=== PATIENT | male | born 1965 | race Caucasian/White ===

== ENCOUNTER → 2018-05-11 00:34 | Outpatient (CLI) | payer OTHER, SELFPAY ==
--- NOTE | 2018-05-11 10:16 | DI.REPORT_ITS ---
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 The patient has reportedly had repair of a colovesical fistula. There is apparent anastomotic narrowing in the sigmoid region. No recurrent fistula identified. No extravasation of contrast material. Mild mucosal irregularity noted at the anastomotic site and to a lesser degree in a few focal areas more distally. No evidence of obstruction although I would note that there was contrast material residual in the right colon from apparent previous barium enema of 03/08/18. CONCLUSION: No anastomotic leakage. Significant narrowing of colonic lumen at the sigmoid anastomotic site. Note is also made of apparent retained contrast material in ascending colon from February barium enema.
== END ==
PROVIDERS: PCP Nurse Practitioner Family; Visit Provider Surgery
DX: N32.1 Vesicointestinal fistula (principal); K63.2 Fistula of intestine; Z98.0 Intestinal bypass and anastomosis status
CPT/HCPCS: 74270

== ENCOUNTER 2018-05-23 05:56 | Inpatient (IN) | payer OTHER, SELFPAY ==
[2018-05-23] VITALS (13 sets, daily range): BP systolic 103–127; BP diastolic 55–79; PULSE 54–91; RESP 14–27; TEMP 35.8–36.7; O2SAT 95–99
[2018-05-23] MEDS: Lactated Ringers 1,000 ML 30 ML IV ×2 (06:48→15:00)
[2018-05-23] MEDS: Lactated Ringers 1,000 ML 750 ML IV (09:39)
[2018-05-23] MEDS: Normal Saline-STERILE FIELD 0.9% 10 ML SYR 20 ML (10:20)
--- NOTE | 2018-05-23 11:40 | BOWEL_PTH ---
PATIENT: Koko Ace JR LOC: U#:[id number] AGE/SX: 52/M ROOM: 215 RE05/23/[address]: Dayron Diaz DO : 1965 BED: A DIS: 05/26/2018 SPEC #: [id number] RECD: 05/23/18 18:02 STATUS: PREMA REQ #: [id number] REED: 05/23/18 11:[address]: Dayron Diaz DEPT: Surgical Specimen RECD BY: Pearl Esparza ENTERED: 05/23/18 18:03 SP TYPE: Bowel OTHR DR: Krya Mcdaniel APRN Tissues: 1 - BOWEL/OSTOMY STOMA Procedures: GROSS AND MICRO LEVEL 3 Comments: [id number]
[2018-05-23] MEDS: Lidocaine 1% Pres-Free 5 ML VIAL 20 ML (12:31)
[2018-05-23] MEDS: Bupivacaine 0.25% Pres-Free 30 ML VIAL (12:31)
[2018-05-23] MEDS: Normal Saline Flush 10 ML SYR IVP ×3 (14:21→17:03)
[2018-05-23] MEDS: Enoxaparin 40 MG/0.4 ML SYR SC (14:21)
[2018-05-23] MEDS: Gabapentin 100 MG CAP PO ×2 (14:21→19:30)
[2018-05-23] MEDS: clonazePAM 1 MG TAB PO ×2 (14:21→19:30)
[2018-05-23] MEDS: Nicotine 21 MG/24 HR PATCH TD (14:32)
[2018-05-23] MEDS: ACETAMINOPHEN 1,000 MG/100 ML BTL 400 MG IVPB ×2 (15:27→23:39)
[2018-05-23] MEDS: Ketorolac 15 MG/ML VIAL IVP ×2 (17:03→23:40)
--- NOTE | 2018-05-23 17:12 | ROE_ITS ---
DATE OF PROCEDURE: May 23, 2018 PREOPERATIVE DIAGNOSIS: Colovesical fistula. POSTOPERATIVE DIAGNOSIS: Colovesical fistula. PROCEDURE: Ileostomy reversal. SURGEON: Dayron Diaz D.O. VINYL INSTALLER: Mady Roberson PA-C ANESTHESIA: General Anesthesia via endotracheal tube by Amador Mejia CRNA ASA 3, Mallampati Class II Bilateral TAP blocks performed by Anesthesia. LOCAL: 1.3% Exparel with 0.5% Marcaine. ESTIMATED BLOOD LOSS: 100 mL's SPECIMEN: Cutaneous portion of loop ileostomy. INDICATIONS: This is a 52-year-old gentleman who had undergone repair of a colovesical fistula and was anastomosed at that time but had an ileostomy placed to allow the anastomosis to heal. He now presents for reversal after recent barium enema demonstrated no evidence of leak at the colonic anastomosis. The risks and benefits of this were discussed with Ro Db. All his questions were answered to his satisfaction. Consent was obtained to proceed. FINDINGS: The loop ileostomy was freed up from the surrounding skin and fascia and anastomosed in a standard [id number] function end-to-end fashion and then placed back in the abdomen. A wound VAC was placed in the wound. The wound was then covered with a negative pressure wound VAC. PROCEDURE: The patient was brought to the preanesthesia staging area, identification confirmed, consent signed. He was then brought to the operating room. Bilateral TAP blocks were placed by Anesthesia - please see separate operative report. He was positioned supine. All bony prominences were padded. An endotracheal tube was inserted and sedation was titrated for effect. Once adequate sedation was reached, his ileostomy was closed using #0 silk sutures. The ileostomy was then prepped with iodine and then the surrounding area prepped with ChloraPrep. He was draped in a standard sterile fashion. Ioban was placed over the wound. He had sequential compression devices placed prior to induction of anesthesia. He received 3 grams of Cefotetan preoperatively. A Oseguera catheter was inserted after induction of anesthesia. I began the case by making an elliptical incision around the loop ileostomy site , carrying this down to the subcutaneous tissue. I then used cautery to divide the subcutaneous tissue, avoiding the bowel and dividing and freeing up the ileostomy circumferentially down to the fascia. Once I had reached the fascia, using blunt dissection I was able to advance my finger into the abdomen and then circumferentially the fascia from the loop ileostomy. Once the loop ileostomy was freed up circumferentially from any attachments, I then cleaned up the loop portion up to the cutaneous opening so I would have the maximum amount of bowel available for re-anastomosis. Once I had cleaned up the loop, I then sharply divided the bowel on the efferent and afferent limbs and then used a LigaSure to divide the mesentery in a V formation between. Hemostasis was obtained with cautery. With the two loops exposed, both distal and proximal, I then used an Endo CONCHITA by Stackpop 80 mm long and 3.8 mm staple height, passing an anvil, one down the afferent and one down the efferent, or proximal and distal limbs, approximating the antimesenteric borders. I then fired the staple, creating a common channel. I inspected this - there was good apposition of the stitches and an anti-tension stitch was placed at the end of the staple line. I then used Allis clamps to close the end of the opening in the common channel. I then used a second staple load of the Endo CONCHITA stapler 80 mm long, 3.8 mm staple height to close the common channel opening. With this closed, I over-sewed this using #3-0 silk pop-off sutures in Lembert fashion. The small mesenteric defect I had, which measured 2 to 3 cm, was approximated using #3-0 silk sutures. I tested the anastomosis - there was no leak. I inspected the small bowel. Going back into the abdomen I found a couple of small adhesions, which were released. I saw no serosal tears or other injuries. I then placed the bowel back into the abdomen. My cutaneous portion of the loop ileostomy was passed off for pathology, along with the staple ends. I then used Aryan clamps to clamp the peritoneum medial and lateral, and closed the peritoneal layer with a running #0 Vicryl suture. The anterior rectus fascia was closed using #1 Vicryl sutures in a difjhf-yi-qftni fashion. The wound was then irrigated copiously. With the fascia closed, I then injected the Exparel and Marcaine mix circumferentially around the fascia, paying attention to the medial and lateral edges. I then placed a wound VAC using the white sponge to cover the suture line and black sponge on top of this. Once the sponges were in place and the dressings in place, negative vacuum pressure was activated and there was good closure and no signs of leak from the negative pressure wound. All counts were reported as correct. There were no apparent complications during the case. The patient was extubated in the operating room and brought to the Post Anesthesia Care Unit in good condition.
--- NOTE | 2018-05-23 19:18 | NUR.NOTE ---
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 CC aware.
[2018-05-23] MEDS: metFORMIN 500 MG TAB 1000 MG PO (19:30)
[2018-05-24 03:59] VITALS: BP 111/69; PULSE 88; RESP 18; TEMP 35.7; O2SAT 97
[2018-05-24] MEDS: Ketorolac 15 MG/ML VIAL IVP ×3 (05:36→18:04)
[2018-05-24] MEDS: Normal Saline Flush 10 ML SYR IVP ×3 (05:36→18:11)
[2018-05-24 06:53] LABS: Abs Immature Grans 0.07 k/cumm (0.0-0.09); Absolute Basophil Count 0.02 k/cumm (0.0-0.2); Basophils % 0.1; Eosinophils % 0.3; HCT 38.1 % (40.0-50.0); HGB 12.1 g/dL (13.5-17.5); Immature Grans % 0.4; Lymphocytes % 13.9; Mean Corp. HGB Concentration 31.8 g/dL (32.0-36.0); Mean Corpuscular Hemoglobin 26.8 pg (27.0-33.0); Mean Corpuscular Volume 84.3 fL (80-95); Mean Platelet Volume 9.9 fL (8.0-11.0); Monocytes % 6.7; Neutrophils % 78.6; Platelet Count 307 x1000/uL (130-400); RBC 4.52 m/cumm (4.50-6.00); RBC Distribution Width 16.9 % (11.8-14.1); White Blood Cell Count 18.43 k/cumm (4.4-10.8)
[2018-05-24 06:57] LABS: Absolute Eosinophil Count 0.06 k/cumm (0.0-0.7); Absolute Lymphocyte Count 2.56 k/cumm (1.2-3.4); Absolute Monocyte Count 1.23 k/cumm (0.11-0.7); Absolute Neutrophil Count 14.49 k/cumm (1.2-6.7)
[2018-05-24 07:02] LABS: ALT 33 U/L (12-78); AST 16 U/L (15-37); Albumin 3.3 g/dL (3.4-5.0); Alkaline Phosphatase 53 U/L (46-116); BUN 24 mg/dL (7-18); Bilirubin, Total 0.3 mg/dL (0.2-1.0); CREATININE 1.15 mg/dL (0.70-1.30); Calcium 8.2 mg/dL (8.5-10.1); Chloride 100 mmol/L (98-107); Glucose 107 mg/dL (70-100); Magnesium 1.9 mg/dL (1.8-2.4); Potassium 5.1 mmol/L (3.5-5.1); Sodium 135 mmol/L (136-145); Total Protein 7.2 g/dL (6.4-8.2)
[2018-05-24 07:15] VITALS: BP 100/63; PULSE 82; RESP 20; TEMP 36.5; O2SAT 96
[2018-05-24] MEDS: clonazePAM 1 MG TAB PO ×4 (08:11→19:01)
[2018-05-24] MEDS: ACETAMINOPHEN 1,000 MG/100 ML BTL 400 MG IVPB ×2 (08:11→16:29)
[2018-05-24] MEDS: metFORMIN 500 MG TAB 1000 MG PO ×2 (08:11→19:01)
[2018-05-24] MEDS: Nicotine 21 MG/24 HR PATCH TD (08:11)
[2018-05-24] MEDS: Gabapentin 100 MG CAP PO ×3 (08:11→19:01)
--- NOTE | 2018-05-24 11:11 | PGE_ITS ---
PROGRESS NOTE DATE OF SERVICE May 24, 2018 at 9:59 a.m. DIAGNOSES Colovesical fistula status post ileostomy reversal. ASSESSMENT A 52-year-old male doing well after reverse of loop ileostomy. PLAN 1. Loop ileostomy. Continue pulmonary toilet. DVT prophylaxes, ambulation. Diet will keep him on full liquids. He denies any flatus or bowel movements. 2. Diabetes. Continue on his metformin with a sliding scale to back that up. 3. Anxiety. We have him on Xanax and his other medications. 4. Pain management. He is on a ENVIRONMENTAL HEALTH TECHNOLOGIST, along with gabapentin, Tylenol and Toradol. Will start oral acet aminophen today. SUBJECTIVE The patient is stable overnight. Minimal pain. No nausea or vomiting. Afebrile. He appears to be tole rating full liquids. OBJECTIVE T-max 36.7. T-current: 36.5. Remainder of vital signs are stable. His most recent set of vital signs show a blood pressure 100/63. Pulse 82. Respirations 20. O2 sat 96% on room air. Total i's and O's f rom post surgery yesterday show 1.4 liters in, 1.5 liters out. He took in 580 of oral. He had a blood loss of 100 ml yesterday. PHYSICAL EXAMINATION GENERAL - He is awake, alert, appropriate. He appears calm. Anxiety seems to be under good control. CHEST - Normal air movement. No wheezing or stridor. HEART - Heart is regular. ABDOMEN - Abdomen is soft, obese. It feels mildly distended. Minimal tenderness around his wound. WOUND - Removed the wound VAC today, it will be on a Tuesday, Tuesday, Tuesday regimen. Wound base is clean. Fascial sutures intact. No granulation seen, but it is less than 24 hours. Serosanguineous d rainage in the wound VAC. EXTREMITIES - No clubbing, cyanosis or edema. INTEGUMENT - Warm and dry. LABS Chemistry - Potassium 5.1, CO2 29, BUN 24, creatinine 1.15, glucose 107, calcium 8.2, liver enzymes n ormal. Total protein 7.2, albumin 3.3. White count this morning 18.4, hemoglobin 12.1, hematocrit 38, platelet count 307.
[2018-05-24 11:35] VITALS: BP 176/71; PULSE 89; RESP 20; TEMP 36.2; O2SAT 94
--- NOTE | 2018-05-24 12:03 | PDOC.CMIN ---
Care Management Initial Assess REASON FOR HOSPITALIZATION:: Colorectal Fistula PAST MEDICAL HISTORY/PAST SURGICAL HISTORY:: Anxiety, depression, diverticulitis, diabetes-non insulin dependent, hypertension, high cholesterol, adult anti-social behavior, cysto/bladder bx, mental illness, PKU, migrated uteral stent, colorectal fistual. PREVIOUS FUNCTIONAL STATUS/SOCIAL/FAMILY SUPPORTS:: Koko resides in [place] with his friend, Kristyn Patterson. 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 He is independent with all ADLs in the community. Koko is well known to [facility] and often struggles to regulate when inpatient. He is re-directable with support. CURRENT FUNCTIONAL STATUS:: Koko ambulates independently through the hallways. He is appropriate in interaction at this time. ADVANCE DIRECTIVES:: None on file at [facility]; document provided previously. Has patient been provided with information about the portal?: Yes Did the patient sign up for the portal?: No CODE STATUS:: Full Code INSURANCE COVERAGE / FINANCIAL ISSUES:: MVP, Finacial Asst 85. CURRENT HOME/COMMUNITY SERVICES/EQUIPMENT:: No current services or equipment utilized at this time. PRIMARY CARE PHYSICIAN:: Kyra Mcdaniel NP. POTENTIAL DISCHARGE NEEDS:: Follow up appointment with surgical services, PCP, wound vac ordering and placement, coordination of new [facility] services. PATIENT/FAMILY EDUCATION NEEDS:: Review discharge instructions, discuss Ask Me Three. ANTICIPATED BARRIERS TO DISCHARGE:: None identified. TRANSPORTATION:: Koko will transport home via private vehicle with his friend, Kristyn or his father. PLAN:: When the new wound vac arrives, it will be placed and Koko will discharge to home with new order for [facility]/RN. He will follow up with surgical services and his PCP. Koko will transport via private vehicle with his friend, Kristyn.
--- NOTE | 2018-05-24 12:09 | INITIAL_ITS ---
Care Management Initial Assess REASON FOR HOSPITALIZATION:: Colorectal Fistula PAST MEDICAL HISTORY/PAST SURGICAL HISTORY:: Anxiety, depression, diverticulitis , diabetes-non insulin dependent, hypertension, high cholesterol, adult anti- social behavior, cysto/bladder bx, mental illness, PKU, migrated uteral stent, colorectal fistual. PREVIOUS FUNCTIONAL STATUS/SOCIAL/FAMILY SUPPORTS:: Koko resides in [place] with his friend, Kristyn Patterson. 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 He is independent with all ADLs in the community. Koko is well known to [facility] and often struggles to regulate when inpatient. He is re-directable with support. CURRENT FUNCTIONAL STATUS:: Koko ambulates independently through the hallways. He is appropriate in interaction at this time. ADVANCE DIRECTIVES:: None on file at [facility]; document provided previously. Has patient been provided with information about the portal?: Yes Did the patient sign up for the portal?: No CODE STATUS:: Full Code INSURANCE COVERAGE / FINANCIAL ISSUES:: MVP, Finacial Asst 85. CURRENT HOME/COMMUNITY SERVICES/EQUIPMENT:: No current services or equipment utilized at this time. PRIMARY CARE PHYSICIAN:: Kyra Mcdaniel NP. POTENTIAL DISCHARGE NEEDS:: Follow up appointment with surgical services, PCP, wound vac ordering and placement, coordination of new [facility] services. PATIENT/FAMILY EDUCATION NEEDS:: Review discharge instructions, discuss Ask Me Three. ANTICIPATED BARRIERS TO DISCHARGE:: None identified. TRANSPORTATION:: Koko will transport home via private vehicle with his friend, Kristyn or his father. PLAN:: When the new wound vac arrives, it will be placed and Koko will discharge to home with new order for [facility]. He will follow up with surgical services and his PCP. Koko will transport via private vehicle with his friend, Kristyn.
[2018-05-24] MEDS: Enoxaparin 40 MG/0.4 ML SYR SC (13:46)
--- NOTE | 2018-05-24 15:30 | PHARADMIT ---
Addendum entered by Santy Reyna III 05/25/18 16:56: Pharmacy Note Subjective MD advancing to full liquid diet. BP has improved. Has a wound VAC Objective VS-OK pain: 07/05 SCr-0.98 Lytes,Plts-OK WBC- 1.25 (down) H&H-down (10.2/32.3) Large BM today. Assessment Clonzepam to prn for anxiety. Plan Plan for home tomorow Original Note: Admission Pharmacy Clinical Review colorectal fistula Code Status Full Code Current Weight 130.6 kg Renally Cleared and Narrow Therapeutic Index Meds Crcl ~85.00 mL/min QTc Value / Action Taken n/a BP Control, Fever BP 176/71 afebrile Electrolytes reviewed Na 135 DVT Prophylaxis enoxaparin Opiate Usage / Scheduled Bowel Regimen Ordered lizeth/no Plt/SCr for Heparin / Enoxaparin plt 307 SCr 1.15 INR for Warfarin n/a H/H stable, WBC/Bands h/h 12.1/38.1 wbc 18.43 Antibiotic appropriateness none Cultures and Sensitivities n/a Surgical ABX d/c within 24 hr yes DM control / Insulin Dosing BG 107 metformin and sliding scale aspart Heart Failure (Check EF%) (CHANG's, B-Block, Diuretics) lisinopril (home med) IV to PO Switch n/a Home Meds Reviewed -multiple MANUSCRIPTS CURATOR depressants:hydromorphone, lorazepam -ketorolac may enhance the adverse effects of aspirin (bleed risk) Home Meds Not Ordered aspirin, cyanocobalamin, fenofibrate,lisinopril, lorazepam, mirabegron, oxybutynin, rizatriptan, venlafaxine Comments has hydromorphone HEALTH CLUB ATTENDANT currently
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
[2018-05-24] MEDS: Lactated Ringers 1,000 ML 125 ML IV (15:41)
[2018-05-24 16:09] VITALS: BP 100/62; PULSE 75; RESP 18; TEMP 36.5; O2SAT 98
[2018-05-24 19:17] VITALS: BP 112/51; PULSE 95; RESP 17; TEMP 37; O2SAT 93
[2018-05-24] MEDS: Normal Saline 1,000 ML 1000 ML IV (21:04)
[2018-05-24] MEDS: Lidocaine 2% Jelly 11 ML SYR UR (22:56)
[2018-05-24] MEDS: Lactated Ringers 1,000 ML 150 ML IV (23:18)
--- NOTE | 2018-05-24 23:47 | NUR.NOTE ---
Nursing Note: 2220 Per MD order pt received a 1000ml NS bolus after low bladder scan readings and failure to void since rodriguez was discontinued this am. At this time the pt is complaining of bladder pressure and abdomen is noted to be more firm. Pt still has been unable to void in spite of multiple attempts. Order was obtain to insert rodriguez catheter and this was explained to the patient. Pt expressed frustration and refused the rodriguez insertion at this time. 2239 the patient stated that he was leaving the floor to go out and smoke and the he would disconnect himself from the tubes and go. He refused offer of nicotine replacement. As he approached the desk pushing his iv pole, Clinical Coordinator Merle explained that we would need to take out his IV and he would need to sign an AMA form to leave and that he would not be able to come back in to resume treatment. Pt decided to return to his room to have the rodriguez catheter placed.
[2018-05-25 03:00] VITALS: BP 86/41; PULSE 114; RESP 18; TEMP 38.9; O2SAT 92
[2018-05-25 03:36] VITALS: TEMP 38.9
[2018-05-25] MEDS: ACETAMINOPHEN 1,000 MG/100 ML BTL 400 MG IVPB (03:36)
[2018-05-25 04:25] VITALS: BP 100/58; PULSE 110; RESP 20; TEMP 38.2; O2SAT 93
[2018-05-25] MEDS: Lactated Ringers 1,000 ML 150 ML IV (06:11)
[2018-05-25] MEDS: Ketorolac 15 MG/ML VIAL IVP ×2 (06:11→11:24)
[2018-05-25] MEDS: Normal Saline Flush 10 ML SYR IVP ×2 (06:11→11:24)
--- NOTE | 2018-05-25 07:00 | DI.REPORT_ITS ---
SYMPTOM/DIAGNOSIS: FEVER,H/O COLOSTOMY REVERSAL PA AND LATERAL CHEST: The lungs are free of infiltrate. A faint density projected over the lateral portion of the right lower lobe is demonstrated, not seen on a previous study of 02/14. While this density could represent a small region of atelectasis or infiltration, the possibility of a pulmonary nodule could not be entirely excluded. The heart is not enlarged. The hilar structures, mediastinum and tracheal air column are intact. No definite acute abnormality is recognized. SUMMARY: A small right lower lobe density is noted as described above and further evaluation with CT is suggested.
[2018-05-25 07:04] LABS: Abs Immature Grans 0.03 k/cumm (0.0-0.09); Absolute Basophil Count 0.02 k/cumm (0.0-0.2); Absolute Eosinophil Count 0.07 k/cumm (0.0-0.7); Absolute Lymphocyte Count 1.69 k/cumm (1.2-3.4); Absolute Monocyte Count 1.01 k/cumm (0.11-0.7); Absolute Neutrophil Count 8.43 k/cumm (1.2-6.7); Basophils % 0.2; Eosinophils % 0.6; HCT 32.3 % (40.0-50.0); HGB 10.2 g/dL (13.5-17.5); Immature Grans % 0.3; Mean Corp. HGB Concentration 31.6 g/dL (32.0-36.0); Mean Corpuscular Hemoglobin 26.7 pg (27.0-33.0); Mean Corpuscular Volume 84.6 fL (80-95); Neutrophils % 74.9; Platelet Count 244 x1000/uL (130-400); RBC 3.82 m/cumm (4.50-6.00); RBC Distribution Width 17.3 % (11.8-14.1); White Blood Cell Count 11.25 k/cumm (4.4-10.8)
[2018-05-25 07:20] LABS: Anion Gap 4.9 mmol/L (3-11); BUN 18 mg/dL (7-18); CO2 26.1 mmol/L (21.0-32.0); CREATININE 0.98 mg/dL (0.70-1.30); Calcium 8.1 mg/dL (8.5-10.1); Chloride 103 mmol/L (98-107); Glucose 104 mg/dL (70-100); Potassium 4.1 mmol/L (3.5-5.1); Sodium 134 mmol/L (136-145)
[2018-05-25 09:16] VITALS: BP 126/74; PULSE 97; RESP 20; TEMP 37.2; O2SAT 96
[2018-05-25] MEDS: Acetaminophen 325 MG TAB 650 MG PO ×2 (10:32→17:24)
--- NOTE | 2018-05-25 10:56 | PDOC.CMPRO ---
Care Management Progress Note S/O: Koko was lying in bed when CM entered the room, his friend, Kristyn at his bedside. CM greeted Koko who immediately asked what do you want? in a harsh tone. CM reported the purpose of visit was for a general check in to see how Koko was doing. Koko than reported multiple concerns including not seeing the MD, wanting better pain management, wanting to know when wound vac was arriving, wanting it to be known he needed to discharge today, wanting to go to the ED to be able to have an MD see him, concerns around pain medications causing urinary block-requiring a catheter. CM reported concerns to RN: Monica who reported being aware of Koko's concerns at this time. Monica reported she had shared these same concerns with Carlos FABIAN who had left messages for Dr. Go. CM followed up with Ailyn who reported no new updates on the wound vac, though she shared Dr. Go would be over around 1300. A: 52 year old male admitted to [facility] 05/23/18 for Colorectal Fistual P: CM will continue to follow and support discharge planning considerations. Koko will return home with wound vac and anticipated new orders for VNA supports through [facility] for nursing. He will transport via private vehicle with his friend, Kristyn.
--- NOTE | 2018-05-25 11:05 | CMPROGNOTE_ITS ---
Care Management Progress Note S/O: Koko was lying in bed when CM entered the room, his friend, Kristyn at his bedside. CM greeted Koko who immediately asked what do you want? in a harsh tone. CM reported the purpose of visit was for a general check in to see how Koko was doing. Koko than reported multiple concerns including not seeing the MD, wanting better pain management, wanting to know when wound vac was arriving , wanting it to be known he needed to discharge today, wanting to go to the ED to be able to have an MD see him, concerns around pain medications causing urinary block-requiring a catheter. CM reported concerns to RN: Monica who reported being aware of Koko's concerns at this time. Monica reported she had shared these same concerns with Carlos FABIAN who had left messages for Dr. Go. CM followed up with Ailyn who reported no new updates on the wound vac, though she shared Dr. Go would be over around 1300. A: 52 year old male admitted to [facility] 05/23/18 for Colorectal Fistual P: CM will continue to follow and support discharge planning considerations. Koko will return home with wound vac and anticipated new orders for VNA supports through [facility] for nursing. He will transport via private vehicle with his friend, Kristyn.
[2018-05-25] MEDS: oxyCODONE 10 MG TAB PO (12:42)
--- NOTE | 2018-05-25 13:16 | PDOC.PROG ---
Assessment/Plan - Assessment/Plan (1) S/P closure of ileostomy Assessment: High Fevers last night. CXR with possible small area of atelectasis vs a pulmonary nodule. Should have CT scan as outpatient. WBC improved. Had urinary retention last night and a rodriguez was placed HAs a wound vac Plan: 1. Diet: Has tolerated a full liquid diet. Had a BM. Will advance to regular soft diet for dinner 2. Fevers: Leukocytosis improved. CXR maybe with some atelectasis. No fevers since this am. Continue with deep breathing and ISP. Will watch for fevers tonight 3. Wound Care: wound vac in place. Home vac ordered. Hopefully will have a wound vac by tomorrow 4. Urinary retention last night: patient wants rodriguez removed. Discussed potential for need to get straight cathed tonight or having rodriguez replaced. Patient understands and wants rodriguez removed. Will remove and bladder scan 5. IV fuids: discussed with patient the need for drinking enough to keep hydrated so we can shut down the IV fluids. 6. Activity: encouraged him to get up and walk to help his lungs and GI system. Patient upset I can't walk with all these cords 7. ANxiety: severe anxiety. Has Clonazepam ordered but has not asked for it. I explained that he has it ordered for 3 times a day as needed. he just needs to ask for it. 8. Insomnia- will order some Melatonin as needed 9. Disposition: Hopefully home tomorrow if his WBC count is normal and he has no fevers overnight. Will need Home Health for wound vac changes. Patient continues to state that he needs to leave. Again I tried to explain the reasoning behind not discharging him today. He needs to be fever free for 24 hours, we need his home wound vac. I again told him that if he leaves it will be against medical advice and he will not get a Rx for pain medications either. Patient continues to be unhappy, angry and rude to me and the nursing/ [employer] staff. (2) Anxiety Assessment: Severe anxiety Plan: Has Clonazepam ordered TID History of Present Illness - History of Present Illness Chief Complaint: POD #2 s/p ileostomy takedown History of Present Illness: Mr. Ace is very upset again. he states he is getting bad care. He wants to be discharged. I spend 30 minutes in his room talking to him. I explained that we would not discharge him until he was without a fever for 24 hours. I reviewed his XRAY findings and lab findings. He has had a BM and he is passing flatus. He is tolerating a full liquid diet. He has a rodriguez due to issues with retention last night. He is upset about having the rodriguez. He is upset about not being able to go home. Review of Systems - Review of Systems Constitutional: denies: Fever, Chills, Sweats, Weakness, Malaise, Other Gastrointestinal: denies: Nausea, Vomiting, Abdominal Pain, Diarrhea, Constipation, Melena, Hematochezia, Other - Medications/Allergies Allergies/Adverse Reactions: Allergies Allergy/AdvReac Type Severity Reaction Status Date / Time simvastatin AdvReac Mild foot Unverified 05/23/18 06:24 swelling Medications: Current Medications Acetaminophen (Tylenol) 650 mg PO Q6H PRN PRN Last Admin: 05/25/18 10:32 Dose: 650 mg Albuterol Sulfate (Proventil Updraft) 2.5 mg UPD Q4H PRN PRN Bacteriostatic Water () 0 ml IJ DIRECTED PRN Stop: 06/21/18 23:59 Clonazepam (Klonopin) 1 mg PO BID PRN PRN Last Admin: 05/24/18 12:24 Dose: 1 mg Dextrose (Insta-Glucose) 0 gm PO DIRECTED PRN Dextrose/Water () 0 gm IVP DIRECTED PRN Enoxaparin Sodium (Lovenox) 40 mg SC Q24H [facility] Last Admin: 05/24/18 13:46 Dose: 40 mg Gabapentin (Neurontin) 100 mg PO TID [facility] Last Admin: 05/25/18 10:38 Dose: Not Given Hydromorphone HCl (Dilaudid Injection) 1 mg IVP Q4H PRN PRN Ringer's Solution () 1,000 mls @ 150 mls/hr IV INFUSION [facility] Stop: 06/21/18 23:59 Last Admin: 05/25/18 06:11 Dose: 150 mls/hr IV Miscellaneous Supplies () 1 each IV DIRECTED [facility] Insulin Aspart (Novolog Flexpen) 0 units SC 0800,1200,1700 [facility] PRN Reason: Protocol Last Admin: 05/25/18 12:31 Dose: Not Given Ketorolac Tromethamine (Toradol Injection) 15 mg IVP Q6H [facility] Stop: 05/28/18 17:59 Last Admin: 05/25/18 11:24 Dose: 15 mg Metformin HCl (Glucophage) 1,000 mg PO BID [facility] Last Admin: 05/25/18 10:38 Dose: Not Given Miscellaneous (Remove Patch) 1 each TP DAILY [facility] Last Admin: 05/25/18 10:38 Dose: Not Given Naloxone HCl (Narcan) 0 mg IVP PRN PRN Nicotine (Nicoderm Cq) 21 mg TD DAILY [facility] Last Admin: 05/25/18 10:38 Dose: Not Given Nicotine (Nicotrol) 10 mg IH Q3H PRN PRN Last Admin: 05/24/18 11:46 Dose: 10 mg Oxycodone HCl (Roxicodone) 10 mg PO Q6H PRN PRN Last Admin: 05/25/18 12:42 Dose: 10 mg Sodium Chloride (Saline 10 Ml Vial) 0 ml IJ DIRECTED PRN Stop: 06/21/18 23:59 Sodium Chloride (Saline Flush 10 Ml Syringe) 0 ml IVP PRN PRN Last Admin: 05/25/18 11:24 Dose: 30 ml Objective - Exam Vitals and I&O: Vital Signs Temp 37.2 C 05/25/18 09:16 Pulse 97 H 05/25/18 09:16 Resp 20 05/25/18 09:16 BP 126/74 05/25/18 09:16 Pulse Ox 96 05/25/18 09:16 Intake & Output 05/24/18 05/25/18 05/25/18 23:59 11:59 23:59 Intake Total 4289 1217 Output Total 700 2100 1075 Balance 9289 -883 -5465 Intake: IV 3259 1117 Oral 1030 100 Output: Output, Wound Vac (mls) 175 Urine 700 2100 900 Other: Urine Color Yellow Yellow Yellow Urine Appearance Clear Clear Clear Comment Pt denies bladder pressure/pain. Stool Size Large Stool Characteristics Liquid General: Alert, Oriented x3, Other (he is agitated and upset) HEENT: Atraumatic Neck: Supple Lungs: Clear to auscultation Cardiovascular: Regular rate Abdomen: Normal bowel sounds, Soft, Tenderness (mid around the wound vac. Complains of lower abdominal pain with coughing) - Results Results: Laboratory Results WBC 11.25 k/cumm (4.4-10.8) H D 05/25/18 06:40 RBC 3.82 m/cumm (4.50-6.00) L 05/25/18 06:40 Hgb 10.2 g/dL (13.5-17.5) L 05/25/18 06:40 Hct 32.3 % (40.0-50.0) L 05/25/18 06:40 MCV 84.6 fL (80-95) 05/25/18 06:40 MCH 26.7 pg (27.0-33.0) L 05/25/18 06:40 MCHC 31.6 g/dL (32.0-36.0) L 05/25/18 06:40 RDW 17.3 % (11.8-14.1) H 05/25/18 06:40 Plt Count 244 x1000/uL (130-400) 05/25/18 06:40 MPV 10.0 fL (8.0-11.0) 05/25/18 06:40 Immature Gran % 0.3 05/25/18 06:40 Neutrophils % 74.9 05/25/18 06:40 Lymphocytes % 15.0 05/25/18 06:40 Monocytes % 9.0 05/25/18 06:40 Eosinophils % 0.6 05/25/18 06:40 Basophils % 0.2 05/25/18 06:40 Absolute Neutrophils 8.43 k/cumm (1.2-6.7) H 05/25/18 06:40 Absolute Lymphocytes 1.69 k/cumm (1.2-3.4) 05/25/18 06:40 Absolute Monocytes 1.01 k/cumm (0.11-0.7) H 05/25/18 06:40 Absolute Eosinophils 0.07 k/cumm (0.0-0.7) 05/25/18 06:40 Absolute Basophils 0.02 k/cumm (0.0-0.2) 05/25/18 06:40 Sodium 134 mmol/L (136-145) L 05/25/18 06:40 Potassium 4.1 mmol/L (3.5-5.1) 05/25/18 06:40 Chloride 103 mmol/L (98-107) 05/25/18 06:40 Carbon Dioxide 26.1 mmol/L (21.0-32.0) 05/25/18 06:40 Anion Gap 4.9 mmol/L (3-11) 05/25/18 06:40 BUN 18 mg/dL (7-18) D 05/25/18 06:40 Creatinine 0.98 mg/dL (0.70-1.30) 05/25/18 06:40 Estimated GFR/1.73 m2 >= 60.00 (mL/min/1.73m2) 05/25/18 06:40 Glucose 104 mg/dL (70-100) H 05/25/18 06:40 Calcium 8.1 mg/dL (8.5-10.1) L 05/25/18 06:40 Magnesium 1.9 mg/dL (1.8-2.4) 05/24/18 06:25 Total Bilirubin 0.3 mg/dL (0.2-1.0) 05/24/18 06:25 AST 16 U/L (15-37) 05/24/18 06:25 ALT 33 U/L (12-78) 05/24/18 06:25 Alkaline Phosphatase 53 U/L (46-116) 05/24/18 06:25 Total Protein 7.2 g/dL (6.4-8.2) 05/24/18 06:25 Albumin 3.3 g/dL (3.4-5.0) L 05/24/18 06:25
--- NOTE | 2018-05-25 13:40 | PDOC.PROG_ITS ---
Assessment/Plan - Assessment/Plan (1) S/P closure of ileostomy Assessment: High Fevers last night. CXR with possible small area of atelectasis vs a pulmonary nodule. Should have CT scan as outpatient. WBC improved. Had urinary retention last night and a rodriguez was placed HAs a wound vac Plan: 1. Diet: Has tolerated a full liquid diet. Had a BM. Will advance to regular soft diet for dinner 2. Fevers: Leukocytosis improved. CXR maybe with some atelectasis. No fevers since this am. Continue with deep breathing and ISP. Will watch for fevers tonight 3. Wound Care: wound vac in place. Home vac ordered. Hopefully will have a wound vac by tomorrow 4. Urinary retention last night: patient wants rodriguez removed. Discussed potential for need to get straight cathed tonight or having rodriguez replaced. Patient understands and wants rodriguez removed. Will remove and bladder scan 5. IV fuids: discussed with patient the need for drinking enough to keep hydrated so we can shut down the IV fluids. 6. Activity: encouraged him to get up and walk to help his lungs and GI system. Patient upset I can't walk with all these cords 7. ANxiety: severe anxiety. Has Clonazepam ordered but has not asked for it. I explained that he has it ordered for 3 times a day as needed. he just needs to ask for it. 8. Insomnia- will order some Melatonin as needed 9. Disposition: Hopefully home tomorrow if his WBC count is normal and he has no fevers overnight. Will need Home Health for wound vac changes. Patient continues to state that he needs to leave. Again I tried to explain the reasoning behind not discharging him today. He needs to be fever free for 24 hours, we need his home wound vac. I again told him that if he leaves it will be against medical advice and he will not get a Rx for pain medications either. 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 (2) Anxiety Assessment: Severe anxiety Plan: Has Clonazepam ordered TID History of Present Illness - History of Present Illness Chief Complaint: POD #2 s/p ileostomy takedown History of Present Illness: Mr. Ace is very upset again. he states he is getting bad care. He wants to be discharged. I spend 30 minutes in his room talking to him. I explained that we would not discharge him until he was without a fever for 24 hours. I reviewed his XRAY findings and lab findings. He has had a BM and he is passing flatus. He is tolerating a full liquid diet. He has a rodriguez due to issues with retention last night. He is upset about having the rodriguez. He is upset about not being able to go home. Review of Systems - Review of Systems Constitutional: denies: Fever, Chills, Sweats, Weakness, Malaise, Other Gastrointestinal: denies: Nausea, Vomiting, Abdominal Pain, Diarrhea, Constipation, Melena, Hematochezia, Other - Medications/Allergies Allergies/Adverse Reactions: Allergies Allergy/AdvReac Type Severity Reaction Status Date / Time simvastatin AdvReac Mild foot Unverified 05/23/18 06:24 swelling Medications: Current Medications Acetaminophen (Tylenol) 650 mg PO Q6H PRN PRN Last Admin: 05/25/18 10:32 Dose: 650 mg Albuterol Sulfate (Proventil Updraft) 2.5 mg UPD Q4H PRN PRN Bacteriostatic Water () 0 ml IJ DIRECTED PRN Stop: 06/21/18 23:59 Clonazepam (Klonopin) 1 mg PO BID PRN PRN Last Admin: 05/24/18 12:24 Dose: 1 mg Dextrose (Insta-Glucose) 0 gm PO DIRECTED PRN Dextrose/Water () 0 gm IVP DIRECTED PRN Enoxaparin Sodium (Lovenox) 40 mg SC Q24H [facility] Last Admin: 05/24/18 13:46 Dose: 40 mg Gabapentin (Neurontin) 100 mg PO TID [facility] Last Admin: 05/25/18 10:38 Dose: Not Given Hydromorphone HCl (Dilaudid Injection) 1 mg IVP Q4H PRN PRN Ringer's Solution () 1,000 mls @ 150 mls/hr IV INFUSION [facility] Stop: 06/21/18 23:59 Last Admin: 05/25/18 06:11 Dose: 150 mls/hr IV Miscellaneous Supplies () 1 each IV DIRECTED [facility] Insulin Aspart (Novolog Flexpen) 0 units SC 0800,1200,1700 [facility] PRN Reason: Protocol Last Admin: 05/25/18 12:31 Dose: Not Given Ketorolac Tromethamine (Toradol Injection) 15 mg IVP Q6H [facility] Stop: 05/28/18 17:59 Last Admin: 05/25/18 11:24 Dose: 15 mg Metformin HCl (Glucophage) 1,000 mg PO BID [facility] Last Admin: 05/25/18 10:38 Dose: Not Given Miscellaneous (Remove Patch) 1 each TP DAILY [facility] Last Admin: 05/25/18 10:38 Dose: Not Given Naloxone HCl (Narcan) 0 mg IVP PRN PRN Nicotine (Nicoderm Cq) 21 mg TD DAILY [facility] Last Admin: 05/25/18 10:38 Dose: Not Given Nicotine (Nicotrol) 10 mg IH Q3H PRN PRN Last Admin: 05/24/18 11:46 Dose: 10 mg Oxycodone HCl (Roxicodone) 10 mg PO Q6H PRN PRN Last Admin: 05/25/18 12:42 Dose: 10 mg Sodium Chloride (Saline 10 Ml Vial) 0 ml IJ DIRECTED PRN Stop: 06/21/18 23:59 Sodium Chloride (Saline Flush 10 Ml Syringe) 0 ml IVP PRN PRN Last Admin: 05/25/18 11:24 Dose: 30 ml Objective - Exam Vitals and I&O: Vital Signs Temp 37.2 C 05/25/18 09:16 Pulse 97 H 05/25/18 09:16 Resp 20 05/25/18 09:16 BP 126/74 05/25/18 09:16 Pulse Ox 96 05/25/18 09:16 Intake & Output 05/24/18 05/25/18 05/25/18 23:59 11:59 23:59 Intake Total 4289 1217 Output Total 700 2100 1075 Balance 8069 -883 -6642 Intake: IV 3259 1117 Oral 1030 100 Output: Output, Wound Vac (mls) 175 Urine 700 2100 900 Other: Urine Color Yellow Yellow Yellow Urine Appearance Clear Clear Clear Comment Pt denies bladder pressure/pain. Stool Size Large Stool Characteristics Liquid General: Alert, Oriented x3, Other (he is agitated and upset) HEENT: Atraumatic Neck: Supple Lungs: Clear to auscultation Cardiovascular: Regular rate Abdomen: Normal bowel sounds, Soft, Tenderness (mid around the wound vac. Complains of lower abdominal pain with coughing) - Results Results: Laboratory Results WBC 11.25 k/cumm (4.4-10.8) H D 05/25/18 06:40 RBC 3.82 m/cumm (4.50-6.00) L 05/25/18 06:40 Hgb 10.2 g/dL (13.5-17.5) L 05/25/18 06:40 Hct 32.3 % (40.0-50.0) L 05/25/18 06:40 MCV 84.6 fL (80-95) 05/25/18 06:40 MCH 26.7 pg (27.0-33.0) L 05/25/18 06:40 MCHC 31.6 g/dL (32.0-36.0) L 05/25/18 06:40 RDW 17.3 % (11.8-14.1) H 05/25/18 06:40 Plt Count 244 x1000/uL (130-400) 05/25/18 06:40 MPV 10.0 fL (8.0-11.0) 05/25/18 06:40 Immature Gran % 0.3 05/25/18 06:40 Neutrophils % 74.9 05/25/18 06:40 Lymphocytes % 15.0 05/25/18 06:40 Monocytes % 9.0 05/25/18 06:40 Eosinophils % 0.6 05/25/18 06:40 Basophils % 0.2 05/25/18 06:40 Absolute Neutrophils 8.43 k/cumm (1.2-6.7) H 05/25/18 06:40 Absolute Lymphocytes 1.69 k/cumm (1.2-3.4) 05/25/18 06:40 Absolute Monocytes 1.01 k/cumm (0.11-0.7) H 05/25/18 06:40 Absolute Eosinophils 0.07 k/cumm (0.0-0.7) 05/25/18 06:40 Absolute Basophils 0.02 k/cumm (0.0-0.2) 05/25/18 06:40 Sodium 134 mmol/L (136-145) L 05/25/18 06:40 Potassium 4.1 mmol/L (3.5-5.1) 05/25/18 06:40 Chloride 103 mmol/L (98-107) 05/25/18 06:40 Carbon Dioxide 26.1 mmol/L (21.0-32.0) 05/25/18 06:40 Anion Gap 4.9 mmol/L (3-11) 05/25/18 06:40 BUN 18 mg/dL (7-18) D 05/25/18 06:40 Creatinine 0.98 mg/dL (0.70-1.30) 05/25/18 06:40 Estimated GFR/1.73 m2 >= 60.00 (mL/min/1.73m2) 05/25/18 06:40 Glucose 104 mg/dL (70-100) H 05/25/18 06:40 Calcium 8.1 mg/dL (8.5-10.1) L 05/25/18 06:40 Magnesium 1.9 mg/dL (1.8-2.4) 05/24/18 06:25 Total Bilirubin 0.3 mg/dL (0.2-1.0) 05/24/18 06:25 AST 16 U/L (15-37) 05/24/18 06:25 ALT 33 U/L (12-78) 05/24/18 06:25 Alkaline Phosphatase 53 U/L (46-116) 05/24/18 06:25 Total Protein 7.2 g/dL (6.4-8.2) 05/24/18 06:25 Albumin 3.3 g/dL (3.4-5.0) L 05/24/18 06:25
[2018-05-25] MEDS: Lactated Ringers 1,000 ML 80 ML IV (13:58)
[2018-05-25] MEDS: Gabapentin 100 MG CAP PO ×2 (14:21→20:30)
[2018-05-25] MEDS: Enoxaparin 40 MG/0.4 ML SYR SC (14:23)
[2018-05-25] MEDS: clonazePAM 1 MG TAB PO (14:23)
[2018-05-25] MEDS: HYDROmorphone 4 MG TAB PO ×2 (14:43→20:30)
--- NOTE | 2018-05-25 15:00 | CHAPLAIN ---
Koko warned me when I entered the room that he was not in a good mood and unhappy about his stay here. He wasn't specific, but said he was not being treated well. He didn't like the yogurt and pudding he had been given for lunch. Yesterday he complained about not being allowed to go out to the parking lot a visit a friend. I listened to his complaints and offered to get him something to read. He said he hasn't been about to focus on the books he has, but he didn't want a newspaper. His friend Kristyn has been here with him today.
[2018-05-25 17:15] VITALS: BP 121/74; PULSE 92; RESP 18; TEMP 37.6; O2SAT 95
[2018-05-25] MEDS: Ketorolac 10 MG TAB PO (17:23)
--- NOTE | 2018-05-25 19:05 | NUR.NOTE ---
Nursing Note: Discussed ambulating in [place] with Pt, he states I don't like the nurses out there, I'm not going to walk in the hallways. Educated pt on the importance of ambulating post abdominal surgery. Pt requesting to go outside and walk, Charge nurse Anna Mendez notified of Pt's desire to do so. Pt encourged to use IS, declined at this time.
[2018-05-25] MEDS: metFORMIN 500 MG TAB 1000 MG PO (20:31)
[2018-05-26 00:22] VITALS: BP 106/62; PULSE 92; RESP 20; TEMP 37; O2SAT 96
[2018-05-26] MEDS: clonazePAM 1 MG TAB PO ×2 (04:15→12:13)
[2018-05-26] MEDS: HYDROmorphone 4 MG TAB PO ×2 (04:15→10:40)
[2018-05-26 06:46] LABS: HCT 33.8 % (40.0-50.0); HGB 10.8 g/dL (13.5-17.5); Mean Corpuscular Hemoglobin 26.7 pg (27.0-33.0); Mean Corpuscular Volume 83.5 fL (80-95); Mean Platelet Volume 10.1 fL (8.0-11.0); Platelet Count 260 x1000/uL (130-400); RBC 4.05 m/cumm (4.50-6.00); RBC Distribution Width 17.2 % (11.8-14.1); White Blood Cell Count 11.55 k/cumm (4.4-10.8)
[2018-05-26 07:30] VITALS: BP 129/74; PULSE 99; RESP 24; TEMP 37.7; O2SAT 97
--- NOTE | 2018-05-26 07:55 | DISCHARGE ---
Discharge - Discharge Orders Referrals: Dayron Diaz DO [ [facility] STAFF PHYSICIAN] - 06/05/18 2:45 pm (Follow after ileostomy reversal with wound) - Discharge Plan Disposition: HOME Condition: Improving Diet:: soft diet Equipment/Supplies:: wound vac Activity:: see instructions - Instructions Micromedex Instructions: Ileostomy Closure (DC) Additional Instructions: General Surgery Discharge Information Discharge Activities: 1. Continue incentive spirometry 10-15 times~every hour while awake and as tolerated 2. Ambulate at least 3 times a day for 15 minutes and as tolerated 3. Out of bed at least 3 times a day for 2 hours at a time, and as tolerated 4. You can shower, pat wounds dry, do not rub Restrictions: 1. No heavy lifting, pushing, or pulling over 20 pounds for until wound vac removed, no strenuous bending or twisting. 2. No swimming, baths, or immersion of wounds in water until wound vac removed. If you are having fever, chills, nausea, vomiting, pain not controlled with pain medications, bleeding or drainage from your wounds. Call [phone] or [phone] (after hours). I understand the above instructions and have no questions. Signature of Patient or Responsible Adult Escort Date/Time Name of Responsible Adult Escort [facility] of Nurse Date/Time
--- NOTE | 2018-05-26 07:58 | PDOC.DISCH_ITS ---
Discharge - Discharge Orders Referrals: Dayron Diaz DO [ [facility] STAFF PHYSICIAN] - 06/05/18 2:45 pm (Follow after ileostomy reversal with wound) - Discharge Plan Disposition: HOME Condition: Improving Diet:: soft diet Equipment/Supplies:: wound vac Activity:: see instructions - Instructions Micromedex Instructions: Ileostomy Closure (DC) Additional Instructions: General Surgery Discharge Information Discharge Activities: 1. Continue incentive spirometry 10-15 times~every hour while awake and as tolerated 2. Ambulate at least 3 times a day for 15 minutes and as tolerated 3. Out of bed at least 3 times a day for 2 hours at a time, and as tolerated 4. You can shower, pat wounds dry, do not rub Restrictions: 1. No heavy lifting, pushing, or pulling over 20 pounds for until wound vac removed, no strenuous bending or twisting. 2. No swimming, baths, or immersion of wounds in water until wound vac removed. If you are having fever, chills, nausea, vomiting, pain not controlled with pain medications, bleeding or drainage from your wounds. Call [phone] or [phone] (after hours). I understand the above instructions and have no questions. _ Signature of Patient or Responsible Adult Escort Date/Time _ Name of Responsible Adult Escort _ [facility] of Nurse Date/Time
--- NOTE | 2018-05-26 08:18 | PDOC.HHF2F ---
Date of Service: 05/26/18 Time of Service: 08:18 1. Encounter Date and Reason I certify that SHELL ENGLAND JR was seen by Dayron Diaz on 05/26/18 and that I had a [id number] encounter with this patient that meets the physician face to face encounter requirements. 2. Clinical Findings Supporting Skilled Need and Homebound Status I certify that home health services are medically necessary, include either intermittent halfway and/or physical/speech therapy, and that this patient is homebound in that absences from the home require considerable and taxing effort and are infrequent or of short duration, or are attributable to the need to receive medical care. [X] (a) Attached documentation from encounter provides clinical findings supporting skilled need and homebound status (including what assistance patient requires to leave the home). The encounter with the patient was in whole, or in part, for the following medical condition, which is the primary reason for home health care: [employer] Jail:Wound care with NPWT changes twice a week Physical Therapy: Speech Therapy: Homebound:Patient is limited in mobility due to wound vac equipment, to appointments and limited trips to store for medications, and food. 3. Certification and Authentication I certify that I composed the above information based on my clinical judgement relating to this patient's medical condition and, if applicable, clinical findings communicated to me by the NPP or inpatient physician who performed the Home Health Referral. All further orders will be obtained through Dayron Diaz DO (Community Based Physician - PCP)
--- NOTE | 2018-05-26 08:22 | PDOC.HHF2F_ITS ---
Date of Service: 05/26/18 Time of Service: 08:18 1. Encounter Date and Reason I certify that SHELL ENGLAND JR was seen by Dayron Diaz on 05/26/18 and that I had a [id number] encounter with this patient that meets the physician face to face encounter requirements. 2. Clinical Findings Supporting Skilled Need and Homebound Status I certify that home health services are medically necessary, include either intermittent fdc and/or physical/speech therapy, and that this patient is homebound in that absences from the home require considerable and taxing effort and are infrequent or of short duration, or are attributable to the need to receive medical care. [X] (a) Attached documentation from encounter provides clinical findings supporting skilled need and homebound status (including what assistance patient requires to leave the home). The encounter with the patient was in whole, or in part, for the following medical condition, which is the primary reason for home health care: [employer] FISTUL[place] Retirement:Wound care with NPWT changes twice a week Physical Therapy: Speech Therapy: Homebound:Patient is limited in mobility due to wound vac equipment, to appointments and limited trips to store for medications, and food. 3. Certification and Authentication I certify that I composed the above information based on my clinical judgement relating to this patient's medical condition and, if applicable, clinical findings communicated to me by the NPP or inpatient physician who performed the Home Health Referral. All further orders will be obtained through Dayron Diaz DO (Community Based Physician - PCP)
[2018-05-26] MEDS: Nicotine 21 MG/24 HR PATCH TD (09:13)
[2018-05-26] MEDS: Venlafaxine 37.5 MG CAPCR 75 MG PO (09:15)
[2018-05-26] MEDS: Gabapentin 100 MG CAP PO (09:15)
[2018-05-26] MEDS: Mirabegron 50 MG TABCR PO (09:16)
[2018-05-26] MEDS: Acetaminophen 325 MG TAB 650 MG PO (09:16)
[2018-05-26] MEDS: Ketorolac 10 MG TAB PO (09:16)
[2018-05-26] MEDS: Fenofibrate, Micronized 145 MG TAB PO (09:17)
[2018-05-26] MEDS: metFORMIN 500 MG TAB 1000 MG PO (09:17)
[2018-05-26] MEDS: Lisinopril 5 MG TAB 2.5 MG PO (09:17)
--- NOTE | 2018-05-26 10:21 | PGE_ITS ---
PROGRESS NOTE DATE OF SERVICE May 26, 2018 at 9:25 a.m. 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 ASSESSMENT A 52-year-old male doing well after ileostomy reversal. PLAN 1. Loop ileostomy. Continue pulmonary toilet. DVT prophylaxes, ambulation. 2. Pain management. He is doing well on oral pain medication. 3. Diet. He is on a regular soft diet. 4. Disposition. Anticipate discharge today. SUBJECTIVE The patient is stable overnight. No fevers since yesterday. No nausea, vomiting. Tolerating full liq uids, and a regular breakfast this morning. The pain seems to be controlled with oral pain medication s. OBJECTIVE T-max 37.7. T-current: 37.7. Remainder of vital signs have stable the last 24 hours. The most recent set of vital signs show a blood pressure 129/74. Pulse 99. Respirations 24. O2 sat 97% on room air. Labs this morning, white count 11.5, hemoglobin 10.8, hematocrit 34, platelets 260. PHYSICAL EXAMINATION GENERAL - He is awake, alert, appropriate. CHEST - Normal air movement. No wheezing or stridor. HEART - Heart is regular. ABDOMEN - Abdomen is soft, tender to palpation over incisions. WOUND - Wound is clean. No signs of i nfection. On removal of the wound VAC there was a little bleeding after removing the sponge to see if it stops, we will watch this to make sure this decreases.
--- NOTE | 2018-05-26 11:24 | PDOC.CMDIS ---
LACE Index Scoring Tool - Questions: Length of Stay (in days): 4 - 6 Acuity (Admit via E.D.?): No Comorbidities: Diabetes w/o Complication E.D. Visits: 2 - Answers: Total Score: 7 Risk of Readmission: Low Risk Care Management Discharge Reason for Hospitalization: Colorectal Fistula Discharge Plan: Koko will return home when ready per MD. He will have new wound vac placed and will have dressing orders 3x/weekly; Tuesday at Surgical Services and Tuesday and Tuesday by [facility]/RN which Koko will have new orders for. [facility] requested wet to dry dressing orders in the event the wound vac fails. relayed this information to Cece; [facility] who reported Dr. Diaz would be editing his orders to add this information. Current dressing changes are central to wound vac foam only. CM faxed information to [facility], Doris reported the VNA was willing to see Koko on 05/29/18 as it is Labor Day and the Surgical Services office will be closed. Koko will transport home via private vehicle with his friend, Kristyn. Koko was able to regulate with this check writer and express his frustrations. CM notified Elba More that Koko was unhappy with his stay and would like to follow up with her after he returns home. MANDY also spoke with Loree at [facility] to confirm insurance coverage. Loree reported Koko had met all of his deductible for the year and would have no patient cost; would be covered 100%. Patient/Family Education Needs: Review of discharge instructions[facility], self pay status for wound vac at patient request. Services Needed at Discharge: DME Agency (Wound Vac: [facility] coordinated by [facility] ), Home Health Care Services (New orders for RN: wound vac management)
--- NOTE | 2018-05-26 11:55 | CMDISCH_ITS ---
LACE Index Scoring Tool - Questions: Length of Stay (in days): 4 - 6 Acuity (Admit via E.D.?): No Comorbidities: Diabetes w/o Complication E.D. Visits: 2 - Answers: Total Score: 7 Risk of Readmission: Low Risk Care Management Discharge Reason for Hospitalization: Colorectal Fistula Discharge Plan: Koko will return home when ready per MD. He will have new wound vac placed and will have dressing orders 3x/weekly; Tuesday at [facility] and Tuesday and Tuesday by [facility]/RN which Koko will have new orders for. [facility] requested wet to dry dressing orders in the event the wound vac fails. relayed this information to Cece; GREGGCC who reported Dr. Diaz would be editing his orders to add this information. Current dressing changes are central to wound vac foam only. CM faxed information to [facility], Doris reported the VNA was willing to see Koko on 05/29/18 as it is Labor Day and the Surgical [facility] office will be closed. Koko will transport home via private vehicle with his friend, Kristyn. Koko was able to regulate with this sports book writer and express his frustrations. CM notified Elba More that Koko was unhappy with his stay and would like to follow up with her after he returns home. MANDY also spoke with Loree at [facility] to confirm insurance coverage. Loree reported Koko had met all of his deductible for the year and would have no patient cost; would be covered 100%. Patient/Family Education Needs: Review of discharge instructions, [facility], self pay status for wound vac at patient request. Services Needed at Discharge: DME Agency (Wound Vac: [facility] coordinated by [facility] ), Home Health Care Services (New orders for RN: wound vac management)
--- NOTE | 2018-05-26 12:47 | NUR.NOTE ---
Nursing Note: Patient got onto the elevator without staff. This nurse found patient outside the hospital and smoking a cigarette. This nurse informed patient that this was a non-smoking zone. Patient put out cigarette and went back to the second floor with this nurse.
--- NOTE | 2018-05-26 16:50 | DSE_ITS ---
ADMITTED: MAY 23, 2018 DISCHARGED: MAY 26, 2018 ADMITTING DIAGNOSIS: Colovesical fistula DISCHARGE DIAGNOSIS: Colovesical fistula with reversal colostomy SECONDARY DIAGNOSES: 1. Diabetes 2. Hypertension 3. Morbid obesity 4. Tobacco abuse PROCEDURE: Ileostomy reversal HISTORY: Mr. Ace is a 52 year-old gentleman who developed a colovesical fistula. He had undergone repair of this some months ago at which time he had a ureteral injury that had been repaired. He had had a d iverting ileostomy at the time of his takedown of his colovesical fistula .The colon anastomosis had healed. He now presents for ileostomy reversal after adequate time to allow this to heal and healing of his ureteral injury and after recent barium enema showing no anastomotic leak. The risks and jeffy efits of the procedure have been discussed with him and all his questions have been answered to his s atisfaction. Consent was obtained to proceed with ileostomy reversal. HOSPITAL COURSE: The patient underwent open ileostomy reversal without apparent complications. Please see separate o perative report for this. His postoperative course was fairly unremarkable. His diet was advanced as tolerated. His pain control was transitioned from IV to p.o. He had bilateral TAP blocks and he d id very well with his pain and then he was transitioned to oral pain medication from a FRONT OFFICE CLERK along with multiple adjunct pain management with Gabapentin, Tylenol and Toradol. He did have a short period of fevers over 38 on postop day #1. Work up for this was unremarkable. His white count did not inc rease. His pain level really did not change. His chest x-ray was unremarkable. He did have some urinary re tention but his urinalysis was unremarkable. Working with pulmonary toilet his fever curve did imp rove. He tried multiple times during his hospitalization to use tobacco in the hospital and outside even though Nicotine patches, lozenges and inhalers were prescribed for him. By postop day #2 he was having bowel movements, passing flatus, tolerating a diet. His pain was con trolled with oral pain medication. He remained for a final 24 hours to confirm adequate pain control and that his fevers were resolved. He remained afebrile through the last 24 hours. On postop day #3 he was discharged home as he was afebrile, tolerating a p.o. diet, pain control was with oral pain medication and ambulating on his home. He will have Home Health care follow-up with him for wound care assistance with his negative pressure wound VAC with changes on Tuesday/. Starting on the he will have his changes in the surgical office and then Home Health will do the remaining changes in the week. DISPOSITION: Discharged home with Home Health DISCHARGE DIET: Regular diet as tolerated DISCHARGE MEDICATIONS: Dilaudid 2 mg. p.o. q 6 hours TriCor 145 mg. p.o. daily Aspirin 81 mg. p.o. daily Tylenol 500 mg. p.o. q. 6 hours p.r.n. Myrbetriq 50 mg. p.o. daily Metformin 1000 mg. p.o. b.i.d. Lorazepam 2 mg. p.o. b.i.d. Lisinopril 2.5 mg. p.o. daily Toradol 10 mg. p.o. q. 6 hours Vitamin B-12 1000 micrograms p.o. daily Effexor ER 75 mg. p.o. daily Rizatriptan 10 mg. p.o. p.r.n. Oxybutynin Chloride 5 mg. p.o. t.i.d. FOLLOW-UP: He will follow-up June 05 at 2:[address] Diaz. If he experiences any nausea, vomiting, pain not controlled with p.o. pain mediation, fever, chills, excessive bloody output to the wound VAC he is to call the surgeon on-call or the surgical office for immediate instructions. The numbers are [phone] for the office or [phone] after-hours. Activities: He is not to lift, push or pull more than 20 pounds until the wound VAC is removed and h is wound is closed. No baths, hot tubs or swimming until the wound VAC has been removed. He is to ambulate as much as possible, avoid tobacco use. Therapies - negative pressure wound VAC with p.r.n. wet to dries as needed. Home Health to change Tuesday/Tuesday/Tuesday. He will be changed in the office starting June 05.
== END 2018-05-26 13:41 | disposition home health service (06) | DRG 330 ==
LOC: MS 06-22 12:09
PROVIDERS: Surgery; Admitting Provider Surgery; PCP Nurse Practitioner Family; Visit Provider Surgery
DX: K63.2 Fistula of intestine (principal); N32.1 Vesicointestinal fistula; Z43.2 Encounter for attention to ileostomy; N99.89 Other postprocedural complications and disorders of genitourinary system; R33.9 Retention of urine, unspecified; R50.82 Postprocedural fever; R91.8 Other nonspecific abnormal finding of lung field; G47.00 Insomnia, unspecified; G89.18 Other acute postprocedural pain; E11.9 Type 2 diabetes mellitus without complications; I10 Essential (primary) hypertension; E66.9 Obesity, unspecified; F17.210 Nicotine dependence, cigarettes, uncomplicated; K63.89 Other specified diseases of intestine; F41.9 Anxiety disorder, unspecified
CPT/HCPCS: 44620; 36410; 36415; 76942; 80048; 80053; 85027; 87040; J1650; 71046; 83735; 85025; 88304; 88307; J0131; J1100; J1885; J2250; J2405; J3475; J3490

== ENCOUNTER 2018-06-02 09:18 | Emergency (ER) | payer OTHER, SELFPAY ==
[2018-06-02 09:25] VITALS: BP 131/78; PULSE 97; RESP 19; TEMP 36.4; O2SAT 98
--- NOTE | 2018-06-02 09:59 | DI.CT_ITS ---
SYMPTOMS/DIAGNOSIS: RECENT ILEOSTOMY REVERSAL, LOWER ABD PAIN CT OF THE ABDOMEN AND PELVIS: Comparison is made with [id number]. Images were performed after IV and oral contrast. Oral contrast is seen in the distal small bowel and proximal colon. The patient is status post recent right lower quadrant ileostomy reversal. In the region of the ileostomy, in the right lateral abdomen, there is a soft tissue wound and some air in the soft tissues as well as a drain. No abscess formation is seen. There is mild stranding in the surrounding fat and mild enlargement of the right lateral rectus muscle. Right lower quadrant suture material is seen in the vicinity. There is no evidence of bowel obstruction. Rectus diastasis is again noted. A sigmoid anastomosis is noted. There is some area of narrowing in this location but no evidence of active inflammation. A large quantity of stool is present proximal to the anastamois. The bladder is unremarkable. The liver again shows fatty infiltration. The gallbladder, spleen and pancreas. There is mild dilatation of the left renal pelvis compared with the previous exam. No obstructing stones are seen. The left ureter courses adjacent to the scarring related to the anastomosis. IMPRESSION: 1. Post surgical changes are seen at the ileostomy site. There is no evidence of abscess or bowel obstruction. 2. Narrowing of the sigmoid anastomosis. There is increased stool proximal to this area. There is no evidence of a colovesical fistula. 3. There is a question of mild left hydronephrosis which could be related to post-srugical scarring in the pelvis.
--- NOTE | 2018-06-02 10:08 | ED.GENADUL_ITS ---
Discharge Plan Disposition Patient Disposition: HOME Condition: Stable Discharge Details Chief Complaint: Abd Prob Clinical Impression: Abdominal pain Primary Care Provider: Kyra Mcdaniel ED Provider: Roney Bunch Home Meds and New Rx's Prescriptions: Continue metformin 1,000 MG tablet 1,000 mg PO BID Qty: 180 RF: 3 fenofibrate nanocrystallized [Tricor] 145 MG tablet 145 mg PO DAILY Qty: 90 RF: 3 aspirin [Aspir-81] 81 MG tablet,delayed release (DR/EC) 81 mg PO DAILY RF: 0 lisinopril 2.5 MG tablet 2.5 mg PO DAILY Qty: 90 RF: 3 venlafaxine 75 MG capsule,extended release 24hr 75 mg PO DAILY Qty: 90 RF: 1 rizatriptan 10 MG tablet 10 mg PO PRN Qty: 20 RF: 0 ketorolac 10 MG tablet 10 mg PO Q6H PRN Qty: 15 RF: 0 oxybutynin chloride 5 MG tablet 5 mg PO TID prn Qty: 60 RF: 2 mirabegron [Myrbetriq] 50 MG tablet extended release 24 hr 50 mg PO DAILY Qty: 30 RF: 2 lorazepam [Ativan] 1 MG tablet 2 mg PO BID Qty: 5 RF: 0 cyanocobalamin (vitamin B-12) [Vitamin B-12] 500 MCG tablet 1,000 mcg PO DAILY Qty: 30 RF: 3 acetaminophen 500 MG tablet 500 mg PO Q6H PRN PRNQty: 0 RF: 0 hydromorphone 4 MG tablet 4 mg PO Q6H PRNQty: 30 RF: 0 Discharge Instructions Additional Instructions: Your cat scan and lab work did not show any significant abnormalities Follow up with Dr. Diaz on Tuesday as scheduled if you have significantly worsening pain, persistent vomit or high fevers return to the emergency department Discharge Data Discharge Physician: Roney Bunch Medical Decision Making MDM Narrative Medical decision making narrative: 52 yo male who states he has a colectomy in the past from prior diverticulitis who had ileostomy reversal at the end of April, comes in with 1 week if intermittent lower abdominal cramping and aching and constipation with nausea, no vomit. He denies urinary symptoms. Based on his hx and recent surgery will obtain lab work and imaging to eval for sbo vs abscess. No pain out of proportion to exam to suggest mesenteric ischemia pt's labs show no acute findings, mild wbc of 14 but has had leukocytosis similar to this in the past. Pain has improved awiaitng imaging Per Dr. Bates no acute findings on the CT. Pt is now pain free and ambulating. He has oral dialudid at home and f/u with Dr. Diaz on Tuesday per the pt. He will f/u with him and return precautions given Differential Diagnosis constipation, sbo, abscess Imaging Data Radiologic Study: Attestation: I personally reviewed and interpreted this imaging study as follows: Imaging: CT Scan (ct abd/pelvis) Radiologist's impression: per dr. bates no acute findings Lab Data Lab results reviewed: Yes I reviewed the patient's lab results. HPI - General Adult General Date/Time Provider Initiated Documentation: 06/02/18 09:58 . Limitations to Documentation: no limitations . Information obtained by: patient . History of Present Illness 52 year old M presents to the emergency department with the chief complaint of abdominal pain, described as moderate, with intensity rated at 5. Quality is described as aching and other (cramping), and is localized to the abdomen. Patient reports no radiation. Patient started experiencing this week(s) (1 ) and it has been intermittent. No relieving factors improve symptom(s), Eating worsens symptoms . Patient notes other (constipation). Patient did receive the following treatments prior to arrival, none Related Data Home Medications Medication Instructions Recorded Confirmed aspirin [Aspir-81] 81 mg PO DAILY tab-cap 12/01/17 05/23/18 Previous Rx's Medication Instructions Recorded cyanocobalamin (vitamin B-12) 1,000 mcg PO DAILY #30 tab 01/21/18 [Vitamin B-12] acetaminophen 500 mg PO Q6H PRN PRN #0 tab 05/26/18 hydromorphone 4 mg PO Q6H PRN #30 tab 05/26/18 Allergies Allergy/AdvReac Type Severity Reaction Status Date / Time simvastatin AdvReac Mild foot Unverified 05/23/18 06:24 swelling General Stated Complaint: Abd Prob TOO: 3 Review of Systems Review of Systems All systems reviewed & are unremarkable except as noted in HPI and below Constitutional Denies chills, Denies fever(s) and Denies weakness Eyes Patient Denies loss of vision ENT Denies change in voice Cardiovascular Denies chest pain and Denies dyspnea Respiratory Denies dyspnea Gastrointestinal Reports abdominal pain, Reports constipation, Reports nausea and Denies vomiting Genitourinary Denies dysuria Musculoskeletal Denies joint swelling Integumentary/Breasts Denies rash Neurologic Denies loss of vision and Denies weakness Psychiatric Denies depression Endocrine Denies cold intolerance and Denies heat intolerance Allergic/Immunologic Reports urticaria PFSH Family History Mother No problems noted. Father No problems noted. Sister No problems noted. Sister PKU (phenylketonuria) Medical History H/O resection of large bowel (Acute) Adult antisocial behavior Colovesical fistula Diverticulitis FRANCIS (generalized anxiety disorder) HLD (hyperlipidemia) HTN (hypertension) Major depressive disorder T2DM (type 2 diabetes mellitus) Social History Smoking/Tobacco Use Status: Current every day Surgical History Appendectomy (03/16/18) Colectomy (01/17/18) Cystoscopy (04/20/18) Exam Const General: no acute distress Orientation: alert HENMT Head: normal to inspection Ears: external ears normal General nose exam: external nose normal Mouth: moist mucous membranes Eyes General: appearance normal, both eyes and all related structures Neck Neck: normal visual inspection Resp Effort & Inspection: normal respiratory effort and able to speak in complete sentences Cardio Rate: regular rate GI Inspection: other (lower abdominal incision without evidence of infection or dehiscence, has mild lower abdominal pain bilaterally without guarding or rebound, no testicle pain or swelling, wound vac in place as well in lower abdomen with no significant surrounding erythema or drainage) Palpation: soft Skin General skin exam: no rashes or lesions noted Neuro General: alert and oriented x3 Extrem General: normal to inspection Psych Mental Status: mental status grossly normal Course Vital Signs Temperature 36.4 C L 06/02/18 09:25 Pulse 97 H 06/02/18 09:25 Respiratory Rate 19 06/02/18 09:25 Blood Pressure 131/78 06/02/18 09:25 Pulse Oximetry 98 09/07/18 09:25 Temperature 36.4 C L 06/02/18 09:25 Pulse 97 H 06/02/18 09:25 Respiratory Rate 19 06/02/18 09:25 Blood Pressure 131/78 06/02/18 09:25 Pulse Oximetry 98 06/02/18 09:25
[2018-06-02] MEDS: Ondansetron 4 MG/2 ML VIAL IVP (10:29)
[2018-06-02] MEDS: Normal Saline 1,000 ML 1000 ML IV (10:29)
[2018-06-02 10:31] LABS: Abs Immature Grans 0.12 k/cumm (0.0-0.09); Absolute Basophil Count 0.04 k/cumm (0.0-0.2); Absolute Eosinophil Count 0.27 k/cumm (0.0-0.7); Absolute Monocyte Count 1.16 k/cumm (0.11-0.7); Absolute Neutrophil Count 9.54 k/cumm (1.2-6.7); Basophils % 0.3; Eosinophils % 1.9; HCT 36.4 % (40.0-50.0); HGB 11.8 g/dL (13.5-17.5); Immature Grans % 0.8; Lymphocytes % 22.3; Mean Corp. HGB Concentration 32.4 g/dL (32.0-36.0); Mean Corpuscular Hemoglobin 26.8 pg (27.0-33.0); Mean Corpuscular Volume 82.7 fL (80-95); Mean Platelet Volume 9.1 fL (8.0-11.0); Monocytes % 8.1; Neutrophils % 66.6; Platelet Count 535 x1000/uL (130-400); RBC Distribution Width 16.6 % (11.8-14.1); White Blood Cell Count 14.33 k/cumm (4.4-10.8)
[2018-06-02] MEDS: HYDROmorphone 2 MG/ML VIAL 1 MG IVP ×2 (10:33→11:44)
[2018-06-02 10:50] LABS: ALT 19 U/L (12-78); AST 13 U/L (15-37); Albumin 3.3 g/dL (3.4-5.0); Alkaline Phosphatase 66 U/L (46-116); Anion Gap 8.3 mmol/L (3-11); BUN 15 mg/dL (7-18); Bilirubin, Total 0.2 mg/dL (0.2-1.0); CO2 25.7 mmol/L (21.0-32.0); CREATININE 0.92 mg/dL (0.70-1.30); Chloride 102 mmol/L (98-107); Glucose 110 mg/dL (70-100); Lipase 77 U/L (73-393); Potassium 4.5 mmol/L (3.5-5.1); Sodium 136 mmol/L (136-145)
[2018-06-02 11:10] LABS: INR 1.2 (1.0-3.5); Prothrombin Time 11.9 sec (9.3-10.8)
[2018-06-02] MEDS: Omnipaque 350 MG/ML 100 ML BTL IV (12:20)
[2018-06-02 12:34] VITALS: BP 111/74; PULSE 81; RESP 97; TEMP 37.1; O2SAT 97
== END 2018-06-02 12:59 | disposition home or self-care (01) ==
PROVIDERS: Emergency Provider Emergency Medicine; PCP Nurse Practitioner Family
DX: R10.30 Lower abdominal pain, unspecified (principal); K59.00 Constipation, unspecified; Z90.49 Acquired absence of other specified parts of digestive tract; I10 Essential (primary) hypertension; E11.9 Type 2 diabetes mellitus without complications; Z79.84 Long term (current) use of oral hypoglycemic drugs
CPT/HCPCS: 36415; 80053; 83690; 96361; 96374; 96375; 96376; 99285; 74177; 85025; 85610; J2405; J3490

== ENCOUNTER 2018-06-06 00:47 | Outpatient (CLI) | payer OTHER, SELFPAY ==
--- NOTE | 2018-06-06 10:03 | DI.US_ITS ---
SYMPTOM/DIAGNOSIS: INTRAOPERATIVE URETERAL INJURY N99.81 RENAL ULTRASOUND: Comparison is made with CT of the abdomen and pelvis dated 02 Jun 2018. Fatty infiltration of the liver is noted. The right kidney measures 12.5 cm in length. The left kidney measures 13.5 cm in length. There is normal parenchymal thickness and echogenicity No stones or hydronephrosis is seen The left ureteral jet was not visualized. No perinephric collections seen. A pre-void bladder volume measured 53 cc. There was no post void residual. IMPRESSION: No evidence of hydronephrosis. The left ureteral jet was not visualized however, the urinary bladder was not well distended.
== END 2018-06-06 01:07 ==
PROVIDERS: PCP Nurse Practitioner Family; Visit Provider Urology
DX: N99.81 Other intraoperative complications of genitourinary system (principal); K76.0 Fatty (change of) liver, not elsewhere classified
CPT/HCPCS: 76770

== ENCOUNTER 2018-06-09 13:52 | Emergency (ER) | payer OTHER, SELFPAY ==
[2018-06-09 14:00] VITALS: BP 131/69; PULSE 88; RESP 16; TEMP 36.9; O2SAT 99
--- NOTE | 2018-06-09 14:59 | ED.GENADUL_ITS ---
Discharge Plan Discharge Details Chief Complaint: GenMedical Primary Care Provider: Kyra Mcdaniel ED Provider: Bird Gutierrez Home Meds and New Rx's Prescriptions: No Action metformin 1,000 MG tablet 1,000 mg PO BID Qty: 180 RF: 3 fenofibrate nanocrystallized [Tricor] 145 MG tablet 145 mg PO DAILY Qty: 90 RF: 3 aspirin [Aspir-81] 81 MG tablet,delayed release (DR/EC) 81 mg PO DAILY RF: 0 lisinopril 2.5 MG tablet 2.5 mg PO DAILY Qty: 90 RF: 3 venlafaxine 75 MG capsule,extended release 24hr 75 mg PO DAILY Qty: 90 RF: 1 rizatriptan 10 MG tablet 10 mg PO PRN Qty: 20 RF: 0 Medical Decision Making MDM Narrative Medical decision making narrative: This is a 52-year-old male who is recovering from ileostomy takedown and has been seen at home for wound healing by secondary intention wound VAC and 3 times weekly home health visits. He is referred for question of wound infection today. The question of suture material present in purulent discharge from the wound He arrives to the emergency department afebrile and well-appearing. His exam reveals granulation tissue present in the ileostomy site, with minimal surrounding tenderness. Diagnosis would include abscess, inflammatory changes, anastomotic leak. Patient had IV access established, given parenteral analgesia, peripheral laboratory testing and CT scan. Patient's diagnostic studies are notable for a white blood cell count of 13, reassuring chemistries, and CT which reveals gas containing tract in the right lower quadrant containing a small amount of fluid. There is soft tissue thickening and stranding adjacent to anastomotic sutures in the distal colon. There is associated large locule of gas measuring 2.5 cm that may represent a small contained leak. I discussed the case and reviewed the CT images with on- call surgery, Dr. Kearns. Patient was offered admission for IV antibiotics and observation. He declined this. Given the patient's history this was anticipated by Dr. Go and she is recommended patient was started on a regimen of oral ciprofloxacin and Flagyl with 3 planned follow-up with Dr. Gimenez in clinic on Tuesday. Patient understands that he is declining admission. I feel he has capacity to make this decision. He will return if develops a fever, worsening pain, or any other acute concern ECG Data Attestation: I personally reviewed and interpreted this ECG (s) as follows: Interpretation: Normal sinus rhythm, rate of 82, right bundle branch block pattern, no ST segment elevation HPI - General Adult General Mode of arrival: ambulatory . Date/Time Provider Initiated Documentation: 06/09/18 14:10 . Limitations to Documentation: no limitations . Information obtained by: patient and family . History of Present Illness 52 year old M presents to the emergency department with the chief complaint of Abdominal wound, described as moderate, Quality is described as aching, and is localized to the abdomen and right. Patient reports no radiation. Patient started experiencing this hour(s) and it has been constant. No relieving factors improve symptom(s), No exacerbating factors reported . HPI Narrative: 52-year-old man who is approximately 3 weeks following reversal of ileostomy with Dr. Gimenez. He has had home wound VAC and wound care visits on a 3 times a week basis. Referred in by home health today after concern for purulent discharge with question of suture material present in the wound as well as lateral firmness and tenderness. Patient states he has mild, achy, right lower quadrant pain. He has not had a fever. No other exacerbating or ameliorating factors Related Data Home Medications Medication Instructions Recorded Confirmed aspirin [Aspir-81] 81 mg PO DAILY tab-cap 12/01/17 06/06/18 Previous Rx's Medication Instructions Recorded fenofibrate nanocrystallized 145 mg PO DAILY #90 tab-cap 07/15/17 [Tricor] metformin 1,000 mg PO BID #180 tab-cap 07/15/17 lisinopril 2.5 mg PO DAILY #90 tab-cap 12/01/17 venlafaxine 75 mg PO DAILY #90 tab-cap 01/09/18 cyanocobalamin (vitamin B-12) 1,000 mcg PO DAILY #30 tab 01/21/18 [Vitamin B-12] rizatriptan 10 mg PO PRN #20 tab-cap 02/16/18 acetaminophen 500 mg PO Q6H PRN PRN #0 tab 05/26/18 hydromorphone 4 mg tablet 4 mg PO Q6H PRN #20 tab 06/06/18 hydromorphone 4 mg tablet 4 mg PO Q6H PRN #20 tab 06/06/18 Allergies Allergy/AdvReac Type Severity Reaction Status Date / Time simvastatin AdvReac Mild foot Unverified 06/09/18 17:29 swelling General Stated Complaint: GenMedical TOO: 3 Review of Systems Review of Systems 8 systems reviewed and otherwise neg PFSH Family History Mother No problems noted. Father No problems noted. Sister No problems noted. Sister PKU (phenylketonuria) Medical History Delayed surgical wound healing (Acute) Adult antisocial behavior (Chronic) FRANCIS (generalized anxiety disorder) (Chronic) HLD (hyperlipidemia) (Chronic) HTN (hypertension) (Chronic) Major depressive disorder (Chronic) T2DM (type 2 diabetes mellitus) (Chronic) Colovesical fistula (Resolved) Diverticulitis (Resolved) Left ureteral injury (Resolved) Social History Smoking/Tobacco Use Status: Current every day Surgical History Appendectomy (Resolved 03/16/18) Colectomy (Resolved 01/17/18) Cystoscopy (Resolved 04/20/18) H/O resection of large bowel (Resolved) H/O ureter repair (Resolved) Exam Narrative Exam Narrative: GEN: awake, alert, oriented 3. Pleasant, well groomed, interactive. HEAD: Normocephalic, atraumatic ENT: Mucous membranes moist, oropharynx unremarkable, External ear exam unremarkable EYES: PERRL, EOMI NECK: Full ROM, no CRISTO, no menigismus CHEST/RESP: Nontender, clear to auscultation bilateral, no wheeze/rhonchi/rales CARDIOVASCULAR: RRR, no murmur, rub angelito. 2+ Rad pulse bilateral ABDOMEN: Soft,RLQ healing wound with granulation tissue present. Minimal tenderness without rebound or guarding. EXT: Full ROM, no edema, no rash Neuro: Grossly normal neurologic exam, conversant, interactive. Psych: Speech fluent, thoughts congruent, affect normal Course Vital Signs Temperature 36.9 C 06/09/18 14:00 Pulse 88 06/09/18 14:00 Respiratory Rate 16 06/09/18 14:00 Blood Pressure 131/69 06/09/18 14:00 Pulse Oximetry 99 06/09/18 14:00 Temperature 36.9 C 06/09/18 14:00 Pulse 88 06/09/18 14:00 Respiratory Rate 16 06/09/18 14:00 Blood Pressure 131/69 06/09/18 14:00 Pulse Oximetry 99 06/09/18 14:00
--- NOTE | 2018-06-09 15:24 | DI.CT_ITS ---
SYMPTOM/DIAGNOSIS: RT LOWER HEALING WOUND, FOUL DISCHARGE ABDOMEN AND PELVIC CT: CT scan of the abdomen and pelvis was performed following the uneventful administration of intravenous contrast material. Mild dependent atelectatic changes are seen in the lung bases. There is a 0.9 cm., non calcified pulmonary nodule in the left lower lobe. This is present on the CT scan from and is unchanged in size. There is diffuse decreased attenuation of the liver suggestive of fatty infiltration. No hepatic mass is seen. The liver does appear to be enlarged. The gallbladder is distended measuring 5.7 cm. in diameter. No biliary ductal dilatation is seen. The portal and superior mesenteric veins are patent. The pancreas, spleen and adrenal glands are unremarkable. The right kidney is unremarkable without evidence of a mass or obstruction. The left kidney shows normal enhancement. No evidence of a solid mass is seen. There is mild to moderate dilatation of the renal collecting system. No obstructing stone is appreciated. A recently passed stone cannot be excluded. There is stranding around the distal ureter at the level of the anastomosis and the abnormalities of the collecting system may be due to infection, possibly secondary to the inflammatory process in the adjacent sigmoid colon. There is atherosclerosis of the abdominal aorta but no aneurysmal dilatation. No significant abdominal or pelvic adenopathy or ascites is present. There is an anastomosis seen in the mid sigmoid colon. There is bowel wall thickening seen at the anastomotic site and pericolonic inflammatory changes involving the distal descending colon and the sigmoid colon at the anastomosis. There is a collection of air seen at the inferior and left lateral aspect of the anastomosis which may represent extraluminal air and a leak. A diverticulum in this region cannot be excluded. There is an anastomosis seen in the right abdomen just deep to the anterior abdominal wall. It appears to be an anastomosis in a loop of small bowel. It is just deep to the abdominal wall. There is thickening and inflammatory stranding seen about the abdominal wall musculature in this region. There are post surgical changes of a prior ostomy in the right abdominal wall in this region. A tract of air is seen extending from the skin surface to the superficial aspect of the abdominal wall with thickening of the borders of the tract and stranding in the soft tissues. There may also be a small fluid collection in the soft tissues at the base of the tract and an abscess cannot be excluded. Fistulous tract should also be considered which may communicate with the adjacent underlying inflamed small bowel. The urinary bladder is intact. The reproductive organs are unremarkable. There is diastasis of the anterior midline and anterior abdominal wall. Note is made of small bilateral fat containing inguinal hernias. There are degenerative changes seen in the spine, most marked at the L 4-5 and L 5-S 1 disc spaces. IMPRESSION: 1. Status post right lower quadrant ostomy reversal. There is a gas containing tract extending from the skin surface to the anterior abdominal wall in this region. There appears to be a small fluid collection at the base of the tract measuring approximately 5.3 by 0.8 cm. This may represent an abscess. A fistula cannot be excluded. 2. Inflammatory change seen at the anastomotic site in the sigmoid colon with bowel wall thickening and pericolonic inflammation. This may represent an infection or inflammatory process. Neoplasm cannot be excluded. There is a collection of what appears to be extraluminal air to the left and inferior to the anastomosis. This may represent an abscess or leak. This may alternatively represent a diverticulum. 3. Dilatation of the left renal collecting system not present on the examination from 06/02/18. No radiopaque stone is seen. This may reflect infection, inflammation or recent passage of a stone. This may be secondary to the inflammatory process involving the adjacent sigmoid colon. 4. 9 mm. left pulmonary nodule. Follow up as clinically appropriate.
[2018-06-09] MEDS: Normal Saline 1,000 ML 125 ML IV (15:40)
[2018-06-09] MEDS: Normal Saline Flush 10 ML SYR IVP (15:40)
[2018-06-09] MEDS: HYDROmorphone 2 MG/ML VIAL 1 MG IVP ×2 (15:49→16:44)
[2018-06-09 15:50] LABS: Abs Immature Grans 0.09 k/cumm (0.0-0.09); Absolute Monocyte Count 0.89 k/cumm (0.11-0.7); Basophils % 0.5; Eosinophils % 2.1; HCT 35.5 % (40.0-50.0); HGB 11.5 g/dL (13.5-17.5); Immature Grans % 0.7; Lymphocytes % 33.5; Mean Corp. HGB Concentration 32.4 g/dL (32.0-36.0); Mean Corpuscular Hemoglobin 26.6 pg (27.0-33.0); Mean Platelet Volume 9.3 fL (8.0-11.0); Monocytes % 6.8; Neutrophils % 56.4; Platelet Count 519 x1000/uL (130-400); RBC 4.33 m/cumm (4.50-6.00); RBC Distribution Width 16.4 % (11.8-14.1); White Blood Cell Count 13.12 k/cumm (4.4-10.8)
[2018-06-09 15:52] LABS: Absolute Basophil Count 0.07 k/cumm (0.0-0.2); Absolute Eosinophil Count 0.28 k/cumm (0.0-0.7)
[2018-06-09 16:20] LABS: ALT 20 U/L (12-78); AST 14 U/L (15-37); Albumin 3.4 g/dL (3.4-5.0); Alkaline Phosphatase 68 U/L (46-116); Anion Gap 11.2 mmol/L (3-11); BUN 14 mg/dL (7-18); Bilirubin, Total 0.1 mg/dL (0.2-1.0); CO2 24.8 mmol/L (21.0-32.0); CREATININE 0.98 mg/dL (0.70-1.30); Calcium 9.2 mg/dL (8.5-10.1); Chloride 103 mmol/L (98-107); Glucose 78 mg/dL (70-100); Potassium 4.3 mmol/L (3.5-5.1); Sodium 139 mmol/L (136-145); Total Protein 7.4 g/dL (6.4-8.2)
--- NOTE | 2018-06-09 17:11 | DI.VRAD_ITS ---
EXAM: CT Abdomen and Pelvis With Intravenous Contrast CLINICAL HISTORY: 52 years old, male; Condition or disease; Other: Right lower healing wound, foul discharge TECHNIQUE: Axial computed tomography images of the abdomen and pelvis with intravenous contrast. Coronal and sagittal reformatted images were created and reviewed. CONTRAST: 100 mL of omnipaque 350 administered intravenously. COMPARISON: CT - Abdomen^ROUTINE ABDOMEN PELVIS WITH CONTRAST (Adult) 06/02/2018 11:57 AM FINDINGS: Limitations: Evaluation of the bowel is limited secondary to lack of oral contrast. Lung bases: Linear atelectasis or scarring at the lung bases. Series 5 image 5 demonstrates any 9 mm left pulmonary nodule, unchanged. Mediastinum: Gas in the distal esophagus which can be seen with reflux. ABDOMEN: Liver: Hepatic steatosis. There is hepatomegaly with the liver measuring 9.2 cm craniocaudally, unchanged. Gallbladder and bile ducts: No gallstones. Prominent appearance the gallbladder, 9.3 cm. The finding should be correlated with any concern for cholecystitis or gallbladder ejection fraction dysfunction. Pancreas: Unremarkable. No mass. No ductal dilation. Spleen: Unremarkable. No splenomegaly. Adrenals: Unremarkable. No mass. Kidneys and ureters: Mild prominence to the intrarenal collecting system and left ureter which extends into left lower quadrant stranding. This appears increased from prior examination. There is also some mild stranding surrounding the left ureter which should be correlated with any concern for infection.. Stomach and bowel: Rounded density within the dependent aspect of the stomach which may represent an ingested pill. No evidence of bowel obstruction. Scattered diverticula are seen. There is a moderate amount of stool in the colon which can be seen with constipation. Anastomotic sutures are seen in the distal colon on series 5 image 72. There is adjacent soft tissue thickening and stranding, more prominent than on prior examination. Findings could represent an infectious, inflammatory, or malignant process. Image 74 demonstrates an associated large locule of gas measuring 2.5 cm. This could represent gas within a diverticulum or a small contained leak. An additional locule of indeterminate gas is seen on image 72 for which extraluminal gas is not excluded. There is wall prominence to be descending colon (series 7 image 64) which should be correlated with any concern for colitis/diverticulitis. Some stranding of the surrounding fat is seen involving the distal descending colon. This process extends into the region of anastomotic sutures. PELVIS: Appendix: Normal appendix. Bladder: Urinary bladder within normal limits. Reproductive: Unremarkable as visualized. ABDOMEN and PELVIS: Intraperitoneal space: No large scarring or fluid. Bones/joints: Skeletal degenerative changes. Disc space narrowing at L4-5 and L5-S1. Multilevel vacuum disc phenomenon in the lumbar spine. No acute fracture. No dislocation. Soft tissues: Rectus diastases. Bilateral fat containing inguinal hernias. The patient is status post right lower quadrant ostomy reversal. There is a gas containing tract extending to the skin surface. This tract also contains a small amount of fluid. This has perceptible zapata and is worrisome for a fistulous connection. Alternatively, it could represent a draining abscess. It is a fistula, it may be related to anastomotic sutures in the right lower quadrant (series 5 image 64). Alternatively, there is a focus of stranding intraperitoneally extending from a loop of small bowel on series 5 image 60 which may be related. There is thickening of the associated rectus muscle and stranding in the subcutaneous soft tissues for which infection is not excluded. Vasculature: Vascular calcifications. No abdominal aortic aneurysm. Lymph nodes: Unremarkable. No enlarged lymph nodes. IMPRESSION: 1.The patient is status post right lower quadrant ostomy reversal. There is a gas containing tract extending to the skin surface. This tract also contains a small amount of fluid. This has perceptible zapata and is worrisome for a fistulous connection. Alternatively, it could represent a draining abscess. If it is a fistula, possible sources are discussed above. There is thickening of the associated rectus muscle and stranding in the subcutaneous soft tissues for which infection is not excluded. 2. Anastomotic sutures are seen in the distal colon. There is adjacent soft tissue thickening and stranding, more prominent than on prior. Findings could represent an infectious, inflammatory, or malignant process. There is an associated large locule of gas measuring 2.5 cm. This could represent gas within a diverticulum or a small contained leak. An additional locule of indeterminate gas is seen for which extraluminal gas is not excluded. 3. Wall prominence to the descending colon. There is some surrounding stranding of the fat at the level of the the distal descending colon. Findings should be correlated with any concern for colitis/diverticulitis. 4. Mild prominence to the intrarenal collecting system and left ureter which extends into left lower quadrant soft tissue thickening / stranding. This appears increased from prior examination. An element of obstruction is not excluded. There is also some mild stranding surrounding the left ureter which should be correlated with any concern for infection. 5. 9 mm left pulmonary nodule unchanged. Comparison with older imaging studies, if available, would be beneficial. Management per Fleischner society guidelines suggested. Other findings as above. Dictated and Authenticated by: Luana Aaron MD. Ordering:BRENDA CALZADA MD
[2018-06-09 17:21] VITALS: RESP 16
[2018-06-09] MEDS: Ciprofloxacin 500 MG TAB PO (18:32)
[2018-06-09] MEDS: metroNIDAZOLE 500 MG TAB PO (18:32)
[2018-06-09 18:53] VITALS: BP 117/77; PULSE 84; TEMP 36.3; O2SAT 98
--- NOTE | 2018-06-10 10:21 | W.ED.FU ---
Patient returned my call, the Tuesday morning states he is feeling well and about to go for a walk. He is taking oral antibiotics and will follow up in surgery clinic on Tuesday as planned. We discussed she should return to the emergency department if she has any worsening symptoms, development of fever, or any other concern.
== END 2018-06-09 18:54 | disposition home or self-care (01) ==
PROVIDERS: Emergency Provider Emergency Medicine; PCP Nurse Practitioner Family
DX: K91.89 Other postprocedural complications and disorders of digestive system (principal); Y83.3 Surgical operation with formation of external stoma as the cause of abnormal reaction of the patient, or of later complication, without mention of misadventure at the time of the procedure; R93.3 Abnormal findings on diagnostic imaging of other parts of digestive tract; R10.31 Right lower quadrant pain; Z93.2 Ileostomy status; E11.9 Type 2 diabetes mellitus without complications; Z79.84 Long term (current) use of oral hypoglycemic drugs; I10 Essential (primary) hypertension
CPT/HCPCS: 36415; 80053; 93005; 96361; 96374; 96376; 99285; 74177; 85025; 93010

== ENCOUNTER 2018-07-10 10:06 | Outpatient (CLI) | payer OTHER, SELFPAY ==
[2018-07-10 11:38] LABS: Cholesterol 178 mg/dL (50-200); HDL Cholesterol 29 mg/dL (40-60); LDL CHOLESTEROL 99 mg/dL (<100); Triglyceride 378 mg/dL (30-150)
== END 2018-07-10 10:26 ==
PROVIDERS: PCP Nurse Practitioner Family; Visit Provider Nurse Practitioner Family
DX: E78.5 Hyperlipidemia, unspecified (principal); N32.1 Vesicointestinal fistula
CPT/HCPCS: 36415; 80061; 83721; 82565

== ENCOUNTER 2018-07-14 16:07 | Outpatient (CLI) | payer OTHER, SELFPAY ==
--- NOTE | 2018-07-14 12:38 | DI.CT_ITS ---
SYMPTOMS/DIAGNOSIS: RIGHT LOWER QUADRANT PAIN IN AREA OF WOUND HEALING ABDOMINAL AND PELVIC CT: CT examination of the abdomen and pelvis was performed with intravenous infusion of 100 cc of Omnipaque 350. Examination is compared with previous CT of 06/09/18. Previous examination showed unhealed surgical wound in the right lower quadrant abdominal wall. There is now an apparent mass-like, fairly low attenuation collection measuring about 8 x 5 cm in diameter, suggesting an abscess in the subcutaneous tissues at this site, perhaps extending deep to the fascia into the rectus muscle on the right. No intraperitoneal extension seen. Ventral hernia again noted, which is widely patent, unchanged from the previous examination. Previously described paraanastomotic changes seen at the sigmoid anastomosis are again noted, although slightly less prominent than on the previous examination. There is proximal moderate dilatation of the descending and distal transverse colon and mild wall thickening. The findings are suggestive of low grade obstruction at the anastomotic site. Nondistended small bowel noted. Hepatic steatosis noted. No pancreatic, gallbladder, biliary or splenic abnormality. No adrenal or renal abnormality seen. Abdominal aorta is of normal diameter. CONCLUSION: 1. A 9 mm intrapulmonary nodule again noted, six-month follow-up CT recommended. 2. Hepatic steatosis. 3. Apparent right lower quadrant subcutaneous/rectus abscess, 8 x 5 cm in diameter on transaxial imaging. 4. Low grade obstruction and inflammation at anastomotic site in the sigmoid; no specific evidence of perforation or abscess at this site.
[2018-07-14] MEDS: Omnipaque 350 MG/ML 50 ML BTL IJ (13:36)
[2018-07-14] MEDS: Omnipaque 350 MG/ML 100 ML BTL IJ (14:22)
== END 2018-07-14 16:27 ==
PROVIDERS: PCP Nurse Practitioner Family; Visit Provider Surgery
DX: R10.31 Right lower quadrant pain (principal); L02.211 Cutaneous abscess of abdominal wall; K43.9 Ventral hernia without obstruction or gangrene; K76.0 Fatty (change of) liver, not elsewhere classified; R91.1 Solitary pulmonary nodule
CPT/HCPCS: 74177; J3490; Q9967

== ENCOUNTER 2018-07-14 16:08 | Inpatient (IN) | payer OTHER, SELFPAY ==
[2018-07-14] VITALS (13 sets, daily range): BP systolic 95–141; BP diastolic 59–89; PULSE 83–117; RESP 12–18; TEMP 36.1–38.6; O2SAT 93–99
--- NOTE | 2018-07-14 15:48 | HPE_ITS ---
Date of service: 07/14/18 Time of Service: 15:44 Assessment and Plan (1) Abdominal abscess: Current visit: No Status: Acute A// 52 y/o male with history of ileostomy reversal on 05/23/18 who has had delayed wound healing since that time. Complaints of RLQ pain and low grade fevers at home. CT scan results show- Apparent right lower quadrant subcutaneous/rectus abscess, 8 x 5 cm in diameter on transaxial imaging P// In-Patient admission Antibiotics- Will start Zosyn Fluids- Lactated ringers at 150ml/hr Pain- Dilaudid 0.5mg Q2 hrs, PRN Toradol 15 mg Q6 hrs Diet- NPO Anxiety- Xanax 1 mg TID P.O Nicotine Use- Patch and Inhaler Activity- Ambulation Adlib History of Present Illness Chief Complaint: Abdominal Abscess Narrative: 52 y/o male with history of ileostomy closure with delayed surgical wound closure, Type 2 DM, anxiety and HTN presents with complaints of 2 day history of progressively worsening RLQ abdominal pain underlying and surrounding a wound from previous ileostomy closure on 05/23/18. He is being followed for delayed surgical wound closure. Patient reports that over the past 2 days he has been having increased RLQ pain near his ileostomy site with both sitting and standing. He describes this pain as sharp. He states that he feels like his bowels are going to explode and reports intermittent nausea. He denies anything making the pain level less. He reports that at home he had a temp. of 99.9 this morning. Review of Systems Constitutional Denies chills, Denies excessive sweating, Reports fever(s) and Denies night sweats Cardiovascular Denies chest pain, Denies chest pain at rest, Denies diaphoresis, Denies syncope , Denies rapid heart rate, Denies palpitations, Denies dyspnea and Denies dyspnea on exertion Respiratory Denies dyspnea, Denies dyspnea on exertion and Denies wheezing Gastrointestinal Reports abdominal pain (RLQ surrounding and underlying ileostomy wound), Denies change in stool character, Denies constipation, Denies diarrhea and Reports nausea Neurologic Denies syncope Endocrine Denies excessive sweating and Denies palpitations Allergic/Immunologic Denies wheezing Meds Home Medications Medication Instructions Recorded Confirmed Type fenofibrate nanocrystallized 145 mg PO DAILY #90 tab-cap 07/15/17 07/14/18 Rx [Tricor] metformin 1,000 mg PO BID #180 tab-cap 07/15/17 07/14/18 Rx aspirin [Aspir-81] 81 mg PO DAILY tab-cap 12/01/17 07/14/18 History lisinopril 2.5 mg PO DAILY #90 tab-cap 12/01/17 07/14/18 Rx venlafaxine 75 mg PO DAILY #90 tab-cap 01/09/18 07/14/18 Rx cyanocobalamin (vitamin B-12) 1,000 mcg PO DAILY #30 tab 01/21/18 07/14/18 Rx [Vitamin B-12] rizatriptan 10 mg PO PRN #20 tab-cap 02/16/18 07/14/18 Rx acetaminophen 500 mg PO Q6H PRN PRN #0 tab 05/26/18 07/14/18 Rx hydromorphone 4 mg tablet 4 mg PO Q6H PRN #20 tab 06/06/18 07/14/18 Rx hydromorphone 4 mg tablet 4 mg PO Q6H PRN #14 tab 06/28/18 07/14/18 Rx Allergies Allergy/AdvReac Type Severity Reaction Status Date / Time simvastatin AdvReac Mild foot Verified 07/14/18 09:48 swelling Exam Const General: cooperative, acute distress moderate and anxious Orientation: alert and oriented x3 Resp Effort & Inspection: normal respiratory effort Auscultation: clear to auscultation bilaterally, no crackles and wheezes Cardio Jugular venous pressure: no JVD Rate: regular rate Rhythm: regular rhythm Heart Sounds: S1 normal, S2 normal, no gallops and no murmurs GI Palpation: soft, guarding in the RLQ and tender in the RLQ; with no rebound tenderness Auscultation: normal bowel sounds CT:CT abdomen & pelvis w SYMPTOMS/DIAGNOSIS: RIGHT LOWER QUADRANT PAIN IN AREA OF WOUND HEALING ABDOMINAL AND PELVIC CT: CT examination of the abdomen and pelvis was performed with intravenous infusion of 100 cc of Omnipaque 350. Examination is compared with previous CT of 06/09/18. Previous examination showed unhealed surgical wound in the right lower quadrant abdominal wall. There is now an apparent mass-like, fairly low attenuation collection measuring about 8 x 5 cm in diameter, suggesting an abscess in the subcutaneous tissues at this site, perhaps extending deep to the fascia into the rectus muscle on the right. No intraperitoneal extension seen. Ventral hernia again noted, which is widely patent, unchanged from the previous examination. Previously described paraanastomotic changes seen at the sigmoid anastomosis are again noted, although slightly less prominent than on the previous examination. There is proximal moderate dilatation of the descending and distal transverse colon and mild wall thickening. The findings are suggestive of low grade obstruction at the anastomotic site. Nondistended small bowel noted. Hepatic steatosis noted. No pancreatic, gallbladder, biliary or splenic abnormality. No adrenal or renal abnormality seen. Abdominal aorta is of normal diameter. CONCLUSION: 1. A 9 mm intrapulmonary nodule again noted, six-month follow-up CT recommended. 2. Hepatic steatosis. 3. Apparent right lower quadrant subcutaneous/rectus abscess, 8 x 5 cm in diameter on transaxial imaging. 4. Low grade obstruction and inflammation at anastomotic site in the sigmoid; no specific evidence of perforation or abscess at this site. Results Labs : 07/14/18 16:30 07/14/18 16:30
[2018-07-14 16:38] LABS: Abs Immature Grans 0.09 k/cumm (0.0-0.09); Absolute Basophil Count 0.04 k/cumm (0.0-0.2); Absolute Monocyte Count 1.78 k/cumm (0.11-0.7); Absolute Neutrophil Count 14.95 k/cumm (1.2-6.7); Basophils % 0.2; Eosinophils % 0.5; HCT 35.3 % (40.0-50.0); HGB 11.8 g/dL (13.5-17.5); Immature Grans % 0.4; Lymphocytes % 17.9; Mean Corp. HGB Concentration 33.4 g/dL (32.0-36.0); Mean Corpuscular Volume 83.8 fL (80-95); Mean Platelet Volume 9.7 fL (8.0-11.0); Monocytes % 8.6; Neutrophils % 72.4; Platelet Count 404 x1000/uL (130-400); RBC 4.21 m/cumm (4.50-6.00); RBC Distribution Width 16.4 % (11.8-14.1); White Blood Cell Count 20.65 k/cumm (4.4-10.8)
[2018-07-14 16:53] LABS: ALT 22 U/L (12-78); AST 9 U/L (15-37); Albumin 3.5 g/dL (3.4-5.0); Alkaline Phosphatase 61 U/L (46-116); Anion Gap 12.5 mmol/L (3-11); BUN 14 mg/dL (7-18); Bilirubin, Total 0.6 mg/dL (0.2-1.0); CO2 24.5 mmol/L (21.0-32.0); CREATININE 1.03 mg/dL (0.70-1.30); Chloride 95 mmol/L (98-107); Glucose 110 mg/dL (70-100); Potassium 4.1 mmol/L (3.5-5.1); Sodium 132 mmol/L (136-145); Total Protein 7.7 g/dL (6.4-8.2)
[2018-07-14 17:01] LABS: Diff Comment Agrees w/ Instrument; RBC Morphology Normal
[2018-07-14] MEDS: HYDROmorphone 2 MG/ML VIAL 0.5 MG IVP ×2 (17:11→21:53)
[2018-07-14] MEDS: Lactated Ringers 1,000 ML 150 ML IV ×2 (17:13→21:04)
[2018-07-14] MEDS: PIPERACILLIN/TAZO 3.375 GM in Normal Saline 50 ML IVPB (17:23)
[2018-07-14] MEDS: Ketorolac 15 MG/ML VIAL IVP ×2 (17:30→23:05)
--- NOTE | 2018-07-14 19:17 | ABS_PTH ---
PATIENT: Koko Ace JR LOC: U#:[id number] AGE/SX: 52/M ROOM: 228 RE07/14/[address]: Dayron Diaz DO : 1965 BED: A DIS: 07/15/2018 SPEC #: [id number] RECD: 07/17/18 12:32 STATUS: SOUT REQ #: [id number] REED: 07/14/18 19:[address]: Dayron Diaz DEPT: Surgical Specimen RECD BY: Pearl Esparza ENTERED: 07/17/18 12:33 SP TYPE: Abscess OTHR DR: Kyra Mcdaniel APRN Tissues: 1 - ABSCESS Procedures: GROSS AND MICRO LEVEL 2 Comments: [id number]
[2018-07-14] MEDS: Bupivacaine 0.5% Pres-Free 30 ML VIAL (19:26)
[2018-07-14] MEDS: Lidocaine 1% Pres-Free 5 ML VIAL (19:26)
--- NOTE | 2018-07-14 20:06 | W.PM.OP ---
Date of service: 07/14/18 Time of Service: 20:06 Operative Note DATE OF PROCEDURE: 07/14/18 PRE-OP DIAGNOSIS: Abdominal wall abscess POST-OP DIAGNOSIS: same PROCEDURE: Incision and drainage of abdominal abscess with scar revision SURGEON: Dayron Diaz MANAGER ENGAGEMENT: Ludy Roe ANESTHESIA: GETA (Mitchell Ferrara CRNA; ASA 3E Mallampati class) and local (1% lidocaine and 0.5% Marcaine plain; 1.3% Exparel and 0.5% Marcaine plain) ESTIMATED BLOOD LOSS: 30 PATHOLOGY: other (1. Excised ileostomy scar 2. Aspirate of abdominal wall aspirate for culture) COMPLICATIONS: None Patient was transported to: PACU Patient's condition: stable Implants: 19 [place] Jose Miguel drain Indications: 52 y/o male with history of ileostomy closure with delayed surgical wound closure, Type 2 DM, anxiety and HTN presents with complaints of 2 day history of progressively worsening RLQ abdominal pain underlying and surrounding a wound from previous ileostomy closure on 05/23/18. He is being followed for delayed surgical wound closure. Patient reports that over the past 2 days he has been having increased RLQ pain near his ileostomy site with both sitting and standing. He describes this pain as sharp. He states that he feels like his bowels are going to explode and reports intermittent nausea. He denies anything making the pain level less. He reports that at home he had a temp. of 99.[address] scan demonstrated abdominal wall abscess. This abscess seemed to be located below his ileostomy scar, but did not appeared to be intraperitoneal. He was recommended he undergo incision and drainage of abdominal abscess with scar revision. The risks and benefits of the procedure were discussed with him, and consent was obtained to proceed. Findings: Ileostomy site scar revised by making? 12 cm x 3 cm greatest dimensions carried down through subcutaneous tissue to abscess cavity. Bloody purulent fluid drained from abscess cavity approximately 250 mL. Jose Miguel drain placed wound closed over the drain. Procedure Description: Mr. Ace is brought to the operating room positioned supine. His arms are extended 90 degrees all bony prominences were padded lap belt was placed. A timeout was performed reviewing the patient's identification, allergies, medications, procedure, and equipment. An endotracheal tube was placed by the JAIMIE, and sedation was titrated for effect. Once adequate sedation was achieved, the abdomen was prepped with ChloraPrep and block draped in standard sterile fashion. I inserted a 18-gauge needle on a 20 cc syringe just inferior to the ileostomy site scar an attempt to aspirate abscess fluid. I directed the needle to below the scar, and easily aspirated 20 cc of bloody pleural purulent fluid. I then proceeded to incise an ellipse around the ileostomy site scar. This measured 12 cm in the transverse axis, and 3 cm in the longitudinal axis. The incision was carried down to the subcutaneous tissue. Cautery was used to further divide the subcutaneous tissue down to the abscess cavity which occupied a space from just past the midline of the incision going medially to the midline. The cavity was down to the rectus sheath. The wound was copiously irrigated with saline. I then placed a 19 [place] Warren-Underwood drain a stab incision was made inferior and just lateral to the lateral tip of the incision, and a mosquito snap was then used to bluntly dissect down into the cavity at an oblique angle. The Jose Miguel drain was then pulled out through the stab incision until the black line was reached it was trimmed in order to appropriately fit the abscess cavity I then irrigated the wound once more. The wound was subsequently closed in layers with 0 Vicryl suture used to approximate the subcutaneous tissue inverted simple sutures. Skin was closed using bienvenido. A silver Mepilex dressing was placed over this the drain was connected to suction grenade and the drain was sewn in place with an 0 silk suture. The patient was extubated in the operating room, and brought to the post anesthesia care unit in good condition. All counts were reported as correct x2. There were no complications during the case. The patient tolerated the procedure very well.
--- NOTE | 2018-07-14 20:09 | ROE_ITS ---
Date of service: 07/14/18 Time of Service: 20:06 Operative Note DATE OF PROCEDURE: 07/14/18 PRE-OP DIAGNOSIS: Abdominal wall abscess POST-OP DIAGNOSIS: same PROCEDURE: Incision and drainage of abdominal abscess with scar revision SURGEON: Dayron Diaz REPLANTING MACHINE CREWMAN: Ludy Roe ANESTHESIA: GETA (Mitchell Ferrara CRNA; ASA 3E Mallampati class) and local (1% lidocaine and 0.5% Marcaine plain; 1.3% Exparel and 0.5% Marcaine plain) ESTIMATED BLOOD LOSS: 30 PATHOLOGY: other (1. Excised ileostomy scar 2. Aspirate of abdominal wall aspirate for culture) COMPLICATIONS: None Patient was transported to: PACU Patient's condition: stable Implants: 19 Urdu Jose Miguel drain Indications: 52 y/o male with history of ileostomy closure with delayed surgical wound closure, Type 2 DM, anxiety and HTN presents with complaints of 2 day history of progressively worsening RLQ abdominal pain underlying and surrounding a wound from previous ileostomy closure on 05/23/18. He is being followed for delayed surgical wound closure. Patient reports that over the past 2 days he has been having increased RLQ pain near his ileostomy site with both sitting and standing. He describes this pain as sharp. He states that he feels like his bowels are going to explode and reports intermittent nausea. He denies anything making the pain level less. He reports that at home he had a temp. of 99.[address] scan demonstrated abdominal wall abscess. This abscess seemed to be located below his ileostomy scar, but did not appeared to be intraperitoneal. He was recommended he undergo incision and drainage of abdominal abscess with scar revision. The risks and benefits of the procedure were discussed with him, and consent was obtained to proceed. Findings: Ileostomy site scar revised by making? 12 cm x 3 cm greatest dimensions carried down through subcutaneous tissue to abscess cavity. Bloody purulent fluid drained from abscess cavity approximately 250 mL. Jose Miguel drain placed wound closed over the drain. Procedure Description: Mr. Ace is brought to the operating room positioned supine. His arms are extended 90 degrees all bony prominences were padded lap belt was placed. A timeout was performed reviewing the patient's identification, allergies, medications, procedure, and equipment. An endotracheal tube was placed by the JAIMIE, and sedation was titrated for effect. Once adequate sedation was achieved , the abdomen was prepped with ChloraPrep and block draped in standard sterile fashion. I inserted a 18-gauge needle on a 20 cc syringe just inferior to the ileostomy site scar an attempt to aspirate abscess fluid. I directed the needle to below the scar, and easily aspirated 20 cc of bloody pleural purulent fluid. I then proceeded to incise an ellipse around the ileostomy site scar. This measured 12 cm in the transverse axis, and 3 cm in the longitudinal axis. The incision was carried down to the subcutaneous tissue. Cautery was used to further divide the subcutaneous tissue down to the abscess cavity which occupied a space from just past the midline of the incision going medially to the midline. The cavity was down to the rectus sheath. The wound was copiously irrigated with saline. I then placed a 19 Urdu Warren-Underwood drain a stab incision was made inferior and just lateral to the lateral tip of the incision, and a mosquito snap was then used to bluntly dissect down into the cavity at an oblique angle. The Jose Miguel drain was then pulled out through the stab incision until the black line was reached it was trimmed in order to appropriately fit the abscess cavity I then irrigated the wound once more. The wound was subsequently closed in layers with 0 Vicryl suture used to approximate the subcutaneous tissue inverted simple sutures. Skin was closed using bienvenido. A silver Mepilex dressing was placed over this the drain was connected to suction grenade and the drain was sewn in place with an 0 silk suture. The patient was extubated in the operating room, and brought to the post anesthesia care unit in good condition. All counts were reported as correct x2. There were no complications during the case. The patient tolerated the procedure very well.
[2018-07-14] MEDS: ALPRAZolam 0.5 MG TAB 1 MG PO (21:04)
[2018-07-14] MEDS: ACETAMINOPHEN 1,000 MG/100 ML BTL 400 MG IVPB (21:55)
--- NOTE | 2018-07-14 22:50 | NUR.NOTE ---
Nursing Note: Pt refuses post op vital signs past 15 minute vitals
[2018-07-14] MEDS: Nicotine 21 MG/24 HR PATCH TD (23:03)
[2018-07-15] MEDS: HYDROmorphone 2 MG/ML VIAL IVP ×5 (00:03→11:56)
[2018-07-15] MEDS: ALPRAZolam 0.5 MG TAB 1 MG PO ×2 (00:03→08:36)
[2018-07-15] MEDS: PIPERACILLIN/TAZO 3.375 GM in Normal Saline 50 ML IVPB ×2 (02:43→13:04)
[2018-07-15] MEDS: Normal Saline Flush 10 ML SYR IVP ×5 (02:44→13:05)
[2018-07-15 03:35] VITALS: BP 105/63; PULSE 76; RESP 20; TEMP 34.8; O2SAT 94
[2018-07-15] MEDS: ACETAMINOPHEN 1,000 MG/100 ML BTL 400 MG IVPB ×2 (03:38→11:58)
[2018-07-15] MEDS: Ketorolac 15 MG/ML VIAL IVP (05:17)
--- NOTE | 2018-07-15 07:14 | PDOC.CMIN ---
- If Service Date Differs Date of service: 07/15/18 Time of Service: 07:14 Care Management Initial Assess REASON FOR HOSPITALIZATION:: Abdominal abcess. PAST MEDICAL HISTORY/PAST SURGICAL HISTORY:: Anxiety, depression, diverticulitis, diabetes-non insulin dependent, hypertension, high cholesterol, adult anti-social behavior, cysto/bladder bx, mental illness, PKU, migrated uteral stent, colorectal fistual. Surgical hx: appendectomy, colectomy, cystoscopy, resection of large bowel (05/23/18), colostomy reversal. PREVIOUS FUNCTIONAL STATUS/SOCIAL/FAMILY SUPPORTS:: Koko resides in his own home in [place]. He has had home health services 2/week for wound care since his last admission. Koko is independent with his ADLs and transportation. He reports that he does not have any friends or supports close by. CURRENT FUNCTIONAL STATUS:: Koko is sitting in his chair when visits this morning. He is engaged in conversation and is talkative. Koko went to the OR with Dr. Diaz last evening for an abdominal abcess. He has a HENRY drain in place. Koko is receiving IV fluids and antibiotics at this time. Koko is familiar to this newspaper writer as he has had several admissions this year. On other admissions, Koko has left AMA, and while he is stating that he will be leaving today he seems calmer and more rational than in the past. Koko has a car in the parking lot and is wondering whether he can drive at d/c. informed him that Dr. Diaz will make that call but that he has a lot of meds on board which may hinder his ability to drive himself. Koko reports that he is resourceful and can take a cab or hitchhike if necessary. He has been ambulating well in the halls independently. ADVANCE DIRECTIVES:: None on file at [facility]. Documentation has been provided patient. Has patient been provided with information about the portal?: Yes Did the patient sign up for the portal?: No CODE STATUS:: Full Code INSURANCE COVERAGE / FINANCIAL ISSUES:: [facility] [employer] ([facility] [facility]) , Financial Assistance 85. CURRENT HOME/COMMUNITY SERVICES/EQUIPMENT:: Home health nursing services with [facility] 2/week for wound care. No equipment. PRIMARY CARE PHYSICIAN:: Kyra Mcdaniel NP. POTENTIAL DISCHARGE NEEDS:: Follow up appointments with surgical services, lab, and PCP. PATIENT/FAMILY EDUCATION NEEDS:: Discharge education, any limitations, and follow up plan of care. Ask Me Three discussion. ANTICIPATED BARRIERS TO DISCHARGE:: No anticipated barriers to discharge. TRANSPORTATION:: Transportation TBD. Koko has a car in the [facility] parking lot vs taxi. PLAN:: Koko will discharge home when medically ready per MD. Anticipate patient will discharge with no services and follow up with surgical services, lab, and PCP. CM will continue to offer support to patient and care team regarding discharge planning and disposition.
--- NOTE | 2018-07-15 07:21 | INITIAL_ITS ---
- If Service Date Differs Date of service: 07/15/18 Time of Service: 07:14 Care Management Initial Assess REASON FOR HOSPITALIZATION:: Abdominal abcess. PAST MEDICAL HISTORY/PAST SURGICAL HISTORY:: Anxiety, depression, diverticulitis , diabetes-non insulin dependent, hypertension, high cholesterol, adult anti- social behavior, cysto/bladder bx, mental illness, PKU, migrated uteral stent, colorectal fistual. Surgical hx: appendectomy, colectomy, cystoscopy, resection of large bowel (05/23/18), colostomy reversal. PREVIOUS FUNCTIONAL STATUS/SOCIAL/FAMILY SUPPORTS:: Koko resides in his own home in [place]. He has had home health services 2/week for wound care since his last admission. Koko is independent with his ADLs and transportation. He reports that he does not have any friends or supports close by. CURRENT FUNCTIONAL STATUS:: Koko is sitting in his chair when visits this morning. He is engaged in conversation and is talkative. Koko went to the OR with Dr. Diaz last evening for an abdominal abcess. He has a HENRY drain in place. Koko is receiving IV fluids and antibiotics at this time. Koko is familiar to this lead technical writer as he has had several admissions this year. On other admissions, Koko has left AMA, and while he is stating that he will be leaving today he seems calmer and more rational than in the past. Koko has a car in the parking lot and is wondering whether he can drive at d/c. informed him that Dr. Diaz will make that call but that he has a lot of meds on board which may hinder his ability to drive himself. Koko reports that he is resourceful and can take a cab or hitchhike if necessary. He has been ambulating well in the halls independently. ADVANCE DIRECTIVES:: None on file at [facility]. Documentation has been provided patient. Has patient been provided with information about the portal?: Yes Did the patient sign up for the portal?: No CODE STATUS:: Full Code INSURANCE COVERAGE / FINANCIAL ISSUES:: [facility] [employer] ([facility] [employer] [facility]) , Financial Assistance 85. CURRENT HOME/COMMUNITY SERVICES/EQUIPMENT:: Home health nursing services with [facility] 2/week for wound care. No equipment. PRIMARY CARE PHYSICIAN:: Kyra Mcdaniel NP. POTENTIAL DISCHARGE NEEDS:: Follow up appointments with surgical services, lab, and PCP. PATIENT/FAMILY EDUCATION NEEDS:: Discharge education, any limitations, and follow up plan of care. Ask Me Three discussion. ANTICIPATED BARRIERS TO DISCHARGE:: No anticipated barriers to discharge. TRANSPORTATION:: Transportation TBD. Koko has a car in the [facility] parking lot vs taxi. PLAN:: Koko will discharge home when medically ready per MD. Anticipate patient will discharge with no services and follow up with surgical services, lab, and PCP. CM will continue to offer support to patient and care team regarding discharge planning and disposition.
[2018-07-15 07:25] LABS: Abs Immature Grans 0.12 k/cumm (0.0-0.09); Absolute Eosinophil Count 0.25 k/cumm (0.0-0.7); Absolute Monocyte Count 1.31 k/cumm (0.11-0.7); Basophils % 0.2; Eosinophils % 1.5; HCT 34.1 % (40.0-50.0); HGB 11.1 g/dL (13.5-17.5); Immature Grans % 0.7; Lymphocytes % 17.2; Mean Corp. HGB Concentration 32.6 g/dL (32.0-36.0); Mean Corpuscular Hemoglobin 27.6 pg (27.0-33.0); Mean Corpuscular Volume 84.8 fL (80-95); Mean Platelet Volume 9.6 fL (8.0-11.0); Monocytes % 7.9; Neutrophils % 72.5; Platelet Count 372 x1000/uL (130-400); RBC 4.02 m/cumm (4.50-6.00); RBC Distribution Width 16.1 % (11.8-14.1); White Blood Cell Count 16.53 k/cumm (4.4-10.8)
[2018-07-15 07:39] LABS: Absolute Basophil Count 0.03 k/cumm (0.0-0.2); Absolute Lymphocyte Count 2.84 k/cumm (1.2-3.4); Absolute Neutrophil Count 11.98 k/cumm (1.2-6.7)
[2018-07-15 07:43] LABS: Anion Gap 11.5 mmol/L (3-11); BUN 21 mg/dL (7-18); CO2 25.5 mmol/L (21.0-32.0); CREATININE 1.47 mg/dL (0.70-1.30); Calcium 8.8 mg/dL (8.5-10.1); Chloride 96 mmol/L (98-107); Glucose 110 mg/dL (70-100); Magnesium 2.1 mg/dL (1.8-2.4); PHOSPHORUS 5.7 mg/dL (2.6-4.7); Sodium 133 mmol/L (136-145)
[2018-07-15 08:06] VITALS: BP 103/67; PULSE 78; RESP 18; TEMP 36; O2SAT 95
[2018-07-15] MEDS: Lisinopril 5 MG TAB 2.5 MG PO (08:34)
[2018-07-15] MEDS: metFORMIN 500 MG TAB 1000 MG PO (08:35)
[2018-07-15] MEDS: Venlafaxine 37.5 MG CAPCR 75 MG PO (08:36)
[2018-07-15] MEDS: Lactated Ringers 1,000 ML 150 ML IV (11:57)
[2018-07-15 12:10] VITALS: BP 104/62; PULSE 83; RESP 17; TEMP 36; O2SAT 97
--- NOTE | 2018-07-15 12:52 | W.PM.DS.N ---
Date of service: 07/15/18 Time of Service: 14:59 DS: Diagnosis Discharge Diagnosis (1) Abdominal abscess: Status: Acute (2) YUDI (acute kidney injury): Status: Acute Discharge Plan Disposition Patient Disposition: HOME Condition: Improving Discharge Details Reason For Visit: ABDOMINAL ABSCESS Admit Date/Time: 07/14/18 16:08 Admit Provider: Dayron Diaz Attending Provider: Dayron Diaz Primary Care Provider: Kyra Mcdaniel Hospital Course Hospital Course: Procedures: Incision and drainage of abdominal wall abscess with scar revision HPI: 52 y/o male with history of ileostomy closure with delayed surgical wound closure, Type 2 DM, anxiety and HTN presents with complaints of 2 day history of progressively worsening RLQ abdominal pain underlying and surrounding a wound from previous ileostomy closure on 05/23/18. He is being followed for delayed surgical wound closure. Patient reports that over the past 2 days he has been having increased RLQ pain near his ileostomy site with both sitting and standing. He describes this pain as sharp. He states that he feels like his bowels are going to explode and reports intermittent nausea. He denies anything making the pain level less. He reports that at home he had a temp. of 99.[address] of A/P showed a abdominal wall abscess. He was admitted for incision & drainage of abscess, and antibiotic therapy. Hospital Course: Mr. Ace underwent incision and drainage with scar revision without complications, please see separate operative report for full details. His postoperative course was fairly unremarkable his diet was advanced as tolerated. His pain medication was transitioned from IV to p.o. He did have laboratory changes in his creatinine and BUN suggestive of acute kidney injury which prompted holding his Toradol. His kidney function was improving at the time of discharge. He remained afebrile postoperatively, and was walking at baseline. Given his anxiety towards hospitals, it was decided to discharge him home with close follow-up on Tuesday, and laboratory studies as an outpatient. I did discuss with him warning signs and symptoms that should prompt notification of the physician or return to emergency room. He is to call if he has any questions or concerns or is otherwise unsure. Home Meds and New Rx's Prescriptions: New metronidazole 500 mg tablet 500 mg PO QID Qty: 40 RF: 0 amoxicillin-pot clavulanate 875-125 mg tablet 1 tab PO BID Qty: 24 RF: 0 hydromorphone 4 mg tablet 4 mg PO Q6H PRN (Reason: pain) Qty: 20 RF: 0 Continue metformin 1,000 MG tablet 1,000 mg PO BID Qty: 180 RF: 3 fenofibrate nanocrystallized [Tricor] 145 MG tablet 145 mg PO DAILY Qty: 90 RF: 3 lisinopril 2.5 MG tablet 2.5 mg PO DAILY Qty: 90 RF: 3 venlafaxine 75 MG capsule,extended release 24hr 75 mg PO DAILY Qty: 90 RF: 1 rizatriptan 10 MG tablet 10 mg PO PRN Qty: 20 RF: 0 cyanocobalamin (vitamin B-12) [Vitamin B-12] 500 MCG tablet 1,000 mcg PO DAILY Qty: 30 RF: 3 acetaminophen 500 MG tablet 500 mg PO Q6H PRN PRNQty: 0 RF: 0 Discontinued hydromorphone 4 mg tablet 4 mg PO Q6H PRN (Reason: pain) Qty: 14 RF: 0 aspirin [Aspir-81] 81 MG tablet,delayed release (DR/EC) 81 mg PO DAILY RF: 0 Discharge Instructions Instructions: Warren-Underwood Drain Care (DC), Staple Care (DC) Additional Instructions: Dr. Dayron Diaz Post-Operative Discharge Instructions 1. Because there will be medication in your system for the next 24 hours, you may feel a little sleepy. Your coordination will be affected. Therefore: Do not drive or operate dangerous equipment for 24 hours. Do not drink alcohol beverages for 24 hours (not even beer). Plan to go home and rest for the day. Restrictions: Do not lift over 20lbs for 4 weeks. No strenuous bending or twisting for 4 weeks, if it hurts stop. No baths, you can shower. Let warm soapy water run over wound, then pat wound dry. Activity: The day of surgery spend most of the day resting in a comfortable bed or recliner. 2-3 times during the day get up and walk around the house. The day after surgery, or after your discharge, walk at least 3 times a day and spend increasing amounts of time walking and sitting up. If you are tired rest, but keep moving as able. Continue Incentive Spirometry at home if you were performing this therapy in the hospital. Diet: Resume home diet as tolerated. Start with a light diet, your appetite will improve with time. Drink at least 4-6 glasses of water per day to keep hydrated. Continue all your regular medications unless directed otherwise. Call the office or the [facility] [address] Clerk , If you have: Pain not controlled with pain medication. Nausea and vomiting. Temperature greater than 101 degrees Fahrenheit. Drainage from your wound that soaks through your dressing. *No more than 4000 milligrams of Tylenol in 24 hours. Narcotic pain medication can be constipating, if you have not had a bowel movement within 3 days use a laxative, I recommend Milk of Magnesia (MOM) 1oz. every 6 hrs until you have a bowel movement. I understand the above instructions and have no questions. Signature of Patient or Responsible Adult Escort Date/Time Name of Responsible Adult Escort Signature of Nurse Date/Time Revised 01/18/11 Stand Alone Forms: Nursing Discharge Form Referrals: Dayron Diaz DO [ [facility] STAFF PHYSICIAN] - 07/17/18 9:00 am (Follow-up for drainage of abdominal wall abscess) Activity:: see instructions Equipment/Supplies:: measuring device for drain Diet:: As Tolerated Discharge Orders Discharge Orders: Discharge Order (Routine); Ordered 07/15/18 Ordered By: Dayron Diaz Other Ambulatory Orders: Basic Metabolic Panel (Routine) Timeframe: 1 Week Facility: [facility] - Location: Laboratory Ordered By: Dayron Diaz Complete Blood Count w/Diff (Routine) Timeframe: 1 Week Facility: [facility] - Location: Laboratory Outpatient Ordered By: Dayron Diaz ESR (Routine) Timeframe: 1 Week Facility: [facility] - Location: Laboratory Outpatient Ordered By: Dayron Diaz C-Reactive Protein (Routine) Timeframe: 1 Week Facility: [facility] - Location: Laboratory Outpatient Ordered By: Dayron Diaz DS: Summary Status at Discharge Functional status at discharge: independent ambulation Overall status at discharge: patient is progressing back to baseline Time Spent with Patient Greater than 30 minutes Exam Const General: cooperative, healthy appearing, no acute distress and anxious Nutritional Appearance: obese centrally obese Orientation: alert, awake and oriented x3 HENMT Head: normal to inspection Ears: hearing grossly normal bilaterally General nose exam: external nose normal Face and sinus: normal facial exam Mouth: oral mucosae normal Teeth and gingiva: dentition normal Throat: posterior oropharynx normal Eyes General: appearance normal, both eyes and all related structures Periorbital: periorbital findings normal Sclera: sclerae normal Pupils: PERRL EOM: EOM intact bilaterally Neck Neck: normal visual inspection, trachea midline and supple Resp Effort & Inspection: normal respiratory effort, no audible wheezes, cough and not labored Auscultation: rhonchi and no wheezes Cardio Jugular venous pressure: no JVD Rate: regular rate Rhythm: regular rhythm Heart Sounds: S1 normal and S2 normal GI Inspection: non-distended, incision (Intact, still with induration around incision, drain with sanganious drainage) and obesity Palpation: hernia ventral (incisional) Rectal Exam: deferred Skin General skin exam: turgor normal Rashes: no rashes Hair: normal and male pattern alopecia Neuro General: moves all extremities, no focal motor deficits and CN's II-XI intact bilaterally Extrem General: normal capillary refill and no clubbing, cyanosis or edema DS: Data Vitals/I&O Vitals and I&O: Vital Signs Temperature 36.0 C L 07/15/18 08:06 Temperature Source Tympanic 07/15/18 08:06 Pulse 78 07/15/18 08:06 Pulse Rhythm Regular 07/15/18 08:35 Respiratory Rate 18 07/15/18 08:06 Respiratory Effort Short of Breath 07/15/18 08:35 Respiratory Depth Normal 07/15/18 08:35 Respiratory Pattern Normal 07/15/18 08:35 Blood Pressure 103/67 07/15/18 08:06 Pulse Oximetry 95 07/15/18 08:06 Respiratory End-tidal CO2 37 07/14/18 20:23 Oxygen Delivery Method Room Air 07/15/18 08:06 Oxygen Flow Rate 0 07/15/18 08:06 Pain Level 7 07/15/18 11:56 Comment 07/15/18 03:35 Intake & Output 07/14/18 07/15/18 07/15/18 18:59 06:59 18:59 Intake Total 1030 / 1030 1365 / 1365 Output Total 40 / 40 65 / 65 Balance 990 / 990 1300 / 1300 Weight 129.5 kg Intake: IV 670 / 670 1065 / 1065 Oral 360 / 360 300 / 300 Output: Drainage 40 / 40 65 / 65 Right Lower Anterior Lateral 40 / 40 65 / 65 Abdomen Other: Emesis Description None Labs on day of discharge: Labs from last 24 hours 07/15/18 07/15/18 07/15/18 14:00 14:00 07:10 WBC 16.53 H RBC 4.02 L Hgb 11.1 L Hct 34.1 L MCV 84.8 MCH 27.6 MCHC 32.6 RDW 16.1 H Plt Count 372 MPV 9.6 Immature Gran % 0.7 Neutrophils % 72.5 Lymphocytes % 17.2 Monocytes % 7.9 Eosinophils % 1.5 Basophils % 0.2 Absolute Neutrophils 11.98 H Absolute Lymphocytes 2.84 Absolute Monocytes 1.31 H Absolute Eosinophils 0.25 Absolute Basophils 0.03 Differential Comment RBC Morphology ESR Pending Sodium Pending Potassium Pending Chloride Pending Carbon Dioxide Pending Anion Gap Pending BUN Pending Creatinine Pending Estimated GFR/1.73 m2 Pending Glucose Pending Calcium Pending Phosphorus Magnesium Total Bilirubin AST ALT Alkaline Phosphatase C-Reactive Protein Pending Total Protein Albumin 07/15/18 07/14/18 07/14/18 07:10 16:30 16:30 WBC 20.65 H RBC 4.21 L Hgb 11.8 L Hct 35.3 L MCV 83.8 MCH 28.0 MCHC 33.4 RDW 16.4 H Plt Count 404 H MPV 9.7 Immature Gran % 0.4 Neutrophils % 72.4 Lymphocytes % 17.9 Monocytes % 8.6 Eosinophils % 0.5 Basophils % 0.2 Absolute Neutrophils 14.95 H Absolute Lymphocytes 3.70 H Absolute Monocytes 1.78 H Absolute Eosinophils 0.10 Absolute Basophils 0.04 Differential Comment Agrees w/ instrument RBC Morphology Normal ESR Sodium 133 L 132 L Potassium 4.0 4.1 Chloride 96 L 95 L Carbon Dioxide 25.5 24.5 Anion Gap 11.5 H 12.5 H BUN 21 H D 14 Creatinine 1.47 H 1.03 Estimated GFR/1.73 m2 50.50 >= 60.00 Glucose 110 H 110 H Calcium 8.8 9.0 Phosphorus 5.7 H Magnesium 2.1 Total Bilirubin 0.6 AST 9 L ALT 22 Alkaline Phosphatase 61 C-Reactive Protein Total Protein 7.7 Albumin 3.5 Preliminary micro results at discharge 07/14/18 19:17 Surgical Culture - Preliminary Abdomen
--- NOTE | 2018-07-15 12:59 | DSE_ITS ---
Date of service: 07/15/18 Time of Service: 14:59 DS: Diagnosis Discharge Diagnosis (1) Abdominal abscess: Status: Acute (2) YUDI (acute kidney injury): Status: Acute Discharge Plan Disposition Patient Disposition: HOME Condition: Improving Discharge Details Reason For Visit: ABDOMINAL ABSCESS Admit Date/Time: 07/14/18 16:08 Admit Provider: Dayron Diaz Attending Provider: Dayron Diaz Primary Care Provider: Kyra Mcdaniel Hospital Course Hospital Course: Procedures: Incision and drainage of abdominal wall abscess with scar revision HPI: 52 y/o male with history of ileostomy closure with delayed surgical wound closure, Type 2 DM, anxiety and HTN presents with complaints of 2 day history of progressively worsening RLQ abdominal pain underlying and surrounding a wound from previous ileostomy closure on 05/23/18. He is being followed for delayed surgical wound closure. Patient reports that over the past 2 days he has been having increased RLQ pain near his ileostomy site with both sitting and standing. He describes this pain as sharp. He states that he feels like his bowels are going to explode and reports intermittent nausea. He denies anything making the pain level less. He reports that at home he had a temp. of 99.[address] of A/P showed a abdominal wall abscess. He was admitted for incision & drainage of abscess, and antibiotic therapy. Hospital Course: Mr. Ace underwent incision and drainage with scar revision without complications, please see separate operative report for full details. His postoperative course was fairly unremarkable his diet was advanced as tolerated. His pain medication was transitioned from IV to p.o. He did have laboratory changes in his creatinine and BUN suggestive of acute kidney injury which prompted holding his Toradol. His kidney function was improving at the time of discharge. He remained afebrile postoperatively, and was walking at baseline. Given his anxiety towards hospitals, it was decided to discharge him home with close follow-up on Tuesday, and laboratory studies as an outpatient. I did discuss with him warning signs and symptoms that should prompt notification of the physician or return to emergency room. He is to call if he has any questions or concerns or is otherwise unsure. Home Meds and New Rx's Prescriptions: New metronidazole 500 mg tablet 500 mg PO QID Qty: 40 RF: 0 amoxicillin-pot clavulanate 875-125 mg tablet 1 tab PO BID Qty: 24 RF: 0 hydromorphone 4 mg tablet 4 mg PO Q6H PRN (Reason: pain) Qty: 20 RF: 0 Continue metformin 1,000 MG tablet 1,000 mg PO BID Qty: 180 RF: 3 fenofibrate nanocrystallized [Tricor] 145 MG tablet 145 mg PO DAILY Qty: 90 RF: 3 lisinopril 2.5 MG tablet 2.5 mg PO DAILY Qty: 90 RF: 3 venlafaxine 75 MG capsule,extended release 24hr 75 mg PO DAILY Qty: 90 RF: 1 rizatriptan 10 MG tablet 10 mg PO PRN Qty: 20 RF: 0 cyanocobalamin (vitamin B-12) [Vitamin B-12] 500 MCG tablet 1,000 mcg PO DAILY Qty: 30 RF: 3 acetaminophen 500 MG tablet 500 mg PO Q6H PRN PRNQty: 0 RF: 0 Discontinued hydromorphone 4 mg tablet 4 mg PO Q6H PRN (Reason: pain) Qty: 14 RF: 0 aspirin [Aspir-81] 81 MG tablet,delayed release (DR/EC) 81 mg PO DAILY RF: 0 Discharge Instructions Instructions: [facility] Drain Care (DC), Staple Care (DC) Additional Instructions: Dr. Dayron Diaz Post-Operative Discharge Instructions 1. Because there will be medication in your system for the next 24 hours, you may feel a little sleepy. Your coordination will be affected. Therefore: * Do not drive or operate dangerous equipment for 24 hours. * Do not drink alcohol beverages for 24 hours (not even beer). * Plan to go home and rest for the day. Restrictions: * Do not lift over 20lbs for 4 weeks. * No strenuous bending or twisting for 4 weeks, if it hurts stop. * No baths, you can shower. Let warm soapy water run over wound, then pat wound dry. Activity: * The day of surgery spend most of the day resting in a comfortable bed or recliner. 2-3 times during the day get up and walk around the house. * The day after surgery, or after your discharge, walk at least 3 times a day and spend increasing amounts of time walking and sitting up. If you are tired rest, but keep moving as able. * Continue Incentive Spirometry at home if you were performing this therapy in the hospital. Diet: * Resume home diet as tolerated. * Start with a light diet, your appetite will improve with time. * Drink at least 4-6 glasses of water per day to keep hydrated. Continue all your regular medications unless directed otherwise. Call the office or the Hospital Computed Tomography Scanner Operator , If you have: * Pain not controlled with pain medication. * Nausea and vomiting. * Temperature greater than 101 degrees Fahrenheit. * Drainage from your wound that soaks through your dressing. *No more than 4000 milligrams of Tylenol in 24 hours. Narcotic pain medication can be constipating, if you have not had a bowel movement within 3 days use a laxative, I recommend Milk of Magnesia (MOM) 1oz. every 6 hrs until you have a bowel movement. I understand the above instructions and have no questions. _ Signature of Patient or Responsible Adult Escort Date/Time _ Name of Responsible Adult Escort _ Signature of Nurse Date/Time Revised 01/18/11 Stand Alone Forms: Nursing Discharge Form Referrals: Dayron Diaz DO [ [facility] STAFF PHYSICIAN] - 07/17/18 9:00 am (Follow-up for drainage of abdominal wall abscess) Activity:: see instructions Equipment/Supplies:: measuring device for drain Diet:: As Tolerated Discharge Orders Discharge Orders: Discharge Order (Routine); Ordered 07/15/18 Ordered By: Dayron Diaz Other Ambulatory Orders: Basic Metabolic Panel (Routine) Timeframe: 1 Week Facility: [facility] - Location: Laboratory Ordered By: Dayron Diaz Complete Blood Count w/Diff (Routine) Timeframe: 1 Week Facility: [facility] - Location: Laboratory Outpatient Ordered By: Dayron Diaz ESR (Routine) Timeframe: 1 Week Facility: [facility] - Location: Laboratory Outpatient Ordered By: Dayron Diaz C-Reactive Protein (Routine) Timeframe: 1 Week Facility: [facility] - Location: Laboratory Outpatient Ordered By: Dayron Diaz DS: Summary Status at Discharge Functional status at discharge: independent ambulation Overall status at discharge: patient is progressing back to baseline Time Spent with Patient Greater than 30 minutes Exam Const General: cooperative, healthy appearing, no acute distress and anxious Nutritional Appearance: obese centrally obese Orientation: alert, awake and oriented x3 HENMT Head: normal to inspection Ears: hearing grossly normal bilaterally General nose exam: external nose normal Face and sinus: normal facial exam Mouth: oral mucosae normal Teeth and gingiva: dentition normal Throat: posterior oropharynx normal Eyes General: appearance normal, both eyes and all related structures Periorbital: periorbital findings normal Sclera: sclerae normal Pupils: PERRL EOM: EOM intact bilaterally Neck Neck: normal visual inspection, trachea midline and supple Resp Effort & Inspection: normal respiratory effort, no audible wheezes, cough and not labored Auscultation: rhonchi and no wheezes Cardio Jugular venous pressure: no JVD Rate: regular rate Rhythm: regular rhythm Heart Sounds: S1 normal and S2 normal GI Inspection: non-distended, incision (Intact, still with induration around incision, drain with sanganious drainage) and obesity Palpation: hernia ventral (incisional) Rectal Exam: deferred Skin General skin exam: turgor normal Rashes: no rashes Hair: normal and male pattern alopecia Neuro General: moves all extremities, no focal motor deficits and CN's II-XI intact bilaterally Extrem General: normal capillary refill and no clubbing, cyanosis or edema DS: Data Vitals/I&O Vitals and I&O: Vital Signs Temperature 36.0 C L 07/15/18 08:06 Temperature Source Tympanic 07/15/18 08:06 Pulse 78 07/15/18 08:06 Pulse Rhythm Regular 07/15/18 08:35 Respiratory Rate 18 07/15/18 08:06 Respiratory Effort Short of Breath 07/15/18 08:35 Respiratory Depth Normal 07/15/18 08:35 Respiratory Pattern Normal 07/15/18 08:35 Blood Pressure 103/67 07/15/18 08:06 Pulse Oximetry 95 07/15/18 08:06 Respiratory End-tidal CO2 37 07/14/18 20:23 Oxygen Delivery Method Room Air 07/15/18 08:06 Oxygen Flow Rate 0 07/15/18 08:06 Pain Level 7 07/15/18 11:56 Comment 07/15/18 03:35 Intake & Output 07/14/18 07/15/18 07/15/18 18:59 06:59 18:59 Intake Total 1030 / 1030 1365 / 1365 Output Total 40 / 40 65 / 65 Balance 990 / 990 1300 / 1300 Weight 129.5 kg Intake: IV 670 / 670 1065 / 1065 Oral 360 / 360 300 / 300 Output: Drainage 40 / 40 65 / 65 Right Lower Anterior Lateral 40 / 40 65 / 65 Abdomen Other: Emesis Description None Labs on day of discharge: Labs from last 24 hours 07/15/18 07/15/18 07/15/18 14:00 14:00 07:10 WBC 16.53 H RBC 4.02 L Hgb 11.1 L Hct 34.1 L MCV 84.8 MCH 27.6 MCHC 32.6 RDW 16.1 H Plt Count 372 MPV 9.6 Immature Gran % 0.7 Neutrophils % 72.5 Lymphocytes % 17.2 Monocytes % 7.9 Eosinophils % 1.5 Basophils % 0.2 Absolute Neutrophils 11.98 H Absolute Lymphocytes 2.84 Absolute Monocytes 1.31 H Absolute Eosinophils 0.25 Absolute Basophils 0.03 Differential Comment RBC Morphology ESR Pending Sodium Pending Potassium Pending Chloride Pending Carbon Dioxide Pending Anion Gap Pending BUN Pending Creatinine Pending Estimated GFR/1.73 m2 Pending Glucose Pending Calcium Pending Phosphorus Magnesium Total Bilirubin AST ALT Alkaline Phosphatase C-Reactive Protein Pending Total Protein Albumin 07/15/18 07/14/18 07/14/18 07:10 16:30 16:30 WBC 20.65 H RBC 4.21 L Hgb 11.8 L Hct 35.3 L MCV 83.8 MCH 28.0 MCHC 33.4 RDW 16.4 H Plt Count 404 H MPV 9.7 Immature Gran % 0.4 Neutrophils % 72.4 Lymphocytes % 17.9 Monocytes % 8.6 Eosinophils % 0.5 Basophils % 0.2 Absolute Neutrophils 14.95 H Absolute Lymphocytes 3.70 H Absolute Monocytes 1.78 H Absolute Eosinophils 0.10 Absolute Basophils 0.04 Differential Comment Agrees w/ instrument RBC Morphology Normal ESR Sodium 133 L 132 L Potassium 4.0 4.1 Chloride 96 L 95 L Carbon Dioxide 25.5 24.5 Anion Gap 11.5 H 12.5 H BUN 21 H D 14 Creatinine 1.47 H 1.03 Estimated GFR/1.73 m2 50.50 >= 60.00 Glucose 110 H 110 H Calcium 8.8 9.0 Phosphorus 5.7 H Magnesium 2.1 Total Bilirubin 0.6 AST 9 L ALT 22 Alkaline Phosphatase 61 C-Reactive Protein Total Protein 7.7 Albumin 3.5 Preliminary micro results at discharge 07/14/18 19:17 Surgical Culture - Preliminary Abdomen
[2018-07-15 14:19] LABS: Anion Gap 9.1 mmol/L (3-11); BUN 21 mg/dL (7-18); C-Reactive Protein 10.95 mg/dL (0.0-0.3); CO2 27.9 mmol/L (21.0-32.0); CREATININE 1.32 mg/dL (0.70-1.30); Calcium 8.7 mg/dL (8.5-10.1); Chloride 96 mmol/L (98-107); Estimated GFR 57.18 (mL/min/1.73m2); Glucose 101 mg/dL (70-100); Sodium 133 mmol/L (136-145)
--- NOTE | 2018-07-15 14:51 | PDOC.CMDIS ---
- If Service Date Differs Date of service: 07/15/18 Time of Service: 14:51 LACE Index Scoring Tool - Questions: Length of Stay (in days): 2 Acuity (Admit via E.D.?): No Comorbidities: Diabetes w/o Complication E.D. Visits: 4 - Answers: Total Score: 7 Risk of Readmission: Low Risk Care Management Discharge Reason for Hospitalization: Abdominal abcess. Discharge Plan: Koko will discharge home when medically ready per MD. Patient will discharge with no services and follow up with surgical services, lab, and PCP. Koko has a HENRY drain for which education has been provided. Koko will transport via taxi. He has a car in the hospital parking lot, however per Dr. Diaz, patient has had pain medications making him unsuitable to drive. Patient/Family Education Needs: Discharge education, any limitations, and follow up plan of care. Ask Me Three discussion.
[2018-07-15 15:10] LABS: ESR 71 MM/HR (1-20)
== END 2018-07-15 15:57 | disposition home or self-care (01) | DRG 580 ==
PROVIDERS: Physical Therapy Assistant; Admitting Provider Surgery; PCP Nurse Practitioner Family; Visit Provider Surgery
PROC: 0HB7XZZ Excision of Abdomen Skin, External Approach (ICD-10-PCS; CPT 11406; principal; 2018-07-14 18:00)
DX: L02.211 Cutaneous abscess of abdominal wall (principal); N17.9 Acute kidney failure, unspecified; T81.89XA Other complications of procedures, not elsewhere classified, initial encounter; Z98.0 Intestinal bypass and anastomosis status; F41.9 Anxiety disorder, unspecified; F17.210 Nicotine dependence, cigarettes, uncomplicated; E11.9 Type 2 diabetes mellitus without complications; Z79.84 Long term (current) use of oral hypoglycemic drugs
CPT/HCPCS: 11406; 12034; 10061; 36415; 80048; 80053; 85652; 87077; 99223; NC; 83735; 84100; 85025; 86140; 87070; 87186; 87205; 88302; 88304; J0131; J1885; J2250; J2405; J2543; J3490

== ENCOUNTER 2018-07-17 07:31 | Outpatient (CLI) | payer OTHER, SELFPAY ==
[2018-07-17 07:58] LABS: Absolute Basophil Count 0.04 k/cumm (0.0-0.2); Absolute Eosinophil Count 0.29 k/cumm (0.0-0.7); Absolute Lymphocyte Count 1.89 k/cumm (1.2-3.4); Absolute Monocyte Count 0.76 k/cumm (0.11-0.7); Absolute Neutrophil Count 6.54 k/cumm (1.2-6.7); Basophils % 0.4; HCT 34.9 % (40.0-50.0); HGB 11.3 g/dL (13.5-17.5); Lymphocytes % 19.6; Mean Corp. HGB Concentration 32.4 g/dL (32.0-36.0); Mean Corpuscular Hemoglobin 27.8 pg (27.0-33.0); Mean Platelet Volume 9.7 fL (8.0-11.0); Monocytes % 7.9; Neutrophils % 68.1; Platelet Count 423 x1000/uL (130-400); RBC 4.06 m/cumm (4.50-6.00); RBC Distribution Width 15.3 % (11.8-14.1); White Blood Cell Count 9.62 k/cumm (4.4-10.8)
[2018-07-17 08:43] LABS: Anion Gap 11.5 mmol/L (3-11); BUN 12 mg/dL (7-18); CO2 25.5 mmol/L (21.0-32.0); CREATININE 0.95 mg/dL (0.70-1.30); Calcium 9.4 mg/dL (8.5-10.1); Chloride 105 mmol/L (98-107); Glucose 135 mg/dL (70-100); Potassium 4.9 mmol/L (3.5-5.1); Sodium 142 mmol/L (136-145)
[2018-07-17 08:44] LABS: ESR 73 MM/HR (1-20)
== END 2018-07-17 07:51 ==
PROVIDERS: PCP Nurse Practitioner Family; Visit Provider Surgery
DX: N17.9 Acute kidney failure, unspecified (principal); T81.89XD Other complications of procedures, not elsewhere classified, subsequent encounter
CPT/HCPCS: 36415; 80048; 85652; 85025; 86140

== ENCOUNTER 2018-08-10 08:23 | Outpatient (CLI) | payer OTHER, SELFPAY ==
--- NOTE | 2018-08-10 08:30 | SATEXT_ITS ---
August 10, 2018 0830h Assessment: Koko presents for nutritional counseling for diverticulitis, poor wound healing, type 2 diabetes, and general nutritional counseling. He is 74 and 285 lbs. His BMI is 38 kg/m2 c/w class 2 obesity. He reports that he does not eat healthfully although he reports that he craves healthy food. He does not eat until noon, He may have some kind of protein such as hamburger, tuna, chicken and then have some fruit. The rest of the day he reports just snacking on chips or sweets. He states he drinks sufficient water such that his urine is clear. He takes Metamucil and milk of magnesia to help with his bowels. He states he is motivated to make some changes. His most recent A1C in March was 6.0 suggestive of excellent glycemic control. Nutritional Diagnosis: Undesirable food choices related to previous lack of motivation to make changes as evidenced by patient report. Intervention: We discussed the benefits of a regular eating plan with at least a fruit and/or vegetable at each meal. Also suggested carbohydrate consistent eating to help his body work better in general. We reviewed 30-45 grams of carbohydrate, three to four times daily. We came up with meal ideas that also included protein and fat. Provided many written materials including a cookbook and shopping lists. Koko verbalized a good understanding of the information and her verbalized some motivation to make some changes. Monitoring and Evaluation: 1. At this time, Koko would like to self monitor. He has my contact information should he like follow up with me. 2. Koko will evaluate his progress and contact me as needed. Thank you for the referral. 35 minutes spent face to face with patient. Merle Leal RDN, CD
== END 2018-08-10 08:43 ==
PROVIDERS: PCP Nurse Practitioner Family; Visit Provider Dietitian, Registered
DX: K57.20 Diverticulitis of large intestine with perforation and abscess without bleeding (principal); Z71.3 Dietary counseling and surveillance
CPT/HCPCS: 97802

== ENCOUNTER 2018-10-13 07:17 | Day surgery (SDC) | payer OTHER, MEDICAID, SELFPAY ==
[2018-10-13 07:46] VITALS: BP 133/84; PULSE 107; RESP 18; TEMP 36.2; O2SAT 97
[2018-10-13] MEDS: Lactated Ringers 1,000 ML 30 ML IV (08:11)
--- NOTE | 2018-10-13 09:32 | W.COLOREPORT ---
Date of service: 10/13/18 Time of Service: 09:33 Colonoscopy Report Date of procedure: 10/13/18 Pre-op diagnosis general: constipation Post-op diagnosis procedure note: other (bienvenido protruding from anastamosis and stricture) Procedure: flexable sigmoisoscopy Surgeon: Manish Garcia III Anesthesia proc note operative: MAC Pathology: none sent Complications: None Disposition: PACU Indications: constipatoion Prep: GoLYTELY Findings: Intraluminal colonic ibenvenido and anastomotic stricture at approximately 25 cm Procedure Description: After informed consent was obtained the patient was taken to the procedure room and placed in a left decubitous position. Monitors were applied and a time out was done. The patients name, date of , procedure, allergies to medications and metal in their body was reviewed. The patient was then sedated. Once sedated and comfortable a rectal exam was done. External exam was normal. Internal exam revealed a normal sphincter tone and no palpable masses. The prostate normal. The scope was then introduced and retrofelexed. no internal hemorrhoids were identified. The scope was then advanced to the anastomosis (at 25 cm ) with some difficulty due to poor prep. Once at the anastomosis I observed multiple bienvenido protruding into the lumen of the colon with a stricture distal to this. Multiple pictures were taken of the area and attempts were made to advance the scope past the stricture but were unsuccessful. The prep was poor. The scope was then slowly retracted over 2 minutes back into the rectum no other pathology noted. The scope was removed and the patient was woken up and taken back to Same day surgery in stable condition. The patient tolerated the procedure well and there were no immediate complications. Follow up: The patient should follow up in [facility] with colorectal surgery for anastomotic stricture.
--- NOTE | 2018-10-13 09:38 | COLE_ITS ---
Date of service: 10/13/18 Time of Service: 09:33 Colonoscopy Report Date of procedure: 10/13/18 Pre-op diagnosis general: constipation Post-op diagnosis procedure note: other (bienvenido protruding from anastamosis and stricture) Procedure: flexable sigmoisoscopy Surgeon: Manish Garcia III Anesthesia proc note operative: MAC Pathology: none sent Complications: None Disposition: PACU Indications: constipatoion Prep: GoLYTELY Findings: Intraluminal colonic bienvenido and anastomotic stricture at approximately 25 cm Procedure Description: After informed consent was obtained the patient was taken to the procedure room and placed in a left decubitous position. Monitors were applied and a time out was done. The patients name, date of , procedure, allergies to medications and metal in their body was reviewed. The patient was then sedated. Once sedated and comfortable a rectal exam was done. External exam was normal. Internal exam revealed a normal sphincter tone and no palpable masses. The prostate normal. The scope was then introduced and retrofelexed. no internal hemorrhoids were identified. The scope was then advanced to the anastomosis (at 25 cm ) with some difficulty due to poor prep. Once at the anastomosis I observed multiple bienvenido protruding into the lumen of the colon with a stricture distal to this. Multiple pictures were taken of the area and attempts were made to advance the scope past the stricture but were unsuccessful. The prep was poor. The scope was then slowly retracted over 2 minutes back into the rectum no other pathology noted. The scope was removed and the patient was woken up and taken back to Same day surgery in stable condition. The patient tolerated the procedure well and there were no immediate complications. Follow up: The patient should follow up in [facility] with colorectal surgery for anastomotic stricture.
--- NOTE | 2018-10-13 09:38 | W.PM.DS.N ---
Date of service: 10/13/18 Time of Service: 09:38 DS: Diagnosis Discharge Diagnosis (1) Anastomotic stricture of colorectal region: Status: Acute Discharge Plan Disposition Patient Disposition: HOME Condition: Stable Discharge Details Reason For Visit: diagnostic for constipation Attending Provider: Manish Garcia III Primary Care Provider: Kyra Mcdaniel Home Meds and New Rx's Prescriptions: Continued hydroxyzine HCl 25 mg tablet 25 - 50 mg PO QID PRN (Reason: itching) Qty: 60 RF: 0 metformin 1,000 MG tablet 1,000 mg PO BID Qty: 180 RF: 3 fenofibrate nanocrystallized [Tricor] 145 MG tablet 145 mg PO DAILY Qty: 90 RF: 3 lisinopril 2.5 MG tablet 2.5 mg PO DAILY Qty: 90 RF: 3 rizatriptan 10 MG tablet 10 mg PO PRN Qty: 20 RF: 0 venlafaxine 75 mg capsule,extended release 24hr 75 mg PO DAILY Qty: 90 RF: 1 cyanocobalamin (vitamin B-12) [Vitamin B-12] 500 MCG tablet 1,000 mcg PO DAILY Qty: 30 RF: 3 acetaminophen 500 MG tablet 500 mg PO Q6H PRN PRNQty: 0 RF: 0 Discharge Instructions Additional Instructions: Patient will have a referral to colorectal surgery at [facility] Activity:: Activity as Tolerated Diet:: As Tolerated Discharge Orders Discharge Orders: Discharge Order (Routine); Ordered 10/13/18 Ordered By: Manish Garcia III DS: Data Vitals/I&O Vitals and I&O: Vital Signs Temperature 36.2 C L 10/13/18 07:46 Pulse 107 H 10/13/18 07:46 Pulse Rhythm Regular 10/13/18 07:46 Respiratory Rate 18 10/13/18 07:46 Respiratory Depth Normal 10/13/18 07:46 Blood Pressure 133/84 10/13/18 07:46 Pulse Oximetry 97 10/13/18 07:46 Oxygen Delivery Method Room Air 10/13/18 07:46 Oxygen Flow Rate 0 10/13/18 07:46 Pain Level 0 10/13/18 07:46 Intake & Output 10/12/18 10/12/18 10/13/18 11:59 23:59 11:59 Intake Total 300 / 300 Balance 300 / 300 Weight 133.2 kg Intake: IV 300 / 300 PFSH Medical History Delayed surgical wound healing (Resolved) Adult antisocial behavior (Chronic) FRANCIS (generalized anxiety disorder) (Chronic) HLD (hyperlipidemia) (Chronic) HTN (hypertension) (Chronic) Major depressive disorder (Chronic) T2DM (type 2 diabetes mellitus) (Chronic) Colovesical fistula (Resolved) Diverticulitis (Resolved) Left ureteral injury (Resolved) Surgical History Appendectomy (Resolved 03/16/18) Colectomy (Resolved 01/17/18) Cystoscopy (Resolved 04/20/18) H/O resection of large bowel (Resolved) H/O ureter repair (Resolved) History of colostomy reversal (Resolved) Family History Mother No problems noted. Father No problems noted. Sister No problems noted. Sister PKU (phenylketonuria) Social History Smoking/Tobacco Use Status: Current every day alcohol intake: never substance use type: does not use
[2018-10-13 10:03] VITALS: BP 117/79; PULSE 101; RESP 20; TEMP 36.2; O2SAT 96
== END 2018-10-13 10:08 | disposition home or self-care (01) ==
PROVIDERS: PCP Nurse Practitioner Family; Visit Provider Surgery
PROC: 0DJD8ZZ Inspection of Lower Intestinal Tract, Via Natural or Artificial Opening Endoscopic (ICD-10-PCS; CPT 45378; principal; 2018-10-13 08:30)
DX: T85.528A Displacement of other gastrointestinal prosthetic devices, implants and grafts, initial encounter (principal); K59.00 Constipation, unspecified; K91.840 Postprocedural hemorrhage of a digestive system organ or structure following a digestive system procedure; K91.31 Postprocedural partial intestinal obstruction; Z90.49 Acquired absence of other specified parts of digestive tract; E11.9 Type 2 diabetes mellitus without complications; Z79.84 Long term (current) use of oral hypoglycemic drugs; I10 Essential (primary) hypertension; F17.210 Nicotine dependence, cigarettes, uncomplicated
CPT/HCPCS: 45378; NC; J2250; J3010

== ENCOUNTER 2019-02-01 10:28 | Emergency (ER) | payer MEDICAID, SELFPAY ==
[2019-02-01 10:38] VITALS: BP 156/97; PULSE 114; RESP 16; TEMP 36.1; O2SAT 97
[2019-02-01] MEDS: Normal Saline 1,000 ML 1000 ML IV ×3 (11:10→13:30)
[2019-02-01 11:24] LABS: Bilirubin Negative (Negative); Blood Negative (Negative); Clarity Clear; Glucose 500 mg/dL (Negative); Ketones 15 mg/dL (Negative); Leukocyte Esterase Negative (Negative); Nitrite Negative (Negative); Specific Gravity 1.015 (1.005-1.025); Urobilinogen 0.2 EU/dL (Up TO 0.2); pH 5.5 (5-8)
[2019-02-01 11:24] LABS: BE (Venous) -0.4 mmol/L (-3-3); HCO3 (Venous) 23 mmol/L (22-28); O2 Sat (Venous) 97 % (70-80); TCO2 (Venous) 21 mmol/L (22-29); pCO2 (Venous) 33 mm/Hg (34-47); pH (Venous) 7.46 (7.32-7.43); pO2 (Venous) 101 mm/Hg (28-44)
[2019-02-01 11:27] LABS: Abs Immature Grans 0.11 k/cumm (0.0-0.09); HCT 36.2 % (40.0-50.0); HGB 12.8 g/dL (13.5-17.5); Mean Corp. HGB Concentration 35.4 g/dL (32.0-36.0); Mean Corpuscular Hemoglobin 29.8 pg (27.0-33.0); Mean Corpuscular Volume 84.2 fL (80-95); Mean Platelet Volume 10.5 fL (8.0-11.0); Platelet Count 412 x1000/uL (130-400); RBC Distribution Width 14.4 % (11.8-14.1); White Blood Cell Count 9.59 k/cumm (4.4-10.8)
--- NOTE | 2019-02-01 11:34 | W.ED.GENAD ---
Discharge Plan Disposition Patient Disposition: HOME Condition: Stable Discharge Details Chief Complaint: Diabetes Clinical Impression: Hyperglycemia, Type 2 diabetes mellitus with microalbuminuria, without long-term current use of insulin, Ventral hernia Primary Care Provider: Kyra Mcdaniel ED Provider: Gage Puga Home Meds and New Rx's Prescriptions: Continued venlafaxine 150 mg capsule,extended release 24hr 150 mg PO DAILY Qty: 90 RF: 0 lisinopril 2.5 mg tablet 2.5 mg PO DAILY Qty: 90 RF: 3 rizatriptan 10 mg tablet 10 mg PO PRN Qty: 20 RF: 0 Blood Glucose Test strip .ROUTE .MEDSUPPLY Qty: 100 RF: 3 fenofibrate nanocrystallized [Tricor] 145 mg tablet 145 mg PO DAILY Qty: 90 RF: 3 metformin 1,000 mg tablet 1,000 mg PO BID Qty: 180 RF: 3 cyanocobalamin (vitamin B-12) [Vitamin B-12] 500 MCG tablet 1,000 mcg PO DAILY Qty: 30 RF: 3 acetaminophen 500 MG tablet 500 mg PO Q6H PRN PRNQty: 0 RF: 0 No Action Lantus Solostar U-100 Insulin 100 unit/mL (3 mL) insulin pen 20 unit SC DAILY Qty: 15 RF: 3 insulin needles (disposable) 30 X 3/4 needle .ROUTE .MEDSUPPLY Qty: 1 RF: 0 pen needle, diabetic [BD Ultra-Fine Ludy Pen Needle] 32 gauge x 5/32 needle .ROUTE .MEDSUPPLY Qty: 100 RF: 3 Discharge Instructions Instructions: Diabetic Hyperglycemia (ED) Additional Instructions: Continue to take your normally prescribed medication and watch your blood sugar. Stay away from high carbohydrate foods and follow-up with your primary care provider for further reassessment and medications. Return immediately to the emergency department for any new or worsening symptoms, or any further concerns you may have. Referrals: Kyra Mcdaniel, MICHAEL [Primary Care Provider] - 1 week (Follow-up with your primary care provider within 1 week for reassessment) Discharge Data Discharge Date/Time-TO BE ENTERED AT DEPARTURE: 02/01/19 14:54 Medical Decision Making Patient presenting to the emergency department via request of primary care provider for concern of DKA. Patient notes that his blood sugars have been 400s for the past 4 days but he is felt not well for a while. He states increased thirst, urination, malaise, and occasional sweats. Patient denies any confusion, fever, abdominal pain. Physical exam is unremarkable and non-diagnositc . Did speak with Ltaanya Mcdaniel ASSOCIATE SALES MANAGER who is patient's primary care provider prior to patient arriving to emergency department. I do see her concern and sending patient here. Plan to do labs, IV, IV fluids, and Introl insulin as needed. Pending results patient's fingerstick glucose was elevated so patient given insulin 10 units IV. After 2 L of fluid and review of labs show elevated ion gap, findings suggestive of dehydration, but compensating mechanisms given no acidosis but ketones in urine patient reassessed in room states he wants to go home. I am concerned for compensating diabetic ketoacidosis and need of further control. Again patient states that he does not want to be admitted at this time so plan to check repeat BMP along with give additional liter of fluids. Review of repeat shows significant improvement of anion gap dropping from 15-13 which was even before additional liter of fluids and patient p.o. hydrating per his request. Patient has no nausea vomiting, no confusion, and otherwise states that he does feel better. Did talk to patient's primary care provider Latanya Mcdaniel again regarding all the results and patient refusing admission at this time. She recommended starting patient on Lantus 20 units and requested we give patient initial dose in emergency department otherwise she would arrange for chronic pulmonary care nurse and diabetic education tomorrow along with prescription for ongoing Lantus and follow-up next week in the office. Patient was agreeable to this plan. Thorough return precautions were discussed with patient and patient stated clear understanding for reasons to return. After discussion of diagnosis and plan of care patient has no further needs, questions, or concerns and states clear understanding to return to the emergency department for any worsening symptoms. HPI General Mode of arrival: ambulatory. Date/Time Provider Initiated Documentation: 02/01/19 10:39. Limitations to Documentation: no limitations. Information obtained by: patient and RN notes reviewed. History of Present Illness 53 year old M presents to the emergency department with the chief complaint of high blood sugar, Quality is described as other (denies pain), Patient started experiencing this day(s) (4) and it has been constant. No exacerbating factors reported . Patient notes no other symptoms.. Patient did receive the following treatments prior to arrival, none Related Data Home Medications Medication Instructions Recorded Confirmed cyanocobalamin (vitamin B-12) 1,000 mcg PO DAILY #30 tab 01/21/18 02/01/19 [Vitamin B-12] acetaminophen 500 mg PO Q6H PRN PRN #0 tab 05/26/18 02/01/19 venlafaxine ER 150 mg 150 mg PO DAILY #90 tab-cap 10/25/18 02/01/19 capsule,extended release 24 hr fenofibrate nanocrystallized 145 145 mg PO DAILY #90 tab-cap 11/02/18 02/01/19 mg tablet metformin 1,000 mg tablet 1,000 mg PO BID #180 tab-cap 11/02/18 02/01/19 blood sugar diagnostic strips #100 each 02/01/19 02/01/19 insulin glargine (U-100) 100 20 unit SC DAILY #15 ml 02/01/19 02/01/19 unit/mL (3 mL) subcutaneous pen lisinopril 2.5 mg tablet 2.5 mg PO DAILY #90 tab-cap 02/01/19 02/01/19 rizatriptan 10 mg tablet 10 mg PO PRN #20 tab-cap 02/01/19 02/01/19 insulin needles (disposable) 30 X #1 02/02/19 3/ pen needle, diabetic 32 gauge x #100 each 02/02/19 Previous Rx's Medication Instructions Recorded cyanocobalamin (vitamin B-12) 1,000 mcg PO DAILY #30 tab 01/21/18 [Vitamin B-12] acetaminophen 500 mg PO Q6H PRN PRN #0 tab 05/26/18 venlafaxine ER 150 mg 150 mg PO DAILY #90 tab-cap 10/25/18 capsule,extended release 24 hr fenofibrate nanocrystallized 145 145 mg PO DAILY #90 tab-cap 11/02/18 mg tablet metformin 1,000 mg tablet 1,000 mg PO BID #180 tab-cap 11/02/18 blood sugar diagnostic strips #100 each 02/01/19 insulin glargine (U-100) 100 20 unit SC DAILY #15 ml 02/01/19 unit/mL (3 mL) subcutaneous pen lisinopril 2.5 mg tablet 2.5 mg PO DAILY #90 tab-cap 02/01/19 rizatriptan 10 mg tablet 10 mg PO PRN #20 tab-cap 02/01/19 pen needle, diabetic 32 gauge x #100 each 02/02/19 Allergies Allergy/AdvReac Type Severity Reaction Status Date / Time simvastatin AdvReac Mild foot Verified 02/01/19 09:36 swelling General Stated Complaint: Diabetes TOO: 2 Review of Systems Constitutional Denies chills, Reports fatigue, Denies fever(s), Reports malaise and Denies poor appetite Cardiovascular Denies chest pain and Denies dyspnea Respiratory Denies cough and Denies dyspnea Gastrointestinal Reports as per HPI, Denies abdominal pain, Denies melena, Denies change in bowel habits, Denies constipation, Denies diarrhea, Denies nausea and Denies vomiting Genitourinary Denies hematuria, Denies difficulty urinating, Denies urinary hesitancy, Denies urinary incontinence and Denies urinary urgency Integumentary/Breasts Denies rash Endocrine Reports fatigue, Reports polyphagia, Reports polydipsia and Reports polyuria [facility] Medical History Major depressive disorder (Chronic) T2DM (type 2 diabetes mellitus) (Chronic) Diverticulitis (Resolved) HLD (hyperlipidemia) (Chronic) Adult antisocial behavior (Chronic) Type 2 diabetes mellitus with microalbuminuria, without long-term current use of insulin (Chronic 12/01/17) Microalbuminuria (Chronic 06/20/17) Essential hypertension (Chronic 04/08/17) Male erectile dysfunction, unspecified (Chronic 04/08/17) Diverticulitis (Acute 10/18/17) Colovesical fistula (Acute 10/18/17) Anxiety (Chronic) Colon abnormality (Acute 10/13/18) YUDI (acute kidney injury) (Resolved) Delayed surgical wound healing (Resolved) Left ureteral injury (Resolved) Surgical History Appendectomy (Resolved 03/16/18) Colectomy (Resolved 01/17/18) Cystoscopy (Resolved 04/20/18) H/O resection of large bowel (Resolved) H/O ureter repair (Resolved) History of colostomy reversal (Resolved) Family History Mother No problems noted. Father No problems noted. Sister No problems noted. Sister PKU (phenylketonuria) Social History Smoking/Tobacco Use Status: Current every day Alcohol Intake: never Drug use: Never Substance use type: does not use Caregiver/Support person: No Communication Needs: None Pets and animals: Yes Current gender identity: male What type of physical activity do you participate in: none Do you feel safe in your relationship?: Yes Exam Const General: cooperative Orientation: alert, awake and oriented x3 Resp Effort & Inspection: normal respiratory effort and able to speak in complete sentences Auscultation: clear to auscultation bilaterally Cardio Rate: tachycardic Rhythm: regular rhythm Heart Sounds: S1 normal and S2 normal GI Palpation: soft, no hepatosplenomegaly, not firm, no guarding, no masses, no pulsatile masses, not rigid, no splenomegaly and nontender Auscultation: normal bowel sounds Back/Spine/Pelvis Back: no CVA tenderness Neuro General: alert, awake, oriented x3, gait normal and moves all extremities Course Vital Signs Temperature 36.1 C L 02/01/19 10:38 Pulse 114 H 02/01/19 10:38 Respiratory Rate 16 02/01/19 10:38 Blood Pressure 156/97 H 02/01/19 10:38 Pulse Oximetry 97 02/01/19 10:38 Temperature 36.1 C L 02/01/19 10:38 Temperature Source Skin 02/01/19 10:38 Pulse 114 H 02/01/19 10:38 Respiratory Rate 16 02/01/19 10:38 Respiratory Effort Non-Labored 02/01/19 10:38 Blood Pressure 156/97 H 02/01/19 10:38 Blood Pressure Position Sitting 02/01/19 10:38 Pulse Oximetry 97 02/01/19 10:38 Oxygen Delivery Method Room Air 02/01/19 10:38 Oxygen Flow Rate 0 02/01/19 10:38 Pain Level 0 02/01/19 10:38 Lab/Test Results Lab/Test Results: Laboratory Tests Range/Units 02/01/19 11:10 VBG pH (7.32-7.43) 7.46 H VBG pCO2 (34-47) mm/Hg 33 L VBG pO2 (28-44) mm/Hg 101 H VBG HCO3 (22-28) mmol/L 23 VBG Total CO2 (22-29) mmol/L 21 L VBG O2 Saturation (70-80) % 97 H VBG Base Excess (-3-3) mmol/L -0.4
[2019-02-01] MEDS: Insulin REGULAR-Human 100 UNITS/ML UNIT 10 UNITS IV (11:37)
--- NOTE | 2019-02-01 11:37 | ED.GENADUL_ITS ---
Discharge Plan Disposition Patient Disposition: HOME Condition: Stable Discharge Details Chief Complaint: Diabetes Clinical Impression: Hyperglycemia, Type 2 diabetes mellitus with microalbuminuria, without long- term current use of insulin, Ventral hernia Primary Care Provider: Kyra Mcdaniel ED Provider: Gage Puga Home Meds and New Rx's Prescriptions: Continued venlafaxine 150 mg capsule,extended release 24hr 150 mg PO DAILY Qty: 90 RF: 0 lisinopril 2.5 mg tablet 2.5 mg PO DAILY Qty: 90 RF: 3 rizatriptan 10 mg tablet 10 mg PO PRN Qty: 20 RF: 0 Blood Glucose Test strip .ROUTE .MEDSUPPLY Qty: 100 RF: 3 fenofibrate nanocrystallized [Tricor] 145 mg tablet 145 mg PO DAILY Qty: 90 RF: 3 metformin 1,000 mg tablet 1,000 mg PO BID Qty: 180 RF: 3 cyanocobalamin (vitamin B-12) [Vitamin B-12] 500 MCG tablet 1,000 mcg PO DAILY Qty: 30 RF: 3 acetaminophen 500 MG tablet 500 mg PO Q6H PRN PRNQty: 0 RF: 0 No Action Lantus Solostar U-100 Insulin 100 unit/mL (3 mL) insulin pen 20 unit SC DAILY Qty: 15 RF: 3 insulin needles (disposable) 30 X 3/4 needle .ROUTE .MEDSUPPLY Qty: 1 RF: 0 pen needle, diabetic [BD Ultra-Fine Ludy Pen Needle] 32 gauge x 5/32 needle .ROUTE .MEDSUPPLY Qty: 100 RF: 3 Discharge Instructions Instructions: Diabetic Hyperglycemia (ED) Additional Instructions: Continue to take your normally prescribed medication and watch your blood sugar. Stay away from high carbohydrate foods and follow-up with your primary care provider for further reassessment and medications. Return immediately to the emergency department for any new or worsening symptoms, or any further concerns you may have. Referrals: Kyra Mcdaniel, MICHAEL [Primary Care Provider] - 1 week (Follow-up with your primary care provider within 1 week for reassessment) Discharge Data Discharge Date/Time-TO BE ENTERED AT DEPARTURE: 02/01/19 14:54 Medical Decision Making Patient presenting to the emergency department via request of primary care provider for concern of DKA. Patient notes that his blood sugars have been 400s for the past 4 days but he is felt not well for a while. He states increased thirst, urination, malaise, and occasional sweats. Patient denies any confusion, fever, abdominal pain. Physical exam is unremarkable and non- diagnositc . Did speak with Latanya Mcdaniel BOILERMAKER WELDER who is patient's primary care provider prior to patient arriving to emergency department. I do see her concern and sending patient here. Plan to do labs, IV, IV fluids, and Introl insulin as needed. Pending results patient's fingerstick glucose was elevated so patient given insulin 10 units IV. After 2 L of fluid and review of labs show elevated ion gap, findings suggestive of dehydration, but compensating mechanisms given no acidosis but ketones in urine patient reassessed in room states he wants to go home. I am concerned for compensating diabetic ketoacidosis and need of further control. Again patient states that he does not want to be admitted at this time so plan to check repeat BMP along with give additional liter of fluids. Review of repeat shows significant improvement of anion gap dropping from 15-13 which was even before additional liter of fluids and patient p.o. hydrating per his request. Patient has no nausea vomiting, no confusion, and otherwise states that he does feel better. Did talk to patient's primary care provider Latanya Mcdaniel again regarding all the results and patient refusing admission at this time. She recommended starting patient on Lantus 20 units and requested we give patient initial dose in emergency department otherwise she would arrange for chronic daycare manager and diabetic education tomorrow along with prescription for ongoing Lantus and follow-up next week in the office. Patient was agreeable to this plan. Thorough return precautions were discussed with patient and patient stated clear understanding for reasons to return. After discussion of diagnosis and plan of care patient has no further needs, questions, or concerns and states clear understanding to return to the emergency department for any worsening symptoms. HPI General Mode of arrival: ambulatory . Date/Time Provider Initiated Documentation: 02/01/19 10:39 . Limitations to Documentation: no limitations . Information obtained by: patient and RN notes reviewed . History of Present Illness 53 year old M presents to the emergency department with the chief complaint of high blood sugar, Quality is described as other (denies pain), Patient started experiencing this day(s) (4) and it has been constant. No exacerbating factors reported . Patient notes no other symptoms.. Patient did receive the following treatments prior to arrival, none Related Data Home Medications Medication Instructions Recorded Confirmed cyanocobalamin (vitamin B-12) 1,000 mcg PO DAILY #30 tab 01/21/18 02/01/19 [Vitamin B-12] acetaminophen 500 mg PO Q6H PRN PRN #0 tab 05/26/18 02/01/19 venlafaxine ER 150 mg 150 mg PO DAILY #90 tab-cap 10/25/18 02/01/19 capsule,extended release 24 hr fenofibrate nanocrystallized 145 145 mg PO DAILY #90 tab-cap 11/02/18 02/01/19 mg tablet metformin 1,000 mg tablet 1,000 mg PO BID #180 tab-cap 11/02/18 02/01/19 blood sugar diagnostic strips #100 each 02/01/19 02/01/19 insulin glargine (U-100) 100 20 unit SC DAILY #15 ml 02/01/19 02/01/19 unit/mL (3 mL) subcutaneous pen lisinopril 2.5 mg tablet 2.5 mg PO DAILY #90 tab-cap 02/01/19 02/01/19 rizatriptan 10 mg tablet 10 mg PO PRN #20 tab-cap 02/01/19 02/01/19 insulin needles (disposable) 30 X #1 02/02/19 3/ pen needle, diabetic 32 gauge x #100 each 02/02/19 Previous Rx's Medication Instructions Recorded cyanocobalamin (vitamin B-12) 1,000 mcg PO DAILY #30 tab 01/21/18 [Vitamin B-12] acetaminophen 500 mg PO Q6H PRN PRN #0 tab 05/26/18 venlafaxine ER 150 mg 150 mg PO DAILY #90 tab-cap 10/25/18 capsule,extended release 24 hr fenofibrate nanocrystallized 145 145 mg PO DAILY #90 tab-cap 11/02/18 mg tablet metformin 1,000 mg tablet 1,000 mg PO BID #180 tab-cap 11/02/18 blood sugar diagnostic strips #100 each 02/01/19 insulin glargine (U-100) 100 20 unit SC DAILY #15 ml 02/01/19 unit/mL (3 mL) subcutaneous pen lisinopril 2.5 mg tablet 2.5 mg PO DAILY #90 tab-cap 02/01/19 rizatriptan 10 mg tablet 10 mg PO PRN #20 tab-cap 02/01/19 pen needle, diabetic 32 gauge x #100 each 02/02/19 Allergies Allergy/AdvReac Type Severity Reaction Status Date / Time simvastatin AdvReac Mild foot Verified 02/01/19 09:36 swelling General Stated Complaint: Diabetes TOO: 2 Review of Systems Constitutional Denies chills, Reports fatigue, Denies fever(s), Reports malaise and Denies poor appetite Cardiovascular Denies chest pain and Denies dyspnea Respiratory Denies cough and Denies dyspnea Gastrointestinal Reports as per HPI, Denies abdominal pain, Denies melena, Denies change in bowel habits, Denies constipation, Denies diarrhea, Denies nausea and Denies vomiting Genitourinary Denies hematuria, Denies difficulty urinating, Denies urinary hesitancy, Denies urinary incontinence and Denies urinary urgency Integumentary/Breasts Denies rash Endocrine Reports fatigue, Reports polyphagia, Reports polydipsia and Reports polyuria [facility] Medical History Major depressive disorder (Chronic) T2DM (type 2 diabetes mellitus) (Chronic) Diverticulitis (Resolved) HLD (hyperlipidemia) (Chronic) Adult antisocial behavior (Chronic) Type 2 diabetes mellitus with microalbuminuria, without long-term current use of insulin (Chronic 12/01/17) Microalbuminuria (Chronic 06/20/17) Essential hypertension (Chronic 04/08/17) Male erectile dysfunction, unspecified (Chronic 04/08/17) Diverticulitis (Acute 10/18/17) Colovesical fistula (Acute 10/18/17) Anxiety (Chronic) Colon abnormality (Acute 10/13/18) YUDI (acute kidney injury) (Resolved) Delayed surgical wound healing (Resolved) Left ureteral injury (Resolved) Surgical History Appendectomy (Resolved 03/16/18) Colectomy (Resolved 01/17/18) Cystoscopy (Resolved 04/20/18) H/O resection of large bowel (Resolved) H/O ureter repair (Resolved) History of colostomy reversal (Resolved) Family History Mother No problems noted. Father No problems noted. Sister No problems noted. Sister PKU (phenylketonuria) Social History Smoking/Tobacco Use Status: Current every day Alcohol Intake: never Drug use: Never Substance use type: does not use Caregiver/Support person: No Communication Needs: None Pets and animals: Yes Current gender identity: male What type of physical activity do you participate in: none Do you feel safe in your relationship?: Yes Exam Const General: cooperative Orientation: alert, awake and oriented x3 Resp Effort & Inspection: normal respiratory effort and able to speak in complete sentences Auscultation: clear to auscultation bilaterally Cardio Rate: tachycardic Rhythm: regular rhythm Heart Sounds: S1 normal and S2 normal GI Palpation: soft, no hepatosplenomegaly, not firm, no guarding, no masses, no pulsatile masses, not rigid, no splenomegaly and nontender Auscultation: normal bowel sounds Back/Spine/Pelvis Back: no CVA tenderness Neuro General: alert, awake, oriented x3, gait normal and moves all extremities Course Vital Signs Temperature 36.1 C L 02/01/19 10:38 Pulse 114 H 02/01/19 10:38 Respiratory Rate 16 02/01/19 10:38 Blood Pressure 156/97 H 02/01/19 10:38 Pulse Oximetry 97 02/01/19 10:38 Temperature 36.1 C L 02/01/19 10:38 Temperature Source Skin 02/01/19 10:38 Pulse 114 H 02/01/19 10:38 Respiratory Rate 16 02/01/19 10:38 Respiratory Effort Non-Labored 02/01/19 10:38 Blood Pressure 156/97 H 02/01/19 10:38 Blood Pressure Position Sitting 02/01/19 10:38 Pulse Oximetry 97 02/01/19 10:38 Oxygen Delivery Method Room Air 02/01/19 10:38 Oxygen Flow Rate 0 02/01/19 10:38 Pain Level 0 02/01/19 10:38 Lab/Test Results Lab/Test Results: Laboratory Tests Range/Units 02/01/19 11:10 VBG pH (7.32-7.43) 7.46 H VBG pCO2 (34-47) mm/Hg 33 L VBG pO2 (28-44) mm/Hg 101 H VBG HCO3 (22-28) mmol/L 23 VBG Total CO2 (22-29) mmol/L 21 L VBG O2 Saturation (70-80) % 97 H VBG Base Excess (-3-3) mmol/L -0.4
[2019-02-01 11:39] LABS: Bacteria Rare HPF (Negative); Crystals Negative HPF (Negative); Epithelial Cells Rare HPF (Negative); Mucus Negative (Negative); RBC Negative (0-2); WBC 0-2 HPF (0-5)
[2019-02-01 11:40] LABS: C & S Indicated? No
[2019-02-01] MEDS: LORazepam 0.5 MG TAB PO (11:44)
[2019-02-01 12:09] LABS: Absolute Lymphocyte Count 2.01 k/cumm (1.2-3.4); Absolute Monocyte Count 0.29 k/cumm (0.11-0.7); Atypical Lymphocytes % 4
[2019-02-01 12:10] LABS: Diff Comment Manual Differential; Polychromasia Present
[2019-02-01 12:15] LABS: ALT 56 U/L (12-78); AST 64 U/L (15-37); Albumin 3.4 g/dL (3.4-5.0); Alkaline Phosphatase 112 U/L (46-116); Anion Gap 15.7 mmol/L (3-11); BUN 15 mg/dL (7-18); Bilirubin, Total 0.4 mg/dL (0.2-1.0); CO2 21.3 mmol/L (21.0-32.0); CREATININE 0.86 mg/dL (0.70-1.30); Calcium 9.3 mg/dL (8.5-10.1); Chloride 93 mmol/L (98-107); Glucose 436 mg/dL (70-100); Potassium 5.1 mmol/L (3.5-5.1); Sodium 130 mmol/L (136-145); Total Protein 7.6 g/dL (6.4-8.2)
[2019-02-01 12:38] VITALS: BP 114/75; PULSE 98; RESP 16; TEMP 37.1; O2SAT 97
[2019-02-01 14:13] LABS: Anion Gap 13.1 mmol/L (3-11); BUN 12 mg/dL (7-18); CO2 21.9 mmol/L (21.0-32.0); Calcium 8.7 mg/dL (8.5-10.1); Chloride 96 mmol/L (98-107); Glucose 317 mg/dL (70-100); Potassium 4.1 mmol/L (3.5-5.1); Sodium 131 mmol/L (136-145)
--- NOTE | 2019-02-01 14:19 | NUR.NOTE ---
patient reports feeling good and wants to go home, will inform MDNursing Note:
[2019-02-01 14:20] VITALS: BP 120/80; PULSE 95; RESP 18; O2SAT 98
[2019-02-01] MEDS: Insulin Glargine 100 UNITS/ML UNIT 20 UNITS SC (14:38)
[2019-02-01 14:55] VITALS: BP 124/72; PULSE 88; RESP 16; TEMP 37; O2SAT 98
== END 2019-02-01 14:54 | disposition home or self-care (01) ==
PROVIDERS: Emergency Provider Nurse Practitioner Family; PCP Nurse Practitioner Family
DX: E11.65 Type 2 diabetes mellitus with hyperglycemia (principal); E11.29 Type 2 diabetes mellitus with other diabetic kidney complication; K43.9 Ventral hernia without obstruction or gangrene; Z79.4 Long term (current) use of insulin
CPT/HCPCS: 36415; 36416; 80048; 80053; 82805; 82962; 96361; 96372; 96374; 99284; 81003; 81015; 85025; J1815

== ENCOUNTER 2019-02-02 04:32 | Outpatient (CLI) | payer MEDICAID, SELFPAY ==
--- NOTE | 2019-02-02 11:00 | DIABASSESS_ITS ---
DESCRIPTION/ASSESSMENT: Koko Ace presents for diabetes to learn to take insulin and to review nutrition for diabetes. His first A1c in system 6.9 up to 8.9 and then back to 6.0 and 6.7 10/14. He reports feeling terrible, and at the provider visit random blood sugar 437mg/dl which prompted DSME referral. Food Guidelines - He has stopped soda and has cut fruit juice to 1 glass a day. He craves fresh fruit. First meal is fruit, 3 toast with peanut butter or cold cuts. Supper tuna sandwich, milk. He has 2 cups yogurt per day; snacks on crackers. Physical Activity - no regular physical activity and admits he is not motivated. Medication - Metformin only. He is here to learn to inject insulin today. Monitoring - once a day. Review of last few numbers [id number]. He has only recently started monitoring again. Uses Freestyle Precision glucometer. Coping - voices stress regarding initiating insulin and about his health overall. INTERVENTION: DSME is provided in the following AADE 7 areas based on patients interest and assessment of needs: Food Guidelines - reviewed diabetes food guide with focus on carbohydrate sources, portions, distribution and including vegetables, fats and protein to balance impact of carbohydrate. Physical Activity - encouraged moderation to begin exercise of 10 minutes a day. Medication - Insulin instruction protocol followed. He was able to administer Lantus insulin at 1015AM without difficulty following process. He wishes to take his insulin in the AM as this is a more reliable time. He will take it tomorrow at 9:30 and Tuesday at his usual time. He is started at 20 units. He is instructed to increase Lantus 2 units every 2 days. Reviewed hypoglycemia symptoms and treatment. His insulin did not come with needles. He is given 5 needles to get started and he will call [facility] for a prescription. Monitoring - continue monitoring every morning at a minimum He is engaged in the conversation and willing to try this new medication. ACTION PLAN: He will attempt to cut his bread during the day; explore vegetables he likes and have 1 cup daily. He will consider fruit in place of fruit juice. take insulin every morning as instructed Individual MNT _2___ units billed out of a 50 minute visit TIME IN: 1000 OUT: 1050 No DM group education series being offered at this time. 02/06/19 TC follow up: Blood sugars 333 this AM. He wonders if the medication is working. Explained it has decreased his fasting blood sugar 100-150mg/dl so far and that a gradual correction of high blood sugar is desired. He has no concerns about injection technique and injected in his thigh this AM. He is looking forward to seeing Dr. Woods on . We will have telephone call follow up Tuesday. CHERYL Carrillo, IRINEOE
== END 2019-02-02 04:52 ==
PROVIDERS: PCP Nurse Practitioner Family; Visit Provider Dietitian, Registered
DX: E11.9 Type 2 diabetes mellitus without complications (principal); Z79.4 Long term (current) use of insulin; Z71.3 Dietary counseling and surveillance
CPT/HCPCS: 97802

== ENCOUNTER 2019-02-08 11:37 | Outpatient (REF) | payer MEDICAID, SELFPAY ==
[2019-02-08 14:08] LABS: Lipase 271 U/L (73-393)
== END 2019-02-08 11:57 ==
LOC: LBN 11:37
PROVIDERS: Family Medicine; PCP Nurse Practitioner Family; Visit Provider Nurse Practitioner
DX: E11.9 Type 2 diabetes mellitus without complications (principal)
CPT/HCPCS: 83690

== ENCOUNTER 2019-02-15 01:17 | Outpatient (CLI) | payer MEDICAID, SELFPAY ==
--- NOTE | 2019-02-15 08:14 | DI.US_ITS ---
SYMPTOMS/DIAGNOSIS: ACUTELY WORSENING DM, EVAL FOR PANCREATITIS, E11.9 ABDOMINAL ULTRASOUND: The mid and distal abdominal aorta are unremarkable. The proximal segment was not seen. The inferior vena cava was obscured. The liver is enlarged and is echogenic. Findings consistent with fatty infiltration. The gallbladder is intact. There are no gallstones. There is no evidence of biliary dilatation. The pancreas is intact. The spleen is mildly enlarged. The kidneys are unremarkable. There is no evidence of abdominal free fluid. SUMMARY: Hepatosplenomegaly is demonstrated and there is evidence of fatty infiltration of the liver. The examination is otherwise unremarkable.
== END 2019-02-15 01:37 ==
PROVIDERS: PCP Nurse Practitioner Family; Visit Provider Family Medicine
DX: E11.9 Type 2 diabetes mellitus without complications (principal); R16.2 Hepatomegaly with splenomegaly, not elsewhere classified; K76.0 Fatty (change of) liver, not elsewhere classified
CPT/HCPCS: 76700

== ENCOUNTER 2019-02-21 00:28 | Outpatient (CLI) | payer MEDICAID, SELFPAY ==
--- NOTE | 2019-02-21 07:30 | MERGE_ITS ---
*[facility]* *[facility]* [address] [place] [address] Date of study: 02/21/2019 Transthoracic Echocardiography M-mode, complete 2D, complete spectral Doppler, and color Doppler *STUDY CONCLUSIONS* Summary: 1. Left ventricle: The cavity size was normal. Wall thickness was increased increased in a pattern of mild to moderate LVH. Systolic function was normal. The estimated ejection fraction was 60-65%. Wall motion was normal; there were no regional wall motion abnormalities. 2. Aortic valve: There was moderate stenosis. There was mild regurgitation. Peak velocity (S): 3.6m/sec. Mean gradient (S): 31.4mm Hg. Valve area (VTI): 1.3cm^2. 3. Right ventricle: The cavity size was normal. Wall thickness was normal. Systolic function was normal. *PATIENT PRESENTATION* Height: 185.4cm ((73in) ) S/D Pressure: 143 / 87 Weight: 130.2kg ((286.4lb) ) BSA: 2.64m^2 Test start time: 07:40 AM. Test stop time: 08:35 AM. PERFORMING Unknown PERFORMING [facility] [employer] Concepción Barnett RT (Devin)(CT), [facility] ORDERING Kyra Mcdaniel REFERRING Kyra Mcdaniel *PROCEDURE DATA* Procedure information: The patient was identified by two identifiers. This study was interpreted by [facility]. Pertinent images and digital data are archived for permanent storage and are available for subsequent review. No prior study was available for comparison. Study status: Routine. Transthoracic echocardiography. M-mode, complete 2D, complete spectral Doppler, and color Doppler. A Transthoracic Echocardiogram was performed. Scanning was performed from the parasternal, apical, subcostal, and suprasternal notch acoustic windows. Images were obtained using an [id number] cardiac ultrasound machine. Image quality was adequate. Study completion: The patient tolerated the procedure well. There were no complications. History: PMH: New systolic murmur R01.1. *CARDIAC ANATOMY* Left ventricle: The cavity size was normal. Wall thickness was increased increased in a pattern of mild to moderate LVH. Systolic function was normal. The estimated ejection fraction was 60-65%. Wall motion was normal; there were no regional wall motion abnormalities. Diastolic parameters were normal. Aortic valve: Trileaflet; normal thickness, mildly calcified leaflets. Valve mobility was restricted. Doppler: There was moderate stenosis. There was mild regurgitation. VTI ratio of LVOT to aortic valve: 0.38. Valve area (VTI): 1.3cm^2. Indexed valve area (VTI): 0.5cm^2/m^2. Peak velocity ratio of LVOT to aortic valve: 0.37. Valve area (Vmax): 1.3cm^2. Indexed valve area (Vmax): 0.5cm^2/m^2. Mean velocity ratio of LVOT to aortic valve: 0.36. Valve area (Vmean): 1.3cm^2. Indexed valve area (Vmean): 0.5cm^2/m^2. Mean gradient (S): 31.4mm Hg. Peak gradient (S): 50.4mm Hg. Aorta: Aortic root: The aortic root was normal in size. Ascending aorta: The ascending aorta was normal in size. Mitral valve: Mildly thickened leaflets. Mobility was not restricted. Doppler: Transvalvular velocity was within the normal range. There was no evidence for stenosis. There was no significant regurgitation. Valve area by pressure half-time: 4.5cm^2. Indexed valve area by pressure half-time: 1.7cm^2/m^2. Peak gradient (D): 2.1mm Hg. Left atrium: The atrium was normal in size. Right ventricle: The cavity size was normal. Wall thickness was normal. Systolic function was normal. Pulmonic valve: Structurally normal valve. The pulmonary valve appears to be grossly normal. Doppler: Transvalvular velocity was within the normal range. There was no evidence for stenosis. There was no significant regurgitation. Peak gradient (S): 4.5mm Hg. Tricuspid valve: Structurally normal valve. Doppler: Transvalvular velocity was within the normal range. There was no evidence for stenosis. There was no significant regurgitation. Pulmonary artery: Systolic pressure could not be accurately estimated. Right atrium: The atrium was normal in size. Pericardium: There was no pericardial effusion. Systemic veins: Inferior vena cava: Not well visualized. The vessel was normal in size. Baseline ECG: Normal sinus rhythm. Measurements Left ventricle Value Reference LV ID, ED, PLAX 4.7 cm 3.5 - 6.0 LV ID, ES, PLAX 3.5 cm 2.1 - 4.0 LV PW thickness, ED, PLAX 1.4 cm LV end-diastolic volume, 1-p A2C 147 ml LV ejection fraction, 1-p A2C 53 % LV end-diastolic volume, 1-p A4C 157 ml LV ejection fraction, 1-p A4C 57 % LV e', lateral 0.096 m/sec LV E/e', lateral 8 LV e', medial 0.064 m/sec LV E/e', medial 11 LV e', average 0.08 m/sec LV E/e', average 9 Ventricular septum Value Reference IVS thickness, ED, PLAX 1.4 cm LVOT Value Reference LVOT ID, A-P 2.1 cm LVOT area 3.5 cm^2 LVOT peak velocity, S 1.3 m/sec LVOT mean velocity, S 0.96 m/sec LVOT VTI, S 23.4 cm LVOT peak gradient, S 6.7 mm Hg LVOT mean gradient, S 4.1 mm Hg Stroke volume (SV), LVOT DP 82 ml Stroke index (SV/bsa), LVOT DP 31 ml/m^2 Aortic valve Value Reference Aortic valve peak velocity, S 3.6 m/sec Aortic valve mean velocity, S 2.69 m/sec Aortic valve VTI, S 62.0 cm Aortic mean gradient, S 31.4 mm Hg Aortic peak gradient, S 50.4 mm Hg VTI ratio, LVOT/AV 0.38 Aortic valve area, VTI 1.3 cm^2 Velocity ratio, peak, LVOT/AV 0.37 Aortic valve area, peak velocity 1.3 cm^2 Velocity ratio, mean, LVOT/AV 0.36 Aortic valve area, mean velocity 1.3 cm^2 Aortic valve area/bsa, mean velocity 0.5 cm^2/m^2 Aortic regurg deceleration 551 cm/s^2 Aortic regurg pressure half-time 248 ms Aorta Value Reference Aortic root ID, ED 3.3 cm Ascending aorta ID, A-P, S 2.8 cm Left atrium Value Reference LA ID, A-P, ES 4.3 cm LA ID/bsa, A-P 1.6 cm/m^2 <=2.2 LA area, ES, A4C 21.8 cm^2 8.8 - 23.4 LA area, ES, A2C 17 cm^2 LA volume/bsa, ES, 1-p A4C 31 ml/m^2 LA volume, ES, 2-p 55 ml LA volume/bsa, ES, 2-p 21 ml/m^2 LA/aortic root ratio 1.33 Mitral valve Value Reference Mitral E-wave peak velocity 0.73 m/sec Mitral A-wave peak velocity 0.77 m/sec Mitral deceleration time 169 ms 150 - 230 Mitral pressure half-time 49 ms Mitral peak gradient, D 2.1 mm Hg Mitral E/A ratio, peak 0.94 Mitral valve area, PHT, DP 4.5 cm^2 Pulmonary veins Value Reference Pulmonary vein peak velocity, S 0.64 m/sec Pulmonary vein peak velocity, D 0.49 m/sec Pulmonary vein velocity ratio, peak, 1.32 S/D Pulmonary vein A-wave reversal peak 0.4 m/sec velocity Pulmonary vein A-wave reversal 97 ms duration Tricuspid valve Value Reference Tricuspid regurg peak velocity 2.6 m/sec Tricuspid peak RV-RA gradient 27.9 mm Hg Right atrium Value Reference RA area, ES, A4C (H) 22 cm^2 8.3 - 19.5 Pulmonic valve Value Reference Pulmonic peak gradient, S 4.5 mm Hg Legend: (L) and (H) baldo values outside specified reference range. I have personally reviewed the images and have reviewed and edited the reported findings. Electronically signed by Rikki Mcleod 02/21/2019 10:24
== END 2019-02-21 00:48 ==
PROVIDERS: PCP Nurse Practitioner Family; Visit Provider Nurse Practitioner Family
DX: R01.1 Cardiac murmur, unspecified (principal); I35.2 Nonrheumatic aortic (valve) stenosis with insufficiency
CPT/HCPCS: 93306

== ENCOUNTER 2019-02-27 01:45 | Outpatient (CLI) | payer MEDICAID, SELFPAY ==
--- NOTE | 2019-02-27 08:50 | DIABASSESS_ITS ---
DESCRIPTION/ASSESSMENT: Follow up visit requested by Koko because he has continued to increase his basal insulin dose without seeing benefit. Currently taking 75u Lantus. Blood sugar 359 this AM and this is typical for him. States blood sugar increases as the day progresses. Koko had a grapefruit this morning; yesterday banana, rice krispies, milk for breakfast. Had PBJ sandwich and milk. States he has learned to love tomato juice. 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 Reviewed insulin injection technique and he demonstrated dosing and injecting appropriately. Unclear if his hernia is affecting his absorption, but he assures me he is taking the injection away from the hernia. Suggested using the opposite side all together. He is also injecting on the side of his thigh. Reviewed medication options including SGLT2 inhibitors and GLP1 inhibitors in addition to mealtime insulin. Discussed food choices briefly to encourage intake of vegetables. Discussed physical activity again and the lifestyle changes he could do to help blood sugars. ACTION PLAN: Will contact PCP regarding possible additional medication He agrees to walk 10 minutes most days Individual DSME/T __0__ units billed TIME IN: 0850 OUT: 914. No DM group education series being offered at this time.
== END 2019-02-27 02:05 ==
PROVIDERS: PCP Nurse Practitioner Family; Visit Provider Dietitian, Registered
DX: E11.9 Type 2 diabetes mellitus without complications (principal); Z79.4 Long term (current) use of insulin; Z71.3 Dietary counseling and surveillance

== ENCOUNTER 2019-03-02 01:40 | Outpatient (CLI) | payer MEDICAID, SELFPAY ==
--- NOTE | 2019-03-02 08:25 | DI.CT_ITS ---
SYMPTOM/DIAGNOSIS: VENTRAL HERNIA REPAIR K43.9 CT ABDOMEN AND PELVIS: Comparison is 07/14/18 CT scan of the abdomen and pelvis was performed following oral intravenous contrast material. There is again seen a 0.9 cm noncalcified pulmonary nodule in the left lower lobe. There is diffuse decreased attenuation of the liver consistent with hepatic steatosis. No evidence of a hepatic mass is seen. The portal, superior mesenteric and splenic veins are patent. The gallbladder is negative. There is no biliary ductal dilatation. The pancreas and peripancreatic soft tissues are unremarkable as are the spleen and adrenal glands. The kidneys show normal and symmetric enhancement. No evidence of a solid renal mass or obstruction. The urinary bladder is intact. The reproductive organs are unremarkable. The abdominal aorta is of normal caliber. No aneurysmal dilatation is seen. No significant abdominal or pelvic adenopathy, ascites or pneumoperitoneum is present. Within the bowel there is again seen an anastomosis in the region of the sigmoid colon. No evidence of bowel obstruction is seen. The oral contrast is only advanced to the junction of the middle and distal thirds of the small bowel at this time. There is a large amount of stool throughout the colon suggesting constipation. No findings to suggest an acute appendicitis are present. The fluid collection in the right lower quadrant of the abdominal wall is not visualized. There is scarring seen in the subcutaneous tissues. No focal fluid collection is appreciated. Degenerative changes are seen in the spine particularly at L4-5 and L5-S1. There is again seen thinning of the midline anterior abdominal wall containing an unremarkable loop of bowel. This is unchanged. IMPRESSION: 1. Resolution of the right lower abdominal wall, hematoma or abscess. 2. Post surgical changes in the sigmoid colon of a prior anastomosis. Interval decrease in the soft tissue stranding at anastomotic site. No definite evidence of obstruction is seen. 3. Findings suggesting constipation. 4. Stable 9 mm left lower lobe pulmonary nodule. Six month follow up is recommended. 5. Hepatic steatosis.
[2019-03-02] MEDS: Breeza Beverage 473 ML BTL PO ×2 (09:10)
[2019-03-02] MEDS: Omnipaque 350 MG/ML 50 ML BTL IJ (09:11)
[2019-03-02 09:21] LABS: Anion Gap 15.3 mmol/L (3-11); BUN 15 mg/dL (7-18); CO2 18.7 mmol/L (21.0-32.0); Calcium 8.2 mg/dL (8.5-10.1); Chloride 94 mmol/L (98-107); Glucose 359 mg/dL (70-100); Potassium 4.5 mmol/L (3.5-5.1); Sodium 128 mmol/L (136-145)
[2019-03-02 09:37] LABS: CREATININE 0.52 mg/dL (0.70-1.30)
[2019-03-02] MEDS: Omnipaque 350 MG/ML 100 ML BTL IV (10:33)
== END 2019-03-02 02:00 ==
PROVIDERS: PCP Nurse Practitioner Family; Visit Provider Surgery
DX: K43.9 Ventral hernia without obstruction or gangrene (principal); Z90.49 Acquired absence of other specified parts of digestive tract; R91.1 Solitary pulmonary nodule; K76.0 Fatty (change of) liver, not elsewhere classified; K59.00 Constipation, unspecified
CPT/HCPCS: 80048; 74177; J3490; Q9967

== ENCOUNTER 2019-03-26 10:51 | Outpatient (CLI) | payer MEDICAID, SELFPAY ==
[2019-03-26 12:14] LABS: Iron 34 ug/dL (50-175); Total Iron Binding Capacity 419 ug/dL (250-450); Transferrin Sat 8 % (20-55)
[2019-03-26 12:28] LABS: Ferritin 24 ng/mL (8-388)
[2019-03-27 11:55] LABS: Hepatitis C Ab w Rflx HCV PCR Negative (NEGAT)
[2019-03-27 12:39] LABS: Hepatitis A IgM Ab Negative (Negative)
[2019-03-27 12:53] LABS: HBs Antibody, Quant <3.1 mIU/mL; Hepatitis B Surface Ab Negative; Hepatitis B Surface Ag Negative (NEGAT)
== END 2019-03-26 11:11 ==
PROVIDERS: PCP Nurse Practitioner Family; Visit Provider Nurse Practitioner Family
DX: K76.0 Fatty (change of) liver, not elsewhere classified (principal); Z11.59 Encounter for screening for other viral diseases
CPT/HCPCS: 36415; 86706; 86803; 87340; 82728; 83540; 83550; 86704; 86709

== ENCOUNTER 2019-08-14 11:51 | Outpatient (CLI) | payer MEDICAID, SELFPAY ==
[2019-08-14 12:41] LABS: HCT 43.7 % (40.0-50.0); HGB 14.2 g/dL (13.5-17.5); Mean Corp. HGB Concentration 32.5 g/dL (32.0-36.0); Mean Corpuscular Hemoglobin 28.2 pg (27.0-33.0); Mean Corpuscular Volume 86.9 fL (80-95); Platelet Count 414 x1000/uL (130-400); RBC 5.03 m/cumm (4.50-6.00); White Blood Cell Count 11.17 k/cumm (4.4-10.8)
[2019-08-14 13:59] LABS: BUN 17 mg/dL (7-18); Bilirubin, Total 0.2 mg/dL (0.2-1.0); CREATININE 1.09 mg/dL (0.70-1.30); Calcium 9.2 mg/dL (8.5-10.1); Chloride 102 mmol/L (98-107); Glucose 140 mg/dL (74-106); Potassium 4.8 mmol/L (3.5-5.1); Sodium 139 mmol/L (136-145); Total Protein 7.7 g/dL (6.4-8.2)
[2019-08-14 14:11] LABS: Alkaline Phosphatase 81 U/L (46-116)
[2019-08-14 14:22] LABS: ALT 52 U/L (16-63); AST 30 U/L (15-37)
== END 2019-08-14 12:11 ==
PROVIDERS: PCP Family Medicine; Visit Provider Family Medicine
DX: E11.9 Type 2 diabetes mellitus without complications (principal)
CPT/HCPCS: 36415; 80053; 85027; 83036

== ENCOUNTER 2019-08-27 15:21 | Outpatient (CLI) | payer MEDICAID, SELFPAY ==
[2019-08-27 17:02] LABS: TSH (W/Ref FT4) 2.32 uIU/mL (0.36-3.74); Vitamin B12 601 pg/mL (193-986)
[2019-08-27 17:05] LABS: Folate > 20.0 ng/mL (8.6-20.0)
== END 2019-08-27 15:41 ==
PROVIDERS: PCP Family Medicine; Visit Provider Otolaryngology Otolaryngology/Facial Plastic Surgery
DX: R42 Dizziness and giddiness (principal)
CPT/HCPCS: 36415; 82607; 82746; 84443

== ENCOUNTER 2019-08-27 17:59 | Outpatient (REF) | payer MEDICAID, SELFPAY ==
--- NOTE | 2019-08-27 14:58 | TONG_PTH ---
PATIENT: Koko Ace JR LOC: [facility] U#:[id number] AGE/SX: 53/M ROOM: RE08/27/[address]: Polo Barboza DO : 1965 BED: DIS: 08/27/2019 SPEC #: [id number] RECD: 08/27/19 18:32 STATUS: PREMA REQ #: [id number] REED: 08/27/19 14:[address]: Polo Barboza DEPT: Surgical Specimen RECD BY: Pearl Esparza ENTERED: 08/27/19 18:33 SP TYPE: MANUEL VU DR: Nathan Gordon MD Tissues: 1 - TONGUE BIOPSY Procedures: GROSS AND MICRO LEVEL 4 Comments: [id number]
== END 2019-08-27 18:19 ==
LOC: LBN 17:59
PROVIDERS: PCP Family Medicine; Visit Provider Otolaryngology Otolaryngology/Facial Plastic Surgery
DX: K14.8 Other diseases of tongue (principal); K13.29 Other disturbances of oral epithelium, including tongue
CPT/HCPCS: 88305

== ENCOUNTER 2020-10-06 02:45 | Outpatient (CLI) | payer MEDICARE, MEDICAID, SELFPAY ==
[2020-10-06 11:02] LABS: Hemoglobin A1C 8.5 % (<5.7)
[2020-10-06 12:33] LABS: BUN 21 mg/dL (7-18); Calcium 9.4 mg/dL (8.5-10.1); Glucose 313 mg/dL (74-106)
[2020-10-06 12:34] LABS: CREATININE 1.19 mg/dL (0.70-1.30); Cholesterol 236 mg/dL (<200); HDL Cholesterol 22 mg/dL (40-60); Triglyceride 2527 mg/dL (<150)
[2020-10-06 12:35] LABS: Albumin 4.1 g/dL (3.4-5.0); Alkaline Phosphatase 87 U/L (46-116); Anion Gap 14.2 mmol/L (3-11); Bilirubin, Total 0.3 mg/dL (0.2-1.0); CO2 21.8 mmol/L (21.0-32.0); Chloride 98 mmol/L (98-107); Potassium 4.8 mmol/L (3.5-5.1); Sodium 134 mmol/L (136-145); Total Protein 7.6 g/dL (6.4-8.2)
[2020-10-06 12:36] LABS: ALT 52 U/L (16-63); AST 22 U/L (15-37); Ferritin 50 ng/mL (26-388); Iron 65 ug/dL (65-175); Total Iron Binding Capacity 423 ug/dL (250-450); Transferrin Sat 15 % (20-55)
[2020-10-06 12:47] LABS: LDL CHOLESTEROL 45 mg/dL (<100)
== END 2020-10-06 03:05 ==
PROVIDERS: PCP Family Medicine; Visit Provider Family Medicine
DX: E11.9 Type 2 diabetes mellitus without complications (principal); E78.5 Hyperlipidemia, unspecified; I10 Essential (primary) hypertension; R94.5 Abnormal results of liver function studies
CPT/HCPCS: 36415; 80053; 80061; 83721; 82728; 83036; 83540; 83550

== ENCOUNTER 2020-12-09 02:39 | Outpatient (CLI) | payer MEDICARE, MEDICAID, SELFPAY ==
[2020-12-09 12:49] LABS: Cholesterol 187 mg/dL (<200); HDL Cholesterol 24 mg/dL (40-60); Triglyceride 493 mg/dL (<150)
[2020-12-09 13:03] LABS: LDL CHOLESTEROL 92 mg/dL (<100)
== END 2020-12-09 02:40 | disposition home or self-care (01) ==
LOC: LOS 02:40
PROVIDERS: Nurse Practitioner Family; PCP Family Medicine; Visit Provider Family Medicine
DX: E78.00 Pure hypercholesterolemia, unspecified (principal)
CPT/HCPCS: 36415; 80061; 83721

== ENCOUNTER 2021-07-30 21:29 | Outpatient (REF) | payer MEDICARE, MEDICAID, SELFPAY ==
[2021-08-01 09:28] LABS: COVID-19 RT-PCR UVMMC Result Negative (Negative)
== END 2021-07-30 21:30 | disposition home or self-care (01) ==
LOC: NCHCN 21:29
PROVIDERS: PCP Nurse Practitioner Family; Visit Provider Nurse Practitioner Family
DX: Z20.822 Contact with and (suspected) exposure to COVID-19 (principal)
CPT/HCPCS: U0003; U0005

== ENCOUNTER 2021-09-14 01:15 | Outpatient (CLI) | payer MEDICARE, MEDICAID, SELFPAY ==
--- NOTE | 2021-09-14 | DI.CT_ITS ---
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 TECHNIQUE: Imaging Protocol: Axial computed tomography images with coronal and sagittal reformatted images were created and reviewed CONTRAST MATERIAL: Intravenous: Omnipaque 350 Contrast volume:100 cc- COMPARISON: No exams were available for comparison FINDINGS: Parotids/submandibular/thyroid gland: Normal. Lymphadenopathy: There are scattered lymph nodes seen along the level one to level three all measuri ng less than 8 mm in short axis diameter which are physiologic in nature. Carotids/Jugular: Minimal calcification at common carotid bulbs. Vertebral arteries patent. Soft tissues: There is an ill defined mass eccentric toward the left in the supraglottic region. Ap proximate measurements are 3.2 x 2.8 by 3.2 cm. Causes airway narrowing. Images through both lung a pices are unremarkable. Visualized portions of the brain are unremarkable. Sinuses and mastoid air cells are clear where visualized. IMPRESSION: Ill-defined supraglottic mass causing airway narrowing measuring roughly 3.2 cm. No evidence of shree opathy. RADIATION DOSE DELIVERED: 1,160.42mGy.cm Total DLP DATA REPOSITORY: All CT scans at this facility are submitted to the National Radiology Data Registry (NRDR) Dose Index Registry (DIR) with the [employer] (ACR). RADIATION OPTIMIZATION: All CT scans at this facility use at least one of these dose optimization te chniques: automated exposure control; mA and/or kV adjustment per patient size (includes targeted exa ms where dose is matched to clinical indication); or iterative reconstruction.
[2021-09-14 10:44] LABS: CREATININE 0.9 mg/dL (0.70-1.30)
[2021-09-14 10:47] LABS: BUN 13 mg/dL (7-18)
== END 2021-09-14 01:35 ==
PROVIDERS: PCP Nurse Practitioner Family; Visit Provider Physician Assistant
DX: J38.7 Other diseases of larynx (principal); F17.200 Nicotine dependence, unspecified, uncomplicated
CPT/HCPCS: 70491; 84520; 82565

== ENCOUNTER 2021-11-03 15:51 | Outpatient (CLI) | payer MEDICARE, MEDICAID, SELFPAY ==
[2021-11-03 14:24] LABS: CREATININE 1.1 mg/dL (0.70-1.30)
== END 2021-11-03 15:52 | disposition home or self-care (01) ==
LOC: LBO 15:54
PROVIDERS: PCP Nurse Practitioner Family; Visit Provider Preventive Medicine Undersea and Hyperbaric Medicine
DX: C32.1 Malignant neoplasm of supraglottis (principal)
CPT/HCPCS: 36415; 82565

== ENCOUNTER 2021-11-06 09:46 | Observation (INO) | payer MEDICARE, MEDICAID, SELFPAY ==
[2021-11-06] VITALS (49 sets, daily range): BP systolic 90–144; BP diastolic 46–88; PULSE 24–139; RESP 13–26; TEMP 36.2–37.5; O2SAT 94–100
--- NOTE | 2021-11-06 10:00 | RT.EKG_ITS ---
APPROVED REPORT Exam: Resting ECG Reason for Exam: SOB Patient Location: E HR:92 bpm ECG Measurements Heart Rate 92 AXIS CA 133 P 152 QRSd 109 QRS 25 QT 382 T 163 QTc 473 Conclusion Sinus rhythm LVH with secondary repolarization abnormality...multi-LVH criteria, abnrm ST-T
[2021-11-06 10:45] LABS: Abs Immature Grans 0.19 10^3/uL (0.0-0.06); Absolute Basophil Count 0.05 10^3/uL (0.0-0.2); Absolute Eosinophil Count 0.26 10^3/uL (0.0-0.7); Absolute Lymphocyte Count 1.92 10^3/uL (1.2-3.4); Absolute Monocyte Count 0.74 10^3/uL (0.1-0.8); Absolute Neutrophil Count 8.09 10^3/uL (1.2-6.7); Basophils % 0.4; Eosinophils % 2.3; HCT 24.3 % (40.0-50.0); Immature Grans % 1.7; Lymphocytes % 17.1; MCH 23.1 pg (27.0-33.0); MCV 82.7 fL (80-95); MPV 9.9 fL (8.0-11.0); Monocytes % 6.6; Neutrophils % 71.9; Nucleated RBC 1 %; Platelet Count 441 10^3/uL (130-400); RBC 2.94 10^6/uL (4.36-5.78); RDW 16.7 % (11.8-14.1); RDW-SD 50.2 fL; WBC 11.25 10^3/uL (4.4-10.8)
[2021-11-06 10:47] LABS: Source Nasal/Nares
[2021-11-06 10:50] LABS: HGB 6.8 g/dL (13.5-17.5)
--- NOTE | 2021-11-06 10:54 | NUR.NOTE ---
Nursing Note: Pt record accessed through [facility] connect for imaging. Under the direction of Gage Puga NP. [facility]
[2021-11-06 10:58] LABS: Diff Comment Diff Reviewed; Hypochromasia 2+; Polychromasia Present
[2021-11-06 10:59] LABS: Poikilocytes 2+
[2021-11-06 11:01] LABS: ALT 52 U/L (16-63); AST 33 U/L (15-37); Albumin 3.5 g/dL (3.4-5.0); Alkaline Phosphatase 72 U/L (46-116); Anion Gap 10.6 mmol/L (3-11); BUN 21 mg/dL (7-18); Bilirubin, Total 0.3 mg/dL (0.2-1.0); CO2 21.4 mmol/L (21.0-32.0); Calcium 8.6 mg/dL (8.5-10.1); Chloride 104 mmol/L (98-107); Glucose 154 mg/dL (74-106); Magnesium 2.1 mg/dL (1.8-2.4); NT-proBNP 595 pg/mL (<300); Potassium 4.5 mmol/L (3.5-5.1); Sodium 136 mmol/L (136-145); Total Protein 7.4 g/dL (6.4-8.2)
[2021-11-06 11:03] LABS: Troponin I 137 ng/L (<or=60)
[2021-11-06 11:52] LABS: COVID-19 PCR Negative (Negative)
[2021-11-06 12:07] LABS: D-Dimer 644 ng/mlFEU (<500)
--- NOTE | 2021-11-06 12:16 | DI.CT_ITS ---
Exam(s) CT CHEST PE ABD PELVIS W EXAM: CT CHEST PE ABD PELVIS W CLINICAL HISTORY: Shortness of breath elevated D-dimer. TECHNIQUE: Imaging Protocol: Axial CT angiography was performed with multi-slice acquisition and mu lti-planar and/or 3D reconstructions. CONTRAST MATERIAL: Intravenous: Omnipaque 350 Contrast volume:100 cc COMPARISON: CT CT ABDOMEN PELVIS W from 03/02/2019 FINDINGS: CHEST: Tracheobronchial tree: Patent where visualized. Pulmonary parenchyma: Since the prior examination there developed moderate bilateral pleural effusion s, right greater than left. There are bilateral basilar subjacent infiltrates which may represent at electasis or pneumonia. Bilateral basilar linear infiltrates are are also seen which may represent a telectasis or pneumonia. There is again seen a 1 cm left lower lobe pulmonary nodule. Pulmonary Arteries: No evidence of filling defect to suggest pulmonary emboli. Mediastinum and Cass: There mildly enlarged mediastinal and hilar lymph nodes. The esophagus is unre markable. Visualized thyroid gland: Unremarkable. Pleura: Please see above. No pneumothorax is present. Heart: The heart is not dilated. No coronary artery calcifications are seen. No pericardial effusion. Aorta: Thoracic aorta non-dilated. No evidence of dissection. Atherosclerosis. Bones: Within normal limits for the patient's age. Soft tissues: Unremarkable. ABDOMEN: Liver: There is fatty infiltration of the liver. There are few tiny hypodensities scattered in the l iver. They are too small for further characterization. They likely reflect small cysts. The liver measures 26 cm long. No measurable mass. Portal, Superior Mesenteric, and Splenic Veins: Unremarkable. Gallbladder and Biliary Tract: No radiodense calculus or dilation. Pancreas: Normal density, no abnormal calcifications or inflammatory process. Spleen: Normal. Adrenals: No masses seen. Kidneys: Normal size, contour and axis. No radiodense stones or obstructive uropathy. No masses seen. Abdominal Aorta: Abdominal portion non-dilated. Atherosclerosis is present. Bowel: No evidence of bowel obstruction. There is a small right lateral anterior abdominal wall terry ia containing a knuckle of colon. No evidence of obstruction is seen. There is mild stranding aroun d a loop of distal sigmoid colon. It is in an area of an anastomosis. A mild colitis cannot be excl uded. Appendix is unremarkable. Peritoneal Cavity: No ascites, collection or mesenteric inflammatory response. No free air. Lymph Nodes: Within normal limits. Bones: Within normal limits for the patient's age. Soft Tissues: There is a fat containing paraumbilical hernia. PELVIS: Bladder: Symmetric distention, no gross wall thickening. Reproductive Organs: Unremarkable as visualized. Lymph Nodes: Within normal limits. Bones: Within normal limits. IMPRESSION: 1. No evidence pulmonary embolism, thoracic aortic dissection or aneurysm. 2. Bilateral pleural effusions and basilar infiltrates which may represent atelectasis or pneumonia. 3. Hepatomegaly and hepatic steatosis. 4. Stable 1 cm left lower lobe pulmonary nodule. 5. Question of mild stranding around the distal sigmoid colon. No definite bowel wall thickening. M ild colitis cannot be excluded. 6. Results of this exam have been verbally communicated with provider. RADIATION DOSE DELIVERED: 2,470.67mGy.cm Total DLP DATA REPOSITORY: All CT scans at this facility are submitted to the National Radiology Data Registry (NRDR) Dose Index Registry (DIR) with the [employer] (ACR). RADIATION OPTIMIZATION: All CT scans at this facility use at least one of these dose optimization te chniques: automated exposure control; mA and/or kV adjustment per patient size (includes targeted exa ms where dose is matched to clinical indication); or iterative reconstruction.
--- NOTE | 2021-11-06 12:20 | NUR.NOTE ---
Nursing Note: Pt w/o new complaints, NAD noted, to radiology via stretcher w/tech for exams.
[2021-11-06] MEDS: Omnipaque 350 MG/ML 100 ML BTL IJ (12:31)
--- NOTE | 2021-11-06 12:51 | NUR.NOTE ---
Nursing Note: Pt return from radiology, monitors continued, blood drawn for type & screen, provider spoke w/pt concerning need for blood transfusion, consent obtained.
--- NOTE | 2021-11-06 13:27 | W.ED.GENAD ---
Discharge Plan Disposition Patient Disposition: [facility] INPATIENT Condition: Stable Discharge Details Clinical Impression: Anemia, Aortic valve stenosis, moderate Admit Date/Time: 11/06/21 14:27 Admit Provider: Michael Rivera Attending Provider: Michael Rivera Primary Care Provider: Michael Turpin ED Provider: Gage Puga Discharge Data Discharge Date/Time-TO BE ENTERED AT DEPARTURE: 11/06/21 15:35 Medical Decision Making Patient presenting the emergency department for chief complaint of shortness of breath with activity. Patient reports that this is been going on for 1 month. Is currently under evaluation for throat mass that is cancerous. Exam is otherwise unremarkable with stable vital signs. Plan to check labs, Review of labs show significant anemia. Due to this I do feel that patient needs transfusion did obtain consent from patient. Patient also has slightly bumped troponin which I feel is secondary to his anemia. Doubt any acute cardiac event given that symptoms have been going on for 1 month and patient denies pain or discomfort with no change in symptoms during that time. Further discussed anemia with patient to evaluate source of blood loss. After thorough discussion patient does state that his mass has been intermittently bleeding with noted black tarry stools at times. I feel this is source of anemia. At this time I do feel the best treatment course is for transfusion and to reevaluate patient's overall condition. Ultimately treatment of his mass will hopefully resolve the anemia. Called and discussed case with Dr. Rivera hospitalist who was in agreement to admit patient for further transfusion and monitoring of condition. Patient was somewhat resistant to staying but ultimately in agreement of plan for transfusion and admission. Medical Records Medical records reviewed: Yes I reviewed the patient's medical records. Imaging Data Radiologic Study: Radiologist's impression: IMPRESSION: 1. No evidence pulmonary embolism, thoracic aortic dissection or aneurysm. 2. Bilateral pleural effusions and basilar infiltrates which may represent atelectasis or pneumonia. 3. Hepatomegaly and hepatic steatosis. 4. Stable 1 cm left lower lobe pulmonary nodule. 5. Question of mild stranding around the distal sigmoid colon. No definite bowel wall thickening. Mild colitis cannot be excluded. 6. Results of this exam have been verbally communicated with provider. Lab Data Lab results reviewed: Yes I reviewed the patient's lab results. Labs: Laboratory Tests Range/Units 11/06/21 11/06/21 11/06/21 10:15 10:15 10:40 WBC (4.4-10.8) 10^3/uL 11.25 H RBC (4.36-5.78) 10^6/uL 2.94 L Hgb (13.5-17.5) g/dL 6.8 L* Hct (40.0-50.0) % 24.3 L MCV (80-95) fL 82.7 MCH (27.0-33.0) pg 23.1 L MCHC (32.0-36.0) % 28.0 L RDW (11.8-14.1) % 16.7 H Plt Count (130-400) 10^3/uL 441 H MPV (8.0-11.0) fL 9.9 Immature Gran % 1.7 Neutrophils % 71.9 Lymphocytes % 17.1 Monocytes % 6.6 Eosinophils % 2.3 Basophils % 0.4 Nucleated RBC % % 1 Absolute Neutrophils (1.2-6.7) 10^3/uL 8.09 H Absolute Lymphocytes (1.2-3.4) 10^3/uL 1.92 Absolute Monocytes (0.1-0.8) 10^3/uL 0.74 Absolute Eosinophils (0.0-0.7) 10^3/uL 0.26 Absolute Basophils (0.0-0.2) 10^3/uL 0.05 RBC Morphology See Below Polychromasia Present Hypochromasia 2+ Poikilocytosis 2+ D-Dimer (<500) ng/mlFEU Sodium (136-145) mmol/L 136 Potassium (3.5-5.1) mmol/L 4.5 Chloride (98-107) mmol/L 104 Carbon Dioxide (21.0-32.0) mmol/L 21.4 Anion Gap (3-11) mmol/L 10.6 BUN (7-18) mg/dL 21 H Creatinine (0.70-1.30) mg/dL 1.0 Estimated GFR/1.73 m2 (mL/min/1.73m2) >= 60.00 Glucose (74-106) mg/dL 154 H Calcium (8.5-10.1) mg/dL 8.6 Magnesium (1.8-2.4) mg/dL 2.1 Total Bilirubin (0.2-1.0) mg/dL 0.3 AST (15-37) U/L 33 ALT (16-63) U/L 52 Alkaline Phosphatase (46-116) U/L 72 Troponin I (<or=60) ng/L 137 H* NT-Pro-B Natriuret Pep (<300) pg/mL 595 H Total Protein (6.4-8.2) g/dL 7.4 Albumin (3.4-5.0) g/dL 3.5 COVID-19 Source Nasal/Nares SARS-CoV-2 (PCR) (Negative) Negative Patient ABO/Rh Antibody Screen Crossmatch Range/Units 11/06/21 11/06/21 11/06/21 11:25 12:21 12:45 WBC (4.4-10.8) 10^3/uL RBC (4.36-5.78) 10^6/uL Hgb (13.5-17.5) g/dL Hct (40.0-50.0) % MCV (80-95) fL MCH (27.0-33.0) pg MCHC (32.0-36.0) % RDW (11.8-14.1) % Plt Count (130-400) 10^3/uL MPV (8.0-11.0) fL Immature Gran % Neutrophils % Lymphocytes % Monocytes % Eosinophils % Basophils % Nucleated RBC % % Absolute Neutrophils (1.2-6.7) 10^3/uL Absolute Lymphocytes (1.2-3.4) 10^3/uL Absolute Monocytes (0.1-0.8) 10^3/uL Absolute Eosinophils (0.0-0.7) 10^3/uL Absolute Basophils (0.0-0.2) 10^3/uL RBC Morphology Polychromasia Hypochromasia Poikilocytosis D-Dimer (<500) ng/mlFEU 644 H Sodium (136-145) mmol/L Potassium (3.5-5.1) mmol/L Chloride (98-107) mmol/L Carbon Dioxide (21.0-32.0) mmol/L Anion Gap (3-11) mmol/L BUN (7-18) mg/dL Creatinine (0.70-1.30) mg/dL Estimated GFR/1.73 m2 (mL/min/1.73m2) Glucose (74-106) mg/dL Calcium (8.5-10.1) mg/dL Magnesium (1.8-2.4) mg/dL Total Bilirubin (0.2-1.0) mg/dL AST (15-37) U/L ALT (16-63) U/L Alkaline Phosphatase (46-116) U/L Troponin I (<or=60) ng/L NT-Pro-B Natriuret Pep (<300) pg/mL Total Protein (6.4-8.2) g/dL Albumin (3.4-5.0) g/dL COVID-19 Source SARS-CoV-2 (PCR) (Negative) Patient ABO/Rh Cancelled O Positive Antibody Screen NEGATIVE Crossmatch See Detail Range/Units 11/06/21 13:35 WBC (4.4-10.8) 10^3/uL RBC (4.36-5.78) 10^6/uL Hgb (13.5-17.5) g/dL Hct (40.0-50.0) % MCV (80-95) fL MCH (27.0-33.0) pg MCHC (32.0-36.0) % RDW (11.8-14.1) % Plt Count (130-400) 10^3/uL MPV (8.0-11.0) fL Immature Gran % Neutrophils % Lymphocytes % Monocytes % Eosinophils % Basophils % Nucleated RBC % % Absolute Neutrophils (1.2-6.7) 10^3/uL Absolute Lymphocytes (1.2-3.4) 10^3/uL Absolute Monocytes (0.1-0.8) 10^3/uL Absolute Eosinophils (0.0-0.7) 10^3/uL Absolute Basophils (0.0-0.2) 10^3/uL RBC Morphology Polychromasia Hypochromasia Poikilocytosis D-Dimer (<500) ng/mlFEU Sodium (136-145) mmol/L Potassium (3.5-5.1) mmol/L Chloride (98-107) mmol/L Carbon Dioxide (21.0-32.0) mmol/L Anion Gap (3-11) mmol/L BUN (7-18) mg/dL Creatinine (0.70-1.30) mg/dL Estimated GFR/1.73 m2 (mL/min/1.73m2) Glucose (74-106) mg/dL Calcium (8.5-10.1) mg/dL Magnesium (1.8-2.4) mg/dL Total Bilirubin (0.2-1.0) mg/dL AST (15-37) U/L ALT (16-63) U/L Alkaline Phosphatase (46-116) U/L Troponin I (<or=60) ng/L 141 H* NT-Pro-B Natriuret Pep (<300) pg/mL Total Protein (6.4-8.2) g/dL Albumin (3.4-5.0) g/dL COVID-19 Source SARS-CoV-2 (PCR) (Negative) Patient ABO/Rh Antibody Screen Crossmatch ECG Data Interpretation: Please see attending physician Dr. Gutierrez's interpretation of EKG. no signs of STEMI. Rate 92, Sinus rythm HPI General Mode of arrival: ambulatory. Date/Time Provider Initiated Documentation: 11/06/21 09:47. HPI Narrative: Patient presenting to the emergency department with chief complaint of shortness of breath. He states this is primarily with activity and at rest he does not feel short of breath. Patient does report recent diagnosis of throat cancer and is undergoing evaluation at [facility]. They did inform patient that they saw possible fluid in lungs on recent PET scan. Patient denies any pain or discomfort. Patient reports his symptoms have been going on for 1 month and other than being active exacerbated by activity denies any associated symptoms. Related Data Home Medications Medication Instructions Recorded Confirmed acetaminophen 500 mg tablet 500 mg PO Q6H PRN PRN #0 tab 05/26/18 11/06/21 insulin needles (disposable) 30 X #1 02/02/19 08/06/21 3/4 blood sugar diagnostic (Blood #100 each 03/26/19 08/06/21 Glucose Test) lancets #300 each 03/26/19 08/06/21 blood-glucose meter #1 each 03/27/19 08/06/21 pen needle, diabetic 32 gauge x #200 each 03/27/19 08/06/21 5/32 (BD Ultra-Fine Ludy Pen Needle) insulin aspar prot-insulin aspart 50 unit SC BID ml 11/05/19 11/06/21 100 unit/mL (70-30) subcutaneous pen (Novolog Mix 70-30FlexPen U-100) lisinopril 2.5 mg tablet 2.5 mg PO DAILY #90 tab-cap 03/19/21 11/06/21 metformin 1,000 mg tablet 1,000 mg PO BID #180 tab-cap 04/08/21 11/06/21 rizatriptan 10 mg tablet 10 mg PO PRN #20 tab-cap 04/08/21 11/06/21 venlafaxine 150 mg 150 mg PO DAILY #90 tab-cap 04/08/21 11/06/21 capsule,extended release 24 hr quetiapine 50 mg tablet 50 mg PO QHS #120 tab 04/13/21 11/06/21 fenofibrate nanocrystallized 145 145 mg PO DAILY #90 tab-cap 10/12/21 11/06/21 mg tablet (Tricor) dulaglutide 1.5 mg/0.5 mL 1.5 mg (0.5 mL) SUBCUT QWEEK #2 ml 10/14/21 11/06/21 subcutaneous pen injector (Trulicity) clonazepam 1 mg tablet 1 mg PO BID PRN #60 tab 10/28/21 11/06/21 ferrous sulfate 325 mg (65 mg 325 mg PO DAILY #30 tab 11/07/21 iron) tablet (Iron (ferrous sulfate)) Previous Rx's Medication Instructions Recorded acetaminophen 500 mg tablet 500 mg PO Q6H PRN PRN #0 tab 05/26/18 blood sugar diagnostic (Blood #100 each 03/26/19 Glucose Test) lancets #300 each 03/26/19 blood-glucose meter #1 each 03/27/19 pen needle, diabetic 32 gauge x #200 each 03/27/19 (BD Ultra-Fine Ludy Pen Needle) lisinopril 2.5 mg tablet 2.5 mg PO DAILY #90 tab-cap 03/19/21 metformin 1,000 mg tablet 1,000 mg PO BID #180 tab-cap 04/08/21 rizatriptan 10 mg tablet 10 mg PO PRN #20 tab-cap 04/08/21 venlafaxine 150 mg 150 mg PO DAILY #90 tab-cap 04/08/21 capsule,extended release 24 hr quetiapine 50 mg tablet 50 mg PO QHS #120 tab 04/13/21 fenofibrate nanocrystallized 145 145 mg PO DAILY #90 tab-cap 10/12/21 mg tablet (Tricor) dulaglutide 1.5 mg/0.5 mL 1.5 mg (0.5 mL) SUBCUT QWEEK #2 ml 10/14/21 subcutaneous pen injector (Trulicity) clonazepam 1 mg tablet 1 mg PO BID PRN #60 tab 10/28/21 ferrous sulfate 325 mg (65 mg 325 mg PO DAILY #30 tab 11/07/21 iron) tablet (Iron (ferrous sulfate)) Allergies Allergy/AdvReac Type Severity Reaction Status Date / Time simvastatin AdvReac Mild Swelling Verified 11/06/21 10:01 of mouth and feet General Stated Complaint: SOB TOO: 2 Review of Systems Constitutional Constitutional: Denies chills, Denies fever(s) and Denies malaise Eyes Eyes: Denies blurry vision ENT Ears, Nose, Mouth, and Throat: Denies dizziness and Reports other (throat mass under current evaluation) Cardiovascular Cardiovascular: Denies chest pain, Denies chest pain with activity, Denies syncope, Denies pedal edema, Denies irregular heart rhythm, Denies lightheadedness, Denies palpitations and Reports dyspnea on exertion Respiratory Respiratory: Denies chest congestion, Denies cough, Denies hemoptysis and Reports dyspnea on exertion Gastrointestinal Gastrointestinal: Denies abdominal pain, Denies nausea and Denies vomiting Integumentary/Breasts Skin/Breast: Denies rash Neurologic Neurologic: Denies dizziness and Denies syncope Endocrine Endocrine: Denies palpitations Hematologic/Lymphatic Hematologic/Lymphatic: Denies easy bruising PFSH All Active Problems (Updated 11/08/21 @ 00:03 by TUTU CHI) Hypercholesteremia (Acute) Encounter for immunization (Acute) Tongue ulcer (Acute) Glossodynia (Acute) Fatigue (Acute) Tinnitus (Acute) Diabetic retinopathy (Acute ~11/23/19) 11/23/19 TONIOE; MILD RIGHT EYE Pulsatile tinnitus of both ears (Acute) Dizziness (Acute) Tongue lesion (Acute) Hx of dizziness (Acute) Smoker (Acute) Hepatic steatosis (Chronic) Major depressive disorder (Chronic) HLD (hyperlipidemia) (Chronic) 06/2017 labwork: 10-year ASCVD risk = ~42.9% --> patient declines a statin; good response to severely elevated TGs with Tricor Adult antisocial behavior (Chronic) Anastomotic stricture of colorectal region (Acute) Constipation (Acute) Ventral hernia (Chronic) Obesity (Acute 05/03/17) Microalbuminuria (Chronic 06/20/17) Male erectile dysfunction, unspecified (Chronic 04/08/17) Colovesical fistula (Acute 10/18/17) Antisocial personality disorder (Acute) Previous dx from psychiatry Intraoperative ureteral injury (Acute) Medical History YUDI (acute kidney injury) Colon abnormality (10/13/18) 10/13/18 Dr Manish Garcia ([facility]), unable to advance scope due to bienvenido protruding into colon, referred to [facility]. Delayed surgical wound healing Current visit yes Diverticulitis (10/18/17) Left ureteral injury Surgical History Appendectomy (03/16/18) Colectomy (01/17/18) sigmoid colectomy 05/23/18 - revision Cystoscopy (04/20/18) W/ (L) retrograde pyelogram. Dr. Strickland H/O resection of large bowel 05/23/18 Dr Diaz H/O ureter repair History of colostomy reversal S/P closure of ileostomy Family History Mother Heart disease Father Depression Sister No problems noted. Sister PKU (phenylketonuria) Social History Smoking/Tobacco Use Status: Current every day Tobacco: How many years used: 35 Quit status: considering quitting Smoking risk assessment performed?: Yes Alcohol Intake: former Drug use: Occasionally Substance use type: marijuana Caregiver/Support person: No Household members: none Housing: house Communication Needs: None Do you need help understanding health information?: Rarely Pets and animals: No Sexually active: No Do you think of yourself as: straight/heterosexual Current gender identity: male What is your relationship status?: refused to answer How often do you talk on the phone with friends or family?: decline to answer How often do you get together with friends or relatives?: decline to answer How often do you attend islam or uatsdin services?: decline to answer Do you belong to any clubs or organized social groups?: no Panel score (0-1 are the most socially isolated patients): 0 What type of physical activity do you participate in: none Duration: < 15 minutes/day Isela/Rastafari: Rastafarian Special isela needs: No Seatbelt use: never Helmet use: No Drive intox 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 chair car driver: No Working smoke detector in home: Yes Carbon monox detector in home: Yes Do you feel safe at home: Yes Do you feel safe in your relationship?: Yes Exam Const General: cooperative, comfortable, no acute distress, not diaphoretic and not ill appearing Nutritional Appearance: overweight Orientation: alert, awake and oriented x3 Limitations: mental status not altered Neck Neck: anterior neck swelling Resp Effort & Inspection: normal respiratory effort, able to speak in complete sentences, no audible wheezes and no cough Auscultation: clear to auscultation bilaterally Cardio Jugular venous pressure: no JVD Palpation: normal PMI Rate: regular rate Rhythm: regular rhythm Heart Sounds: S1 normal, S2 normal, no click, no gallops, murmur systolic III/ and no rubs Pulses: radial pulses present bilaterally 2+ GI Inspection: normal to inspection Palpation: soft, no aortic enlargement, no pulsatile masses and nontender Auscultation: normal bowel sounds Skin General skin exam: no rashes or lesions noted Neuro General: patient alert, patient awake, patient oriented x3, gait normal, tone normal and moves all extremities Course Vital Signs Vital signs: Vital Signs Temperature 36.7 C 11/06/21 09:57 Pulse 103 H 11/06/21 09:57 Respiratory Rate 20 11/06/21 09:57 Blood Pressure 108/64 11/06/21 09:57 Pulse Oximetry 100 11/06/21 09:57 Temperature 36.7 C 11/06/21 09:57 Temperature Source Temporal Artery Scan 11/06/21 09:57 Pulse 92 H 11/06/21 12:50 Pulse 92 H 11/06/21 12:51 Respiratory Rate 13 11/06/21 12:51 Respiratory Effort 11/06/21 10:02 Respiratory Depth Normal 11/06/21 10:02 Respiratory Pattern Normal 11/06/21 10:02 Blood Pressure 123/63 11/06/21 12:50 Blood Pressure Mean 75 11/06/21 12:50 Blood Pressure Position Sitting 11/06/21 09:57 Pulse Oximetry 100 11/06/21 12:51 Oxygen Delivery Method Room Air 11/06/21 09:57 Oxygen Flow Rate 0 11/06/21 09:57 Pain Level 4 11/06/21 09:57 Lab/Test Results Lab/Test Results: Laboratory Tests Range/Units 11/06/21 11/06/21 11/06/21 10:15 10:15 10:40 WBC (4.4-10.8) 10^3/uL 11.25 H RBC (4.36-5.78) 10^6/uL 2.94 L Hgb (13.5-17.5) g/dL 6.8 L* Hct (40.0-50.0) % 24.3 L MCV (80-95) fL 82.7 MCH (27.0-33.0) pg 23.1 L MCHC (32.0-36.0) % 28.0 L RDW (11.8-14.1) % 16.7 H Plt Count (130-400) 10^3/uL 441 H MPV (8.0-11.0) fL 9.9 Immature Gran % 1.7 Neutrophils % 71.9 Lymphocytes % 17.1 Monocytes % 6.6 Eosinophils % 2.3 Basophils % 0.4 Nucleated RBC % % 1 Absolute Neutrophils (1.2-6.7) 10^3/uL 8.09 H Absolute Lymphocytes (1.2-3.4) 10^3/uL 1.92 Absolute Monocytes (0.1-0.8) 10^3/uL 0.74 Absolute Eosinophils (0.0-0.7) 10^3/uL 0.26 Absolute Basophils (0.0-0.2) 10^3/uL 0.05 RBC Morphology See Below Polychromasia Present Hypochromasia 2+ Poikilocytosis 2+ D-Dimer (<500) ng/mlFEU Sodium (136-145) mmol/L 136 Potassium (3.5-5.1) mmol/L 4.5 Chloride (98-107) mmol/L 104 Carbon Dioxide (21.0-32.0) mmol/L 21.4 Anion Gap (3-11) mmol/L 10.6 BUN (7-18) mg/dL 21 H Creatinine (0.70-1.30) mg/dL 1.0 Estimated GFR/1.73 m2 (mL/min/1.73m2) >= 60.00 Glucose (74-106) mg/dL 154 H Calcium (8.5-10.1) mg/dL 8.6 Magnesium (1.8-2.4) mg/dL 2.1 Total Bilirubin (0.2-1.0) mg/dL 0.3 AST (15-37) U/L 33 ALT (16-63) U/L 52 Alkaline Phosphatase (46-116) U/L 72 Troponin I (<or=60) ng/L 137 H* NT-Pro-B Natriuret Pep (<300) pg/mL 595 H Total Protein (6.4-8.2) g/dL 7.4 Albumin (3.4-5.0) g/dL 3.5 COVID-19 Source Nasal/Nares SARS-CoV-2 (PCR) (Negative) Negative Patient ABO/Rh Crossmatch Range/Units 11/06/21 11/06/21 11/06/21 11:25 12:21 12:45 WBC (4.4-10.8) 10^3/uL RBC (4.36-5.78) 10^6/uL Hgb (13.5-17.5) g/dL Hct (40.0-50.0) % MCV (80-95) fL MCH (27.0-33.0) pg MCHC (32.0-36.0) % RDW (11.8-14.1) % Plt Count (130-400) 10^3/uL MPV (8.0-11.0) fL Immature Gran % Neutrophils % Lymphocytes % Monocytes % Eosinophils % Basophils % Nucleated RBC % % Absolute Neutrophils (1.2-6.7) 10^3/uL Absolute Lymphocytes (1.2-3.4) 10^3/uL Absolute Monocytes (0.1-0.8) 10^3/uL Absolute Eosinophils (0.0-0.7) 10^3/uL Absolute Basophils (0.0-0.2) 10^3/uL RBC Morphology Polychromasia Hypochromasia Poikilocytosis D-Dimer (<500) ng/mlFEU 644 H Sodium (136-145) mmol/L Potassium (3.5-5.1) mmol/L Chloride (98-107) mmol/L Carbon Dioxide (21.0-32.0) mmol/L Anion Gap (3-11) mmol/L BUN (7-18) mg/dL Creatinine (0.70-1.30) mg/dL Estimated GFR/1.73 m2 (mL/min/1.73m2) Glucose (74-106) mg/dL Calcium (8.5-10.1) mg/dL Magnesium (1.8-2.4) mg/dL Total Bilirubin (0.2-1.0) mg/dL AST (15-37) U/L ALT (16-63) U/L Alkaline Phosphatase (46-116) U/L Troponin I (<or=60) ng/L NT-Pro-B Natriuret Pep (<300) pg/mL Total Protein (6.4-8.2) g/dL Albumin (3.4-5.0) g/dL COVID-19 Source SARS-CoV-2 (PCR) (Negative) Patient ABO/Rh Cancelled Crossmatch See Detail
[2021-11-06 14:08] LABS: Troponin I 141 ng/L (<or=60)
--- NOTE | 2021-11-06 14:15 | RT.EKG_ITS ---
APPROVED REPORT Exam: Resting ECG Reason for Exam: REPEAT EKG Patient Location: E HR:96 bpm ECG Measurements Heart Rate 96 AXIS WV 142 P 51 QRSd 106 QRS 28 QT 361 T 192 QTc 457 Conclusion Sinus rhythm...normal P axis, V-rate 60- 99 Probable LVH with secondary repol abnrm...multiple LVH criteria Inferior q waves
--- NOTE | 2021-11-06 14:23 | NUR.NOTE ---
Nursing Note: Pt finished lunch and self administered 40u of own insulin after lunch per routine at home, provider aware and approved the plan. Pt recieving 1st unit PRBc, this RN stayed w/pt initial 15 minutes of transfusion, pt tolerated without complaints, continue to monitor Q15min for remainder of transfusion. Pt educated on s/s of reaction to report immediately, pt verbalized understanding.
--- NOTE | 2021-11-06 15:58 | W.PM.HP.N ---
Date of service: 11/06/21 Time of Service: 15:59 Assessment and Plan Assessment and plan (1) Anemia: Status: Chronic Assessment and plan: Blood loss. Intermittent bleeding of tongue cancer lesion. Now with SOA, HADDAD. No active bleeding. Transfuse 2 units pRBCs. CBC in AM Planning d/c tomorrow if symptoms improved adequately and no further significant bleeding. (2) Diabetes mellitus: Status: Chronic Assessment and plan: Cont NPH insulin BID. Dosage decreased from 40units BID to 30 units BID. SS insulin correction dosing. Cont metformin. Monitor. Diabetic diet. Qualifiers: Diabetes mellitus type: type 2 Diabetes mellitus nursing home insulin use: with recreational programs director use Diabetes mellitus complication status: with kidney complications Diabetes mellitus complication detail: with microalbuminuria Qualified Code(s): E11.29 - Type 2 diabetes mellitus with other diabetic kidney complication; R80.9 - Proteinuria, unspecified; Z79.4 - cardio clinician (current) use of insulin (3) Squamous cell cancer of tongue: Status: Acute Assessment and plan: He has been evaluated by oncologist and planned radiation is scheduled. May need ENT to evaluate if continues to bleed; for possible cauterization? (4) Essential hypertension: Status: Chronic Assessment and plan: Only on lisinopril 2.5mg daily; likely for renal protection and not HTN. SBP in the upper 90's to low 100's. (5) Anxiety: Status: Chronic Assessment and plan: Cont clonazepam prn BID as per home dosing. Cont Seroquel. History of Present Illness History of Present Illness Chief Complaint: Shortness of air Narrative: This is a 55 yo male with a h/o tongue cancer with planned radiation tx through [facility], HTN, HLD, DM with retinopathy, tobacco abuse disorder, Hepatic steatosis, aortic valve stenosis, depression/anxiety, antisocial personality disorder, obesity, constipation. He presented to the ED with appx 1 month h/o worsening shortness of air, particularly with activity. He has noted intermittent bleeding from the oral cancer lesion. Denied CP/palpitations. No F/C. In the ED his initial vital signs showed a HR of 103, BP 108/64, RR 20, RA O2 saturation of 100. Temp 36.7. Lab: Hgb 6.8. WBC count 11.25. Platelets 441. K 4.5. Creatinine 1.0. Normal LFTs. Trop 137. Covid neg. He agreed to a night of observation and RBC transfusion. Review of Systems All systems reviewed & are unremarkable except as noted in HPI and below PFSH All Active Problems Anemia (Chronic) Hypercholesteremia (Acute) Encounter for immunization (Acute) Tongue ulcer (Acute) Glossodynia (Acute) Fatigue (Acute) Tinnitus (Acute) Diabetic retinopathy (Acute ~11/23/19) 11/23/19 [place]; MILD RIGHT EYE Squamous cell cancer of tongue (Acute) Pulsatile tinnitus of both ears (Acute) Dizziness (Acute) Tongue lesion (Acute) Hx of dizziness (Acute) Smoker (Acute) Diabetes mellitus (Chronic) Hepatic steatosis (Chronic) Aortic valve stenosis, moderate (Chronic) 02/21/2019 echo --> repeat echo 1-2 years Major depressive disorder (Chronic) HLD (hyperlipidemia) (Chronic) 06/2017 labwork: 10-year ASCVD risk = ~42.9% --> patient declines a statin; good response to severely elevated TGs with Tricor Adult antisocial behavior (Chronic) Anastomotic stricture of colorectal region (Acute) Constipation (Acute) Ventral hernia (Chronic) Obesity (Acute 05/03/17) Microalbuminuria (Chronic 06/20/17) Essential hypertension (Chronic 04/08/17) Male erectile dysfunction, unspecified (Chronic 04/08/17) Colovesical fistula (Acute 10/18/17) Antisocial personality disorder (Acute) Previous dx from psychiatry Intraoperative ureteral injury (Acute) Anxiety (Chronic) Medical History YUDI (acute kidney injury) Colon abnormality (10/13/18) 10/13/18 Dr Manish Garcia ([facility]), unable to advance scope due to bienvenido protruding into colon, referred to [facility]. Delayed surgical wound healing Current visit yes Diverticulitis (10/18/17) Left ureteral injury Surgical History Appendectomy (03/16/18) Colectomy (01/17/18) sigmoid colectomy 05/23/18 - revision Cystoscopy (04/20/18) W/ (L) retrograde pyelogram. Dr. Strickland H/O resection of large bowel 05/23/18 Dr Diaz H/O ureter repair History of colostomy reversal S/P closure of ileostomy Family History Mother Heart disease Father Depression Sister No problems noted. Sister PKU (phenylketonuria) Social History Smoking/Tobacco Use Status: Current every day Tobacco: How many years used: 35 Quit status: considering quitting Smoking risk assessment performed?: Yes Alcohol Intake: former Drug use: Occasionally Substance use type: marijuana Caregiver/Support person: No Household members: none Housing: house Communication Needs: None Do you need help understanding health information?: Rarely Pets and animals: No Sexually active: No Do you think of yourself as: straight/heterosexual Current gender identity: male What is your relationship status?: refused to answer How often do you talk on the phone with friends or family?: decline to answer How often do you get together with friends or relatives?: decline to answer How often do you attend adventist or mormon services?: decline to answer Do you belong to any clubs or organized social groups?: no Panel score (0-1 are the most socially isolated patients): 0 What type of physical activity do you participate in: none Duration: < 15 minutes/day Isela/Sikhism: Scientology Special isela needs: No Seatbelt use: never Helmet use: No Drive intox 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: No Working smoke detector in home: Yes Carbon monox detector in home: Yes Do you feel safe at home: Yes Do you feel safe in your relationship?: Yes Meds Allergies and Home Medications Allergies Allergy/AdvReac Type Severity Reaction Status Date / Time simvastatin AdvReac Mild Swelling Verified 11/06/21 10:01 of mouth and feet Home Medications Medication Instructions Recorded Confirmed Type acetaminophen 500 mg tablet 500 mg PO Q6H PRN PRN #0 tab 05/26/18 11/06/21 Rx insulin needles (disposable) 30 X #1 02/02/19 08/06/21 History 3/4 blood sugar diagnostic (Blood #100 each 03/26/19 08/06/21 Rx Glucose Test) lancets #300 each 03/26/19 08/06/21 Rx blood-glucose meter #1 each 03/27/19 08/06/21 Rx pen needle, diabetic 32 gauge x #200 each 03/27/19 08/06/21 Rx /32 (BD Ultra-Fine Ludy Pen Needle) aspirin 325 mg tablet 325 mg PO DAILY 07/25/19 11/06/21 History insulin aspar prot-insulin aspart 50 unit SC BID ml 11/05/19 11/06/21 History 100 unit/mL (70-30) subcutaneous pen (Novolog Mix 70-30FlexPen U-100) lisinopril 2.5 mg tablet 2.5 mg PO DAILY #90 tab-cap 03/19/21 11/06/21 Rx metformin 1,000 mg tablet 1,000 mg PO BID #180 tab-cap 04/08/21 11/06/21 Rx rizatriptan 10 mg tablet 10 mg PO PRN #20 tab-cap 04/08/21 11/06/21 Rx venlafaxine 150 mg 150 mg PO DAILY #90 tab-cap 04/08/21 11/06/21 Rx capsule,extended release 24 hr quetiapine 50 mg tablet 50 mg PO QHS #120 tab 04/13/21 11/06/21 Rx fenofibrate nanocrystallized 145 145 mg PO DAILY #90 tab-cap 10/12/21 11/06/21 Rx mg tablet (Tricor) dulaglutide 1.5 mg/0.5 mL 1.5 mg (0.5 mL) SUBCUT QWEEK #2 ml 10/14/21 11/06/21 Rx subcutaneous pen injector (Trulicity) clonazepam 1 mg tablet 1 mg PO BID PRN #60 tab 10/28/21 11/06/21 Rx Exam Narrative Exam Narrative: Obese male. Sitting reclined in chair. Hoarse quality to voice. Const General: cooperative, no acute distress and not ill appearing Nutritional Appearance: obese Orientation: alert and oriented x3 Eyes General: appearance normal, both eyes and all related structures Conjunctivae: conjunctival abnormality (pale) Sclera: sclerae normal Resp Effort & Inspection: normal respiratory effort Auscultation: clear to auscultation bilaterally Cardio Rate: regular rate Rhythm: regular rhythm Heart Sounds: S1 normal and S2 normal GI Inspection: visible herniation Palpation: soft and nontender Skin General skin exam: no rashes or lesions noted Neuro General: moves all extremities Cranial Nerves: facial strength normal Cognition: normal cognition Extrem General: no pedal edema and no calf tenderness Psych Appearance: grossly normal Affect: normal affect Results Labs Result diagrams: 11/06/21 10:15 11/06/21 10:15 Labs: Laboratory Results - last 24 hr 11/06/21 11/06/21 11/06/21 10:15 10:15 10:40 WBC 11.25 H RBC 2.94 L Hgb 6.8 L* Hct 24.3 L MCV 82.7 MCH 23.1 L MCHC 28.0 L RDW 16.7 H Plt Count 441 H MPV 9.9 Immature Gran % 1.7 Neutrophils % 71.9 Lymphocytes % 17.1 Monocytes % 6.6 Eosinophils % 2.3 Basophils % 0.4 Nucleated RBC % 1 Absolute Neutrophils 8.09 H Absolute Lymphocytes 1.92 Absolute Monocytes 0.74 Absolute Eosinophils 0.26 Absolute Basophils 0.05 RBC Morphology See Below Polychromasia Present Hypochromasia 2+ Poikilocytosis 2+ D-Dimer Sodium 136 Potassium 4.5 Chloride 104 Carbon Dioxide 21.4 Anion Gap 10.6 BUN 21 H Creatinine 1.0 Estimated GFR/1.73 m2 >= 60.00 Glucose 154 H Calcium 8.6 Magnesium 2.1 Total Bilirubin 0.3 AST 33 ALT 52 Alkaline Phosphatase 72 Troponin I 137 H* NT-Pro-B Natriuret Pep 595 H Total Protein 7.4 Albumin 3.5 COVID-19 Source Nasal/Nares SARS-CoV-2 (PCR) Negative Patient ABO/Rh Antibody Screen Crossmatch 11/06/21 11/06/21 11/06/21 11:25 12:21 12:45 WBC RBC Hgb Hct MCV MCH MCHC RDW Plt Count MPV Immature Gran % Neutrophils % Lymphocytes % Monocytes % Eosinophils % Basophils % Nucleated RBC % Absolute Neutrophils Absolute Lymphocytes Absolute Monocytes Absolute Eosinophils Absolute Basophils RBC Morphology Polychromasia Hypochromasia Poikilocytosis D-Dimer 644 H Sodium Potassium Chloride Carbon Dioxide Anion Gap BUN Creatinine Estimated GFR/1.73 m2 Glucose Calcium Magnesium Total Bilirubin AST ALT Alkaline Phosphatase Troponin I NT-Pro-B Natriuret Pep Total Protein Albumin COVID-19 Source SARS-CoV-2 (PCR) Patient ABO/Rh Cancelled O Positive Antibody Screen NEGATIVE Crossmatch See Detail 11/06/21 13:35 WBC RBC Hgb Hct MCV MCH MCHC RDW Plt Count MPV Immature Gran % Neutrophils % Lymphocytes % Monocytes % Eosinophils % Basophils % Nucleated RBC % Absolute Neutrophils Absolute Lymphocytes Absolute Monocytes Absolute Eosinophils Absolute Basophils RBC Morphology Polychromasia Hypochromasia Poikilocytosis D-Dimer Sodium Potassium Chloride Carbon Dioxide Anion Gap BUN Creatinine Estimated GFR/1.73 m2 Glucose Calcium Magnesium Total Bilirubin AST ALT Alkaline Phosphatase Troponin I 141 H* NT-Pro-B Natriuret Pep Total Protein Albumin COVID-19 Source SARS-CoV-2 (PCR) Patient ABO/Rh Antibody Screen Crossmatch Last Vital Signs Temp 37.0 C 11/06/21 15:33 Pulse 94 H 11/06/21 15:33 Resp 22 11/06/21 15:33 BP 107/66 11/06/21 15:33 Pulse Ox 98 11/06/21 15:33
[2021-11-06] MEDS: Normal Saline Flush 10 ML SYR IVP ×2 (16:28→19:50)
[2021-11-06] MEDS: Insulin Asp Prt/Insulin Aspart 70/30 Mix 300 UNITS/3 ML PEN 40 UNITS SC (17:24)
[2021-11-06] MEDS: Acetaminophen 325 MG TAB PO (17:30)
[2021-11-06] MEDS: Nicotine 21 MG/24 HR PATCH TD (17:31)
[2021-11-06] MEDS: clonazePAM 1 MG TAB PO (19:49)
[2021-11-06] MEDS: QUEtiapine 50 MG TAB 150 MG PO (19:50)
[2021-11-06 19:52] LABS: Troponin I 124 ng/L (<or=60)
[2021-11-07 00:02] VITALS: BP 146/69; PULSE 86; RESP 21; TEMP 36.3; O2SAT 99
[2021-11-07 00:03] VITALS: PULSE 89
[2021-11-07 03:21] VITALS: BP 105/63; PULSE 90; RESP 16; TEMP 36.4; O2SAT 94
[2021-11-07 05:45] VITALS: PULSE 84
--- NOTE | 2021-11-07 05:57 | NUR.NOTE ---
Nursing Note: Patient wore telemetry overnight, patient explained purpose, patient refuses to wear any longer. Telemetry returned to ICU.
[2021-11-07 07:09] LABS: Abs Immature Grans 0.18 10^3/uL (0.0-0.06); Absolute Basophil Count 0.05 10^3/uL (0.0-0.2); Absolute Eosinophil Count 0.27 10^3/uL (0.0-0.7); Absolute Monocyte Count 0.74 10^3/uL (0.1-0.8); Absolute Neutrophil Count 8.84 10^3/uL (1.2-6.7); Basophils % 0.4; Eosinophils % 2.2; HCT 28.2 % (40.0-50.0); Immature Grans % 1.5; Lymphocytes % 16.6; MCH 23.8 pg (27.0-33.0); MCHC 28.4 % (32.0-36.0); MCV 83.9 fL (80-95); MPV 9.9 fL (8.0-11.0); Monocytes % 6.1; Neutrophils % 73.2; Nucleated RBC 0 %; RBC 3.36 10^6/uL (4.36-5.78); RDW 16.7 % (11.8-14.1); RDW-SD 50.4 fL; WBC 12.08 10^3/uL (4.4-10.8)
[2021-11-07 07:10] LABS: Absolute Lymphocyte Count 2.01 10^3/uL (1.2-3.4)
[2021-11-07 07:39] LABS: Diff Comment Diff Reviewed; Platelet Count 447 10^3/uL (130-400)
[2021-11-07 07:40] LABS: Hypochromasia 2+; Polychromasia Present
[2021-11-07 07:53] VITALS: BP 100/62; PULSE 88; RESP 21; TEMP 36.6; O2SAT 98
[2021-11-07] MEDS: Venlafaxine 150 MG CAPCR PO (08:05)
[2021-11-07] MEDS: QUEtiapine 50 MG TAB PO (08:05)
[2021-11-07] MEDS: Fenofibrate, Micronized 145 MG TAB PO (08:05)
[2021-11-07] MEDS: Lisinopril 5 MG TAB 2.5 MG PO (08:05)
[2021-11-07] MEDS: clonazePAM 1 MG TAB PO (08:05)
[2021-11-07] MEDS: Insulin Asp Prt/Insulin Aspart 70/30 Mix 300 UNITS/3 ML PEN 40 UNITS SC (08:56)
--- NOTE | 2021-11-07 10:24 | PDOC.CMIN ---
- If Service Date Differs Date of service: 11/07/21 Time of Service: 10:24 Care Management Initial Assess REASON FOR HOSPITALIZATION:: Acute Anemia PAST MEDICAL HISTORY/PAST SURGICAL HISTORY:: All Active Problems . Anemia (Chronic). Hypercholesteremia (Acute). Encounter for immunization (Acute). Tongue ulcer (Acute). Glossodynia (Acute). Fatigue (Acute). Tinnitus (Acute). Diabetic retinopathy (Acute ~11/23/19). 11/23/19 [place]; MILD RIGHT EYE. Squamous cell cancer of tongue (Acute). Pulsatile tinnitus of both ears (Acute). Dizziness (Acute). Tongue lesion (Acute). Hx of dizziness (Acute). Smoker (Acute). Diabetes mellitus (Chronic). Hepatic steatosis (Chronic). Aortic valve stenosis, moderate (Chronic). 02/21/2019 echo --> repeat echo 1-2 years. Major depressive disorder (Chronic). HLD (hyperlipidemia) (Chronic). 06/2017 labwork: 10-year ASCVD risk = ~42.9% --> patient declines a statin; good response to severely elevated TGs with Tricor. Adult antisocial behavior (Chronic). Anastomotic stricture of colorectal region (Acute). Constipation (Acute). Ventral hernia (Chronic). Obesity (Acute 05/03/17). Microalbuminuria (Chronic 06/20/17). Essential hypertension (Chronic 04/08/17). Male erectile dysfunction, unspecified (Chronic 04/08/17). Colovesical fistula (Acute 10/18/17). Antisocial personality disorder (Acute). Previous dx from psychiatry. Intraoperative ureteral injury (Acute). Anxiety (Chronic). Medical History . YUDI (acute kidney injury). Colon abnormality (10/13/18). 10/13/18 Dr Manish Garcia ([facility]), unable to advance scope due to bienvenido protruding into colon, referred to [facility]. Delayed surgical wound healing. Current visit yes. Diverticulitis (10/18/17). Left ureteral injury. Surgical History . Appendectomy (03/16/18). Colectomy (01/17/18). sigmoid colectomy. 05/23/18 - revision. Cystoscopy (04/20/18). W/ (L) retrograde pyelogram. Dr. Strickland. H/O resection of large bowel. 05/23/18 Dr Diaz. H/O ureter repair. History of colostomy reversal. S/P closure of ileostomy PREVIOUS FUNCTIONAL STATUS/SOCIAL/FAMILY SUPPORTS:: Koko lives in [place]. CURRENT FUNCTIONAL STATUS:: Information was obtained through chart review. Pt discharged home before CM was able to interview pt. ADVANCE DIRECTIVES:: On file, [facility] is [facility] and Sharita [facility] Has patient been provided with info about the portal/API?: Yes Did the patient sign up for the portal?: Yes (Prior to admission) CODE STATUS:: DNR/DNI INSURANCE COVERAGE / FINANCIAL ISSUES:: Medicaid. Medicare PRIMARY CARE PHYSICIAN:: [facility] POTENTIAL DISCHARGE NEEDS:: Follow up with ENT, Oncology and PCP. PATIENT/FAMILY EDUCATION NEEDS:: Review discharge instructions, limitations, medications and plan to follow up with community providers. ask me three. TRANSPORTATION:: via private vehicle with family. PLAN:: Anticipate Koko will discharge home with no new services via private vehicle with family. He will follow up with community providers and discharge plan of care as prescribed.
--- NOTE | 2021-11-07 10:57 | DSE_ITS ---
Date of service: 11/07/21 Time of Service: 10:57 DS: Diagnosis Discharge Diagnosis (1) Anemia: (2) Diabetes mellitus: (3) Squamous cell cancer of tongue: (4) Essential hypertension: (5) Anxiety: Discharge Plan Disposition Patient Disposition: HOME Condition: Stable Discharge Details Reason For Visit: Acute Anemia Admit Date/Time: 11/06/21 14:27 Admit Provider: Michael Rivera Attending Provider: Michael Rivera Primary Care Provider: Michael Turpin Hospital Course Hospital Course: This is a 55 yo male with a history of tongue cancer with planned radiation treatment through [facility], hypertension, diabetes with retinopathy, tobacco abuse disorder, Hepatic steatosis, aortic valve stenosis, depression/anxiety, antisocial personality disorder, obesity, constipation. He presented to the ED with 1 month of worsening shortness of breath, particularly with activity.? He has noted intermittent bleeding from the oral cancer lesion.In the ED his initial vital signs showed a HR of 103, BP 108/64, RR 20, RA O2 saturation of 100. Temp 36.7. Lab:? Hgb 6.8.? WBC count 11.25. Platelets 441.? K 4.5. Creatinine 1.0.? Normal LFTs.? Trop 137. Covid neg. He agreed to a night of observation and RBC transfusion.? He received 2 units of packed red blood cells with improvement in his hemoglobin to 8.0. There was no further bleeding noted while hospitalized. He will also be started on iron supplementation at discharge. He is stable for discharge to home with no services. outpatient labs ordered for next week to be followed by outpatient team. discharge discussed with DR Maier Home Meds and New Rx's Prescriptions: New ferrous sulfate [Iron (ferrous sulfate)] 325 mg (65 mg iron) tablet 325 mg PO DAILY Qty: 30 0RF Continued (DME) lancets misc See Dose Instructions .ROUTE .MEDSUPPLY Qty: 300 3RF Dose Instruction: As directed Rx Instructions: As directed to check blood glucose TID (DME) Blood Glucose Test strip See Dose Instructions .ROUTE .MEDSUPPLY Qty: 100 3RF Dose Instruction: As directed to check daily morning fasting blood glucose. No insulin. Rx Instructions: As directed to check daily morning fasting blood glucose. On insulin. (DME) insulin needles (disposable) 30 X 3/4 needle See Dose Instructions .ROUTE .MEDSUPPLY Qty: 1 0RF Rx Instructions: As directed (DME) pen needle, diabetic [BD Ultra-Fine Ludy Pen Needle] 32 gauge x 5/32 needle See Dose Instructions .ROUTE .MEDSUPPLY Qty: 200 3RF Dose Instruction: Daily with Liraglutide Rx Instructions: BID with Lantus (DME) blood-glucose meter kit See Dose Instructions .ROUTE .MEDSUPPLY Qty: 1 0RF Dose Instruction: As directed Rx Instructions: As directed, to keep HbA1c below 6.5% insulin asp prt-insulin aspart [Novolog Mix 70-30FlexPen U-100] 100 unit/mL (70-30) insulin pen 50 unit SC BID 0RF Rx Instructions: 50 units with breakfast and 50 units with dinner [facility] [place] lisinopril 2.5 mg tablet 2.5 mg PO DAILY Qty: 90 3RF Rx Instructions: TO PROTECT KIDNEYS metformin 1,000 mg tablet 1,000 mg PO BID Qty: 180 3RF rizatriptan 10 mg tablet 10 mg PO PRN Qty: 20 3RF Label Comments: patient cannot renember when last taken venlafaxine 150 mg capsule,extended release 24hr 150 mg PO DAILY Qty: 90 3RF quetiapine 50 mg tablet 50 mg PO QHS Qty: 120 11RF Rx Instructions: NEW DOSE. 50mg PO in AM and 150mg PO at HS. fenofibrate nanocrystallized [Tricor] 145 mg tablet 145 mg PO DAILY Qty: 90 3RF Trulicity 1.5 mg/0.5 mL pen injector 1.5 mg subcut QWEEK Qty: 2 3RF clonazepam 1 mg tablet 1 mg PO BID PRN (Reason: anxiety) Qty: 60 0RF acetaminophen 500 MG tablet 500 mg PO Q6H PRN PRNQty: 0 0RF Label Comments: patient states a couple of days ago Discontinued aspirin 325 mg tablet 325 mg PO DAILY 0RF Discharge Instructions Instructions: Anemia (DC) Stand Alone Forms: Nursing Discharge Form Referrals: Michael Turpin, [employer] [Primary Care Provider] - (Call Tuesday for an Appointment in the next 2 Weeks ) Activity:: Activity as Tolerated Equipment/Supplies:: No Equipment Needed Diet:: As Tolerated Discharge Orders Discharge Orders: Discharge Order (Routine); Ordered 11/07/21 Ordered By: Allison Rosenthal Other Ambulatory Orders: Basic Metabolic Panel (Routine) Timeframe: 20211109 Location: None Selected Ordered By: Allison Rosenthal Complete Blood Count w/Diff (Routine) Timeframe: 20211109 Location: None Selected Ordered By: Allison Rosenthal Discharge Data Discharge Date/Time-TO BE ENTERED AT DEPARTURE: 11/07/21 11:31 DS: Summary Time Spent with Patient providing and/or coordinating discharge services: Less than 30 minutes Status at Discharge Functional status at discharge: independent ambulation Overall status at discharge: patient is progressing back to baseline Mental Status: mental status grossly normal Speech and Movement: speech and movement normal Mood: congruent mood Affect: normal affect Exam Const General: cooperative and no acute distress Nutritional Appearance: obese Orientation: alert and oriented x3 Eyes General: appearance normal, both eyes and all related structures Conjunctivae: conjunctival abnormality (pale) Sclera: sclerae normal Resp Effort & Inspection: normal respiratory effort Auscultation: clear to auscultation bilaterally Cardio Rate: regular rate Rhythm: regular rhythm GI Inspection: visible herniation Palpation: soft and nontender Skin General skin exam: no rashes or lesions noted Neuro General: moves all extremities Cranial Nerves: facial strength normal Cognition: normal cognition Extrem General: no pedal edema and no calf tenderness Psych Appearance: grossly normal Mental Status: mental status grossly normal Speech and Movement: speech and movement normal Mood: congruent mood Affect: normal affect DS: Data Vitals/I&O Vitals and I&O: Vital Signs Temperature 36.6 C 11/07/21 07:53 Temperature Source Tympanic 11/07/21 07:53 Pulse 88 11/07/21 07:53 Pulse Rhythm Regular 11/07/21 03:25 Pulse 92 H 11/06/21 12:51 Respiratory Rate 21 11/07/21 07:53 Respiratory Effort 11/07/21 03:25 Respiratory Depth Normal 11/07/21 03:25 Respiratory Pattern Normal 11/07/21 03:25 Blood Pressure 100/62 11/07/21 07:53 Blood Pressure Mean 75 11/06/21 12:50 Blood Pressure Position Sitting 11/06/21 09:57 Pulse Oximetry 98 11/07/21 07:53 Oxygen Delivery Method Room Air 11/07/21 07:53 Oxygen Flow Rate 0 11/07/21 07:53 Pain Level 0 11/07/21 03:21 Intake & Output 11/06/21 11/06/21 11/07/21 11:59 23:59 11:59 Intake Total 1004 / 1004 Balance 1004 / 1004 Weight 142.882 kg 143.2 kg Intake: Blood Product 1004 / 1004 Rbc Leuko Reduced Unit 504 / 504 [id number] Rbc Leuko Reduced Unit 500 / 500 [id number] Other: Urine Color Yellow Urine Appearance Clear Comment pt voided in toilet, urine was not measured. Unmeasure urine amount, pt voided outside the hat. Voiding Methods Toilet Toilet Data Completed and Pending Labs on day of discharge: Labs from last 24 hours 11/07/21 11/06/21 11/06/21 06:20 19:15 13:35 WBC 12.08 H RBC 3.36 L Hgb 8.0 L Hct 28.2 L MCV 83.9 MCH 23.8 L MCHC 28.4 L RDW 16.7 H Plt Count 447 H MPV 9.9 Immature Gran % 1.5 Neutrophils % 73.2 Lymphocytes % 16.6 Monocytes % 6.1 Eosinophils % 2.2 Basophils % 0.4 Nucleated RBC % 0 Absolute Neutrophils 8.84 H Absolute Lymphocytes 2.01 Absolute Monocytes 0.74 Absolute Eosinophils 0.27 Absolute Basophils 0.05 RBC Morphology See Below Polychromasia Present Hypochromasia 2+ Poikilocytosis D-Dimer Sodium Potassium Chloride Carbon Dioxide Anion Gap BUN Creatinine Estimated GFR/1.73 m2 Glucose Calcium Magnesium Total Bilirubin AST ALT Alkaline Phosphatase Troponin I 124 H* 141 H* NT-Pro-B Natriuret Pep Total Protein Albumin SARS-CoV-2 (PCR) Patient ABO/Rh Antibody Screen Crossmatch 11/06/21 11/06/21 11/06/21 12:45 12:21 11:25 WBC RBC Hgb Hct MCV MCH MCHC RDW Plt Count MPV Immature Gran % Neutrophils % Lymphocytes % Monocytes % Eosinophils % Basophils % Nucleated RBC % Absolute Neutrophils Absolute Lymphocytes Absolute Monocytes Absolute Eosinophils Absolute Basophils RBC Morphology Polychromasia Hypochromasia Poikilocytosis D-Dimer 644 H Sodium Potassium Chloride Carbon Dioxide Anion Gap BUN Creatinine Estimated GFR/1.73 m2 Glucose Calcium Magnesium Total Bilirubin AST ALT Alkaline Phosphatase Troponin I NT-Pro-B Natriuret Pep Total Protein Albumin SARS-CoV-2 (PCR) Patient ABO/Rh O Positive Cancelled Antibody Screen NEGATIVE Crossmatch See Detail 11/06/21 11/06/21 11/06/21 10:40 10:15 10:15 WBC 11.25 H RBC 2.94 L Hgb 6.8 L* Hct 24.3 L MCV 82.7 MCH 23.1 L MCHC 28.0 L RDW 16.7 H Plt Count 441 H MPV 9.9 Immature Gran % 1.7 Neutrophils % 71.9 Lymphocytes % 17.1 Monocytes % 6.6 Eosinophils % 2.3 Basophils % 0.4 Nucleated RBC % 1 Absolute Neutrophils 8.09 H Absolute Lymphocytes 1.92 Absolute Monocytes 0.74 Absolute Eosinophils 0.26 Absolute Basophils 0.05 RBC Morphology See Below Polychromasia Present Hypochromasia 2+ Poikilocytosis 2+ D-Dimer Sodium 136 Potassium 4.5 Chloride 104 Carbon Dioxide 21.4 Anion Gap 10.6 BUN 21 H Creatinine 1.0 Estimated GFR/1.73 m2 >= 60.00 Glucose 154 H Calcium 8.6 Magnesium 2.1 Total Bilirubin 0.3 AST 33 ALT 52 Alkaline Phosphatase 72 Troponin I 137 H* NT-Pro-B Natriuret Pep 595 H Total Protein 7.4 Albumin 3.5 SARS-CoV-2 (PCR) Negative Patient ABO/Rh Antibody Screen Crossmatch PFSH All Active Problems (Updated 11/08/21 @ 00:03 by TUTU CHI) Hypercholesteremia (Acute) Encounter for immunization (Acute) Tongue ulcer (Acute) Glossodynia (Acute) Fatigue (Acute) Tinnitus (Acute) Diabetic retinopathy (Acute ~11/23/19) 11/23/19 [place]; MILD RIGHT EYE Pulsatile tinnitus of both ears (Acute) Dizziness (Acute) Tongue lesion (Acute) Hx of dizziness (Acute) Smoker (Acute) Hepatic steatosis (Chronic) Major depressive disorder (Chronic) HLD (hyperlipidemia) (Chronic) 06/2017 labwork: 10-year ASCVD risk = ~42.9% --> patient declines a statin; good response to severely elevated TGs with Tricor Adult antisocial behavior (Chronic) Anastomotic stricture of colorectal region (Acute) Constipation (Acute) Ventral hernia (Chronic) Obesity (Acute 05/03/17) Microalbuminuria (Chronic 06/20/17) Male erectile dysfunction, unspecified (Chronic 04/08/17) Colovesical fistula (Acute 10/18/17) Antisocial personality disorder (Acute) Previous dx from psychiatry Intraoperative ureteral injury (Acute) Medical History YUDI (acute kidney injury) Colon abnormality (10/13/18) 10/13/18 Dr Manish Garcia ([facility]), unable to advance scope due to bienvenido protruding into colon, referred to [facility] [facility]. Delayed surgical wound healing Current visit yes Diverticulitis (10/18/17) Left ureteral injury Surgical History Appendectomy (03/16/18) Colectomy (01/17/18) sigmoid colectomy 05/23/18 - revision Cystoscopy (04/20/18) W/ (L) retrograde pyelogram. Dr. Strickland H/O resection of large bowel 05/23/18 Dr Diaz H/O ureter repair History of colostomy reversal S/P closure of ileostomy Family History Mother Heart disease Father Depression Sister No problems noted. Sister PKU (phenylketonuria) Social History Smoking/Tobacco Use Status: Current every day Tobacco: How many years used: 35 Quit status: considering quitting Smoking risk assessment performed?: Yes Alcohol Intake: former Drug use: Occasionally Substance use type: marijuana Caregiver/Support person: No Household members: none Housing: house Communication Needs: None Do you need help understanding health information?: Rarely Pets and animals: No Sexually active: No Do you think of yourself as: straight/heterosexual Current gender identity: male What is your relationship status?: refused to answer How often do you talk on the phone with friends or family?: decline to answer How often do you get together with friends or relatives?: decline to answer How often do you attend yazidism or druze services?: decline to answer Do you belong to any clubs or organized social groups?: no Panel score (0-1 are the most socially isolated patients): 0 What type of physical activity do you participate in: none Duration: < 15 minutes/day Isela/Mandaen: Zoroastrian Special isela needs: No Seatbelt use: never Helmet use: No Drive intox 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 otr company driver: No Working smoke detector in home: Yes Carbon monox detector in home: Yes Do you feel safe at home: Yes Do you feel safe in your relationship?: Yes
--- NOTE | 2021-11-07 13:25 | PDOC.CMDIS ---
- If Service Date Differs Date of service: 11/07/21 Time of Service: 13:25 LACE Index Scoring Tool - Questions: Length of Stay (in days): 1 Acuity (Admit via E.D.?): Yes E.D. Visits: 1 - Answers: Total Score: 5 Risk of Readmission: Low Risk Care Management Discharge Reason for Hospitalization: Acute Anemia Discharge Plan: Discharge home with no new services via private vehicle with family. Take new RX for Iron as prescribed and resume activity and diet as tolerated. Follow up with ENT, PCP and Oncology. Patient/Family Education Needs: Review discharge instructions, limitations, medications and plan to follow up with community providers. ask me three.
== END 2021-11-07 11:31 | disposition home or self-care (01) ==
LOC: ER 14:58 → MS 15:38
PROVIDERS: Admitting Provider Family Medicine; Emergency Provider Nurse Practitioner Family; PCP Nurse Practitioner Family; Visit Provider Family Medicine
DX: D50.0 Iron deficiency anemia secondary to blood loss (chronic) (principal); C02.9 Malignant neoplasm of tongue, unspecified; I10 Essential (primary) hypertension; R06.02 Shortness of breath; Z23 Encounter for immunization; Z79.4 Long term (current) use of insulin; E78.5 Hyperlipidemia, unspecified; F17.210 Nicotine dependence, cigarettes, uncomplicated; K76.0 Fatty (change of) liver, not elsewhere classified; I35.0 Nonrheumatic aortic (valve) stenosis; F41.8 Other specified anxiety disorders; E66.9 Obesity, unspecified; K59.00 Constipation, unspecified; Z68.41 Body mass index [BMI] 40.0-44.9, adult; E11.319 Type 2 diabetes mellitus with unspecified diabetic retinopathy without macular edema; F60.2 Antisocial personality disorder
CPT/HCPCS: 36415; 36430; 71275; 74177; 80053; 86850; 86900; 86901; 86920; 87635; 90686; 93005; 99285; 83735; 83880; 84484; 85025; 85379; 93010; 99217; 99219; 99222; G0378; J3490; P9016

== ENCOUNTER 2021-11-11 01:42 | Outpatient (CLI) | payer MEDICARE, MEDICAID, SELFPAY ==
--- NOTE | 2021-11-11 14:20 | ST.MBS_ITS ---
Date of Service Date of service: 11/11/21 Time of Service: 14:20 Modified Barium Swallow Study Findings: Videofluoroscopic Swallowing Evaluation (VFSE) / Modified Barium Swallow Study (MBSS) Speech Language Pathology Report HPI: Patient is a 55 year old male referred for VFSE/MBSS from Dr. 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 Tentative plan for [employer] to begin 11/17/21 per Oncology care team discussion as of 11/11/21. PMHx: All Active Problems? Hypercholesteremia (Acute) Encounter for immunization (Acute) Tongue ulcer (Acute) Glossodynia (Acute) Fatigue (Acute) Tinnitus (Acute) Diabetic retinopathy (Acute ~11/23/19) 11/23/19 [place]; MILD RIGHT EYE Pulsatile tinnitus of both ears (Acute) Dizziness (Acute) Tongue lesion (Acute) Hx of dizziness (Acute) Smoker (Acute) Hepatic steatosis (Chronic) Major depressive disorder (Chronic) HLD (hyperlipidemia) (Chronic) 06/2017 labwork: 10-year ASCVD risk = ~42.9% --> patient declines a statin; good response to severely elevated TGs with TricorAdult antisocial behavior (Chronic) Anastomotic stricture of colorectal region (Acute) Constipation (Acute) Ventral hernia (Chronic) Obesity (Acute 05/03/17) Microalbuminuria (Chronic 06/20/17) Male erectile dysfunction, unspecified (Chronic 04/08/17) Colovesical fistula (Acute 10/18/17) Antisocial personality disorder (Acute) Previous dx from psychiatry Intraoperative ureteral injury (Acute) Medical History? YUDI (acute kidney injury) Colon abnormality (10/13/18) 10/13/18 Dr Manish Garcia ([facility]), unable to advance scope due to bienvenido protruding into colon, referred to [facility].Delayed surgical wound healing Current visit yesDiverticulitis (10/18/17) Left ureteral injury Surgical History? Appendectomy (03/16/18) Colectomy (01/17/18) sigmoid colectomy 05/23/18 - revision Cystoscopy (04/20/18) W/ (L) retrograde pyelogram. Dr. Treviño/O resection of large bowel 05/23/18 Dr LarsenH/O ureter repair History of colostomy reversal S/P closure of ileostomy Previous Imaging: No previous VFSE/MBSS available for review. SUBJECTIVE: Patient reports less odynophagia (3-4/10), less dyspnea relative to most recent [employer] evaluation on 11/09/21. Patient is agreeable to VFSE/MBSS today, demonstrates comprehension of current risk management strategies which were reviewed with [employer] after study was completed. IMPRESSIONS: Swallow safety is impaired; swallow efficiency is impaired. Moderate oropharyngeal dysphagia, characterized by delayed initiation of pharyngeal swallow (more delayed with liquids), reduced velar elevation, reduced laryngeal elevation, reduced anterior hyoid excursion, reduced epiglottic movement, incomplete laryngeal vestibule closure, and diminished pharyngeal stripping wave, resulting in (silent) aspiration after initial swallow onset (primarily from pharyngeal stasis of less viscous liquids within/on supraglottic mass); lack of expected reflexive sensory response (ie cough) to aspiration events suggests reduced sensation at laryngeal level; suspect current dysphagia presentation due to reduced range of motion of hyolaryngeal complex, in context of supraglottic SCCa mass (bilateral aryepiglottic folds, left aryepiglottic cartilage, BOT, valleculae) and lymphedema in submental/submandibular region of neck, and suspected reduced sensation at laryngeal level. Patient appears to be at moderate-high risk for potential aspiration PNA and/or pulmonary compromise and low-moderate for malnutrition, low-moderate risk for dehydration. Diet modification is indicated, prophylactic non-oral nutrition is indicated given plan for [employer]CE. Swallow prognosis is good-fair given age, extent of supraglottic SCCa, continuation of tobacco use, and pending patient/caregiver training in risk management as outlined, including use of trialed compensatory strategies as outlined above. Patient appears to be a good-fair candidate for behavioral swallow rehabilitation. Specialist referrals: N/A - Continue medical mgmt per [facility] team. Ancillary tests: Recommend follow up/repeat VFSE/MBSS upon completion of [employer] Diet texture recommendation: IDDSI Level 6-Soft & Bite-Sized Solids 0-Thin Liquids with risk management strategies as outlined below. Please see further details at [email or web address] Diet texture modification is per patient's preference; please adjust diet textures at patient's discretion & collaboration with care team. Risk Management: Liquids/Mixed Consistencies: 1. Small sips, approx 10 mL or less with head turn to Left for swallow initiation 2. Cough + 'dry' (effortful) re-swallow with head turn to Left per liquid bolus to encourage clearance of pharyngeal stasis/residue prior to subsequent bite/sip Solids - Small bites, approx [id number] (no head turn needed) - Full mastication *IDDSI Level 6 / soft/bite-sized Other - Alternate solids/liquids as able - Control risk factors for aspiration pneumonia via (a) thorough oral hygiene & (b) maintaining physical mobility as tolerated PLAN: Therapy: Recommend subsequent outpatient session with [employer] to review results of today's exam and develop treatment plan as appropriate. Goal: TBD pending patient/caregiver interview Follow-up exam: Recommend follow up/repeat VFSE/MBSS upon completion of [employer] Thank you for allowing me to take part in this patient's care. Please feel free to contact me with any questions/concerns. Safia Ames MA [facility]-[employer] Speech Language Pathologist [phone] OBJECTIVE: Videofluoroscopic Swallow Evaluation (VFSE/MBSS) was conducted in the lateral and [id number] projections by Speech-Language Pathologist, in collaboration with Radiologist, to evaluate oropharyngeal swallow function. Anatomic view under fluoroscopy: Other - supraglottic mass is visible under fluoro imaging; ie, at level of aryepiglottic folds, aryepiglottic cartilage, BOT, valleculae; this, combined with patient's larger frame/constriction of upper shoulders during fluoro imaging, does inhibit full lateral view of pharyngeal and esophageal swallow at times throughout study PO Barium Contrast Trials Oral barium water-soluble contrast was administered as follows: IDDSI Level 0 Varibar thin liquid (40% w/v) IDDSI Level 2 Varibar nectar thick/mildly thick liquid (40% w/v) IDDSI Level 3 Varibar thin honey/liquidised/moderately-thick (40% w/v) IDDSI Level 4 Varibar pudding/pureed/extremely thick (40% w/v) IDDSI Level 7 Regular Solid: 1/2 jackie cracker coated in 3 mL Varibar pudding; 13 mm barium tablet PHYSIOLOGIC FINDINGS (1) Oral Impairment 1 Lip Closure 0-No labial escape 2 Tongue Control 0- Cohesive bolus between tongue to palatal seal 3 Bolus Preparation/Mastication 0- Timely and efficient chewing/mashing 4 Bolus Transport/Lingual Motion 0- Brisk tongue motion 5 Oral residue 1- Trace residue lining oral structures Location tongue 6 Initiation of pharyngeal swallow 1- Bolus head in valleculae 3- Bolus head in pyriform sinus *initiates at valleculae for solid textures, pyriform sinus for less viscous liquids (ie IDDSI 0/1/2) Pharyngeal Impairment 7 Velar Elevation 1- Trace column of contrast or air between soft palate and pharyngeal wall 8 Laryngeal Elevation 2- Minimal superior movement of thyroid cartilage with minimal approximation of arytenoids to epiglottic petiole 9 Anterior Hyoid Excursion 1- Partial anterior movement *reduced anterior ROM 10 Epiglottic Movement 1- Partial inversion *view obstructed by suprglottic mass at times, difficulties with ID of epiglottis 11 Laryngeal Vestibule Closure 1- Incomplete; narrow column of air/contrast in laryngeal vestibule Penetration occurs during initial swallow onset from current bolus, occasionally from pharyngeal stasis Aspiration occurs after initial swallow onset from pharyngeal stasis; suggests reduced laryngeal sensation PAS / Overall 8-Point Penetration-Aspiration Scale (2) 8 - Material enters the airway passes below the vocal folds and no effort is made to eject Clinical Indicator(s) of Prandial/Postprandial Aspiration Throat Clear (inconsistent), Wet vocal quality 12 Pharyngeal Stripping Wave 1- Present; diminished 13 Pharyngeal Contraction 0- Complete 14 PES/UES Opening 0- Complete distension and complete duration; no obstruction of flow 15 Tongue Base Retraction 1- Trace column of contrast between tongue base and posterior pharyngeal wall 16 Pharyngeal residue 2- Collection of residue within or on pharyngeal structures Location [place] Pharyngeal Residue Severity Rating Scale(3) Diffuse; >3 areas Tongue base - Trace Valleculae III Mild-Moderate 5-30% *View of epiglottic ligament obscured by mass; residue noted within/on supraglottic mass increases with less viscous liquids (IDDSI 0/1/2); more viscous textures are cleared from vallecular space more easily with secondary swallow (vs thin liquid wash) Pyriform sinuses II Trace 1-5% Trace coating Aryepiglottic folds - Mild *view of true AE folds also obscured by mass Esophageal Impairment 17 Esophageal Clearance in Upright Position 0-Complete clearance; esophageal coating Notes: This study was performed for interpretation only of the oropharyngeal and pharyngoesophageal domains of swallowing, and is not intended to diagnose any other radiologic abnormalities or substitute for a formal esophagram study. DIGEST Scale Rating (4) Interaction of Assigned Safety and Efficiency Grades (0=No Impairment, 1=Mild, 2=Moderate, 3=Severe, 4=Life Threatening) Safety Gradel S0 S1 S2 S3 S4 Efficiency Grade E0 0 1 2 3 3 E1 1 1 2 3 3 E2 1 2 2 3 3 E3 2 2 3 3 4 E4 3 3 3 4 4 Overall Moderate Pharyngeal Impairment - Above score(s) represent swallowing events without application of compensatory techniques ALBARO: (5) Severity LEVEL 3 - Full PO: modified diet and/or independence - Moderate dysphagia; strategies required for airway protection, 2 or more diet consistencies restricted Trialed Compensatory Strategies & Outcome: Maneuvers Successful/Unsuccessful (+/-) Postures Successful/Unsuccessful (+/-) 3 second Preparatory Set + Chin Tuck Posture DNT Cough Posterior Head tilt DNT Reflexive N/A not initiated by patient Cued + Throat Clear Head Tilt to Reflexive - Left DNT Cued - Right DNT Saliva swallow x1-2 + (reduces residue to trace-mild) Head Turn/Rotation to Supraglottic Swallow DNT Left + *most successful in reducing pharyngeal residue and resulting aspiration if bolus volume approx 10mL or less - does not appear to reduce aspiration from pharyngeal residue with larger bolus volumes or sequential swallows of thin liquids Super-supraglottic Swallow DNT Right DNT Bolus Modifications Successful/Unsuccessful (+/-) Delivery/Alternating Consistencies N/A Delivery/Via Straw DNT Reduced Volume + Reduced Rate of Intake + Increased Viscosity + Other: Coding CPT Codes MOTION FLUOROSCOPY/SWALLOW - 33571 ([id number]) 1: Lb Sethi. ?MBS measurement tool for swallow impairment--MBSImp: establishing a standard.? Dysphagia vol. 23,4 (2008): 392-405. doi:10.1007/h67907-459-4895-8 2: (thanh Cancino, 1996) 3: (Mendel et al, 2015) 4: (OKassandra, et al, 1999, Kobe, et al. Cancer. 2017;123(1):62-70) The Dynamic Imaging Grade of Swallowing Toxicity (DIGEST) Score represents a set of structured criteria primarily validated for head and neck cancer patients to grade the interaction of safety, efficiency, and overall impairment of the pharyngeal swallow, meant to assist in prioritization of targets for dysphagia treatment planning. 5: The Dysphagia Outcome and Severity Scale is a 7-point scale developed to systematically rate the functional severity of dysphagia based on objective assessment and make recommendations for diet level, independence level, and type of nutrition.
[2021-11-11] MEDS: Barium Sulfate 81% w/w for Oral Suspension 148 GM BTL 80 GM PO (15:00)
[2021-11-11] MEDS: Barium Sulfate 40% W/V 1500 CPS 250 ML BTL PO (15:01)
[2021-11-11] MEDS: Barium Sulfate 40% W/V 240 ML BTL 70 ML PO (15:02)
[2021-11-11] MEDS: Barium Sulfate 700 MG TAB PO (15:03)
[2021-11-11] MEDS: Barium Sulfate Oral Paste 40% W/V 230 ML TUBE 13 ML PO (15:03)
--- NOTE | 2021-11-11 15:06 | DI.RAD_ITS ---
Exam(s) RF MODIFIED SPEECH BA SWALLOW TECHNIQUE: Modified barium swallow was performed in conjunction with speech pathology. CONTRAST MATERIAL: Oral barium Oral water soluble contrast was administered. COMPARISON: No exams were available for comparison FINDINGS: Note that this is not a dedicated esophagram, distal esophagus not evaluated. There is no evidence of aspiration of thick or thin liquids, barium coated apple sauce, cottage chees e or cookies. Penetration of thin liquids did occur during the examination. A barium tablet passed into the stomach without difficulty. Speech pathology report to follow. IMPRESSION: 1. No evidence of aspiration. 2. Penetration of thin liquids did occur during the examination. RADIATION DOSE DELIVERED: Kar= mGy
== END 2021-11-11 02:02 ==
PROVIDERS: PCP Nurse Practitioner Family; Visit Provider Preventive Medicine Undersea and Hyperbaric Medicine
DX: R13.12 Dysphagia, oropharyngeal phase (principal); C32.1 Malignant neoplasm of supraglottis; C13.1 Malignant neoplasm of aryepiglottic fold, hypopharyngeal aspect; F17.210 Nicotine dependence, cigarettes, uncomplicated
CPT/HCPCS: 92611; 74221

== ENCOUNTER 2021-11-23 01:20 | Outpatient (RCR) | payer MEDICARE, MEDICAID, SELFPAY ==
[2021-11-12 13:13] LABS: Abs Immature Grans 0.16 10^3/uL (0.0-0.06); Absolute Basophil Count 0.09 10^3/uL (0.0-0.2); Absolute Eosinophil Count 0.21 10^3/uL (0.0-0.7); Absolute Lymphocyte Count 2.55 10^3/uL (1.2-3.4); Absolute Monocyte Count 0.73 10^3/uL (0.1-0.8); Absolute Neutrophil Count 8.83 10^3/uL (1.2-6.7); Basophils % 0.7; Eosinophils % 1.7; HCT 30.9 % (40.0-50.0); HGB 8.6 g/dL (13.5-17.5); Immature Grans % 1.3; Lymphocytes % 20.3; MCH 23.8 pg (27.0-33.0); MCHC 27.8 % (32.0-36.0); MCV 85.6 fL (80-95); MPV 10.1 fL (8.0-11.0); Monocytes % 5.8; Neutrophils % 70.2; Nucleated RBC 0 %; Platelet Count 430 10^3/uL (130-400); RBC 3.61 10^6/uL (4.36-5.78); RDW-SD 56.7 fL; WBC 12.58 10^3/uL (4.4-10.8)
[2021-11-12 13:45] LABS: ALT 56 U/L (16-63); AST 26 U/L (15-37); Albumin 3.9 g/dL (3.4-5.0); Alkaline Phosphatase 68 U/L (46-116); Anion Gap 11.3 mmol/L (3-11); BUN 19 mg/dL (7-18); Bilirubin, Total 0.4 mg/dL (0.2-1.0); CO2 24.7 mmol/L (21.0-32.0); Calcium 9.5 mg/dL (8.5-10.1); Chloride 104 mmol/L (98-107); Glucose 86 mg/dL (74-106); Potassium 4.3 mmol/L (3.5-5.1); Sodium 140 mmol/L (136-145); Total Protein 7.9 g/dL (6.4-8.2)
[2021-11-23] MEDS: Normal Saline Flush 10 ML SYR IVP (12:37)
[2021-11-23] MEDS: Heparin 500 UNITS/5 ML SYRINGE (12:37)
[2021-11-23 13:07] LABS: Abs Immature Grans 0.05 10^3/uL (0.0-0.06); Absolute Basophil Count 0.07 10^3/uL (0.0-0.2); Absolute Eosinophil Count 0.26 10^3/uL (0.0-0.7); Absolute Lymphocyte Count 1.61 10^3/uL (1.2-3.4); Absolute Monocyte Count 0.77 10^3/uL (0.1-0.8); Absolute Neutrophil Count 7.29 10^3/uL (1.2-6.7); Basophils % 0.7; Eosinophils % 2.6; HCT 34.1 % (40.0-50.0); HGB 9.7 g/dL (13.5-17.5); Immature Grans % 0.5; MCH 24.6 pg (27.0-33.0); MCHC 28.4 % (32.0-36.0); MCV 86.5 fL (80-95); MPV 9.5 fL (8.0-11.0); Monocytes % 7.7; Neutrophils % 72.5; Nucleated RBC 0 %; Platelet Count 587 10^3/uL (130-400); RBC 3.94 10^6/uL (4.36-5.78); RDW 18.9 % (11.8-14.1); RDW-SD 59.7 fL; WBC 10.05 10^3/uL (4.4-10.8)
[2021-11-23 13:18] LABS: ALT 38 U/L (16-63); AST 18 U/L (15-37); Albumin 3.7 g/dL (3.4-5.0); Alkaline Phosphatase 72 U/L (46-116); Anion Gap 8.1 mmol/L (3-11); BUN 20 mg/dL (7-18); Bilirubin, Total 0.2 mg/dL (0.2-1.0); CO2 28.9 mmol/L (21.0-32.0); CREATININE 0.9 mg/dL (0.70-1.30); Calcium 9.1 mg/dL (8.5-10.1); Chloride 103 mmol/L (98-107); Glucose 86 mg/dL (74-106); Potassium 4.3 mmol/L (3.5-5.1); Sodium 140 mmol/L (136-145); Total Protein 7.6 g/dL (6.4-8.2)
== END 2021-11-23 23:59 | disposition home or self-care (01) ==
LOC: INF 01:20
PROVIDERS: PCP Nurse Practitioner Family; Visit Provider Internal Medicine Hematology & Oncology
DX: D50.0 Iron deficiency anemia secondary to blood loss (chronic) (principal); Z45.2 Encounter for adjustment and management of vascular access device
CPT/HCPCS: 36415; 36591; 80053; 86900; 86901; 83735; 85025

== ENCOUNTER 2021-12-21 02:22 | Outpatient (RCR) | payer MEDICARE, MEDICAID, SELFPAY ==
[2021-11-30] MEDS: Normal Saline Flush 10 ML SYR IVP (12:24)
[2021-11-30 12:32] LABS: Abs Immature Grans 0.06 10^3/uL (0.0-0.06); Absolute Basophil Count 0.06 10^3/uL (0.0-0.2); Absolute Eosinophil Count 0.15 10^3/uL (0.0-0.7); Absolute Lymphocyte Count 1.28 10^3/uL (1.2-3.4); Absolute Monocyte Count 0.65 10^3/uL (0.1-0.8); Absolute Neutrophil Count 5.43 10^3/uL (1.2-6.7); Basophils % 0.8; HCT 33.7 % (40.0-50.0); HGB 9.7 g/dL (13.5-17.5); Immature Grans % 0.8; Lymphocytes % 16.8; MCHC 28.8 % (32.0-36.0); MCV 86.9 fL (80-95); MPV 9.1 fL (8.0-11.0); Monocytes % 8.5; Neutrophils % 71.1; Nucleated RBC 0 %; Platelet Count 447 10^3/uL (130-400); RBC 3.88 10^6/uL (4.36-5.78); RDW 18.5 % (11.8-14.1); RDW-SD 58.6 fL; WBC 7.63 10^3/uL (4.4-10.8)
[2021-11-30 12:52] LABS: ALT 35 U/L (16-63); AST 15 U/L (15-37); Albumin 3.6 g/dL (3.4-5.0); Alkaline Phosphatase 73 U/L (46-116); Anion Gap 8.9 mmol/L (3-11); BUN 18 mg/dL (7-18); Bilirubin, Total 0.1 mg/dL (0.2-1.0); CO2 29.1 mmol/L (21.0-32.0); CREATININE 0.8 mg/dL (0.70-1.30); Calcium 9.5 mg/dL (8.5-10.1); Chloride 105 mmol/L (98-107); Glucose 108 mg/dL (74-106); Potassium 4.1 mmol/L (3.5-5.1); Sodium 143 mmol/L (136-145); Total Protein 7.3 g/dL (6.4-8.2)
[2021-12-07] MEDS: Normal Saline Flush 10 ML SYR IVP (12:00)
[2021-12-07] MEDS: Heparin 500 UNITS/5 ML SYRINGE (12:00)
[2021-12-07 12:22] LABS: Abs Immature Grans 0.03 10^3/uL (0.0-0.06); Absolute Basophil Count 0.03 10^3/uL (0.0-0.2); Absolute Eosinophil Count 0.13 10^3/uL (0.0-0.7); Absolute Lymphocyte Count 0.85 10^3/uL (1.2-3.4); Absolute Monocyte Count 0.44 10^3/uL (0.1-0.8); Absolute Neutrophil Count 6.43 10^3/uL (1.2-6.7); Basophils % 0.4; Eosinophils % 1.6; HCT 36.5 % (40.0-50.0); HGB 10.2 g/dL (13.5-17.5); Immature Grans % 0.4; Lymphocytes % 10.7; MCH 24.5 pg (27.0-33.0); MCHC 27.9 % (32.0-36.0); MCV 87.5 fL (80-95); MPV 9.4 fL (8.0-11.0); Monocytes % 5.6; Neutrophils % 81.3; Nucleated RBC 0 %; Platelet Count 352 10^3/uL (130-400); RBC 4.17 10^6/uL (4.36-5.78); RDW 18.7 % (11.8-14.1); RDW-SD 60.3 fL; WBC 7.91 10^3/uL (4.4-10.8)
[2021-12-07 12:37] LABS: ALT 29 U/L (16-63); AST 13 U/L (15-37); Albumin 3.6 g/dL (3.4-5.0); Alkaline Phosphatase 64 U/L (46-116); Anion Gap 8.4 mmol/L (3-11); BUN 15 mg/dL (7-18); Bilirubin, Total 0.2 mg/dL (0.2-1.0); CO2 27.6 mmol/L (21.0-32.0); Calcium 9.2 mg/dL (8.5-10.1); Chloride 104 mmol/L (98-107); Diff Comment RBC Morph Reviewed; Glucose 163 mg/dL (74-106); Hypochromasia 1+; Magnesium 1.6 mg/dL (1.8-2.4); Potassium 4.4 mmol/L (3.5-5.1); Sodium 140 mmol/L (136-145); Total Protein 7.4 g/dL (6.4-8.2)
[2021-12-14] MEDS: Normal Saline Flush 10 ML SYR IVP (07:31)
[2021-12-14 07:38] LABS: Abs Immature Grans 0.02 10^3/uL (0.0-0.06); Absolute Basophil Count 0.03 10^3/uL (0.0-0.2); Absolute Eosinophil Count 0.17 10^3/uL (0.0-0.7); Absolute Lymphocyte Count 0.67 10^3/uL (1.2-3.4); Absolute Monocyte Count 0.62 10^3/uL (0.1-0.8); Absolute Neutrophil Count 5.39 10^3/uL (1.2-6.7); Basophils % 0.4; Eosinophils % 2.5; HCT 39.9 % (40.0-50.0); HGB 11.2 g/dL (13.5-17.5); Immature Grans % 0.3; Lymphocytes % 9.7; MCH 24.6 pg (27.0-33.0); MCHC 28.1 % (32.0-36.0); MCV 87.5 fL (80-95); Neutrophils % 78.1; Nucleated RBC 0 %; Platelet Count 352 10^3/uL (130-400); RBC 4.56 10^6/uL (4.36-5.78); RDW-SD 54.6 fL
[2021-12-14 07:53] LABS: ALT 25 U/L (16-63); AST 12 U/L (15-37); Albumin 3.7 g/dL (3.4-5.0); Alkaline Phosphatase 70 U/L (46-116); Anion Gap 6.2 mmol/L (3-11); BUN 18 mg/dL (7-18); Bilirubin, Total 0.2 mg/dL (0.2-1.0); CO2 30.8 mmol/L (21.0-32.0); Calcium 9.1 mg/dL (8.5-10.1); Chloride 101 mmol/L (98-107); Glucose 132 mg/dL (74-106); Magnesium 1.9 mg/dL (1.8-2.4); Potassium 4.3 mmol/L (3.5-5.1); Sodium 138 mmol/L (136-145); Total Protein 7.7 g/dL (6.4-8.2)
[2021-12-21] MEDS: Normal Saline Flush 10 ML SYR IVP (08:26)
[2021-12-21 08:34] LABS: Abs Immature Grans 0.04 10^3/uL (0.0-0.06); Absolute Basophil Count 0.04 10^3/uL (0.0-0.2); Absolute Lymphocyte Count 0.54 10^3/uL (1.2-3.4); Absolute Monocyte Count 0.61 10^3/uL (0.1-0.8); Absolute Neutrophil Count 7.33 10^3/uL (1.2-6.7); Basophils % 0.5; Eosinophils % 2.3; Immature Grans % 0.5; Lymphocytes % 6.2; MCH 24.6 pg (27.0-33.0); MCHC 28.6 % (32.0-36.0); MCV 86.1 fL (80-95); MPV 9.2 fL (8.0-11.0); Neutrophils % 83.5; Nucleated RBC 0 %; Platelet Count 405 10^3/uL (130-400); RBC 4.88 10^6/uL (4.36-5.78); RDW 16.3 % (11.8-14.1); RDW-SD 51.8 fL; WBC 8.76 10^3/uL (4.4-10.8)
[2021-12-21 08:47] LABS: ALT 22 U/L (16-63); AST 12 U/L (15-37); Albumin 3.7 g/dL (3.4-5.0); Alkaline Phosphatase 78 U/L (46-116); Anion Gap 6.5 mmol/L (3-11); BUN 15 mg/dL (7-18); Bilirubin, Total 0.2 mg/dL (0.2-1.0); CO2 30.5 mmol/L (21.0-32.0); CREATININE 0.9 mg/dL (0.70-1.30); Calcium 8.9 mg/dL (8.5-10.1); Chloride 103 mmol/L (98-107); Glucose 96 mg/dL (74-106); Magnesium 1.9 mg/dL (1.8-2.4); Potassium 4.6 mmol/L (3.5-5.1); Sodium 140 mmol/L (136-145); Total Protein 7.8 g/dL (6.4-8.2)
== END 2021-12-24 23:59 | disposition home or self-care (01) ==
LOC: INF 02:22
PROVIDERS: PCP Nurse Practitioner Family; Visit Provider Internal Medicine Hematology & Oncology
DX: D50.0 Iron deficiency anemia secondary to blood loss (chronic) (principal); C32.1 Malignant neoplasm of supraglottis; Z45.2 Encounter for adjustment and management of vascular access device
CPT/HCPCS: 36591; 80053; 83735; 85025

== ENCOUNTER 2022-01-11 09:30 | Outpatient (RCR) | payer MEDICARE, MEDICAID, SELFPAY ==
[2021-12-28] MEDS: Normal Saline Flush 10 ML SYR IVP ×2 (09:20→15:00)
[2021-12-28 09:26] LABS: Abs Immature Grans 0.04 10^3/uL (0.0-0.06); Absolute Basophil Count 0.03 10^3/uL (0.0-0.2); Absolute Eosinophil Count 0.18 10^3/uL (0.0-0.7); Absolute Lymphocyte Count 0.43 10^3/uL (1.2-3.4); Absolute Monocyte Count 0.63 10^3/uL (0.1-0.8); Basophils % 0.3; Eosinophils % 1.8; HCT 42.5 % (40.0-50.0); HGB 12.6 g/dL (13.5-17.5); Immature Grans % 0.4; Lymphocytes % 4.3; MCH 25.3 pg (27.0-33.0); MCHC 29.6 % (32.0-36.0); MCV 85.2 fL (80-95); MPV 9.4 fL (8.0-11.0); Monocytes % 6.2; Nucleated RBC 0 %; Platelet Count 385 10^3/uL (130-400); RBC 4.99 10^6/uL (4.36-5.78); RDW 15.9 % (11.8-14.1); RDW-SD 49.8 fL; WBC 10.11 10^3/uL (4.4-10.8)
[2021-12-28 09:50] LABS: ALT 24 U/L (16-63); AST 16 U/L (15-37); Albumin 3.6 g/dL (3.4-5.0); Alkaline Phosphatase 82 U/L (46-116); Anion Gap 5.3 mmol/L (3-11); BUN 10 mg/dL (7-18); Bilirubin, Total 0.3 mg/dL (0.2-1.0); CO2 30.7 mmol/L (21.0-32.0); CREATININE 0.8 mg/dL (0.70-1.30); Calcium 9.1 mg/dL (8.5-10.1); Chloride 103 mmol/L (98-107); Glucose 106 mg/dL (74-106); Magnesium 1.8 mg/dL (1.8-2.4); Potassium 4.6 mmol/L (3.5-5.1); Sodium 139 mmol/L (136-145); Total Protein 7.7 g/dL (6.4-8.2)
[2021-12-28] MEDS: Heparin 500 UNITS/5 ML SYRINGE (15:00)
[2022-01-04] MEDS: Normal Saline Flush 10 ML SYR IVP (09:05)
[2022-01-04 09:17] LABS: Abs Immature Grans 0.04 10^3/uL (0.0-0.06); Absolute Basophil Count 0.04 10^3/uL (0.0-0.2); Absolute Lymphocyte Count 0.45 10^3/uL (1.2-3.4); Absolute Monocyte Count 0.68 10^3/uL (0.1-0.8); Absolute Neutrophil Count 8.82 10^3/uL (1.2-6.7); Basophils % 0.4; HCT 42.9 % (40.0-50.0); HGB 12.4 g/dL (13.5-17.5); Immature Grans % 0.4; Lymphocytes % 4.4; MCH 24.3 pg (27.0-33.0); MCHC 28.9 % (32.0-36.0); MPV 9.6 fL (8.0-11.0); Monocytes % 6.6; Neutrophils % 86.2; Nucleated RBC 0 %; Platelet Count 410 10^3/uL (130-400); RBC 5.11 10^6/uL (4.36-5.78); RDW 15.5 % (11.8-14.1); RDW-SD 47.6 fL; WBC 10.23 10^3/uL (4.4-10.8)
[2022-01-04 09:30] LABS: ALT 24 U/L (16-63); AST 13 U/L (15-37); Albumin 3.5 g/dL (3.4-5.0); Alkaline Phosphatase 83 U/L (46-116); BUN 11 mg/dL (7-18); Bilirubin, Total 0.2 mg/dL (0.2-1.0); CREATININE 0.8 mg/dL (0.70-1.30); Calcium 8.8 mg/dL (8.5-10.1); Chloride 103 mmol/L (98-107); Glucose 125 mg/dL (74-106); Magnesium 1.9 mg/dL (1.8-2.4); Potassium 4.5 mmol/L (3.5-5.1); Sodium 140 mmol/L (136-145); Total Protein 7.5 g/dL (6.4-8.2)
[2022-01-11] MEDS: Heparin 500 UNITS/5 ML SYRINGE (13:25)
[2022-01-11] MEDS: Normal Saline Flush 10 ML SYR IVP (13:25)
[2022-01-11 13:32] LABS: Abs Immature Grans 0.02 10^3/uL (0.0-0.06); Absolute Basophil Count 0.03 10^3/uL (0.0-0.2); Absolute Eosinophil Count 0.24 10^3/uL (0.0-0.7); Absolute Monocyte Count 0.55 10^3/uL (0.1-0.8); Basophils % 0.4; Eosinophils % 2.9; HCT 43.7 % (40.0-50.0); HGB 12.7 g/dL (13.5-17.5); Immature Grans % 0.2; MCH 24.1 pg (27.0-33.0); MCHC 29.1 % (32.0-36.0); MCV 83.1 fL (80-95); MPV 9.1 fL (8.0-11.0); Monocytes % 6.6; Neutrophils % 83.9; Platelet Count 395 10^3/uL (130-400); RBC 5.26 10^6/uL (4.36-5.78); RDW 15.4 % (11.8-14.1); RDW-SD 46.5 fL; WBC 8.34 10^3/uL (4.4-10.8)
[2022-01-11 13:46] LABS: ALT 22 U/L (16-63); AST 12 U/L (15-37); Albumin 3.6 g/dL (3.4-5.0); Alkaline Phosphatase 87 U/L (46-116); Anion Gap 4.2 mmol/L (3-11); BUN 13 mg/dL (7-18); Bilirubin, Total 0.3 mg/dL (0.2-1.0); CO2 32.8 mmol/L (21.0-32.0); CREATININE 0.9 mg/dL (0.70-1.30); Calcium 9.4 mg/dL (8.5-10.1); Chloride 101 mmol/L (98-107); Glucose 110 mg/dL (74-106); Magnesium 1.8 mg/dL (1.8-2.4); Potassium 4.8 mmol/L (3.5-5.1); Sodium 138 mmol/L (136-145); Total Protein 7.7 g/dL (6.4-8.2)
== END 2022-01-23 23:59 | disposition home or self-care (01) ==
LOC: INF 09:30
PROVIDERS: PCP Nurse Practitioner Family; Visit Provider Internal Medicine Hematology & Oncology
DX: C32.1 Malignant neoplasm of supraglottis (principal); D50.0 Iron deficiency anemia secondary to blood loss (chronic); Z45.2 Encounter for adjustment and management of vascular access device
CPT/HCPCS: 36591; 80053; 87040; 83735; 85025

== ENCOUNTER 2022-01-29 01:54 | Outpatient (RCR) | payer MEDICARE, MEDICAID, SELFPAY ==
[2022-01-29] MEDS: Heparin 500 UNITS/5 ML SYRINGE (12:03)
[2022-01-29] MEDS: Normal Saline Flush 10 ML SYR IVP (12:03)
[2022-01-29 12:23] LABS: Abs Immature Grans 0.06 10^3/uL (0.0-0.06); Absolute Basophil Count 0.05 10^3/uL (0.0-0.2); Absolute Eosinophil Count 0.32 10^3/uL (0.0-0.7); Absolute Lymphocyte Count 0.72 10^3/uL (1.2-3.4); Absolute Monocyte Count 0.67 10^3/uL (0.1-0.8); Absolute Neutrophil Count 6.75 10^3/uL (1.2-6.7); Basophils % 0.6; Eosinophils % 3.7; HCT 41.8 % (40.0-50.0); HGB 12.2 g/dL (13.5-17.5); Immature Grans % 0.7; Lymphocytes % 8.4; MCH 23.6 pg (27.0-33.0); MCHC 29.2 % (32.0-36.0); MCV 81 fL (80-95); MPV 9.5 fL (8.0-11.0); Monocytes % 7.8; Neutrophils % 78.8; Platelet Count 458 10^3/uL (130-400); RBC 5.16 10^6/uL (4.36-5.78); RDW 15.9 % (11.8-14.1); RDW-SD 46.5 fL; WBC 8.57 10^3/uL (4.4-10.8)
[2022-01-29 12:26] LABS: ALT 22 U/L (16-63); AST 10 U/L (15-37); Albumin 3.4 g/dL (3.4-5.0); Alkaline Phosphatase 85 U/L (46-116); Anion Gap 7.6 mmol/L (3-11); BUN 13 mg/dL (7-18); Bilirubin, Total 0.2 mg/dL (0.2-1.0); CO2 29.4 mmol/L (21.0-32.0); CREATININE 0.9 mg/dL (0.70-1.30); Calcium 8.9 mg/dL (8.5-10.1); Chloride 103 mmol/L (98-107); Glucose 120 mg/dL (74-106); Potassium 4.6 mmol/L (3.5-5.1); Sodium 140 mmol/L (136-145); Total Protein 7.7 g/dL (6.4-8.2)
== END 2022-02-23 23:59 | disposition home or self-care (01) ==
LOC: INF 01:54
PROVIDERS: PCP Nurse Practitioner Family; Visit Provider Internal Medicine Hematology & Oncology
DX: D50.0 Iron deficiency anemia secondary to blood loss (chronic) (principal); Z45.2 Encounter for adjustment and management of vascular access device
CPT/HCPCS: 36591; 80053; 83735; 85025

== ENCOUNTER 2022-04-23 08:37 | Emergency (ER) | payer MEDICARE, MEDICAID, SELFPAY ==
[2022-04-23 08:44] VITALS: BP 109/65; PULSE 104; RESP 12; TEMP 37; O2SAT 96
[2022-04-23 09:37] LABS: Abs Immature Grans 0.05 10^3/uL (0.0-0.06); Absolute Basophil Count 0.03 10^3/uL (0.0-0.2); Absolute Eosinophil Count 0.05 10^3/uL (0.0-0.7); Absolute Lymphocyte Count 0.88 10^3/uL (1.2-3.4); Absolute Monocyte Count 1.13 10^3/uL (0.1-0.8); Absolute Neutrophil Count 10.96 10^3/uL (1.2-6.7); Basophils % 0.2; Eosinophils % 0.4; HGB 13.2 g/dL (13.5-17.5); Immature Grans % 0.4; Lymphocytes % 6.7; MCH 26.4 pg (27.0-33.0); MCHC 32.2 % (32.0-36.0); MCV 82 fL (80-95); MPV 10.1 fL (8.0-11.0); Monocytes % 8.6; Neutrophils % 83.7; Platelet Count 291 10^3/uL (130-400); RDW 17.9 % (11.8-14.1); RDW-SD 54.2 fL
[2022-04-23 09:46] LABS: ALT 17 U/L (16-63); AST 11 U/L (15-37); Albumin 3.8 g/dL (3.4-5.0); Alkaline Phosphatase 59 U/L (46-116); Anion Gap 7.9 mmol/L (3-11); BUN 37 mg/dL (7-18); Bilirubin, Total 0.5 mg/dL (0.2-1.0); CO2 27.1 mmol/L (21.0-32.0); CREATININE 1.6 mg/dL (0.70-1.30); Calcium 9.6 mg/dL (8.5-10.1); Chloride 100 mmol/L (98-107); Glucose 112 mg/dL (74-106); Potassium 4.4 mmol/L (3.5-5.1); Sodium 135 mmol/L (136-145); Total Protein 8.2 g/dL (6.4-8.2)
--- NOTE | 2022-04-23 10:37 | CMPROGNOTE_ITS ---
- If Service Date Differs Date of service: 04/23/22 Time of Service: 10:37 Care Management Progress Note SBIRT screen: positive for severe depression (PHQ9; 18) and anxiety (FRANCIS 18). Pt is a daily smoker of nicotine and cannabis although he refused to answer questuions about cannabis. Pt denies any current SI and reports he is on medication for depression but receiving no counseling at this time. pt was encouraged to talk further with hhis PCP about the need for counseling and was por[facility]ided with [facility] for [facility] lines and NK. Patient agrees to phone follow up next week with SBIRT staff. Pt was provided with smoking cessation resources which he accepted gladly.
[2022-04-23 11:50] LABS: Bilirubin Small (Negative); Blood Moderate (Negative); Clarity Cloudy (Clear); Glucose 500 mg/dL (Negative); Ketones Negative (Negative); Leukocyte Esterase Negative (Negative); Nitrite Negative (Negative); Specific Gravity >= 1.030 (1.005-1.025); Urobilinogen 0.2 EU/dL (Up TO 0.2); pH 5.5 (5-8)
[2022-04-23 11:57] LABS: Bacteria Negative HPF (Negative); C & S Indicated? No; Casts Negative LPF (Negative); Crystals Negative HPF (Negative); Epithelial Cells Rare HPF (Negative); Mucus Trace (Negative); RBC >50 HPF (0-2); WBC 0-2 HPF (0-5)
--- NOTE | 2022-04-23 12:11 | ED.GENADUL_ITS ---
Discharge Plan Disposition Patient Disposition: HOME Condition: Stable Discharge Details Clinical Impression: Urinary catheter complication, Decreased renal function Primary Care Provider: Michael Turpin ED Provider: Gage Puga Home Meds and New Rx's Prescriptions: No Action (DME) lancets misc See Dose Instructions .ROUTE .MEDSUPPLY Qty: 300 3RF Dose Instruction: As directed Rx Instructions: As directed to check blood glucose TID (DME) Blood Glucose Test strip See Dose Instructions .ROUTE .MEDSUPPLY Qty: 100 3RF Dose Instruction: As directed to check daily morning fasting blood glucose. No insulin. Rx Instructions: As directed to check daily morning fasting blood glucose. On insulin. (DME) insulin needles (disposable) 30 X 3/4 needle See Dose Instructions .ROUTE .MEDSUPPLY Qty: 1 Rx Instructions: As directed (DME) pen needle, diabetic [BD Ultra-Fine Ludy Pen Needle] 32 gauge x 5/32 needle See Dose Instructions .ROUTE .MEDSUPPLY Qty: 200 3RF Dose Instruction: Daily with Liraglutide Rx Instructions: BID with Lantus (DME) blood-glucose meter kit See Dose Instructions .ROUTE .MEDSUPPLY Qty: 1 0RF Dose Instruction: As directed Rx Instructions: As directed, to keep HbA1c below 6.5% Trulicity 1.5 mg/0.5 mL pen injector 1.5 mg subcut QWEEK Qty: 2 3RF fenofibrate nanocrystallized [Tricor] 145 mg tablet 145 mg PO DAILY Qty: 90 3RF metformin 1,000 mg tablet 1,000 mg PO BID Qty: 180 3RF rizatriptan 10 mg tablet 10 mg PO PRN Qty: 20 3RF Label Comments: patient cannot renember when last taken venlafaxine 150 mg capsule,extended release 24hr 150 mg PO DAILY Qty: 90 3RF Invokana 300 mg tablet 300 mg PO DAILY Qty: 90 3RF clonazepam 1 mg tablet 1 mg PO BID PRN (Reason: anxiety) Qty: 60 0RF morphine 30 mg tablet extended release 30 mg PO BID tamsulosin 0.4 mg Capsule 0.4 mg PO DAILY amoxicillin 250 mg capsule 500 cap PO PRN PRN aspirin 81 mg Tablet 81 mg PO DAILY polyethylene glycol Powder 1 pwd MISCELLANEOUS DAILY insulin asp prt-insulin aspart [Novolog Mix 70-30FlexPen U-100] 100 unit/mL (70-30) Insulin Pen 40 unit SUBCUT BID oxycodone 10 mg tablet 1 tab PO Q6H PRN PRN Multi Vitamin 9 mg iron/15 mL Liquid 15 ml PO DAILY lisinopril 2.5 mg tablet 5 mg PO DAILY Rx Instructions: TO PROTECT KIDNEYS quetiapine 50 mg tablet 200 mg PO QHS Rx Instructions: NEW DOSE. 50mg PO in AM and 150mg PO at HS. acetaminophen 500 MG tablet 500 mg PO Q6H PRN PRNQty: 0 0RF Label Comments: patient states a couple of days ago Discharge Instructions Additional Instructions: Please continue to stay well-hydrated and avoid and void frequently. If you have any new or significant worsening of symptoms please return immediately to the emergency department for reassessment. Please keep your follow-up appointment with Dr. Strickland for next week for reassessment. As discussed if you are unable to fully urinate or start having further symptoms you need to immediately return to the emergency department for replacement of th e catheter. Referrals: Edgar Strickland MD [ [facility] STAFF PHYSICIAN] - 04/28/22 Discharge Data Discharge Date/Time-TO BE ENTERED AT DEPARTURE: 04/23/22 12:33 Medical Decision Making Patient presenting to the emergency department for chief complaint of urinary discomfort and blood in [place] catheter. Patient [place] a valvular [place] [facility] [place] and at time of discharge on patient was having difficulty fully emptying bladder. Catheter was placed and patient stated within 1 hour he did note some bleeding but has had discomfort since the catheter placement. Patient denies all other symptoms. Physical exam was unremarkable with no CVA tenderness. We will plan to check patient's labs as patient states that he has not been eating or drinking at all and will obtain a urine sample. Discussed with patient risk versus benefit of changing catheter out versus just changing tubing while obtaining urinalysis. Patient reports that he would prefer to change the catheter given the level of discomfort. Due to this we will trial patient on no catheter and to see if he can orally hydrate with appropriate urine output. Review of labs show early slight leukocytosis but I feel this could be secondary to patient's recent procedure but will continue to monitor. Review of CMP does show a low sodium, BUN of 37 and creatinine of 1.6 with a GFR 45, CMP is otherwise nondiagnostic. I feel this is secondary to patient's lack of oral intake of both food and fluids and patient is tolerating p.o. intake in the emergency department. Reassessed patient after catheter was removed and patient states significant improvement and full resolution of discomfort. staff mechanical engineer reported both prevoid and postvoid patient was able to fully empty his bladder. While patient did not have a large amount of output he still states no pain or discomfort. UA specific gravity is elevated with protein and blood noted but no signs of infection. Discussed with patient risk versus benefit of continuing trial of no catheter with patient staying well-hydrated. After discussion of insertion of new catheter versus monitoring and hydration patient stated that he does not want a catheter replaced. Patient states clear understanding that if urine output becomes decreased or he has any worsening pain discomfort or any symptoms he should return immediately to the emergency department. Patient states he already has a follow-up with Dr. Strickland and will continue to keep this appointment at his request. After discussion of diagnosis and plan of care patient has no further needs, questions, or concerns and states clear understanding to return to the emergency department for any worsening symptoms. This documentation was generated using [employer] dictation system, please disregard any oddities of phrase or misspellings. HPI General Mode of arrival: ambulatory . Date/Time Provider Initiated Documentation: 04/23/22 08:50 . Limitations to Documentation: no limitations . Information obtained by: patient, RN notes reviewed and old records reviewed . History of Present Illness 56 year old M presents to the emergency department with the chief complaint of General pain due to urinary catheter, described as severe, with intensity rated at 9. Quality is described as aching and sharp, and is localized to the genitals. Patient reports no radiation. Patient started experiencing this day(s) (1) and it has been constant. No relieving factors improve symptom(s), Other factors that worsen symptoms (Catheterization) . Patient notes no other symptoms.. Patient did receive the following treatments prior to arrival, none Related Data Home Medications Medication Instructions Recorded Confirmed acetaminophen 500 mg tablet 500 mg PO Q6H PRN PRN #0 tabs 05/26/18 04/23/22 insulin needles (disposable) 30 X ##1 02/02/19 03/12/22 3/4 blood sugar diagnostic (Blood #100 ea 03/26/19 03/12/22 Glucose Test strips) lancets #300 ea 03/26/19 03/12/22 blood-glucose meter #1 ea 03/27/19 03/12/22 pen needle, diabetic 32 gauge x #200 ea 03/27/19 03/12/22 (BD Ultra-Fine Ludy Pen Needle) dulaglutide 1.5 mg/0.5 mL 1.5 mg (0.5 mL) subcut QWEEK #2 mL 11/25/21 04/23/22 subcutaneous pen injector (Trulicity) fenofibrate nanocrystallized 145 145 mg PO DAILY #90 tab-caps 11/25/21 04/23/22 mg tablet (Tricor) metformin 1,000 mg tablet 1,000 mg PO BID #180 tab-caps 11/25/21 04/23/22 rizatriptan 10 mg tablet 10 mg PO PRN #20 tab-caps 11/25/21 04/23/22 venlafaxine 150 mg 150 mg PO DAILY #90 tab-caps 11/25/21 04/23/22 capsule,extended release 24 hr canagliflozin 300 mg tablet 300 mg PO DAILY #90 tab-caps 12/04/21 04/23/22 (Invokana) clonazepam 1 mg tablet 1 mg PO BID PRN anxiety #60 tabs 03/31/22 04/23/22 amoxicillin 250 mg capsule 500 cap PO PRN PRN 04/23/22 04/23/22 aspirin 81 mg tablet 81 mg PO DAILY 04/23/22 04/23/22 insulin aspar prot-insulin aspart 40 unit subcut BID 04/23/22 04/23/22 100 unit/mL (70-30) subcutaneous pen (Novolog Mix 70-30FlexPen U-100) lisinopril 2.5 mg tablet 5 mg PO DAILY 04/23/22 04/23/22 morphine 30 mg tablet,extended 30 mg PO BID 04/23/22 04/23/22 release multivitamin with minerals-iron 15 ml PO DAILY 04/23/22 04/23/22 fumarate 9 mg iron/15 mL oral liquid (Multi Vitamin) oxycodone 10 mg tablet 1 tab PO Q6H PRN PRN 04/23/22 04/23/22 polyethylene glycol 1 pwd miscellaneous DAILY 04/23/22 04/23/22 quetiapine 50 mg tablet 200 mg PO QHS 04/23/22 04/23/22 tamsulosin 0.4 mg capsule 0.4 mg PO DAILY 04/23/22 04/23/22 Previous Rx's Medication Instructions Recorded acetaminophen 500 mg tablet 500 mg PO Q6H PRN PRN #0 tabs 05/26/18 blood sugar diagnostic (Blood #100 ea 03/26/19 Glucose Test strips) lancets #300 ea 03/26/19 blood-glucose meter #1 ea 03/27/19 pen needle, diabetic 32 gauge x #200 ea 03/27/19 (BD Ultra-Fine Ludy Pen Needle) dulaglutide 1.5 mg/0.5 mL 1.5 mg (0.5 mL) subcut QWEEK #2 mL 11/25/21 subcutaneous pen injector (Trulicity) fenofibrate nanocrystallized 145 145 mg PO DAILY #90 tab-caps 11/25/21 mg tablet (Tricor) metformin 1,000 mg tablet 1,000 mg PO BID #180 tab-caps 11/25/21 rizatriptan 10 mg tablet 10 mg PO PRN #20 tab-caps 11/25/21 venlafaxine 150 mg 150 mg PO DAILY #90 tab-caps 11/25/21 capsule,extended release 24 hr canagliflozin 300 mg tablet 300 mg PO DAILY #90 tab-caps 12/04/21 (Invokana) clonazepam 1 mg tablet 1 mg PO BID PRN anxiety #60 tabs 03/31/22 Allergies Allergy/AdvReac Type Severity Reaction Status Date / Time simvastatin AdvReac Mild Swelling Verified 04/23/22 08:47 of mouth and feet General Stated Complaint: Urinary TOO: 4 Review of Systems Constitutional Constitutional: Denies body ache(s), Denies chills, Denies fever(s), Denies malaise and Denies weakness Cardiovascular Cardiovascular: Denies chest pain Respiratory Respiratory: Reports system reviewed and no additional complaints, except as documented Gastrointestinal Gastrointestinal: Denies abdominal pain, Denies nausea and Denies vomiting Genitourinary Genitourinary: Reports as per HPI, Denies hematuria, Denies difficulty urinating, Reports genital pain, Reports dysuria and Denies urinary urgency Integumentary/Breasts Skin/Breast: Denies rash Neurologic Neurologic: Denies confusion and Denies weakness Psychiatric Psychiatric: Denies confusion PFSH All Active Problems (Updated 04/23/22 @ 12:21 by Gage Puga NP) Urinary catheter complication (Acute) Decreased renal function (Acute) Diabetes mellitus (Chronic) Shortness of breath (Acute) Hypercholesteremia (Acute) Encounter for immunization (Acute) Tongue ulcer (Acute) Glossodynia (Acute) Fatigue (Acute) Tinnitus (Acute) Diabetic retinopathy (Acute ~11/23/19) 11/23/19 [place]; MILD RIGHT EYE Pulsatile tinnitus of both ears (Acute) Dizziness (Acute) Tongue lesion (Acute) Hx of dizziness (Acute) Smoker (Acute) Hepatic steatosis (Chronic) Major depressive disorder (Chronic) HLD (hyperlipidemia) (Chronic) 06/2017 labwork: 10-year ASCVD risk = ~42.9% --> patient declines a statin; good response to severely elevated TGs with Tricor Adult antisocial behavior (Chronic) Anastomotic stricture of colorectal region (Acute) Constipation (Acute) Ventral hernia (Chronic) Obesity (Acute 05/03/17) Microalbuminuria (Chronic 06/20/17) Male erectile dysfunction, unspecified (Chronic 04/08/17) Colovesical fistula (Acute 10/18/17) Antisocial personality disorder (Acute) Previous dx from psychiatry Intraoperative ureteral injury (Acute) Medical History YUDI (acute kidney injury) Colon abnormality (10/13/18) 10/13/18 Dr Manish Garcia ([facility]), unable to advance scope due to bienvenido protruding into colon, referred to [facility]. Delayed surgical wound healing Current visit yes Diverticulitis (10/18/17) Left ureteral injury Surgical History Appendectomy (03/16/18) Colectomy (01/17/18) sigmoid colectomy 05/23/18 - revision Cystoscopy (04/20/18) W/ (L) retrograde pyelogram. Dr. Strickland H/O resection of large bowel 05/23/18 Dr Diaz H/O ureter repair History of colostomy reversal S/P closure of ileostomy Family History Mother Heart disease Father Depression Sister No problems noted. Sister PKU (phenylketonuria) Social History Smoking/Tobacco Use Status: Current every day Tobacco: How many years used: 35 Quit status: considering quitting Smoking risk assessment performed?: Yes Alcohol Intake: former Drug use: Occasionally Substance use type: marijuana Caregiver/Support person: No Household members: none Housing: house Communication Needs: None Do you need help understanding health information?: Rarely Pets and animals: No Sexually active: No Do you think of yourself as: straight/heterosexual Current gender identity: male What is your relationship status?: refused to answer How often do you talk on the phone with friends or family?: decline to answer How often do you get together with friends or relatives?: decline to answer How often do you attend bahai or rastafari services?: decline to answer Do you belong to any clubs or organized social groups?: no Panel score (0-1 are the most socially isolated patients): 0 What type of physical activity do you participate in: none Duration: < 15 minutes/day Isela/Roman Catholic: Faith Special isela needs: No Seatbelt use: never Helmet use: No Drive intox 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 substitute bus driver: No Working smoke detector in home: Yes Carbon monox detector in home: Yes Do you feel safe at home: Yes Do you feel safe in your relationship?: Yes Exam Const General: cooperative and no acute distress Orientation: alert, awake and oriented x3 Resp Effort & Inspection: normal respiratory effort and able to speak in complete sentences Auscultation: clear to auscultation bilaterally Cardio Rate: regular rate Rhythm: regular rhythm Heart Sounds: S1 normal and S2 normal GI Palpation: nontender Back/Spine/Pelvis Back: no CVA tenderness Neuro General: patient alert, patient awake and patient oriented x3 Extrem General: capillary refill normal Course Vital Signs Vital signs: Vital Signs Temperature 37.0 C 04/23/22 08:44 Pulse 104 H 04/23/22 08:44 Respiratory Rate 12 04/23/22 08:44 Blood Pressure 109/65 04/23/22 08:44 Pulse Oximetry 96 04/23/22 08:44 Temperature 37.0 C 04/23/22 08:44 Temperature Source Temporal Artery Scan 04/23/22 08:44 Pulse 104 H 04/23/22 08:44 Respiratory Rate 12 04/23/22 08:44 Respiratory Effort Non-Labored 04/23/22 08:48 Blood Pressure 109/65 04/23/22 08:44 Blood Pressure Position Sitting 04/23/22 08:44 Pulse Oximetry 96 04/23/22 08:44 Oxygen Delivery Method Room Air 04/23/22 08:44 Oxygen Flow Rate 0 04/23/22 08:44 Pain Level 1 04/23/22 11:48 Lab/Test Results Lab/Test Results: Laboratory Tests Range/Units 04/23/22 04/23/22 04/23/22 09:20 09:20 11:40 WBC (4.4-10.8) 10^3/uL 13.10 H RBC (4.36-5.78) 10^6/uL 5.00 Hgb (13.5-17.5) g/dL 13.2 L Hct (40.0-50.0) % 41.0 MCV (80-95) fL 82 MCH (27.0-33.0) pg 26.4 L MCHC (32.0-36.0) % 32.2 RDW (11.8-14.1) % 17.9 H Plt Count (130-400) 10^3/uL 291 MPV (8.0-11.0) fL 10.1 Immature Gran % 0.4 Neutrophils % 83.7 Lymphocytes % 6.7 Monocytes % 8.6 Eosinophils % 0.4 Basophils % 0.2 Nucleated RBC % (0.0-0.3) % 0.0 Absolute Neutrophils (1.2-6.7) 10^3/uL 10.96 H Absolute Lymphocytes (1.2-3.4) 10^3/uL 0.88 L Absolute Monocytes (0.1-0.8) 10^3/uL 1.13 H Absolute Eosinophils (0.0-0.7) 10^3/uL 0.05 Absolute Basophils (0.0-0.2) 10^3/uL 0.03 Sodium (136-145) mmol/L 135 L Potassium (3.5-5.1) mmol/L 4.4 Chloride (98-107) mmol/L 100 Carbon Dioxide (21.0-32.0) mmol/L 27.1 Anion Gap (3-11) mmol/L 7.9 BUN (7-18) mg/dL 37 H Creatinine (0.70-1.30) mg/dL 1.6 H Estimated GFR/1.73 m2 (mL/min/1.73m2) 45.10 Glucose (74-106) mg/dL 112 H Calcium (8.5-10.1) mg/dL 9.6 Total Bilirubin (0.2-1.0) mg/dL 0.5 AST (15-37) U/L 11 L ALT (16-63) U/L 17 Alkaline Phosphatase (46-116) U/L 59 Total Protein (6.4-8.2) g/dL 8.2 Albumin (3.4-5.0) g/dL 3.8 Urine Color (Yellow) Yellow Urine Clarity (Clear) Cloudy Urine pH (5-8) 5.5 Ur Specific [place] (1.005-1.025) >= 1.030 H Urine Protein (Negative) mg/dL 100 H Urine Ketones (Negative) mg/dL Negative Urine Blood (Negative) Moderate H Urine Nitrite (Negative) Negative Urine Bilirubin (Negative) Small H Urine Urobilinogen (Up TO 0.2) EU/dL 0.2 Ur Leukocyte Esterase (Negative) Negative Urine RBC (0-2) HPF >50 H Urine WBC (0-5) HPF 0-2 Ur Epithelial Cells (Negative) HPF Rare Urine Crystals (Negative) HPF Negative Urine Bacteria (Negative) HPF Negative Urine Casts (Negative) LPF Negative Urine Mucus (Negative) Trace Ur Culture Indicated? No Urine Glucose (Negative) mg/dL 500 H
[2022-04-23 12:34] VITALS: BP 110/72; PULSE 96; RESP 16; TEMP 37; O2SAT 97
== END 2022-04-23 12:33 | disposition home or self-care (01) ==
PROVIDERS: Emergency Provider Nurse Practitioner Family; PCP Nurse Practitioner Family
DX: T83.098A Other mechanical complication of other urinary catheter, initial encounter (principal); N28.9 Disorder of kidney and ureter, unspecified; D72.829 Elevated white blood cell count, unspecified; F17.200 Nicotine dependence, unspecified, uncomplicated; Y83.3 Surgical operation with formation of external stoma as the cause of abnormal reaction of the patient, or of later complication, without mention of misadventure at the time of the procedure
CPT/HCPCS: 36415; 80053; 99283; 81003; 81015; 85025; 99282

== ENCOUNTER → 2022-04-27 09:43 | Outpatient (BNVA) | payer MEDICARE, MEDICAID, SELFPAY | PROVIDERS: PCP Nurse Practitioner Family; Referring Provider Nurse Practitioner Family; Visit Provider Nurse Practitioner Gerontology | DX: R39.89 Other symptoms and signs involving the genitourinary system (principal); Z98.890 Other specified postprocedural states; R33.8 Other retention of urine | CPT/HCPCS: 51798; 99215 ==

== ENCOUNTER 2022-05-04 03:18 | Outpatient (CLI) | payer MEDICARE, MEDICAID, SELFPAY ==
[2022-05-04 15:32] LABS: Source Nasal/Nares
[2022-05-04 22:55] LABS: COVID-19 PCR Negative (Negative)
== END 2022-05-04 03:19 | disposition home or self-care (01) ==
LOC: LBO 03:20
PROVIDERS: Family Medicine; PCP Nurse Practitioner Family; Visit Provider Speech-Language Pathologist
DX: Z20.822 Contact with and (suspected) exposure to COVID-19 (principal); Z01.818 Encounter for other preprocedural examination
CPT/HCPCS: 87635

== ENCOUNTER → 2022-05-05 01:28 | Outpatient (CLI) | payer MEDICARE, MEDICAID, SELFPAY ==
--- NOTE | 2022-05-05 14:09 | ST.MBS ---
Date of Service Date of service: 05/05/22 Time of Service: 14:30 Modified Barium Swallow Study Findings: Modified Barium Swallow Study Findings: Videofluoroscopic Swallowing Evaluation (VFSE) / Modified Barium Swallow Study (MBSS) Speech Language Pathology Report HPI: Patient is a 56 year old male referred for repeat VFSE/MBSS from Dr. 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 Most recent VFSE/MBSS performed 11/11/21. PMHx: Interval History: 04/21/22: [place] [facility] [place] tolerated procedure well All Active Problems? Hypercholesteremia (Acute) Encounter for immunization (Acute) Tongue ulcer (Acute) Glossodynia (Acute) Fatigue (Acute) Tinnitus (Acute) Diabetic retinopathy (Acute ~11/23/19) 11/23/19 [place]; MILD RIGHT EYE Pulsatile tinnitus of both ears (Acute) Dizziness (Acute) Tongue lesion (Acute) Hx of dizziness (Acute) Smoker (Acute) Hepatic steatosis (Chronic) Major depressive disorder (Chronic) HLD (hyperlipidemia) (Chronic) 06/2017 labwork: 10-year ASCVD risk = ~42.9% --> patient declines a statin; good response to severely elevated TGs with TricorAdult antisocial behavior (Chronic) Anastomotic stricture of colorectal region (Acute) Constipation (Acute) Ventral hernia (Chronic) Obesity (Acute 05/03/17) Microalbuminuria (Chronic 06/20/17) Male erectile dysfunction, unspecified (Chronic 04/08/17) Colovesical fistula (Acute 10/18/17) Antisocial personality disorder (Acute) Previous dx from psychiatry Intraoperative ureteral injury (Acute) Medical History? YUDI (acute kidney injury) Colon abnormality (10/13/18) 10/13/18 Dr Manish Garcia ([facility]), unable to advance scope due to bienvenido protruding into colon, referred [place] [facility].Delayed surgical wound healing Current visit yesDiverticulitis (10/18/17) Left ureteral injury Surgical History? Appendectomy (03/16/18) Colectomy (01/17/18) sigmoid colectomy 05/23/18 - revision Cystoscopy (04/20/18) W/ (L) retrograde pyelogram. Dr. Treviño/O resection of large bowel 05/23/18 Dr Pitts/O ureter repair History of colostomy reversal S/P closure of ileostomy Previous Imaging for comparison: VFSE/MBSS - 11/11/21 SUBJECTIVE: Patient reports continued difficulties with certain foods such as bread (globus, resolves with liquid wash). Patient also reports he typically does not previously reviewed compensatory strategies for reducing risks of silent aspiration. Patient reports he is to start with Physical Therapy soon. Patient is agreeable to VFSE/MBSS today, demonstrates comprehension of current risk management strategies which were reviewed with [facility] after study was completed. IMPRESSIONS: Swallow safety and swallow efficiency are improved yet still impaired.??Moderate oropharyngeal dysphagia, characterized by impaired swallow initiation triggered at the valleculae across all trials. Soft palate, laryngeal elevation and pharyngeal residue have improved relative to previous MBSS. Decreased overall PES openening and tongue base retraction relative to previous MBSS likely due to post effects of TANK TENDER to effected areas (radiation fibrosis). Patient appears to be at low - moderate risk for potential aspiration PNA and/or pulmonary compromise and low-moderate for malnutrition, low-moderate risk for dehydration. Swallow prognosis is good-fair given age, extent of treatment for supraglottic SCCa (TANK TENDER), continuation of tobacco use, and pending patient/caregiver training in risk management as outlined, including use of trialed compensatory strategies as outlined above. Patient appears to be a good-fair candidate for behavioral swallow rehabilitation.? Diet texture recommendation:? []IDDSI Level 7-Regular Solids 0-Thin Liquids with risk management strategies as outlined below. Please see further details at?[email or web address] Diet texture modification is per patient's preference; please adjust diet textures at patient's discretion & collaboration with care team. Risk Management:? Liquids/Mixed Consistencies: 1.? Reduce rate of volume when consuming thin liquids. 2. Throat clear and reswallow?per liquid bolus of 25+mL to encourage clearance of pharyngeal stasis/residue, reduce risks of aspiration prior to subsequent bite/sip Solids - Full mastication Other - Alternate solids/liquids as able - Control risk factors for aspiration pneumonia via (a) thorough oral hygiene & (b) maintaining physical mobility as tolerated PLAN: Therapy: Recommend subsequent outpatient session with [facility] to review results of today's exam and develop treatment plan as appropriate. Pt has follow up with [facility] via [facility] scheduled at end of April 2022. Goal: TBD pending patient/caregiver interview Thank you for allowing me to take part in this patient's care. Please feel free to contact me with any questions/concerns. Safia Ames MA [facility] Speech Language Pathologist [phone] OBJECTIVE: Videofluoroscopic Swallow Evaluation (VFSE/MBSS) was conducted in the lateral and [id number] projections by Speech-Language Pathologist, in collaboration with Radiologist, to evaluate oropharyngeal swallow function. Anatomic view under fluoroscopy: difficulty identifying Pts epiglottis PO Barium Contrast Trials []Oral barium water-soluble contrast was administered as follows: IDDSI Level 0 Varibar thin liquid (40% w/v) IDDSI Level 2 Varibar nectar thick/mildly thick liquid (40% w/v) IDDSI Level 3 Varibar thin honey/liquidised/moderately-thick (40% w/v) IDDSI Level 4 Varibar pudding/pureed/extremely thick (40% w/v) IDDSI Level 7 Regular Solid: 1/2 jackie cracker coated in 3 mL Varibar pudding; 13 mm barium tablet Pictured Above ^ Aspiration from thin liquid post swallow x1 - able to clear with cued cough PHYSIOLOGIC FINDINGS MBSImP Component Scores: COMPONENT Scale SCORE - current 11/12/21 1 Lip closure (0-4) 0 0 Resulted in no labial escape 2 Hold Position (0-3) 0 0 Maintained a cohesive bolus between tongue to palatal seal 3 Bolus Preparation (0-4) 0 0 Resulted in timely and efficient chewing and mashing 4 Bolus Transport (0-4) 0 0 Was with brisk tongue motion 5 Oral Residue (0-4) 0 1 improved Was not observed. There was complete oral clearance 6 Swallow Initiation (0-4) 1 3 improved Occurred when the bolus head was in valleculae 7 Soft Palate Elevation (0-4) 0 1 improved Resulted in no bolus between soft palate and the pharyngeal wall - Reduced Velopharyngeal closure noted during second swallow of sequential thin liquid trial. 8 Laryngeal Elevation (0-3) 1 2 improved Was decreased with partial superior movement of thyroid cartilage/partial approximation of arytenoids to epiglottic petiole 9 Anterior Hyoid Motion (0-2) 1 1 Demonstrated partial anterior movement 10 Epiglottic Movement (0-2) NA 1 11 Laryngeal Closure (0-2) 1 1 Was incomplete with narrow a column of air/contrast in laryngeal vestibule 12 Pharyngeal Stripping Wave (0-2) 1 1 Was present, but diminished 13 Pharyngeal Contraction (0-3) 0 0 Was complete 14 PES Opening (0-3) 1 0 decreased Demonstrated partial distension/partial duration, with partial obstruction of flow 15 Tongue Base Retraction (0-4) 2 1 decreased Allowed a narrow column of contrast or air between the retracted tongue base and the posterior pharyngeal wall 16 Pharyngeal Residue (0-4) 1 2 improved Showed a trace within or on pharyngeal structures 17 Esophageal Clearance (0-4) 0 0 Was complete, with only a coating of contrast, if any Results: COMPONENT Scale SCORE 1 Oral Score (0-18) 1 2 Pharyngeal Score (0-29) 7 3 Esophageal Score (0-4) 0 DIGEST: COMPONENT Scale SCORE 1 Thin Max PAS (1-8) 8 Contrast entered the airway, passed below the vocal folds, and no effort was made to eject. 2 [place] Max PAS (1-8) 5 Contrast entered the airway, contacted the vocal folds, and was not ejected from the airway. 3 Honey Max PAS (1-8) NA 4 Liquid Max PAS (1-8) 8 Maximum PAS Score over all liquid trials 5 Liquid Max Residue (0-3) 0 below 10% 6 Pudding Max PAS (1-8) 3 Contrast entered the airway, remained above the vocal folds, and was not ejected from the airway. 7 Pudding Max Residue (0-3) 0 below 10% 8 Cracker Max PAS (1-8) 1 Contrast did not enter the airway 9 Cracker Max Residue (0-3) 1 10 - 49% 10 Frequency if PAS >= 3 (0-3) 2 Intermittent (under 50% of trials on a single consistency) 11 Amount if PAS >= 5 (0-1) NA Results: COMPONENT Scale SCORE current 11/12/21 1 SAFETY GRADE (0-4) 2 2 Safety grade for swallowing based on patterns of aspiration or laryngeal penetration 2 EFFICIENCY GRADE (0-4) 1 2 improved Efficiency grade of swallowing based on patterns of pharyngeal residue 3 DIGEST (0-4) 2 2 Severity grade of pharyngeal dysphagia: 0 - Normal, 1 - Mild, 2 - Moderate, 3 - Severe, 4 - Life threatening 4 Max Exam PAS (1-8) 8 Maximum PAS Score over all bolus trials 5 Max Exam Residue (0-3) 1 Maximum Exam Residue over all bolus trials Coding CPT Codes MOTION FLUOROSCOPY/SWALLOW - [id number] ([id number])
--- NOTE | 2022-05-05 14:50 | DI.RAD_ITS ---
Exam(s) RF MODIFIED SPEECH BA SWALLOW EXAM: RF MODIFIED SPEECH BA SWALLOW CLINICAL HISTORY: S/P CHEMO, EVAL SWALLOWING, SQUAMOUS CELL CA SUPRAGLOTTIS, C32.1 TECHNIQUE: 2D and realtime digital imaging was performed. COMPARISON: No exams were available for comparison FINDINGS: Fluoroscopy was provided for speech pathologist modified barium swallow. IMPRESSION: RADIATION DOSE DELIVERED: henrry Cherry=8.91 MGy Total DLP
[2022-05-05] MEDS: Barium Sulfate 700 MG TAB PO (14:55)
[2022-05-05] MEDS: Barium Sulfate 40% W/V 240 ML BTL 80 ML PO (14:56)
[2022-05-05] MEDS: Barium Sulfate 40% W/V 1500 CPS 250 ML BTL PO (14:57)
[2022-05-05] MEDS: Barium Sulfate Oral Paste 40% W/V 230 ML TUBE 13 ML PO (15:00)
[2022-05-05] MEDS: Barium Sulfate 81% w/w for Oral Suspension 148 GM BTL 90 GM PO (15:07)
== END ==
PROVIDERS: PCP Nurse Practitioner Family; Visit Provider Speech-Language Pathologist
DX: C32.1 Malignant neoplasm of supraglottis (principal)
CPT/HCPCS: 92611; 74221

== ENCOUNTER 2022-07-09 17:18 | Outpatient (REF) | payer MEDICARE, MEDICAID, SELFPAY ==
[2022-07-09 21:37] LABS: ALT 20 U/L (16-63); AST 15 U/L (15-37); Albumin 4.1 g/dL (3.4-5.0); Alkaline Phosphatase 74 U/L (46-116); Anion Gap 7.7 mmol/L (3-11); BUN 20 mg/dL (7-18); Bilirubin, Total 0.2 mg/dL (0.2-1.0); CO2 27.3 mmol/L (21.0-32.0); CREATININE 0.9 mg/dL (0.70-1.30); Calcium 10.2 mg/dL (8.5-10.1); Chloride 104 mmol/L (98-107); Estimated GFR 100.86 (mL/min/1.73m2); Glucose 91 mg/dL (74-106); Potassium 4.7 mmol/L (3.5-5.1); Sodium 139 mmol/L (136-145); Total Protein 7.6 g/dL (6.4-8.2)
[2022-07-12 09:22] LABS: PSA, Screening 1.6 ng/mL (<=3.5)
== END 2022-07-09 17:19 | disposition home or self-care (01) ==
LOC: LBN 17:18
PROVIDERS: PCP Nurse Practitioner Family; Visit Provider Nurse Practitioner Family
DX: N28.9 Disorder of kidney and ureter, unspecified (principal); N40.0 Benign prostatic hyperplasia without lower urinary tract symptoms; Z12.5 Encounter for screening for malignant neoplasm of prostate
CPT/HCPCS: 80053; 84153

== ENCOUNTER → 2022-08-02 09:43 | Outpatient (BNVA) | payer MEDICARE, MEDICAID, SELFPAY | PROVIDERS: PCP Nurse Practitioner Family; Referring Provider Nurse Practitioner Family; Visit Provider Nurse Practitioner Gerontology | DX: R33.8 Other retention of urine (principal) | CPT/HCPCS: 51798; 99213 ==

== ENCOUNTER 2022-08-23 02:40 | Outpatient (RCR) | payer MEDICARE, MEDICAID, SELFPAY ==
[2022-08-23] MEDS: Normal Saline Flush 10 ML SYR IVP (13:36)
[2022-08-23] MEDS: Heparin 500 UNITS/5 ML SYRINGE IV (13:37)
[2022-08-23 13:55] LABS: Abs Immature Grans 0.05 10^3/uL (0.0-0.06); Absolute Basophil Count 0.04 10^3/uL (0.0-0.2); Absolute Lymphocyte Count 1.01 10^3/uL (1.2-3.4); Absolute Monocyte Count 0.57 10^3/uL (0.1-0.8); Basophils % 0.4; Eosinophils % 2.2; HCT 46.1 % (40.0-50.0); HGB 14.8 g/dL (13.5-17.5); Immature Grans % 0.6; Lymphocytes % 11.3; MCH 28.1 pg (27.0-33.0); MCHC 32.1 % (32.0-36.0); MCV 88 fL (80-95); MPV 9.9 fL (8.0-11.0); Monocytes % 6.4; Neutrophils % 79.1; Platelet Count 306 10^3/uL (130-400); RBC 5.26 10^6/uL (4.36-5.78); RDW 15.9 % (11.8-14.1); RDW-SD 50.8 fL; WBC 8.97 10^3/uL (4.4-10.8)
[2022-08-23 14:11] LABS: ALT 24 U/L (16-63); AST 14 U/L (15-37); Albumin 3.9 g/dL (3.4-5.0); Alkaline Phosphatase 70 U/L (46-116); Anion Gap 9.8 mmol/L (3-11); BUN 23 mg/dL (7-18); Bilirubin, Total 0.3 mg/dL (0.2-1.0); CO2 30.2 mmol/L (21.0-32.0); CREATININE 1.4 mg/dL (0.70-1.30); Calcium 9.6 mg/dL (8.5-10.1); Chloride 102 mmol/L (98-107); Estimated GFR 59.36 (mL/min/1.73m2); Glucose 113 mg/dL (74-106); Magnesium 1.4 mg/dL (1.8-2.4); Potassium 4.2 mmol/L (3.5-5.1); Sodium 142 mmol/L (136-145); Total Protein 7.6 g/dL (6.4-8.2)
== END 2022-08-25 23:59 | disposition home or self-care (01) ==
LOC: INF 02:40
PROVIDERS: PCP Nurse Practitioner Family; Visit Provider Internal Medicine Hematology & Oncology
DX: D50.0 Iron deficiency anemia secondary to blood loss (chronic) (principal); Z45.2 Encounter for adjustment and management of vascular access device
CPT/HCPCS: 36591; 80053; 83735; 85025

== ENCOUNTER 2022-12-03 00:58 | Outpatient (CLI) | payer MEDICARE, MEDICAID, SELFPAY ==
[2022-12-03] MEDS: Omnipaque 350 MG/ML 500 ML BTL-Imaging package 100 ML IJ (10:08)
--- NOTE | 2022-12-03 10:20 | DI.CT_ITS ---
Exam(s) CT NECK CHEST W EXAM: CT NECK CHEST W CLINICAL HISTORY: SQUAMOUS CELL CA SUPRAGLOTTIS,C32.1,S/ CHEMO,ASSESS FOR RECURRENCE. TECHNIQUE: Imaging Protocol: Axial computed tomography images with coronal and sagittal reformatted images were created and reviewed. CONTRAST MATERIAL: Intravenous: Contrast Contrast volume:structured data in mlmL COMPARISON: CT RENAL COLIC WO CONTRAST from 09/16/[address] NECK W from 09/14/[address] CHEST PE ABD PELVIS W from 11/06/2021 FINDINGS: Orbits and orbital soft tissues: Within normal limits. Visualized paranasal sinuses: Within normal limits. Nasopharynx: Within normal limits. Oropharynx: Within normal limits. Hypopharynx/larynx: There is a persistent subglottic mass predominantly involving the left side which effaces the left piriform sinus and vallecula. There is also persistent thickening of the airway ab ove the vocal cords. The mass is ill-defined but measures approximately 2.7 x 2.3 cm. Cranio caudally the measured area measures at least 3.6 cm. Retropharyngeal space: Within normal limits. Parotids/submandibular: Within normal limits. Thyroid gland: Within normal limits. Lymphadenopathy: There is scattered lymph nodes seen along the level one to level three all measurin g less than 8 mm in short axis diameter which are physiologic in nature. Trachea: Narrowing of the subglottic airway secondary to the soft tissue mass. Bones: Within normal limits for the patient's age. No aggressive osseous lesions are present. Carotids/Jugular: Within normal limits. Atherosclerosis is present. Soft tissues: Within normal limits. Tracheobronchial tree: Patent where visualized. Pulmonary parenchyma: There is a stable 0.8 cm nodule in the left lower lobe. There is a 1.1 cm groun d-glass nodule in the superior segment of the left lower lobe. No focal consolidating infiltrates. Mediastinum and Cass: No dominant adenopathy or fluid collection. The esophagus is unremarkable. Thyroid gland: Unremarkable. Pleura: No effusion or pneumothorax. Heart: The heart is not dilated. Mild coronary artery calcification. There is an aortic valve prosthe sis. No pericardial effusion. Aorta: Thoracic aorta non-dilated. Atherosclerosis. Pulmonary arteries: The pulmonary arteries are not opacified well enough for evaluation of pulmonary emboli due to bolus timing. Upper abdomen: There is diffuse fatty infiltration of the liver. Lymph nodes: Within normal limits. Bones: Within normal limits for the patient's age. Tubes, Catheters, and Lines: There is a Port-A-Cath in place. The tip is in good position at the junc tion of the superior vena cava and right atrium. Soft tissues: Unremarkable. IMPRESSION: 1. Findings suggestive of a persistent subglottic mass as described above. There is resultant narrowi ng of the airway. 2. 1.1 cm ground-glass nodule in superior segment of the left lower lobe. Infectious, inflammatory or metastatic. 3. Stable 0.8 cm left lower lobe pulmonary nodule. RADIATION DOSE DELIVERED: 1,976.5mGy.cm Total DLP 1,976.5mGy.cm Total DLP 1,976.5mGy.cm Total DLP 1,976.5mGy.cm Total DLP DATA REPOSITORY: All CT scans at this facility are submitted to the National Radiology Data Registry (NRDR) Dose Index Registry (DIR) with the [employer] (ACR). RADIATION OPTIMIZATION: All CT scans at this facility use at least one of these dose optimization te chniques: automated exposure control; mA and/or kV adjustment per patient size (includes targeted exa ms where dose is matched to clinical indication); or iterative reconstruction.
== END 2022-12-03 01:18 ==
LOC: DI 00:59
PROVIDERS: PCP Nurse Practitioner Family; Visit Provider Preventive Medicine Undersea and Hyperbaric Medicine
DX: C32.1 Malignant neoplasm of supraglottis (principal); R91.1 Solitary pulmonary nodule
CPT/HCPCS: 36591; 70491; 71260; 82565; 84443

== ENCOUNTER 2022-12-22 08:15 | Outpatient (RCR) | payer MEDICARE, MEDICAID, SELFPAY ==
[2022-12-03] MEDS: Normal Saline Flush 10 ML SYR IVP (09:14)
[2022-12-03] MEDS: Heparin 500 UNITS/5 ML SYRINGE IV (09:14)
[2022-12-03 09:32] LABS: Estimated GFR 88.88 (mL/min/1.73m2); TSH 3.98 uIU/mL (0.36-3.74)
[2022-12-22] MEDS: Normal Saline Flush 10 ML SYR IVP (08:42)
[2022-12-22] MEDS: Heparin 500 UNITS/5 ML SYRINGE IV (08:42)
[2022-12-22 08:46] LABS: Abs Immature Grans 0.06 10^3/uL (0.0-0.06); Absolute Basophil Count 0.05 10^3/uL (0.0-0.2); Absolute Eosinophil Count 0.18 10^3/uL (0.0-0.7); Absolute Lymphocyte Count 1.14 10^3/uL (1.2-3.4); Absolute Monocyte Count 0.54 10^3/uL (0.1-0.8); Absolute Neutrophil Count 6.22 10^3/uL (1.2-6.7); Basophils % 0.6; Eosinophils % 2.2; HCT 49.7 % (40.0-50.0); HGB 16.1 g/dL (13.5-17.5); Immature Grans % 0.7; Lymphocytes % 13.9; MCH 29.2 pg (27.0-33.0); MCHC 32.4 % (32.0-36.0); MCV 90 fL (80-95); MPV 9.8 fL (8.0-11.0); Monocytes % 6.6; Platelet Count 290 10^3/uL (130-400); RBC 5.52 10^6/uL (4.36-5.78); RDW 14.3 % (11.8-14.1); RDW-SD 47.2 fL; WBC 8.19 10^3/uL (4.4-10.8)
[2022-12-22 09:16] LABS: ALT 26 U/L (16-63); AST 10 U/L (15-37); Alkaline Phosphatase 60 U/L (46-116); Anion Gap 6.3 mmol/L (3-11); BUN 24 mg/dL (7-18); Bilirubin, Total 0.2 mg/dL (0.2-1.0); CO2 29.7 mmol/L (21.0-32.0); CREATININE 0.9 mg/dL (0.70-1.30); Calcium 9.1 mg/dL (8.5-10.1); Chloride 104 mmol/L (98-107); Estimated GFR 100.24 (mL/min/1.73m2); Glucose 109 mg/dL (74-106); Potassium 4.7 mmol/L (3.5-5.1); Sodium 140 mmol/L (136-145); TSH 4.26 uIU/mL (0.36-3.74); Total Protein 7.8 g/dL (6.4-8.2)
== END 2022-12-24 23:59 | disposition home or self-care (01) ==
LOC: INF 08:15
PROVIDERS: PCP Nurse Practitioner Family; Visit Provider Internal Medicine Hematology & Oncology
DX: R53.83 Other fatigue (principal); Z45.2 Encounter for adjustment and management of vascular access device; E66.01 Morbid (severe) obesity due to excess calories; Z68.38 Body mass index [BMI] 38.0-38.9, adult; C32.1 Malignant neoplasm of supraglottis
CPT/HCPCS: 36591; 80053; 82565; 84443; 85025

== ENCOUNTER → 2023-02-07 09:44 | Outpatient (BNVA) | payer MEDICARE, MEDICAID, SELFPAY | PROVIDERS: PCP Nurse Practitioner Family; Referring Provider Nurse Practitioner Family; Visit Provider Nurse Practitioner Gerontology | DX: R33.8 Other retention of urine (principal) | CPT/HCPCS: 51798; 99213 ==

== ENCOUNTER 2023-05-16 09:33 | Outpatient (CLI) | payer MEDICARE, SELFPAY ==
[2023-05-16 12:39] LABS: TSH (W/Ref FT4) 3.51 uIU/mL (0.36-3.74)
== END 2023-05-16 09:34 | disposition home or self-care (01) ==
LOC: LOS 09:33
PROVIDERS: PCP Nurse Practitioner Family; Referring Provider Nurse Practitioner Family; Visit Provider Nurse Practitioner Family
DX: K59.00 Constipation, unspecified (principal); E11.29 Type 2 diabetes mellitus with other diabetic kidney complication; Z79.4 Long term (current) use of insulin; R80.9 Proteinuria, unspecified; C14.0 Malignant neoplasm of pharynx, unspecified; F32.89 Other specified depressive episodes
CPT/HCPCS: 36415; 84443

== ENCOUNTER → 2024-01-20 00:38 | Outpatient (CLI) | payer MEDICARE, SELFPAY ==
--- NOTE | 2024-01-20 | DI.CT_ITS ---
Exam(s) CT CHEST W EXAM: CT CHEST W CLINICAL HISTORY: LUNG NODULE,R91.1,HEAD AND NECK CA,CURRENT SMOKER TECHNIQUE: Imaging Protocol: Axial computed tomography images with coronal and sagittal reformatted images were created and reviewed CONTRAST MATERIAL: Intravenous: Omnipaque 350contrast volume:70 mL. COMPARISON: CT CT NECK CHEST W from 12/03/2022 FINDINGS: Tracheobronchial tree: Patent where visualized. Pulmonary parenchyma: The 0.8 cm nodule in the left lower lobe now shows dense calcification consiste nt with a granuloma. No focal consolidating infiltrates. The ground-glass nodularity in the medial aspect of the superior segment of the left lower lobe has resolved. No new pulmonary nodules are pre sent. Mediastinum and Cass: No dominant adenopathy or fluid collection. The esophagus is unremarkable. Thyroid gland: Unremarkable. Pleura: No effusion or pneumothorax. Heart: The heart is not dilated. Coronary artery calcifications are present. There is an aortic valv e replacement. No pericardial effusion. Aorta: Thoracic aorta non-dilated. Atherosclerotic calcification is seen. There is no evidence of di ssection. Pulmonary arteries: Due to the timing of the bolus, the pulmonary arteries are not opacified ideally for evaluation of pulmonary emboli. Upper abdomen: There is fatty infiltration of the liver. Lymph nodes: Within normal limits. Bones: Within normal limits for the patient's age. No aggressive osseous lesions are present. Soft tissues: Unremarkable. IMPRESSION: 1. There has been resolution of the ground-glass nodule in the left lower lobe. 2. The 8 mm nodule in the left lower lobe now shows dense central calcification consistent with a gra nuloma. 3. No new pulmonary nodules. RADIATION DOSE DELIVERED: 757.53mGy.cm Total DLP DATA REPOSITORY: All CT scans at this facility are submitted to the National Radiology Data Registry (NRDR) Dose Index Registry (DIR) with the [employer] (ACR). RADIATION OPTIMIZATION: All CT scans at this facility use at least one of these dose optimization te chniques: automated exposure control; mA and/or kV adjustment per patient size (includes targeted exa ms where dose is matched to clinical indication); or iterative reconstruction.
[2024-01-20 10:35] LABS: Hemoglobin A1C 5.8 % (<5.7)
[2024-01-20 10:44] LABS: FREE T4 0.92 ng/dL (0.76-1.46); TSH 5.51 uIU/Ml (0.36-3.74)
[2024-01-20 11:12] LABS: CREATININE 1.1 mg/dL (0.70-1.30)
[2024-01-20] MEDS: Normal Saline - Diluent 50 ML VIAL IJ (11:28)
[2024-01-20] MEDS: Omnipaque 350 MG/ML 100 ML BTL 70 ML IJ (11:28)
== END ==
PROVIDERS: Internal Medicine Hematology & Oncology; PCP Nurse Practitioner Family; Visit Provider Nurse Practitioner
DX: E11.29 Type 2 diabetes mellitus with other diabetic kidney complication (principal); Z79.4 Long term (current) use of insulin; R80.9 Proteinuria, unspecified; E03.9 Hypothyroidism, unspecified; R91.1 Solitary pulmonary nodule
CPT/HCPCS: 71260; 82565; 83036; 84439; 84443; J3490

== ENCOUNTER → 2024-02-06 09:45 | Outpatient (BNVA) | payer MEDICARE, SELFPAY | PROVIDERS: PCP Nurse Practitioner Family; Visit Provider Nurse Practitioner Gerontology | DX: R33.8 Other retention of urine (principal) | CPT/HCPCS: 51798; 99213 ==

== ENCOUNTER 2024-05-18 12:19 | Outpatient (CLI) | payer MEDICARE, SELFPAY ==
[2024-05-18 11:26] LABS: Calculated LDL 103 mg/dL (<100); Cholesterol 187 mg/dL (<200); HDL Cholesterol 38 mg/dL (40-60); TSH (W/Ref FT4) 2.82 uIU/mL (0.36-3.74); Triglyceride 234 mg/dL (<150)
[2024-05-18 19:21] LABS: PSA, Screening 2.1 ng/mL (<=3.5)
[2024-05-18 21:31] LABS: COMMENT (LAB VIEW ONLY) 65.01 mg/dL; Microalb ug/mg Crea 17.5 ug/mg Cr
== END 2024-05-18 12:20 | disposition home or self-care (01) ==
LOC: LBO 12:20
PROVIDERS: PCP Nurse Practitioner Family; Visit Provider Nurse Practitioner Family
DX: E03.9 Hypothyroidism, unspecified (principal); Z12.5 Encounter for screening for malignant neoplasm of prostate; Z13.6 Encounter for screening for cardiovascular disorders; E11.29 Type 2 diabetes mellitus with other diabetic kidney complication; R80.9 Proteinuria, unspecified; Z79.4 Long term (current) use of insulin
CPT/HCPCS: 36415; 80061; 84153; 82043; 82570; 84443

== ENCOUNTER 2024-07-03 11:04 | Outpatient (CLI) | payer MEDICARE, SELFPAY ==
--- NOTE | 2024-07-03 11:00 | RT.EKG_ITS ---
APPROVED REPORT Exam: Resting ECG Reason for Exam: S/P TAVR Patient Location: O HR:84 bpm ECG Measurements Heart Rate 84 AXIS RI 153 P 64 QRSd 119 QRS 33 QT 357 T 143 QTc 422 Conclusion Sinus rhythm...normal P axis, V-rate 50- 99 Probable left atrial enlargement...P >50mS, <-0.10mV V1 RSR prime V1 and V2 Nondiagnostic ST abnormalities
== END 2024-07-03 11:05 | disposition home or self-care (01) ==
LOC: DI.CARD 11:15
PROVIDERS: PCP Nurse Practitioner Family; Referring Provider Nurse Practitioner Family; Visit Provider Internal Medicine Cardiovascular Disease
DX: Z95.2 Presence of prosthetic heart valve (principal)
CPT/HCPCS: 93010

== ENCOUNTER → 2024-07-03 11:04 | Outpatient (BNVA) | payer MEDICARE, SELFPAY | PROVIDERS: PCP Nurse Practitioner Family; Referring Provider Nurse Practitioner Family; Visit Provider Internal Medicine Cardiovascular Disease | DX: Z95.2 Presence of prosthetic heart valve (principal) | CPT/HCPCS: 93005; 99214 ==

== ENCOUNTER 2024-07-05 01:06 | Outpatient (CLI) | payer MEDICARE, SELFPAY ==
--- NOTE | 2024-07-05 12:30 | DI.US_ITS ---
APPROVED REPORT EXAM: Comprehensive 2D, Doppler, and color-flow Echocardiogram Patient Location: Out-Patient Resident Services Supervisor: Suyapa Watson RDCS (AE) Indications: S/P TAVR Other Information Study Quality: Adequate Conclusion Moderate concentric left ventricular hypertrophy. EF biplane is 58%. Visually EF appears 60 to 65% with normal wall motion Normal right ventricular size and function Both atria are normal in size There is a transcatheter aortic valve replacement. Mean gradient is 15 mmHg. There is no aortic reg urgitation Estimated right ventricular systolic pressure is 28 mmHg Wall motion Left Ventricle The left ventricle is normal size. The left ventricular systolic function is normal. The left ventric ular ejection fraction is within the normal range. Moderate concentric left ventricular hypertrophy. There is normal LV segmental wall motion. There is no ventricular septal defect visualized. LVEF is 5 8%. Right Ventricle The right ventricle is normal size. The right ventricular systolic function is normal. Atria The left atrium size is normal. The right atrium size is normal. The interatrial septum is intact wit h no evidence for an atrial septal defect. Aortic Valve TAVR aortic valve. No aortic regurgitation is present. Mitral Valve Mitral valve leaflets are mildly thickened. No evidence of mitral valve stenosis. Trace mitral regurg itation. Tricuspid Valve The tricuspid valve is normal in structure. There is no tricuspid valve stenosis. Trace tricuspid reg urgitation. The RVSP is 27.9_ mmHg. Pulmonic Valve The pulmonary valve is normal in structure. There is no pulmonic valvular stenosis. There is no pulmo cristi valvular regurgitation. Great Vessels The aortic root is normal in size. The ascending aorta is normal in size. Aortic arch is not well vis ualized. IVC is normal in size and collapses >50% with inspiration. Pericardium There is no pericardial effusion. 2D Dimensions IVSD d PLAX 1.40 cm M: 0.6-1.2 Ao Root d 2.37 cm M: 3.1 - 3.7 LVPW d PLAX 1.40 cm M: 0.6 - 1.2 Ao Asc Diam d 3.02 cm M: 2.6 - 3.4 LVID d PLAX 4.70 cm M: 4.2 - 5.8 LVDs 3.30 cm M: 2.5 - 4.0 LV EF Teichholz 56.8 % FS 29.68 % LV EDV (Teich) 100.0 mL LV ESV (Teich) 43.2 mL M-Mode TAPSE 2.83 cm (M/F) >1.7 Auto EF LV EDV A4C 171.2 mL LV EDV A2C 144.4 mL LV EDV BP 160.1 mL LV ESV A4C 74.7 mL LV ESV A2C 63.1 mL LV ESV BP 68.0 mL LVEF(%) A4C 56.4 % LVEF(%) A2C 56.3 % LVEF(%) BP 57.6 % LV SV A4C 96.5 ml LV SV A2C 81.3 ml LV SV BP 92.2 ml LV CO A4C 7.4 L/min LV CO A2C 5.8 L/min LV CO BP 6.6 L/min HR A4C 77.23 BPM HR A2C 71.57 BPM LV EDV Index (BP) LA Volume LA Length A4C 5.4 cm LA Length A2C 5.8 cm LA Area A4C s 19.44 cm2 LA Area A2C s 22.06 cm2 LA Vol A4C A-L 59.58 mL LA Vol A2C A-L 70.84 mL LA Vol Biplane A-L 67.6 mL LA Vol/BSA A4C A-L LA Vol/BSA A2C A-L LA Vol/BSA BP A-L 27.3 mL/m2 LA Vol A4C MOD 56.0 mL LA Vol A2C MOD 66.9 mL LA Vol BP MOD 63.6 mL RA Volume RA Area A4C 15.2 cm2 RA ESV A4C (A-L) 38.9mL RA Vol/BSA A4C A-L RA Length A4C 5.1 cm RA ESV A4C (MOD) 37.4mL LV Diastology MV E' medial 0.070 (>0.07 m/s) MV E Vmax 0.99 (0.4-1.3 m/s) MV E/E' MED 14.06 (<14) MV A Vmax 1.00 (0.4-1.3 m/s) MV E' lateral 0.072 (>0.1 m/s) E/A Ratio 1.0 MV E/E' LAT 13.71 (<14) MV E' Average 0.071 m/s MV E/E'(average) 13.88 Aortic Valve AoV Vmax 2.58 m/s LVOT Vmax 1.33 m/s AoV Peak Grad 26.6 mmHg LVOT Peak Grad 7.1 mmHg AoV Area (Vmax) 1.60 cm2 LVOT VTI 0.298 m AoV VTI 0.531 m LVOT Mean Grad 3.9 mmHg AoV Mean Toby. 1.81 m/s LVOT SV 92.50 mL AoV Mean Grad 15.0 mmHg LVOT Diam s 1.95 cm AoV Area (VTI) 1.74 cm2 AV Regurg Peak Gr. 26.58 mmHg Velocity Ratio 0.52 Mitral Valve MV DT 225 (160-240 msec) MV Vmax TIPS 1.13 m/s MV Mean Grad 2.5 (<2mmHg) MV VTI 0.367 m Pulmonary Valve PV Vmax 0.99 (0.5-1.5 m/s) RVOT Vmax 0.88 m/s PV Peak Grad 4.0 mmHg RVOT Peak Gr. 3.1 mmHg PV Mean Toby 0.73 m/s RVOT VTI 0.165 m PV Mean Grad 2.4 mmHg RVOT Mean Gr. 1.6 mmHg Tricuspid Valve RA Pressure 3.00 mmHg TR Vmax 2.50 m/s TV S' 0.16 m/s TR Peak Grad 24.9 mmHg RVSP (TR) 27.9 mmHg
== END 2024-07-05 01:26 ==
PROVIDERS: PCP Nurse Practitioner Family; Visit Provider Internal Medicine Cardiovascular Disease
DX: Z95.2 Presence of prosthetic heart valve (principal)
CPT/HCPCS: 93306

== ENCOUNTER 2024-11-06 08:29 | Emergency (ER) | payer MEDICARE, SELFPAY ==
[2024-11-06 08:35] VITALS: BP 155/84; PULSE 99; RESP 16; TEMP 36.6; O2SAT 99
--- NOTE | 2024-11-06 09:57 | W.ED.GENAD ---
Discharge Plan Disposition Patient Disposition: Against Medical Advice Condition: Stable Discharge Details Clinical Impression: Perforated ulcer Primary Care Provider: Michael Turpin ED Provider: Gopal Tamez Home Meds and New Rx's Prescriptions: New pantoprazole 40 mg tablet,delayed release (DR/EC) 40 mg PO DAILY Qty: 30 0RF amoxicillin-pot clavulanate 875-125 mg tablet 1 tab PO BID 7 Days Qty: 14 0RF Continued (DME) lancets misc See Dose Instructions .ROUTE .MEDSUPPLY Qty: 300 3RF Dose Instruction: As directed Rx Instructions: As directed to check blood glucose TID (DME) Blood Glucose Test strip See Dose Instructions .ROUTE .MEDSUPPLY Qty: 100 3RF Dose Instruction: As directed to check daily morning fasting blood glucose. No insulin. Rx Instructions: As directed to check daily morning fasting blood glucose. On insulin. (DME) pen needle, diabetic [BD Ultra-Fine Ludy Pen Needle] 32 gauge x 5/32 needle See Dose Instructions .ROUTE .MEDSUPPLY Qty: 200 3RF Dose Instruction: Daily with Liraglutide Rx Instructions: BID with Lantus (DME) blood-glucose meter kit See Dose Instructions .ROUTE .MEDSUPPLY Qty: 1 0RF Dose Instruction: As directed Rx Instructions: As directed, to keep HbA1c below 6.5% quetiapine 50 mg tablet 200 mg PO QHS Qty: 360 3RF Rx Instructions: NEW DOSE. 50mg PO in AM and 150mg PO at HS. Invokana 300 mg tablet 300 mg PO DAILY Qty: 90 3RF venlafaxine 150 mg capsule,extended release 24hr 150 mg PO DAILY Qty: 90 3RF fenofibrate nanocrystallized [Tricor] 145 mg tablet 145 mg PO DAILY Qty: 90 3RF amoxicillin 500 mg capsule 2,000 mg PO ONCE Qty: 4 0RF Rx Instructions: Take one hour prior to procedure. lisinopril 5 mg tablet 5 mg PO DAILY Qty: 90 3RF Rx Instructions: TO PROTECT KIDNEYS tamsulosin 0.4 mg capsule 0.4 mg PO DAILY Qty: 90 3RF levothyroxine 50 mcg tablet 50 mcg PO DAILY Qty: 90 3RF fluoride (sodium) 1.1 % gel 1 applic dental DAILY Qty: 56 3RF semaglutide 0.25 mg or 0.5 mg (2 mg/3 mL) pen injector 0.25 mg subcut QWEEK Qty: 3 0RF Rx Instructions: One shot every week for four weeks. On 4th shot, notify clinic for increase. sumatriptan succinate 50 mg tablet See Rx Instructions PO .COMPLEX Qty: 30 0RF Rx Instructions: take 1 tab at onset of headache; if no relief may repeat 1 tab after at least 2 hrs; max = 4 tabs/24 hr PO Trulicity 1.5 mg/0.5 mL pen injector 1.5 mg subcut QWEEK Qty: 2 3RF sildenafil 100 mg tablet 100 mg PO DAILY PRN (Reason: sexual activity) Qty: 10 3RF Rx Instructions: administer 30 minutes to 4 hours before activity metformin 1,000 mg tablet 1,000 mg PO BID Qty: 180 3RF clonazepam 1 mg tablet 1 mg PO BID PRN (Reason: anxiety) Qty: 56 3RF aspirin 81 mg Tablet 81 mg PO DAILY Multi Vitamin 9 mg iron/15 mL Liquid 15 ml PO DAILY acetaminophen 500 MG tablet 500 mg PO Q6H PRN PRNQty: 0 0RF Patient Comments: patient states a couple of days ago Discharge Instructions Instructions: Peptic ulcers, Amoxicillin and Clavulanate, Pantoprazole, Gastrointestinal tract perforation Additional Instructions: You were seen in the emergency department for the perforated distal stomach/proximal duodenal ulcer, you have a hole in your GI tract this is a life-threatening condition and you may deteriorate or even in the short-term. You chose to leave AGAINST MEDICAL ADVICE. Surgery service will call you tomorrow to schedule your urgent/emergent upper endoscopy. I am sending you home on an antibiotic called Augmentin as well as a proton pump inhibitor to lessen the impact of stomach acid on ulceration, these were sent to [facility] in [place] please take them as directed. Please return to the emergency department immediately for developing fever with severe abdominal pain, tractable nausea or vomiting. Referrals: [facility] [Provider Group] Michael Turpin DIG[employer] ANALYTICS MANAGER [Primary Care Provider] - Discharge Data Discharge Date/Time-TO BE ENTERED AT DEPARTURE: 11/06/24 16:11 HPI General Date/Time Provider Initiated Documentation: 11/06/24 08:44. HPI Narrative: 58 year-old male presents to ED today by POV/ambulating with a chief complaint of intermittent diarrhea, illness, nausea with onset for the last 2 weeks- states sometimes liquid diarrhea, other times soft stool. Quality described as generalized malaise, no radiation to chest pain, shortness of breath, high fever, black/bloody stools, hematemesis/coffee-ground emesis, productive cough, urinary retention, hematuria. Severity is described as moderate. Palliating factors include nothing specific attempted. Provoking factors include nothing specific. Patient not anticoagulated. Related Data Home Medications ?Medication ?Instructions ?Recorded ?Confirmed acetaminophen 500 mg tablet 500 mg PO Q6H PRN PRN #0 tabs 05/26/18 11/06/24 blood sugar diagnostic (Blood #100 ea 03/26/19 05/18/24 Glucose Test strips) lancets #300 ea 03/26/19 05/18/24 blood-glucose meter #1 ea 03/27/19 05/18/24 pen needle, diabetic 32 gauge x #200 ea 03/27/19 05/18/2432 (BD Ultra-Fine Ludy Pen Needle) aspirin 81 mg tablet 81 mg PO DAILY 04/23/22 11/06/24 multivitamin with minerals-iron 15 ml PO DAILY 04/23/22 11/06/24 fumarate 9 mg iron/15 mL oral liquid (Multi Vitamin) quetiapine 50 mg tablet 200 mg (4 x 50 mg) PO QHS #360 tabs 08/15/23 11/06/24 canagliflozin 300 mg tablet 300 mg PO DAILY #90 tab-caps 10/31/23 11/06/24 (Invokana) fenofibrate nanocrystallized 145 145 mg PO DAILY #90 tab-caps 11/28/23 11/06/24 mg tablet (Tricor) venlafaxine 150 mg 150 mg PO DAILY #90 tab-caps 11/28/23 11/06/24 capsule,extended release 24 hr amoxicillin 500 mg capsule 2,000 mg (4 x 500 mg) PO ONCE #4 12/26/23 07/03/24 caps lisinopril 5 mg tablet 5 mg PO DAILY #90 tabs 01/18/24 11/06/24 tamsulosin 0.4 mg capsule 0.4 mg PO DAILY #90 caps 01/23/24 11/06/24 levothyroxine 50 mcg tablet 50 mcg PO DAILY #90 tabs 03/05/24 11/06/24 fluoride (sodium) 1.1 % dental gel 1 applic dental DAILY #56 grams 06/29/24 11/06/24 semaglutide 0.25 mg or 0.5 mg (2 0.25 mg (0.368 mL) subcut QWEEK #3 07/20/24 11/06/24 mg/3 mL) subcutaneous pen injector mL sumatriptan succinate 50 mg tablet See Rx Instructions PO .COMPLEX 07/25/24 11/06/24 #30 tabs dulaglutide 1.5 mg/0.5 mL 1.5 mg (0.5 mL) subcut QWEEK #2 mL 08/27/24 11/06/24 subcutaneous pen injector (Trulicity) sildenafil 100 mg tablet 100 mg PO DAILY PRN sexual 09/21/24 11/06/24 activity #10 tabs metformin 1,000 mg tablet 1,000 mg PO BID #180 tab-caps 09/24/24 11/06/24 clonazepam 1 mg tablet 1 mg PO BID PRN anxiety #56 tabs 10/29/24 11/06/24 amoxicillin 875 mg-potassium 1 tab PO BID 7 days #14 tabs 11/06/24 clavulanate 125 mg tablet pantoprazole 40 mg tablet,delayed 40 mg PO DAILY #30 tabs 11/06/24 release Previous Rx's ?Medication ?Instructions ?Recorded acetaminophen 500 mg tablet 500 mg PO Q6H PRN PRN #0 tabs 05/26/18 blood sugar diagnostic (Blood #100 ea 03/26/19 Glucose Test strips) lancets #300 ea 03/26/19 blood-glucose meter #1 ea 03/27/19 pen needle, diabetic 32 gauge x #200 ea 03/27/19 (BD Ultra-Fine Ludy Pen Needle) quetiapine 50 mg tablet 200 mg (4 x 50 mg) PO QHS #360 tabs 08/15/23 canagliflozin 300 mg tablet 300 mg PO DAILY #90 tab-caps 10/31/23 (Invokana) fenofibrate nanocrystallized 145 145 mg PO DAILY #90 tab-caps 11/28/23 mg tablet (Tricor) venlafaxine 150 mg 150 mg PO DAILY #90 tab-caps 11/28/23 capsule,extended release 24 hr amoxicillin 500 mg capsule 2,000 mg (4 x 500 mg) PO ONCE #4 12/26/23 caps lisinopril 5 mg tablet 5 mg PO DAILY #90 tabs 01/18/24 tamsulosin 0.4 mg capsule 0.4 mg PO DAILY #90 caps 01/23/24 levothyroxine 50 mcg tablet 50 mcg PO DAILY #90 tabs 03/05/24 fluoride (sodium) 1.1 % dental gel 1 applic dental DAILY #56 grams 06/29/24 semaglutide 0.25 mg or 0.5 mg (2 0.25 mg (0.368 mL) subcut QWEEK #3 07/20/24 mg/3 mL) subcutaneous pen injector mL sumatriptan succinate 50 mg tablet See Rx Instructions PO .COMPLEX 07/25/24 #30 tabs dulaglutide 1.5 mg/0.5 mL 1.5 mg (0.5 mL) subcut QWEEK #2 mL 08/27/24 subcutaneous pen injector (Trulicity) sildenafil 100 mg tablet 100 mg PO DAILY PRN sexual 09/21/24 activity #10 tabs metformin 1,000 mg tablet 1,000 mg PO BID #180 tab-caps 09/24/24 clonazepam 1 mg tablet 1 mg PO BID PRN anxiety #56 tabs 10/29/24 amoxicillin 875 mg-potassium 1 tab PO BID 7 days #14 tabs 11/06/24 clavulanate 125 mg tablet pantoprazole 40 mg tablet,delayed 40 mg PO DAILY #30 tabs 11/06/24 release Allergies Allergy/AdvReac Type Severity Reaction Status Date / Time simvastatin AdvReac Mild Swelling Verified 11/06/24 09:30 of mouth and feet General Stated Complaint: Nausea/Vomit/Diar TOO: 3 Review of Systems All systems reviewed & are unremarkable except as noted in HPI and below Exam Narrative Exam Narrative: GENERAL APPEARANCE: Well-nourished, non-toxic, awake and alert, atraumatic, no acute distress. SKIN: Warm, pink, dry, intact, without rashes/lesions/ulcerations. HEAD: Normocephalic, atraumatic, normal hair distribution for gender/age. EYES: Normal conjunctiva, no exudates on lids/lashes. ENT: Nares patent, no circumoral cyanosis, no facial swelling NECK: Supple, trachea midline, painless cervical ROM. LUNGS/CHEST: Lungs CTA bilaterally, non-labored respirations, normal A/P diameter, symmetrical expansion, no chest wall deformity HEART (CV/PV): Regular rate and rhythm without murmur, no peripheral edema, no JVD. ABDOMEN: Soft, non-distended, no guarding, large anterior abdominal hernia, epigastric tenderness, right lower quadrant tenderness, no CVA tenderness percussion bilaterally. MSK: Normal ROM, no swelling/deformity to bilateral UEs or LEs, moving all extremities without weakness, no cyanosis, spine midline without tenderness, normal curvature. NEURO: Mental Status AAOx4 - alert to person, place, time, events No facial droop, no forehead involvement. Motor: No focal weakness - strength 5/5 in bilateral UEs and LEs, proximal and distal, symmetric. Sensory: sensation intact to light touch globally. Gait normal: patient ambulated without ataxia into ED room. PSYCH: euthymic, cooperative, pleasant, appropriate speech Course Vital Signs Vital signs: Vital Signs Temperature 36.6 C 11/06/24 08:35 Pulse 99 H 11/06/24 08:35 Respiratory Rate 16 11/06/24 08:35 Blood Pressure 155/84 H 11/06/24 08:35 Pulse Oximetry 99 11/06/24 08:35 Temperature 36.6 C 11/06/24 08:35 Temperature Source Oral 11/06/24 08:35 Pulse 99 H 11/06/24 08:35 Respiratory Rate 16 11/06/24 08:35 Blood Pressure 155/84 H 11/06/24 08:35 Blood Pressure Position Supine 11/06/24 08:35 Pulse Oximetry 99 11/06/24 08:35 Pain Level 5 11/06/24 08:35 Medical Decision Making This dictation utilizes [id number] dictation software and may contain unedited grammatical errors. 58 year-old male presents to ED today by POV/ambulating with a chief complaint of intermittent diarrhea, illness, nausea with onset for the last 2 weeks- states sometimes liquid diarrhea, other times soft stool. Quality described as generalized malaise, no radiation to chest pain, shortness of breath, high fever, black/bloody stools, hematemesis/coffee-ground emesis, productive cough, urinary retention, hematuria. Severity is described as moderate. Palliating factors include nothing specific attempted. Provoking factors include nothing specific. Patients' medical history: Anemia, moderate aortic stenosis, hypertension, history of YUDI and diverticulitis, left ureteral injury, history of colectomy, appendectomy, history of TAVR, throat cancer, diabetes mellitus, hyperlipidemia, constipation. Family and social history: Noncontributory. Pertinent exam findings / vital signs include large anterior abdominal hernia, epigastric tenderness, right lower quadrant tenderness, no CVA tenderness percussion bilaterally, lungs CTA, benign cardiopulmonary exam, afebrile nontoxic. Differential / pathologies of concern include hernia, incarceration, gastroenteritis, peptic ulcer disease,. Diagnostic studies of: -CBC, CMP, lactate, magnesium, lipase, COVID/flu/RSV PCR, CT ABD/pelvis with contrast. -CBC shows mild leukocytosis without left shift, no sign of anemia -CMP is without actionable abnormality -Lipase negative -Magnesium within normal limits -Lactate negative -COVID/flu/RSV PCR negative -CT shows likely perforated distal stomach proximal duodenal ulcer, consulting surgery Interventions of: -1G IV Tylenol, 15 mg IV Toradol, 4 mg IV Zofran. -Empiric Zosyn -Surgical consult with Dr. Fishman who accepts for admission, patient is hesitant to be admitted to the hospital I tried to stress that any perforation of an abdominal organ is a serious possible life threat progressing to critical pathology in the short-term and that he needs to wait for consult and likely needs to stay for admission for EGD ED Course/Assessment/Plan: 58-year-old male presents with diffuse upper abdominal pain and has not been feeling right with nausea vomiting and some diarrhea for the past 2 weeks, CT shows perforated distal stomach or proximal duodenal ulcer with adjacent mesenteric streaking warranting urgent EGD, otherwise patient's laboratory workup is benign with no signs of sepsis, patient was accepted by Dr. Fishman of surgery service. Patient then chose to leave AGAINST MEDICAL ADVICE despite dire warnings that his condition could seriously deteriorate even cause in the short-term, both Dr. Fishman and I spoke to the patient regards to this risk and he still chose to leave AGAINST MEDICAL ADVICE him giving him prescription for 40 mg pantoprazole p.o. daily as well as Augmentin twice daily, surgery office will call him tomorrow to schedule scope. Disposition of Perforated Ulcer. Patient verbalized understanding of the plan and return to ED criteria and engaged in shared decision making. Medical Records Medical records reviewed: Yes I reviewed the patient's medical records. Imaging Data Radiologic Study: Attestation: I personally reviewed and interpreted this imaging study as follows: Imaging: CT Scan Radiologist's impression: EXAM: CT ABDOMEN PELVIS W CLINICAL HISTORY: abdominal pain x 2 weeks, large hernia. TECHNIQUE: Imaging Protocol: Axial computed tomography images with coronal and sagittal reformatted images were created and reviewed CONTRAST MATERIAL: Intravenous: Omnipaque-350 100cc Oral: None COMPARISON: CT CT CHEST PE ABD PELVIS W from 11/06/2021 FINDINGS: VISUALIZED LUNG BASES: Calcified granuloma in the left lower lobe is again noted. The previously present pleural effusions open (2021) are no longer present. There is an aortic valve TAVR in place.. ABDOMEN: GI: There is significant abnormality in the appearance of the distal stomach-proximal duodenum. Appearance is of probable perforated ulcer in the posterior wall the distal stomach with adjacent mesenteric streaking. No obvious free air but there is developing collection at this level. LIVER: There are no focal hepatic lesions evident. No dilated intrahepatic ducts. GALLBLADDER/BILIARY: No obvious gallbladder pathology. CBD is not dilated. PANCREAS: No evidence of pancreatic mass nor dilatation of the pancreatic duct. SPLEEN: Spleen is not enlarged. No obvious intrasplenic lesions. Splenic and portal veins are patent. ADRENALS: There are no significant adrenal masses. KIDNEYS:No cysts evident. No solid renal masses. No calculi nor hydronephrosis.. ABDOMINAL AORTA: Abdominal aorta is not enlarged. LYMPH NODES:There is no retroperitoneal nor paraaortic adenopathy. ABDOMINAL WALL: There is evidence of previous anterior abdominal wall surgery. In addition to diastasis rectus there is also a E right para-infraumbilical fat only containing anterior abdominal hernia. PELVIS: GI: No evidence of appendicitis.There is evidence of previous surgery in the sigmoid-rectosigmoid. Acute inflammatory process at this level. LYMPH NODES: There is no intrapelvic nor inguinal adenopathy. REPRODUCTIVE: Prostate size normal. Seminal vesicles unremarkable. URINARY BLADDER: No calculi nor obvious masses evident OSSEOUS: Multilevel chronic degenerative disc disease in the mid-lower lumbar spine. No fractures. No listhesis. No pars defects. IMPRESSION: 1. The main findings are in the region of the distal stomach-proximal duodenum. There appears to be perforated ulcer at this level with adjacent mesenteric streaking. 2. Evidence of previous bowel surgery at the level of the sigmoid without obvious acute findings at this level. 3. Anterior abdominal hernias which do not contain bowel loops and there is no evidence of bowel obstruction. Lab Data Lab results reviewed: Yes I reviewed the patient's lab results. Labs: Laboratory Tests Range/Units 11/06/24 11/06/24 11:03 11:22 WBC (4.4-10.8) 10^3/uL 13.84 H RBC (4.36-5.78) 10^6/uL 4.92 Hgb (13.5-17.5) g/dL 14.5 Hct (40.0-50.0) % 43.0 MCV (80-95) fL 87 MCH (27.0-33.0) pg 29.5 MCHC (32.0-36.0) % 33.7 RDW (11.8-14.1) % 13.4 Plt Count (130-400) 10^3/uL 413 H MPV (8.0-11.0) fL 9.2 Immature Gran % % 0.6 Neutrophils % % 81.3 Lymphocytes % % 11.2 Monocytes % % 5.4 Eosinophils % % 1.1 Basophils % % 0.4 Nucleated RBC % (0.0-0.3) % 0.0 Absolute Neutrophils (1.2-6.7) 10^3/uL 11.25 H Absolute Lymphocytes (1.2-3.4) 10^3/uL 1.55 Absolute Monocytes (0.1-0.8) 10^3/uL 0.75 Absolute Eosinophils (0.0-0.7) 10^3/uL 0.15 Absolute Basophils (0.0-0.2) 10^3/uL 0.06 VBG Lactate (<or=2.0) mmol/L 1.2 Sodium (136-145) mmol/L 140 Potassium (3.5-5.1) mmol/L 4.1 Chloride (98-107) mmol/L 104 Carbon Dioxide (21.0-32.0) mmol/L 26.6 Anion Gap (3-11) mmol/L 9.4 BUN (7-18) mg/dL 19 H Creatinine (0.70-1.30) mg/dL 1.0 Est GFR (CKD-EPI 2020) (mL/min/1.73m2) 87.78 Glucose (74-106) mg/dL 95 Calcium (8.5-10.1) mg/dL 9.8 Magnesium (1.8-2.4) mg/dL 1.8 Total Bilirubin (0.2-1.0) mg/dL 0.32 AST (15-37) U/L 11 L ALT (16-63) U/L 25 Alkaline Phosphatase (46-116) U/L 68 Total Protein (6.4-8.2) g/dL 7.9 Albumin (3.4-5.0) g/dL 3.8 Lipase (<78) U/L 38 COVID-19 Source Nasopharynx SARS-CoV-2 (PCR) (Negative) Negative Influenza Type A (PCR) (Negative) Negative Influenza Type B (PCR) (Negative) Negative RSV (PCR) (Negative) Negative Quality:SDOH Health Related Social Needs: Health related social needs details none PFSH All Active Problems (Updated 11/06/24 @ 15:06 by MELONY Wilhelm) Perforated ulcer (Acute) S/P TAVR (transcatheter aortic valve replacement) (Acute) [facility] [place] [facility] Hypothyroidism (Chronic) Throat cancer (Acute) Monitoring. Has gone through chemo/radiation Diabetes mellitus (Chronic) Shortness of breath (Acute) Hypercholesteremia (Acute) Tongue ulcer (Acute) Glossodynia (Acute) Fatigue (Acute) Tinnitus (Acute) Diabetic retinopathy (Acute ~11/23/19) 11/23/19 [place]; MILD RIGHT EYE Pulsatile tinnitus of both ears (Acute) Dizziness (Acute) Tongue lesion (Acute) Hx of dizziness (Acute) Smoker (Acute) Hepatic steatosis (Chronic) Major depressive disorder (Chronic) HLD (hyperlipidemia) (Chronic) 06/2017 labwork: 10-year ASCVD risk = ~42.9% --> patient declines a statin; good response to severely elevated TGs with Tricor Adult antisocial behavior (Chronic) Anastomotic stricture of colorectal region (Acute) Constipation (Acute) Ventral hernia (Chronic) Obesity (Acute 05/03/17) Microalbuminuria (Chronic 06/20/17) Male erectile dysfunction, unspecified (Chronic 04/08/17) Colovesical fistula (Acute 10/18/17) Antisocial personality disorder (Acute) Previous dx from psychiatry Intraoperative ureteral injury (Acute) Medical History Anemia Squamous cell cancer of tongue Aortic valve stenosis, moderate 02/21/2019 echo --> repeat echo 1-2 years Colon abnormality (10/13/18) 10/13/18 Dr Manish Garcia ([facility]), unable to advance scope due to bienvenido protruding into colon, referred to [facility]. YUDI (acute kidney injury) Essential hypertension (04/08/17) Diverticulitis (10/18/17) Left ureteral injury Delayed surgical wound healing Current visit yes Anxiety Surgical History History of colostomy reversal H/O ureter repair H/O resection of large bowel 05/23/18 Dr Diaz Cystoscopy (04/20/18) W/ (L) retrograde pyelogram. Dr. Strickland Colectomy (01/17/18) sigmoid colectomy 05/23/18 - revision Appendectomy (03/16/18) S/P closure of ileostomy Family History Mother Heart disease Father Depression Sister No problems noted. Sister PKU (phenylketonuria) Social History Smoking/Tobacco Use Status: Current every day Tobacco Type: cigarettes Tobacco: How many years used: 35 Quit status: considering quitting Second Hand Exposure: No Smoking risk assessment performed?: Yes Alcohol Intake: former Year quit: 1994 Details: Declined to answer Caregiver/Support person: No Household members: none Housing: house Communication Needs: None Do you need help understanding health information?: Rarely Pets and animals: No Sexually active: No Do you think of yourself as: straight/heterosexual Current gender identity: male What is your relationship status?: refused to answer How often do you talk on the phone with friends or family?: decline to answer How often do you get together with friends or relatives?: decline to answer How often do you attend orthodox or taoist services?: decline to answer Do you belong to any clubs or organized social groups?: no Panel score (0-1 are the most socially isolated patients): 0 What type of physical activity do you participate in: none Duration: < 15 minutes/day Isela/Mormonism: Cheondoism Special isela needs: No Seatbelt use: never Helmet use: No Drive intox 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 reach lift truck driver: No Working smoke detector in home: Yes Carbon monox detector in home: Yes Do you feel safe at home: Yes Do you feel safe in your relationship?: Yes
--- NOTE | 2024-11-06 10:15 | DI.CT_ITS ---
Exam(s) CT ABDOMEN PELVIS W EXAM: CT ABDOMEN PELVIS W CLINICAL HISTORY: abdominal pain x 2 weeks, large hernia. TECHNIQUE: Imaging Protocol: Axial computed tomography images with coronal and sagittal reformatted images were created and reviewed CONTRAST MATERIAL: Intravenous: Omnipaque-350 100cc Oral: None COMPARISON: CT CT CHEST PE ABD PELVIS W from 11/06/2021 FINDINGS: VISUALIZED LUNG BASES: Calcified granuloma in the left lower lobe is again noted. The previously pre sent pleural effusions open (2021) are no longer present. There is an aortic valve TAVR in place.. ABDOMEN: GI: There is significant abnormality in the appearance of the distal stomach-proximal duodenum. Appe arance is of probable perforated ulcer in the posterior wall the distal stomach with adjacent mesente heraclio streaking. No obvious free air but there is developing collection at this level. LIVER: There are no focal hepatic lesions evident. No dilated intrahepatic ducts. GALLBLADDER/BILIARY: No obvious gallbladder pathology. CBD is not dilated. PANCREAS: No evidence of pancreatic mass nor dilatation of the pancreatic duct. SPLEEN: Spleen is not enlarged. No obvious intrasplenic lesions. Splenic and portal veins are paten t. ADRENALS: There are no significant adrenal masses. KIDNEYS:No cysts evident. No solid renal masses. No calculi nor hydronephrosis.. ABDOMINAL AORTA: Abdominal aorta is not enlarged. LYMPH NODES:There is no retroperitoneal nor paraaortic adenopathy. ABDOMINAL WALL: There is evidence of previous anterior abdominal wall surgery. In addition to diasta sis rectus there is also a E right para-infraumbilical fat only containing anterior abdominal hernia. PELVIS: GI: No evidence of appendicitis.There is evidence of previous surgery in the sigmoid-rectosigmoid. A cute inflammatory process at this level. LYMPH NODES: There is no intrapelvic nor inguinal adenopathy. REPRODUCTIVE: Prostate size normal. Seminal vesicles unremarkable. URINARY BLADDER: No calculi nor obvious masses evident OSSEOUS: Multilevel chronic degenerative disc disease in the mid-lower lumbar spine. No fractures. No listhesis. No pars defects. IMPRESSION: 1. The main findings are in the region of the distal stomach-proximal duodenum. There appears to be perforated ulcer at this level with adjacent mesenteric streaking. 2. Evidence of previous bowel surgery at the level of the sigmoid without obvious acute findings at t his level. 3. Anterior abdominal hernias which do not contain bowel loops and there is no evidence of bowel obst ruction. Findings called by myself to ER provider 11/06/2024 at 12 58 p.m. RADIATION DOSE DELIVERED: 893.11mGy.cm Total DLP DATA REPOSITORY: All CT scans at this facility are submitted to the National Radiology Data Registry (NRDR) Dose Index Registry (DIR) with the [employer] (ACR). RADIATION OPTIMIZATION: All CT scans at this facility use at least one of these dose optimization te chniques: automated exposure control; mA and/or kV adjustment per patient size (includes targeted exa ms where dose is matched to clinical indication); or iterative reconstruction.
[2024-11-06] MEDS: ACETAMINOPHEN 1,000 MG/100 ML BAG 400 MG IVPB (10:57)
[2024-11-06] MEDS: Ondansetron 4 MG/2 ML VIAL IVP (10:59)
[2024-11-06] MEDS: Ketorolac 15 MG/ML VIAL IVP (10:59)
[2024-11-06 11:10] LABS: HGB 14.5 g/dL (13.5-17.5); Lymphocytes % 11.2 %; MCH 29.5 pg (27.0-33.0); MCHC 33.7 % (32.0-36.0); MCV 87 fL (80-95); MPV 9.2 fL (8.0-11.0); Monocytes % 5.4 %; Neutrophils % 81.3 %; Platelet Count 413 10^3/uL (130-400); RBC 4.92 10^6/uL (4.36-5.78); RDW 13.4 % (11.8-14.1); RDW-SD 42.6 fL; WBC 13.84 10^3/uL (4.4-10.8)
[2024-11-06 11:11] LABS: Abs Immature Grans 0.08 10^3/uL (0.0-0.06); Absolute Basophil Count 0.06 10^3/uL (0.0-0.2); Absolute Eosinophil Count 0.15 10^3/uL (0.0-0.7); Absolute Lymphocyte Count 1.55 10^3/uL (1.2-3.4); Absolute Monocyte Count 0.75 10^3/uL (0.1-0.8); Absolute Neutrophil Count 11.25 10^3/uL (1.2-6.7); Basophils % 0.4 %; Eosinophils % 1.1 %; Immature Grans % 0.6 %; Lactate 1.2 mmol/L (<or=2.0)
[2024-11-06 11:29] LABS: Lipase 38 U/L (<78); Magnesium 1.8 mg/dL (1.8-2.4)
[2024-11-06 11:38] LABS: ALT 25 U/L (16-63); AST 11 U/L (15-37); Albumin 3.8 g/dL (3.4-5.0); Alkaline Phosphatase 68 U/L (46-116); Anion Gap 9.4 mmol/L (3-11); BUN 19 mg/dL (7-18); Bilirubin, Total 0.32 mg/dL (0.2-1.0); CO2 26.6 mmol/L (21.0-32.0); Calcium 9.8 mg/dL (8.5-10.1); Chloride 104 mmol/L (98-107); Estimated GFR 87.78 (mL/min/1.73m2); Glucose 95 mg/dL (74-106); Potassium 4.1 mmol/L (3.5-5.1); Sodium 140 mmol/L (136-145); Total Protein 7.9 g/dL (6.4-8.2)
[2024-11-06] MEDS: Normal Saline - Diluent 50 ML VIAL IJ (12:16)
[2024-11-06] MEDS: Omnipaque 350 MG/ML 100 ML BTL IJ (12:16)
[2024-11-06 12:21] LABS: COVID-19 PCR Negative (Negative); Influenza A PCR Negative (Negative); Influenza B PCR Negative (Negative); RSV PCR Negative (Negative)
[2024-11-06 12:24] LABS: Source Nasopharynx
[2024-11-06 15:22] LABS: Bilirubin Negative (Negative); Blood Negative (Negative); Clarity Clear (Clear); Glucose 500 mg/dL (Negative); Ketones Negative (Negative); Leukocyte Esterase Negative (Negative); Nitrite Negative (Negative); Specific Gravity 1.015 (1.005-1.025); Urobilinogen 0.2 mg/dL (Up to 0.2); pH 7.5 (5-8)
[2024-11-06 15:36] LABS: Bacteria Rare HPF (Negative); C & S Indicated? No; Casts Negative LPF (Negative); Crystals Negative HPF (Negative); Epithelial Cells Negative HPF (Negative); Mucus Trace (Negative); Other Cells Negative (Negative); RBC Negative HPF (0-2); WBC Negative HPF (0-5)
--- NOTE | 2024-11-06 15:54 | SCONE_ITS ---
Date of service: 11/06/24 Time of Service: 16:13 Assessment and Plan Assessment and plan (1) Perforated ulcer: Status: Acute Assessment and plan: I explained to Koko that he most likely has a contained perforation of a peptic ulcer. My recommendation is for an attempt at nonoperative management with n.p.o. status, antibiotic and proton pump inhibitor therapy, and contrast- enhanced imaging sometime in the next 48 hours or so assuming vital signs and labs show improvement. However, he prefers to leave AGAINST MEDICAL ADVICE. I showed him the images on the CT scan, and explained all of this in simple language. I explained the risks associated with his choice which include worsening peritonitis, sepsis, and even . Koko seems to understand the risks associated with leaving AGAINST MEDICAL ADVICE. At the very least, I asked him to be compliant with a prescription for a proton pump inhibitor and antibiotics. I reiterated multiple times that he is welcome to come back to the hospital at any point if he reconsiders this decision at all. History of Present Illness History of Present Illness Chief Complaint: Nausea vomiting and abdominal pain Narrative: Koko is 58 years old. He comes to the emergency department after about 1-1/2 or 2 weeks of increasing abdominal discomfort associated with nausea vomiting and diarrhea. He also describes a cough. He does not recall any specific sick contacts. He tells me he came to the emergency department today because he has been putting it off for several days. In fact, overall, he says he does feel better overall. As best he can recall, the first symptom that he had was diarrhea that became associated with nausea and vomiting afterwards. This evolved over the course of about 1-1/2 to 2 days. He denies any subjective fevers. He denies melena, hematochezia, or hematemesis. He describes the abdominal discomfort as crampy, and nonfocal. He recalls having some relief of it after vomiting. Past medical history is fairly complicated but is probably most significant for obesity and diabetes. He has a very complicated abdominal surgical history rising from complicated diverticulitis. As best I can tell, he was diagnosed with a colovesicular fistula, and underwent sigmoid colectomy with a diverting loop ileostomy in 2015. The ileostomy was reversed in the months to follow-up, but he had complications of his surgical wounds, and subsequently developed a large ventral hernia as well. Review of Systems Constitutional Constitutional: Reports fatigue, Denies fever(s) and Reports poor appetite Eyes Eyes: Reports system reviewed and no additional complaints, except as documented ENT Ears, Nose, Mouth, and Throat: Reports system reviewed and no additional complaints, except as documented Cardiovascular Cardiovascular: Denies chest pain and Denies dyspnea Respiratory Respiratory: Denies chest congestion, Reports cough and Denies dyspnea Gastrointestinal Gastrointestinal: Reports abdominal pain, Reports diarrhea, Reports nausea and Reports vomiting Genitourinary Genitourinary: Reports system reviewed and no additional complaints, except as documented Musculoskeletal Musculoskeletal: Reports back pain and Denies muscle weakness Neurologic Neurologic: Reports system reviewed and no additional complaints, except as documented and Denies confusion Psychiatric Psychiatric: Reports anxiety, Denies confusion and Denies irritability Endocrine Endocrine: Reports fatigue Hematologic/Lymphatic Hematologic/Lymphatic: Denies easy bleeding and Denies easy bruising PFSH All Active Problems (Updated 11/06/24 @ 15:06 by MELONY Wilhelm) Perforated ulcer (Acute) S/P TAVR (transcatheter aortic valve replacement) (Acute) [facility] [place] Hypothyroidism (Chronic) Throat cancer (Acute) Monitoring. Has gone through chemo/radiation Diabetes mellitus (Chronic) Shortness of breath (Acute) Hypercholesteremia (Acute) Tongue ulcer (Acute) Glossodynia (Acute) Fatigue (Acute) Tinnitus (Acute) Diabetic retinopathy (Acute ~11/23/19) 11/23/19 SHIPE; MILD RIGHT EYE Pulsatile tinnitus of both ears (Acute) Dizziness (Acute) Tongue lesion (Acute) Hx of dizziness (Acute) Smoker (Acute) Hepatic steatosis (Chronic) Major depressive disorder (Chronic) HLD (hyperlipidemia) (Chronic) 06/2017 labwork: 10-year ASCVD risk = ~42.9% --> patient declines a statin; good response to severely elevated TGs with Tricor Adult antisocial behavior (Chronic) Anastomotic stricture of colorectal region (Acute) Constipation (Acute) Ventral hernia (Chronic) Obesity (Acute 05/03/17) Microalbuminuria (Chronic 06/20/17) Male erectile dysfunction, unspecified (Chronic 04/08/17) Colovesical fistula (Acute 10/18/17) Antisocial personality disorder (Acute) Previous dx from psychiatry Intraoperative ureteral injury (Acute) Medical History Anemia Squamous cell cancer of tongue Aortic valve stenosis, moderate 02/21/2019 echo --> repeat echo 1-2 years Colon abnormality (10/13/18) 10/13/18 Dr Manish Garcia ([facility]), unable to advance scope due to bienvenido protruding into colon, referred to [facility] [place] [facility]. YUDI (acute kidney injury) Essential hypertension (04/08/17) Diverticulitis (10/18/17) Left ureteral injury Delayed surgical wound healing Current visit yes Anxiety Surgical History History of colostomy reversal H/O ureter repair H/O resection of large bowel 05/23/18 Dr Diaz Cystoscopy (04/20/18) W/ (L) retrograde pyelogram. Dr. Strickland Colectomy (01/17/18) sigmoid colectomy 05/23/18 - revision Appendectomy (03/16/18) S/P closure of ileostomy Family History Mother Heart disease Father Depression Sister No problems noted. Sister PKU (phenylketonuria) Social History Smoking/Tobacco Use Status: Current every day Tobacco Type: cigarettes Tobacco: How many years used: 35 Quit status: considering quitting Second Hand Exposure: No Smoking risk assessment performed?: Yes Alcohol Intake: former Year quit: 1994 Details: Declined to answer Caregiver/Support person: No Household members: none Housing: house Communication Needs: None Do you need help understanding health information?: Rarely Pets and animals: No Sexually active: No Do you think of yourself as: straight/heterosexual Current gender identity: male What is your relationship status?: refused to answer How often do you talk on the phone with friends or family?: decline to answer How often do you get together with friends or relatives?: decline to answer How often do you attend restorationist or congregational services?: decline to answer Do you belong to any clubs or organized social groups?: no Panel score (0-1 are the most socially isolated patients): 0 What type of physical activity do you participate in: none Duration: < 15 minutes/day Isela/Evangelical: Zoroastrianism Special isela needs: No Seatbelt use: never Helmet use: No Drive intox 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 tour bus driver: No Working smoke detector in home: Yes Carbon monox detector in home: Yes Do you feel safe at home: Yes Do you feel safe in your relationship?: Yes Exam Const General: cooperative and comfortable Nutritional Appearance: obese Orientation: alert, awake and oriented x3 HENMT Head: normal to inspection Eyes General: appearance normal, both eyes and all related structures Neck Neck: normal visual inspection, full ROM and no lymphadenopathy Resp Effort & Inspection: normal respiratory effort and able to speak in complete sentences Auscultation: clear to auscultation bilaterally Cardio Rate: regular rate Rhythm: regular rhythm Heart Sounds: S1 normal and S2 normal GI Inspection: large pannus Palpation: soft, no guarding and tender (Minimal midepigastric) Percussion: normal to percussion Auscultation: normal bowel sounds Neuro General: patient alert, patient awake and patient oriented x3 Psych Appearance: grossly normal Mood: congruent mood Attitude: cooperative Results Last Vital Signs Temp 97.8 F 11/06/24 08:35 Pulse 99 H 11/06/24 08:35 Resp 16 11/06/24 08:35 BP 155/84 H 11/06/24 08:35 Pulse Ox 99 11/06/24 08:35 Labs 11/06/24 11:03 11/06/24 11:03 Labs: Laboratory Results - last 24 hr 11/06/24 11/06/24 11/06/24 11:03 11:22 15:03 WBC 13.84 H RBC 4.92 Hgb 14.5 Hct 43.0 MCV 87 MCH 29.5 MCHC 33.7 RDW 13.4 Plt Count 413 H MPV 9.2 Immature Gran % 0.6 Neutrophils % 81.3 Lymphocytes % 11.2 Monocytes % 5.4 Eosinophils % 1.1 Basophils % 0.4 Nucleated RBC % 0.0 Absolute Neutrophils 11.25 H Absolute Lymphocytes 1.55 Absolute Monocytes 0.75 Absolute Eosinophils 0.15 Absolute Basophils 0.06 VBG Lactate 1.2 Sodium 140 Potassium 4.1 Chloride 104 Carbon Dioxide 26.6 Anion Gap 9.4 BUN 19 H Creatinine 1.0 Est GFR (CKD-EPI 2020) 87.78 Glucose 95 Calcium 9.8 Magnesium 1.8 Total Bilirubin 0.32 AST 11 L ALT 25 Alkaline Phosphatase 68 Total Protein 7.9 Albumin 3.8 Lipase 38 Urine Color Yellow Urine Clarity Clear Urine pH 7.5 Ur Specific [place] 1.015 Urine Protein 30 H Urine Ketones Negative Urine Blood Negative Urine Nitrite Negative Urine Bilirubin Negative Urine Urobilinogen 0.2 Ur Leukocyte Esterase Negative Urine RBC Negative Urine WBC Negative Ur Epithelial Cells Negative Urine Crystals Negative Urine Bacteria Rare Urine Casts Negative Urine Mucus Trace Urine Other Negative Ur Culture Indicated? No Urine Glucose 500 H COVID-19 Source Nasopharynx SARS-CoV-2 (PCR) Negative Influenza Type A (PCR) Negative Influenza Type B (PCR) Negative RSV (PCR) Negative
[2024-11-06 16:08] VITALS: BP 155/84; PULSE 99; RESP 16; TEMP 36.6; O2SAT 99
== END 2024-11-06 16:11 | disposition left against medical advice (07) ==
PROVIDERS: Emergency Provider Physician Assistant; PCP Nurse Practitioner Family
DX: K27.5 Chronic or unspecified peptic ulcer, site unspecified, with perforation (principal); Z53.29 Procedure and treatment not carried out because of patient's decision for other reasons; R11.0 Nausea; R19.7 Diarrhea, unspecified
CPT/HCPCS: 80053; 83690; 87637; 96365; 96375; 99283; 99285; 74177; 81003; 81015; 83605; 83735; 85025; 99284; J0131; J1885; J2405; J3490

== ENCOUNTER 2024-11-08 12:37 | Outpatient (CLI) | payer MEDICARE, SELFPAY ==
[2024-11-08 12:37] LABS: Abs Immature Grans 0.06 10^3/uL (0.0-0.06); Absolute Basophil Count 0.04 10^3/uL (0.0-0.2); Absolute Eosinophil Count 0.18 10^3/uL (0.0-0.7); Absolute Lymphocyte Count 1.56 10^3/uL (1.2-3.4); Absolute Monocyte Count 0.54 10^3/uL (0.1-0.8); Absolute Neutrophil Count 6.34 10^3/uL (1.2-6.7); Basophils % 0.5 %; Eosinophils % 2.1 %; HCT 42.2 % (40.0-50.0); HGB 14.1 g/dL (13.5-17.5); Immature Grans % 0.7 %; Lymphocytes % 17.9 %; MCH 29.7 pg (27.0-33.0); MCHC 33.4 % (32.0-36.0); MCV 89 fL (80-95); MPV 9.1 fL (8.0-11.0); Monocytes % 6.2 %; Neutrophils % 72.6 %; Platelet Count 382 10^3/uL (130-400); RBC 4.75 10^6/uL (4.36-5.78); RDW 13.1 % (11.8-14.1); RDW-SD 42.6 fL; WBC 8.72 10^3/uL (4.4-10.8)
[2024-11-08 12:45] LABS: Anion Gap 10.5 mmol/L (3-11); BUN 18 mg/dL (7-18); CO2 26.5 mmol/L (21.0-32.0); CREATININE 1.1 mg/dL (0.70-1.30); Calcium 10.1 mg/dL (8.5-10.1); Chloride 105 mmol/L (98-107); Glucose 104 mg/dL (74-106); Potassium 4.3 mmol/L (3.5-5.1); Sodium 142 mmol/L (136-145)
== END 2024-11-08 12:38 | disposition home or self-care (01) ==
LOC: LBO 12:38
PROVIDERS: PCP Nurse Practitioner Family; Visit Provider Surgery
DX: K27.5 Chronic or unspecified peptic ulcer, site unspecified, with perforation (principal)
CPT/HCPCS: 36415; 80048; 85025

== ENCOUNTER 2024-11-09 19:35 | Outpatient (REF) | payer MEDICARE, SELFPAY ==
[2024-11-13 12:52] LABS: Helicobacter pylori Ag, Feces Negative (Negative)
== END 2024-11-09 19:36 | disposition home or self-care (01) ==
LOC: LBN 19:35
PROVIDERS: PCP Nurse Practitioner Family; Visit Provider Surgery
DX: K27.5 Chronic or unspecified peptic ulcer, site unspecified, with perforation (principal)
CPT/HCPCS: 87338

== ENCOUNTER 2024-11-16 05:42 | Day surgery (SDC) | payer MEDICARE, SELFPAY ==
[2024-11-16 06:16] VITALS: BP 131/71; PULSE 89; RESP 16; TEMP 36.5; O2SAT 97
[2024-11-16] MEDS: Lactated Ringers 1,000 ML 80 ML IV (06:35)
--- NOTE | 2024-11-16 07:19 | ANES.PREOP_ITS ---
General Info Date of Service Date Performed: 11/16/24 Height: 6 ft 1 in Weight: 122 kg Body Mass Index (BMI): 35.4 Surgical Procedure: Operation Date: 11/16/24 07:35 Proposed Procedure Side Surgeon p Gastroscopy Beulah Tenorio MD Actual Procedure Side Surgeon p Gastroscopy Not Applicable Beulah Tenorio MD Pre-Op Diagnosis Post-Op Diagnosis gastritis & duodenitis Meds Allergies and Home Medications Allergies Allergy/AdvReac Type Severity Reaction Status Date / Time simvastatin AdvReac Mild Swelling Verified 11/16/24 06:29 of mouth and feet Home Medication ?Medication ?Instructions ?Recorded acetaminophen 500 mg tablet 500 mg PO Q6H PRN PRN #0 tabs 05/26/18 blood sugar diagnostic (Blood #100 ea 03/26/19 Glucose Test strips) lancets #300 ea 03/26/19 blood-glucose meter #1 ea 03/27/19 pen needle, diabetic 32 gauge x #200 ea 03/27/19 (BD Ultra-Fine Ludy Pen Needle) aspirin 81 mg tablet 81 mg PO DAILY 04/23/22 multivitamin with minerals-iron 15 ml PO DAILY 04/23/22 fumarate 9 mg iron/15 mL oral liquid (Multi Vitamin) quetiapine 50 mg tablet 200 mg (4 x 50 mg) PO QHS #360 tabs 08/15/23 canagliflozin 300 mg tablet 300 mg PO DAILY #90 tab-caps 10/31/23 (Invokana) fenofibrate nanocrystallized 145 145 mg PO DAILY #90 tab-caps 11/28/23 mg tablet (Tricor) venlafaxine 150 mg 150 mg PO DAILY #90 tab-caps 11/28/23 capsule,extended release 24 hr amoxicillin 500 mg capsule 2,000 mg (4 x 500 mg) PO ONCE #4 12/26/23 caps lisinopril 5 mg tablet 5 mg PO DAILY #90 tabs 01/18/24 tamsulosin 0.4 mg capsule 0.4 mg PO DAILY #90 caps 01/23/24 levothyroxine 50 mcg tablet 50 mcg PO DAILY #90 tabs 03/05/24 fluoride (sodium) 1.1 % dental gel 1 applic dental DAILY #56 grams 06/29/24 sumatriptan succinate 50 mg tablet See Rx Instructions PO .COMPLEX 07/25/24 #30 tabs dulaglutide 1.5 mg/0.5 mL 1.5 mg (0.5 mL) subcut QWEEK #2 mL 08/27/24 subcutaneous pen injector (Trulicity) sildenafil 100 mg tablet 100 mg PO DAILY PRN sexual 09/21/24 activity #10 tabs metformin 1,000 mg tablet 1,000 mg PO BID #180 tab-caps 09/24/24 clonazepam 1 mg tablet 1 mg PO BID PRN anxiety #56 tabs 10/29/24 pantoprazole 40 mg tablet,delayed 40 mg PO DAILY #30 tabs 11/06/24 release Current Visit Medications: Current Medications Generic Name Dose Route Start Last Admin Trade Name Darenq PRN Reason Stop Dose Admin Ringer's Solution 1,000 mls @ 80 mls/hr 11/16/24 06:00 11/16/24 06:35 IV 11/16/24 23:59 80 mls/hr INFUSION CAMPOS Administration IV Miscellaneous Supplies 1 each 11/16/24 06:00 Iv Access IV 11/16/24 23:59 DIRECTED CAMPOS Sodium Chloride 0 ml 11/16/24 06:00 Normal Saline Flush 10 Ml Syr IV 11/16/24 23:59 PRN PRN Sodium Chloride 0 ml 11/16/24 06:00 Normal Saline 10 Ml Vial IJ 11/16/24 23:59 DIRECTED PRN Sterile Water 0 ml 11/16/24 06:00 Water,Injection,Sterile 10 Ml Vial IJ 11/16/24 23:59 DIRECTED PRN PFSH Active Problems Active Problems: Problem Status Onset Code Gastritis and duodenitis Acute K29.90 Perforated ulcer Acute K27.5 S/P TAVR (transcatheter aortic valve replacement) Acute Z95.2 Hypothyroidism Chronic E03.9 Throat cancer Acute C14.0 Shortness of breath Acute R06.02 Hypercholesteremia Acute E78.00 Tongue ulcer Acute K14.0 Glossodynia Acute K14.6 Fatigue Acute R53.83 Tinnitus Acute H93.19 Diabetic retinopathy Acute ~11/23/19 E11.319 Pulsatile tinnitus of both ears Acute H93.A3 Dizziness Acute R42 Tongue lesion Acute K14.8 Hx of dizziness Acute Z87.898 Smoker Acute F17.200 Diabetes mellitus Chronic E11.9 Hepatic steatosis Chronic K76.0 Anastomotic stricture of colorectal region Acute K91.30 Constipation Acute K59.00 Ventral hernia Chronic K43.9 Obesity Acute 0808/17 E66.9 Microalbuminuria Chronic 06/20/17 R80.9 Male erectile dysfunction, unspecified Chronic 04/08/17 N52.9 Colovesical fistula Acute 10/18/17 N32.1 Antisocial personality disorder Acute F60.2 Adult antisocial behavior Chronic HLD (hyperlipidemia) Chronic Diverticulitis Resolved Major depressive disorder Chronic Intraoperative ureteral injury Acute N99.81 Medical History Medical History Anemia Squamous cell cancer of tongue Aortic valve stenosis, moderate 02/21/2019 echo --> repeat echo 1-2 years Colon abnormality (10/13/18) 10/13/18 Dr Manish Garcia ([facility]), unable to advance scope due to bienvenido protruding into colon, [place] [facility] [place] [facility] YUDI (acute kidney injury) Essential hypertension (04/08/17) Diverticulitis (10/18/17) Left ureteral injury Delayed surgical wound healing Current visit yes Anxiety Surgical History Surgical History History of colostomy reversal H/O ureter repair H/O resection of large bowel 05/23/18 Dr Diaz Cystoscopy (04/20/18) W/ (L) retrograde pyelogram. Dr. Strickland Colectomy (01/17/18) sigmoid colectomy 05/23/18 - revision Appendectomy (03/16/18) Pt. denies S/P closure of ileostomy Tobacco Smoking/Tobacco Use Status: Current every day Tobacco Type: cigarettes Passive smoking exposure: Yes Second hand exposure: No Alcohol Alcohol Intake: former Year quit: 1994 Substance Use Substance use: Rarely Substance use type: marijuana Details: denies smoking today Vital Signs and Lab Results Vital Signs Most Recent Vital Signs in EMR: Most Recent Vital Signs Temp Pulse Resp BP Pulse Ox 36.5 C 89 16 131/71 97 11/16/24 06:16 11/16/24 06:16 11/16/24 06:16 11/16/24 06:16 11/16/24 06:16 Point of Care Results Point of Care Results: Finger Stick Blood Glucose 145 11/16/24 06:21 Lab Results Blood Type / Crossmatch: No Data to Display Complete Blood Count: White Blood Count 8.72 10^3/uL (4.4-10.8) 11/08/24 12:31 Red Blood Count 4.75 10^6/uL (4.36-5.78) 11/08/24 12:31 Hemoglobin 14.1 g/dL (13.5-17.5) 11/08/24 12:31 Hematocrit 42.2 % (40.0-50.0) 11/08/24 12:31 Platelet Count 382 10^3/uL (130-400) 11/08/24 12:31 Venous Blood Lactate 1.2 mmol/L (<or=2.0) 11/06/24 11:03 Complete Metabolic Panel: Sodium 142 mmol/L (136-145) 11/08/24 12:31 Potassium 4.3 mmol/L (3.5-5.1) 11/08/24 12: Chloride 105 mmol/L (98-107) 11/08/24 12:31 Carbon Dioxide 26.5 mmol/L (21.0-32.0) 11/08/24 12:31 BUN 18 mg/dL (7-18) 11/08/24 12:31 Creatinine 1.1 mg/dL (0.70-1.30) 11/08/24 12:31 Est GFR (CKD-EPI 2020) 78.30 (mL/min/1.73m2) 11/08/24 12:31 Magnesium 1.8 mg/dL (1.8-2.4) 11/06/24 11:03 Calcium 10.1 mg/dL (8.5-10.1) 11/08/24 12:31 Albumin 3.8 g/dL (3.4-5.0) 11/06/24 11:03 Glucose 104 mg/dL (74-106) 11/08/24 12:31 Liver Function Panel: Alanine Aminotransferase (ALT/SGPT) 25 U/L (16-63) 11/06/24 11: 03 Aspartate Amino Transf (AST/SGOT) 11 U/L (15-37) L 11/06/24 11: 03 Coagulation Panel: No Data to Display Cardiac Panel: No Data to Display Arterial Blood Gas: No Data to Display Venous Blood Gas: No Data to Display Pancreas Panel: Lipase 38 U/L (<78) 11/06/24 11:03 Thyroid Panel: No Data to Display Infectious Disease: Coronavirus (COVID-19)(PCR) Negative (Negative) 11/06/24 11:22 Coronavirus 2019 Source Nasopharynx 11/06/24 11:22 Influenza Virus Type A (PCR) Negative (Negative) 11/06/24 11:2 2 Influenza Virus Type B (PCR) Negative (Negative) 11/06/24 11:2 2 Respiratory Syncytial Virus (PCR) Negative (Negative) 11/06/24 11:22 Blood Cultures: No Data to Display Toxicology Panel: No Data to Display Anesthesia Assessment and Plan Anesthesia History Personal History: No History of Anesthesia Complications Family History: No Family History of Anesthesia Complications Exercise Tolerance Exercise Tolerance: Metabolic Equivalents>4 Pertinent Negatives Pertinent Negatives: No Symptoms of GERD Cardiac & Pulmonary Exam Cardiac Exam: Normal S1/S2 Heart Sounds Pulmonary Exam: Clear Bilateral Breath Sounds Implantable Cardiac Device Does patient have a Pacemaker or an ICD?: No Airway Exam Known Difficult Airway: No Mallampati Class: 2 Mouth Opening: Normal (> 3cm) Thyromental Distance: Less than 3 cm Neck Range of Motion: Full ROM Neck Circumference: Normal Teeth Condition: Normal Dentition ASA Classification ASA Score: ASA 3 Emergency Case?: No NPO Status NPO Status: NPO Clears >2 hours, Solids >8 hours Anesthesia Plan Resuscitation Status: Full Code Anesthesia Technique: General Anesthesia Airway Planned: Natural Airway Monitors Used: Standard Monitors
[2024-11-16 07:23] VITALS: BMI 35.4
--- NOTE | 2024-11-16 07:55 | W.PM.ENDDOP ---
Date of service: 11/16/24 Time of Service: 07:55 Endoscopy Report DATE OF PROCEDURE: 11/16/24 PRE-OP DIAGNOSIS: Epigastric pain suspicious for peptic ulcer disease POST-OP DIAGNOSIS: same PROCEDURE: Upper GI endoscopy with biopsies, SURGEON: Beulah Tenorio ANESTHESIA TYPE: General:No Airway ESTIMATED BLOOD LOSS: 0 PATHOLOGY: other (Plain biopsies duodenal polyp and antrum around ulcers..) COMPLICATIONS: None DISPOSITION: PACU INDICATIONS: Patient presented with abdominal pain to the emergency room had a CT scan. Consistent with severe peptic ulcer disease, possible perforation. Patient was treated with oral antibiotics and Protonix with good response. FINDINGS: 1 large and 1 small prepyloric ulcer. 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 PROCEDURE DESCRIPTION: After the risks, benefits, and alternatives of the procedure were thoroughly explained, informed consent was obtained. The Patient is brought to the procedure room and time out is performed confirming patient identity, nature of procedure. Patient is connected to monitoring devices including O2 sat, EKG and given supplemental oxygen per anesthesia. After appropriate anesthetic is obtained, patient is placed in the left lateral decubitus position immediately. The upper endoscope is inserted under direct vision and guided to the third portion of the duodenum. The endoscope is then slowly withdrawn , inspecting all aspects of the mucosa completely. Biopsies are taken findings and any associated intervention, are noted above. Biopsies are taken as described above utilizing a plain biopsy forceps. Retroflexion maneuver was performed in the stomach to view the gastric cardia and fundus. The endoscope was then completely withdrawn from the patient and the procedure terminated. The patient tolerated the procedure well and is transferred back to the Day surgery unit in stable condition.
[2024-11-16 07:57] VITALS: BP 111/62; PULSE 84; RESP 18; TEMP 36.1; O2SAT 96
--- NOTE | 2024-11-16 08:29 | W.ANESPOSTOP ---
Postoperative Evaluation Date, Time and Location Date Performed: 11/16/24 Time Performed: 08:15 Patient Location: Day Surgery Unit Vital Signs Most Recent Imported Vital Signs: Most Recent Vital Signs Temp Pulse Resp BP Pulse Ox 36.1 C L 84 18 111/62 96 11/16/24 07:57 11/16/24 07:57 11/16/24 07:57 11/16/24 07:57 11/16/24 07:57 Pain Score Most Recent Pain Score: Most Recent Pain Score Pain Level 0 11/16/24 07:57 Assessment Mental Status: Awake (Alert & Oriented to Patient Baseline) Airway and Respiratory Function: Patent airway with normal (patient baseline) respiratory exam Cardiovascular Function: Hemodynamically Stable Hydration Status: Adequately Hydrated Nausea & Vomiting: No Nausea or Vomiting Pain: Pt. Denies Any Pain Peripheral Nerve Block: Patient did not receive a nerve block
[2024-11-16 09:20] VITALS: BP 115/72; PULSE 84; RESP 16; TEMP 36.1; O2SAT 97
== END 2024-11-16 08:45 | disposition home or self-care (01) ==
PROVIDERS: PCP Nurse Practitioner Family; Visit Provider Surgery
PROC: 0DJ68ZZ Inspection of Stomach, Via Natural or Artificial Opening Endoscopic (ICD-10-PCS; CPT 43235; principal; 2024-11-16 07:30)
DX: R10.13 Epigastric pain; K27.9 Peptic ulcer, site unspecified, unspecified as acute or chronic, without hemorrhage or perforation; K31.9 Disease of stomach and duodenum, unspecified
CPT/HCPCS: 43239; 88305; 88361; J2003; J2704

== ENCOUNTER 2024-11-20 01:40 | Outpatient (CLI) | payer MEDICARE, SELFPAY ==
--- NOTE | 2024-11-20 | DI.CT_ITS ---
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 Computer aided detection (CAD) was utilized. CONTRAST MATERIAL: Intravenous: Omnipaque 350Contrast volume:70 mL. COMPARISON: CT CT CHEST W from 01/20/2024 FINDINGS: Tracheobronchial tree: Patent where visualized. No evidence of bronchiectasis. Pulmonary parenchyma: There is a calcified granuloma again seen in the left lower lobe. No noncalcif ied pulmonary nodules are present. There is an infiltrate seen in the left lower lobe posteriorly. The lungs are otherwise clear. Mediastinum and Cass: No dominant adenopathy or fluid collection. The esophagus is unremarkable. Thyroid gland: Unremarkable. Pleura: No effusion or pneumothorax. Heart: The heart is not dilated. Two vessel coronary artery calcification is present. There is a TAV R. Incidental note is made of fatty infiltration of the interatrial septum. No pericardial effusion . Aorta: Thoracic aorta non-dilated. Atherosclerotic calcification is seen. No evidence of a dissectio n. Pulmonary arteries: No pulmonary emboli are identified. Upper abdomen: There is decreased attenuation of the liver suggesting fatty infiltration. Lymph nodes: Within normal limits. Bones: Within normal limits for the patient's age. Soft tissues: Unremarkable. IMPRESSION: 1. Stable left lower lobe calcified granuloma. 2. No new noncalcified pulmonary nodules. 3. Interval development of a left lower lobe infiltrate. This may be infectious. Please correlate c linically. Follow-up CT scan to document complete resolution is recommended in this patient. Unexpected findings RADIATION DOSE DELIVERED: 232.52mGy.cm Total DLP DATA REPOSITORY: All CT scans at this facility are submitted to the National Radiology Data Registry (NRDR) Dose Index Registry (DIR) with the [employer] (ACR). RADIATION OPTIMIZATION: All CT scans at this facility use at least one of these dose optimization te chniques: automated exposure control; mA and/or kV adjustment per patient size (includes targeted exa ms where dose is matched to clinical indication); or iterative reconstruction.
[2024-11-20 13:38] LABS: Estimated GFR 87.78 (mL/min/1.73m2)
[2024-11-20] MEDS: Omnipaque 350 MG/ML 100 ML BTL 70 ML IJ (14:02)
[2024-11-20] MEDS: Normal Saline - Diluent 50 ML VIAL IJ (14:05)
== END 2024-11-20 02:00 ==
LOC: DI 01:41
PROVIDERS: PCP Nurse Practitioner Family; Visit Provider Nurse Practitioner
DX: C32.1 Malignant neoplasm of supraglottis (principal); R91.1 Solitary pulmonary nodule
CPT/HCPCS: 71260; 82565; J3490

== ENCOUNTER → 2024-12-27 09:40 | Outpatient (BNVA) | payer MEDICARE, SELFPAY | PROVIDERS: PCP Nurse Practitioner Family; Referring Provider Nurse Practitioner Family; Visit Provider Surgery | DX: Z09 Encounter for follow-up examination after completed treatment for conditions other than malignant neoplasm (principal); Z87.11 Personal history of peptic ulcer disease | CPT/HCPCS: 99213 ==

== ENCOUNTER 2025-01-07 09:32 | Day surgery (SDC) | payer MEDICARE, SELFPAY ==
--- NOTE | 2025-01-06 18:06 | ENDO_ITS ---
Date of service: 01/07/25 Time of Service: 12:01 Endoscopy Report DATE OF PROCEDURE: 01/07/25 PRE-OP DIAGNOSIS: complicated peptic ulcer disease POST-OP DIAGNOSIS: same PROCEDURE: EGD with biopsies SURGEON: Dawood Fishman ANESTHESIA TYPE: General:No Airway ESTIMATED BLOOD LOSS: 5 PATHOLOGY: other (Cold forceps biopsies of gastric ulcer #1, gastric ulcer #2) COMPLICATIONS: None DISPOSITION: same day INDICATIONS: Koko is a 59 year old man with a perforaed peptic ulcer. He is undergoing repeat EGD to confirm healing of that ulcer and repeat biopsies to rule out malignancy PROCEDURE START TIME: : PROCEDURE END TIME: :53 FINDINGS: Healing gastric ulcers x 2 in the gastric antrum PROCEDURE DESCRIPTION: After the initiation of anesthesia, and with the assistance of a bite block, I advanced a standard gastroscope through the mouth past the hypopharynx and into the esophagus.? Under the direct vision of the scope, I advanced down the esophagus towards the stomach.? The upper, mid, and lower esophagus were normal and healthy appearing. The Z-line and GE junction were encountered around 45 cm from the incisors. There is very mild irregularity of the Z-line. Narrowband imaging was used to assist with the analysis. There was no clinical features concerning for Maldonado's esophagus. I advanced down into the stomach proper, and insufflated into the rugae were obliterated. I performed retroflexion. I did not see any signs of any hiatal herniation. I advanced down along the gastric cardia into the body and towards the gastric antrum. There was minimal evidence of inflammation here. There was no ulceration of any of the upper portion of the stomach. As I brought the camera down around the incisura angularis towards the pylorus, there was evidence of 2 ulcers. The smaller of these ulcers was designated as ulcer #1, and appears on the anterior border. The larger of the ulcers was designated as ulcer #2, it is on the posterior border. There is very minimal narrowing of the gastric antrum in the prepyloric region secondary to this. Both of these ulcers are shallow-based, and appear to be well-healing. I do not see any visible vessels. The edges were relatively flat. I advanced down through the pylorus into the duodenum with ease. The du odenal mucosa was normal. I then brought the camera back up to the ulcerated areas, perform cold forceps biopsies along the periphery of the ulcers. There was minimal bleeding from the biopsy sites. I then emptied the stomach completely, and brought the camera out along the length of the esophagus 1 last time. No other abnormalities were appreciated.
--- NOTE | 2025-01-06 18:08 | PDOC.DSDIS_ITS ---
Date of service: 01/07/25 Discharge Plan Disposition Patient Disposition: Home Condition: Good Discharge Details Reason For Visit: EGD Attending Provider: Dawood Fishman Primary Care Provider: Michael Turpin Home Meds and New Rx's Prescriptions: Continued (DME) lancets misc See Dose Instructions .ROUTE .MEDSUPPLY Qty: 300 3RF Dose Instruction: As directed Rx Instructions: As directed to check blood glucose TID (DME) Blood Glucose Test strip See Dose Instructions .ROUTE .MEDSUPPLY Qty: 100 3RF Dose Instruction: As directed to check daily morning fasting blood glucose. No insulin. Rx Instructions: As directed to check daily morning fasting blood glucose. On insulin. Invokana 300 mg tablet 300 mg PO DAILY Qty: 90 3RF fenofibrate nanocrystallized [Tricor] 145 mg tablet 145 mg PO DAILY Qty: 90 3RF venlafaxine 150 mg capsule,extended release 24hr 150 mg PO DAILY Qty: 90 3RF (DME) pen needle, diabetic [BD Ultra-Fine Ludy Pen Needle] 32 gauge x 5/32 needle See Dose Instructions .ROUTE .MEDSUPPLY Qty: 200 3RF Dose Instruction: Daily with Liraglutide Rx Instructions: BID with Lantus (DME) blood-glucose meter kit See Dose Instructions .ROUTE .MEDSUPPLY Qty: 1 0RF Dose Instruction: As directed Rx Instructions: As directed, to keep HbA1c below 6.5% amoxicillin 500 mg capsule 2,000 mg PO ONCE Qty: 4 0RF Rx Instructions: Take one hour prior to procedure. lisinopril 5 mg tablet 5 mg PO DAILY Qty: 90 3RF Rx Instructions: TO PROTECT KIDNEYS tamsulosin 0.4 mg capsule 0.4 mg PO DAILY Qty: 90 3RF levothyroxine 50 mcg tablet 50 mcg PO DAILY Qty: 90 3RF fluoride (sodium) 1.1 % gel 1 applic dental DAILY Qty: 56 3RF sumatriptan succinate 50 mg tablet See Rx Instructions PO .COMPLEX Qty: 30 0RF Rx Instructions: take 1 tab at onset of headache; if no relief may repeat 1 tab after at least 2 hrs; max = 4 tabs/24 hr PO Trulicity 1.5 mg/0.5 mL pen injector 1.5 mg subcut QWEEK Qty: 2 3RF sildenafil 100 mg tablet 100 mg PO DAILY PRN (Reason: sexual activity) Qty: 10 3RF Rx Instructions: administer 30 minutes to 4 hours before activity metformin 1,000 mg tablet 1,000 mg PO BID Qty: 180 3RF clonazepam 1 mg tablet 1 mg PO BID PRN (Reason: anxiety) Qty: 56 3RF quetiapine 50 mg tablet 200 mg PO QHS Qty: 360 3RF Rx Instructions: NEW DOSE. 50mg PO in AM and 150mg PO at HS. aspirin 81 mg Tablet 81 mg PO DAILY Multi Vitamin 9 mg iron/15 mL Liquid 15 ml PO DAILY pantoprazole [Protonix] 40 mg tablet,delayed release (DR/EC) 40 mg PO DAILY Qty: 30 5RF acetaminophen 500 MG tablet 500 mg PO Q6H PRN PRNQty: 0 0RF Patient Comments: patient states a couple of days ago Discharge Instructions Instructions: Peptic ulcers Additional Instructions: Koko was good seeing you today, I hope you are comfortable through the procedure in the make a quick and uneventful recovery at home. I was able to see the areas of ulceration that were documented on the previous EGD. Although I was not personally present during your previous EGD, I would suspect that these are in the process of healing. Although none of the features were particularly concerning to the naked eye with regards to cancers, as we discussed before hand, I did do several biopsies of each of the ulcer sites to help rule that out. Those results will take about a week or 2 to get back, but as we talked about beforehand, I will certainly let you know once I have those results. At this point, I think keeping you on proton pump inhibitor therapy with Protonix is probably the safest course of action. Based on the appearance of these, as well as some of your other comorbidities, I would not feel comfortable completely stopping acid suppression at this point. Let me see what the biopsy results are before we make any other decisions. Again, soon as I have that i nformation I will let you know. If you need anything else in the meantime, please do not hesitate to call. 1. If tolerated, consume a soft, low fiber diet for 1-2 days. 2[address] Do not drive, drink alcohol, operate machinery, make critical decisions, or do activities that require coordination or balance for 24 hours. 3. You may experience a sore throat for 24 to 48 hours. You may use throat lozenges or gargle with warm salt water to relieve the discomfort. 4. Because air was put into your stomach during the procedure, you may experience some belching. 5. Go directly to the emergency room if you notice any of the following: Develop chills (warm to touch), or if you have a thermometer and your temperature is above 101 Difficulty breathing or difficultly swallowing Persistent vomiting Severe abdominal pain, other than gas cramps Severe chest pain Black, tarry stools Any bleeding ? exceeding one tablespoon 6. Call your physician if the site where your intravenous was started becomes re d, swollen, painful, and warm to touch. 7. Your physician has reviewed your pre-procedure medications. Please continue to take those medications as previously ordered. You will be given specific information/education regarding any changes to your medications before leaving. Stand Alone Forms: Anesthesia Discharge InstYovani Starr (DSU) Activity:: Activity as Tolerated Diet:: As Tolerated Discharge Orders Discharge Orders: Discharge Order (Routine); Ordered 01/06/25 Ordered By: Dawood Fishman DS: Diagnosis Discharge Diagnosis (1) Peptic ulcer disease: Status: Chronic Asessment and Plan: Follow-up on biopsy results
[2025-01-07 10:33] VITALS: BP 113/60; PULSE 89; RESP 22; TEMP 36.2; O2SAT 97
[2025-01-07] MEDS: Lactated Ringers 1,000 ML 80 ML IV (10:55)
--- NOTE | 2025-01-07 11:25 | W.ANESPRE ---
General Info Date of Service Date Performed: 01/07/25 Height: 6 ft 1 in Weight: 127.1 kg Body Mass Index (BMI): 36.9 Surgical Procedure: Operation Date: 01/07/25 11:20 Proposed Procedure Side Surgeon p Gastroscopy Dawood Fishman MD Meds Allergies and Home Medications Allergies Allergy/AdvReac Type Severity Reaction Status Date / Time simvastatin AdvReac Mild Swelling Verified 01/07/25 10:38 of mouth and feet Home Medication ?Medication ?Instructions ?Recorded acetaminophen 500 mg tablet 500 mg PO Q6H PRN PRN #0 tabs 05/26/18 blood sugar diagnostic (Blood #100 ea 03/26/19 Glucose Test strips) lancets #300 ea 03/26/19 blood-glucose meter #1 ea 03/27/19 pen needle, diabetic 32 gauge x #200 ea 03/27/19 (BD Ultra-Fine Ludy Pen Needle) aspirin 81 mg tablet 81 mg PO DAILY 04/23/22 multivitamin with minerals-iron 15 ml PO DAILY 04/23/22 fumarate 9 mg iron/15 mL oral liquid (Multi Vitamin) amoxicillin 500 mg capsule 2,000 mg (4 x 500 mg) PO ONCE #4 12/26/23 caps lisinopril 5 mg tablet 5 mg PO DAILY #90 tabs 01/18/24 tamsulosin 0.4 mg capsule 0.4 mg PO DAILY #90 caps 01/23/24 levothyroxine 50 mcg tablet 50 mcg PO DAILY #90 tabs 03/05/24 fluoride (sodium) 1.1 % dental gel 1 applic dental DAILY #56 grams 06/29/24 sumatriptan succinate 50 mg tablet See Rx Instructions PO .COMPLEX 07/25/24 #30 tabs dulaglutide 1.5 mg/0.5 mL 1.5 mg (0.5 mL) subcut QWEEK #2 mL 08/27/24 subcutaneous pen injector (Trulicity) sildenafil 100 mg tablet 100 mg PO DAILY PRN sexual 09/21/24 activity #10 tabs metformin 1,000 mg tablet 1,000 mg PO BID #180 tab-caps 09/24/24 clonazepam 1 mg tablet 1 mg PO BID PRN anxiety #56 tabs 10/29/24 pantoprazole 40 mg tablet,delayed 40 mg PO DAILY #30 tabs 11/16/24 release (Protonix) canagliflozin 300 mg tablet 300 mg PO DAILY #90 tab-caps 11/19/24 (Invokana) fenofibrate nanocrystallized 145 145 mg PO DAILY #90 tab-caps 11/19/24 mg tablet (Tricor) venlafaxine 150 mg 150 mg PO DAILY #90 tab-caps 11/19/24 capsule,extended release 24 hr quetiapine 50 mg tablet 200 mg (4 x 50 mg) PO QHS #360 tabs 12/17/24 Current Visit Medications: Current Medications Generic Name Dose Route Start Last Admin Trade Name Freq PRN Reason Stop Dose Admin Ringer's Solution 1,000 mls @ 80 mls/hr 01/07/25 06:00 01/07/25 10:55 IV 01/07/25 23:59 80 mls/hr INFUSION CAMPOS Administration IV Miscellaneous Supplies 1 each 01/07/25 06:00 Iv Access IV 01/07/25 23:59 DIRECTED CAMPOS Ondansetron HCl 4 mg 01/06/25 18:10 Ondansetron 4 Mg/2 Ml Vial IVP 02/05/25 18:09 Q4H PRN PRN Nausea / Vomiting Sodium Chloride 0 ml 01/07/25 06:00 Normal Saline Flush 10 Ml Syr IV 01/07/25 23:59 PRN PRN Sodium Chloride 0 ml 01/07/25 06:00 Normal Saline 10 Ml Vial IJ 01/07/25 23:59 DIRECTED PRN Sterile Water 0 ml 01/07/25 06:00 Water,Injection,Sterile 10 Ml Vial IJ 01/07/25 23:59 DIRECTED PRN PFSH Active Problems Active Problems: Problem Status Onset Code Peptic ulcer disease Chronic K27.9 Gastritis and duodenitis Acute K29.90 S/P TAVR (transcatheter aortic valve replacement) Acute Z95.2 Hypothyroidism Chronic E03.9 Throat cancer Acute C14.0 Shortness of breath Acute R06.02 Hypercholesteremia Acute E78.00 Tongue ulcer Acute K14.0 Glossodynia Acute K14.6 Fatigue Acute R53.83 Tinnitus Acute H93.19 Diabetic retinopathy Acute ~11/23/20 E11.319 Pulsatile tinnitus of both ears Acute H93.A3 Dizziness Acute R42 Tongue lesion Acute K14.8 Hx of dizziness Acute Z87.898 Smoker Acute F17.200 Diabetes mellitus Chronic E11.9 Hepatic steatosis Chronic K76.0 Anastomotic stricture of colorectal region Acute K91.30 Constipation Acute K59.00 Ventral hernia Chronic K43.9 Obesity Acute 05/03/17 E66.9 Microalbuminuria Chronic 06/20/17 R80.9 Male erectile dysfunction, unspecified Chronic 04/08/17 N52.9 Colovesical fistula Acute 10/18/17 N32.1 Antisocial personality disorder Acute F60.2 Adult antisocial behavior Chronic HLD (hyperlipidemia) Chronic Diverticulitis Resolved Major depressive disorder Chronic Intraoperative ureteral injury Acute N99.81 Medical History Medical History Anemia 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 YUDI (acute kidney injury) Essential hypertension (04/08/17) Diverticulitis (10/18/17) Left ureteral injury Delayed surgical wound healing Current visit yes Anxiety Surgical History Surgical History History of esophagogastroduodenoscopy (~10/2024) History of colostomy reversal H/O ureter repair H/O resection of large bowel 05/23/18 Dr Diaz Cystoscopy (04/20/18) W/ (L) retrograde pyelogram. Dr. Strickland Colectomy (01/17/18) sigmoid colectomy 05/23/18 - revision Appendectomy (03/16/18) Pt. denies S/P closure of ileostomy Tobacco Smoking/Tobacco Use Status: Current every day Tobacco Type: cigarettes Passive smoking exposure: Yes Second hand exposure: No Alcohol Alcohol Intake: former Year quit: 1994 Substance Use Substance use: Daily Substance use type: marijuana Vital Signs and Lab Results Vital Signs Most Recent Vital Signs in EMR: Most Recent Vital Signs Temp Pulse Resp BP Pulse Ox 36.2 C L 89 22 113/60 97 01/07/25 10:33 01/07/25 10:33 01/07/25 10:33 01/07/25 10:33 01/07/25 10:33 Point of Care Results Point of Care Results: Finger Stick Blood Glucose 113 01/07/25 10:19 Lab Results Blood Type / Crossmatch: No Data to Display Complete Blood Count: No Data to Display Complete Metabolic Panel: No Data to Display Liver Function Panel: No Data to Display Coagulation Panel: No Data to Display Cardiac Panel: No Data to Display Arterial Blood Gas: No Data to Display Venous Blood Gas: No Data to Display Pancreas Panel: No Data to Display Thyroid Panel: No Data to Display Infectious Disease: No Data to Display Blood Cultures: No Data to Display Toxicology Panel: No Data to Display Imaging and Studies Imaging and Studies Study information below may be from another EMR and interpreted by another provider. Please see original notes in EMR for more complete details. EKG Summary: Conclusion Sinus rhythm...normal P axis, V-rate 50- 99 Probable left atrial enlargement...P >50mS, <-0.10mV V1 RSR prime V1 and V2 Nondiagnostic ST abnormalities Echocardiogram Summary: Conclusion Moderate concentric left ventricular hypertrophy. EF biplane is 58%. Visually EF appears 60 to 65% with normal wall motion Normal right ventricular size and function Both atria are normal in size There is a transcatheter aortic valve replacement. Mean gradient is 15 mmHg. There is no aortic regurgitation Estimated right ventricular systolic pressure is 28 mmHg Anesthesia Assessment and Plan Anesthesia History Personal History: No History of Anesthesia Complications Family History: No Family History of Anesthesia Complications Exercise Tolerance Exercise Tolerance: Metabolic Equivalents>4 Pertinent Negatives Pertinent Negatives: No Symptoms of GERD Cardiac & Pulmonary Exam Cardiac Exam: Normal S1/S2 Heart Sounds Pulmonary Exam: Clear Bilateral Breath Sounds Implantable Cardiac Device Does patient have a Pacemaker or an ICD?: No Airway Exam Known Difficult Airway: No Mallampati Class: 2 Mouth Opening: Normal (> 3cm) Thyromental Distance: Less than 3 cm Neck Range of Motion: Full ROM Neck Circumference: Normal Teeth Condition: Normal Dentition ASA Classification ASA Score: ASA 3 Emergency Case?: No NPO Status NPO Status: NPO Clears >2 hours, Solids >8 hours Anesthesia Plan Resuscitation Status: Full Code Anesthesia Technique: General Anesthesia Airway Planned: Natural Airway Monitors Used: Standard Monitors
[2025-01-07 11:29] VITALS: BMI 36.9
--- NOTE | 2025-01-07 11:50 | STOM_PTH ---
PATIENT: Koko Ace JR LOC: [facility] U#:[id number] AGE/SX: 59/M ROOM: RE01/07/[address]: Dawood Fishman MD : 1965 BED: DIS: 01/07/2025 SPEC #: [id number] RECD: 01/07/25 13:09 STATUS: [facility] #: [id number] REED: 01/07/25 11:[address]: Dawood Fishman DEPT: Surgical Specimen RECD BY: Pearl Esparza ENTERED: 01/07/25 13:10 SP TYPE: STOMACH OTHR DR: Michael Turpin, POACHER OPERATOR Tissues: 1 - STOMACH BIOPSY 2 - STOMACH BIOPSY Procedures: GROSS AND MICRO LEVEL 4 Comments: [id number]
[2025-01-07 12:02] VITALS: BP 104/57; PULSE 82; RESP 18; TEMP 36; O2SAT 92
[2025-01-07 12:32] VITALS: BP 108/63; PULSE 76; RESP 18; TEMP 36.2; O2SAT 95
--- NOTE | 2025-01-07 13:55 | W.ANESPOSTOP ---
Postoperative Evaluation Date, Time and Location Date Performed: 01/07/25 Time Performed: 12:25 Patient Location: Day Surgery Unit Vital Signs Most Recent Imported Vital Signs: Most Recent Vital Signs Temp Pulse Resp BP Pulse Ox 36.2 C L 76 18 108/63 95 01/07/25 12:32 01/07/25 12:32 01/07/25 12:32 01/07/25 12:32 01/07/25 12:32 Pain Score Most Recent Pain Score: Most Recent Pain Score Pain Level 0 01/07/25 12:32 Assessment Mental Status: Awake (Alert & Oriented to Patient Baseline) Airway and Respiratory Function: Patent airway with normal (patient baseline) respiratory exam Cardiovascular Function: Hemodynamically Stable Hydration Status: Adequately Hydrated Nausea & Vomiting: No Nausea or Vomiting Pain: Pt. Denies Any Pain Peripheral Nerve Block: Patient did not receive a nerve block
== END 2025-01-07 12:38 | disposition home or self-care (01) ==
LOC: SUR 09:33
PROVIDERS: PCP Nurse Practitioner Family; Visit Provider Surgery
PROC: 0DJ68ZZ Inspection of Stomach, Via Natural or Artificial Opening Endoscopic (ICD-10-PCS; CPT 43235; principal; 2025-01-07 11:15)
DX: K25.3 Acute gastric ulcer without hemorrhage or perforation (principal); K31.9 Disease of stomach and duodenum, unspecified
CPT/HCPCS: 43239; 88305; J2003; J2704

== ENCOUNTER 2025-01-22 00:07 | Outpatient (CLI) | payer MEDICARE, SELFPAY ==
--- NOTE | 2025-01-22 | DI.CT_ITS ---
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 Computer aided detection (CAD) was utilized. CONTRAST MATERIAL: Intravenous: Omnipaque 350 Contrast volume:structured data ml. COMPARISON: CT CT CHEST W from 11/20/2024 FINDINGS: Pulmonary parenchyma: Clearing of previously noted left lower lobe infiltrate. Mild lingular atelect asis. No dominant measurable mass. Calcified granuloma left lower lobe. Tracheobronchial tree: No bronchiectasis or mucous plugging. Mediastinum and Cass: No dominant adenopathy or fluid collection. Pleura: No effusion. No pneumothorax. Heart: The heart is mildly dilated left atrium and left ventricle. Moderate coronary artery calcific ations are seen. No pericardial effusion. Aorta: TAVR. Atherosclerotic changes. Pulmonary arteries: No gross evidence of emboli. Upper abdomen: No acute findings. Fatty infiltration of the liver again noted. Bones: Degenerative changes in the spine. Soft tissues: Unremarkable. IMPRESSION: Clearing of previously noted left lower lobe infiltrate. No new abnormalities. RADIATION DOSE DELIVERED: 320mGy.cm Total DLP DATA REPOSITORY: All CT scans at this facility are submitted to the National Radiology Data Registry (NRDR) Dose Index Registry (DIR) with the [employer] ([employer]). RADIATION OPTIMIZATION: All CT scans at this facility use at least one of these dose optimization te chniques: automated exposure control; mA and/or kV adjustment per patient size (includes targeted exa ms where dose is matched to clinical indication); or iterative reconstruction.
[2025-01-22 11:06] LABS: CREATININE 0.9 mg/dL (0.70-1.30)
[2025-01-22] MEDS: Omnipaque 350 MG/ML 500 ML BTL-Imaging package IJ (11:21)
[2025-01-22] MEDS: Normal Saline - Diluent 50 ML VIAL IJ (11:22)
== END 2025-01-22 00:27 ==
LOC: DI 00:07
PROVIDERS: PCP Nurse Practitioner Family; Visit Provider Preventive Medicine Undersea and Hyperbaric Medicine
DX: C32.1 Malignant neoplasm of supraglottis (principal)
CPT/HCPCS: 71260; 82565

== ENCOUNTER → 2025-02-04 09:45 | Outpatient (BNVA) | payer MEDICARE, SELFPAY | PROVIDERS: PCP Nurse Practitioner Family; Visit Provider Nurse Practitioner Gerontology | DX: R39.9 Unspecified symptoms and signs involving the genitourinary system (principal); Z87.448 Personal history of other diseases of urinary system | CPT/HCPCS: 51798; 99213 ==

== ENCOUNTER 2025-06-06 10:43 | Outpatient (CLI) | payer MEDICARE, SELFPAY ==
[2025-06-06 11:40] LABS: Hemoglobin A1C 5.7 % (<5.7)
[2025-06-06 12:11] LABS: BUN 21 mg/dL (7-18); Calcium 9.4 mg/dL (8.5-10.1); Cholesterol 198 mg/dL (<200); Estimated GFR 99.00 (mL/min/1.73m2); Glucose 156 mg/dL (74-106); Triglyceride 279 mg/dL (<150)
[2025-06-06 12:12] LABS: ALT 36 U/L (16-63); AST 14 U/L (15-37); Alkaline Phosphatase 65 U/L (46-116); Anion Gap 8.7 mmol/L (3-11); Bilirubin, Total 0.2 mg/dL (0.2-1.0); CO2 28.3 mmol/L (21.0-32.0); Calculated LDL 113 mg/dL (<100); Chloride 103 mmol/L (98-107); HDL Cholesterol 30 mg/dL (>or=40); Potassium 4.1 mmol/L (3.5-5.1); Sodium 140 mmol/L (136-145); TSH (W/Ref FT4) 7.00 uIU/mL (0.36-3.74)
[2025-06-06 12:47] LABS: Albumin 3.9 g/dL (3.4-5.0); Total Protein 7.6 g/dL (6.4-8.2)
== END 2025-06-06 10:44 | disposition home or self-care (01) ==
LOC: LBO 10:44
PROVIDERS: PCP Nurse Practitioner Family; Visit Provider Nurse Practitioner Family
DX: Z13.6 Encounter for screening for cardiovascular disorders (principal); Z13.1 Encounter for screening for diabetes mellitus; E03.9 Hypothyroidism, unspecified; I10 Essential (primary) hypertension
CPT/HCPCS: 36415; 80053; 80061; 83036; 84439; 84443

== ENCOUNTER → 2025-07-02 10:24 | Outpatient (BNVA) | payer MEDICARE, SELFPAY | PROVIDERS: PCP Nurse Practitioner Family; Referring Provider Nurse Practitioner Family; Visit Provider Internal Medicine Cardiovascular Disease | DX: Z95.2 Presence of prosthetic heart valve (principal) | CPT/HCPCS: 99213 ==